=== PATIENT | female | born 1965 ===

== ENCOUNTER 2020-01-04 11:00 | Outpatient (REF) | payer OTHER, SELFPAY ==
[2020-01-04 11:30] VITALS: BMI 35.2
[2020-01-04 11:36] VITALS: BP 148/77; PULSE 91; RESP 16; TEMP 36.6; O2SAT 98
[2020-01-04 12:34] VITALS: BP 120/75; PULSE 91; RESP 16; O2SAT 96
--- NOTE | 2020-01-04 12:43 | OP_ITS ---
SURGEON: Vinod Montanez MD INDICATIONS: The patient is a 54-year-old female with note of a skin lesion in the left cheek measuring about 3 x 4 mm in diameter, slightly elevated in pigment, but with well-defined margins. She also had another similar-looking skin lesion on the right hip area about 1.4 cm x 1 cm in size, oval in shape, also with well-defined margins, slightly elevated and pigmented as well. Both of these resembled nevi.. She understood technique of excision and she was aware of the risks, benefits, and alternatives. PREOPERATIVE DIAGNOSIS: Skin lesion, left cheek; and skin lesion, right hip area. POSTOPERATIVE DIAGNOSIS: Skin lesion, left cheek; and skin lesion, right hip area. PROCEDURE PERFORMED: Excision of skin lesion, left cheek; and excision of skin lesion, right hip area. ESTIMATED BLOOD LOSS: COMPLICATIONS: ANESTHESIA: ASSISTANTS: SPECIMENS: DESCRIPTION OF PROCEDURE: She was brought to the minor procedure room and placed supine on the table. The area of the lesion on the left cheek was prepped and draped. Lidocaine 1% was used for local anesthesia. An elliptical incision was made around this skin lesion with margins of skin using blade #15, it was carried down to full-thickness skin and subcutaneous fat. We excised the entire skin lesion. This incision was made along the Cuauhtemoc's lines of the skin. I closed the incision with full-thickness nylon 5-0 interrupted sutures. Steri-Strips were then applied. The patient was placed in left lateral decubitus position. The area of the lesion on the right hip was prepped and draped. Lidocaine 1% was used for local anesthesia. An elliptical incision was made in the skin around this lesion using blade #15 with margins of normal skin. This was carried down to full-thickness skin and subcutaneous fat to excise the entire lesion. This was sent as specimen. I closed the incision with full-thickness nylon 3-0 interrupted sutures. Dressings were applied. She tolerated procedure well. There were no complications noted. She was given wound care instructions. She will be seen in the office for followup for removal of sutures. MD SHAHZAD Camarena/JENNIFER / [phone] UNITED HEALTH SERVICESMarjorie
== END 2020-01-04 11:01 | disposition home or self-care (01) ==
LOC: HO.MS 11:00
PROVIDERS: PCP Internal Medicine; Visit Provider Surgery
PROC: (CPT 11441; principal; 2020-01-04 12:30)
DX: L82.1 Other seborrheic keratosis (principal); L21.9 Seborrheic dermatitis, unspecified
CPT/HCPCS: 11441; 11402; 88305

== ENCOUNTER → 2020-01-16 10:41 | Outpatient (BNVA) | payer OTHER, SELFPAY | PROVIDERS: PCP Internal Medicine; Visit Provider Surgery | DX: Z09 Encounter for follow-up examination after completed treatment for conditions other than malignant neoplasm (principal); Z87.2 Personal history of diseases of the skin and subcutaneous tissue | CPT/HCPCS: 99212 ==

== ENCOUNTER → 2020-01-30 09:36 | Outpatient (BNVA) | payer OTHER, SELFPAY | PROVIDERS: PCP Internal Medicine; Referring Provider Internal Medicine; Visit Provider Nurse Practitioner | DX: R10.84 Generalized abdominal pain (principal); K21.9 Gastro-esophageal reflux disease without esophagitis; K90.89 Other intestinal malabsorption; Z83.71 Family history of colonic polyps | CPT/HCPCS: Q3014 ==

== ENCOUNTER 2020-02-20 13:13 | Outpatient (REF) | payer OTHER, SELFPAY | END 2020-02-20 13:14 | disposition home or self-care (01) | LOC: HO.LAB 13:13 | PROVIDERS: Visit Provider Internal Medicine | DX: Z20.828 Contact with and (suspected) exposure to other viral communicable diseases (principal) | CPT/HCPCS: C9803; U0003 ==

== ENCOUNTER → 2020-03-12 10:47 | Outpatient (BNVA) | payer OTHER, SELFPAY | PROVIDERS: PCP Internal Medicine; Visit Provider Nurse Practitioner | DX: Z13.89 Encounter for screening for other disorder (principal) | CPT/HCPCS: Q3014 ==

== ENCOUNTER → 2020-04-07 11:50 | Outpatient (BNVA) | payer OTHER, SELFPAY | PROVIDERS: PCP Internal Medicine; Visit Provider Nurse Practitioner ==

== ENCOUNTER → 2020-07-17 14:11 | Outpatient (BNVA) | payer OTHER, SELFPAY | PROVIDERS: PCP Internal Medicine; Visit Provider Nurse Practitioner | DX: Z13.89 Encounter for screening for other disorder (principal) | CPT/HCPCS: Q3014 ==

== ENCOUNTER → 2020-08-29 14:52 | Outpatient (BNVA) | payer OTHER, SELFPAY | PROVIDERS: PCP Internal Medicine; Visit Provider Nurse Practitioner ==

== ENCOUNTER 2020-10-13 08:48 | Outpatient (REF) | payer OTHER, SELFPAY ==
[2020-10-14 08:34] LABS: BV Int Neg Control Negative (Negative); BV Int Pos Control Positive (Positive)
== END 2020-10-13 08:49 | disposition home or self-care (01) ==
LOC: HO.LAB 08:48
PROVIDERS: PCP Internal Medicine; Visit Provider Advanced Practice Midwife
DX: Z01.411 Encounter for gynecological examination (general) (routine) with abnormal findings (principal); N89.8 Other specified noninflammatory disorders of vagina; R10.30 Lower abdominal pain, unspecified; R21 Rash and other nonspecific skin eruption; D22.9 Melanocytic nevi, unspecified
CPT/HCPCS: 87480; 87510; 87660

== ENCOUNTER 2020-11-26 07:23 | Outpatient (REF) | payer OTHER, SELFPAY ==
--- NOTE | 2020-11-26 07:46 | ECG_ITS ---
Test Reason : e78.5 Blood Pressure : / mmHG Vent. Rate : 062 BPM Atrial Rate : 062 BPM P-R Int : 138 ms QRS Dur : 086 ms QT Int : 450 ms P-R-T Axes : 047 033 002 degrees QTc Int : 456 ms Normal sinus rhythm Normal ECG No previous ECGs available Referred By: Demetrice Persno Electronically Signed By:LOU PALACIOS
[2020-11-26 08:17] LABS: MANUAL DIFF FLAG NO
[2020-11-26 08:36] LABS: Basophils Percent Auto 0.4 % (0-2); Eosinophils Absolute Auto 0.1 X10*3/uL (0.0-0.4); Eosinophils Percent Auto 1.6 % (0-4); Hematocrit 36.4 % (37-47); Hemoglobin 12.1 g/dl (12.0-16.0); Imm Gran Abs Auto 0.01 X10*3/uL (0.00-0.03); Imm Gran Pct Auto 0.2 % (0.0-0.4); Lymphocytes Absolute Auto 2.7 X10*3/uL (1.2-4.9); Lymphocytes Percent Auto 48.6 % (20-40); Mean Corpuscular HGB Conc 33.2 g/dl (31.0-35.0); Mean Corpuscular Hemoglobin 27.9 pg (27.0-33.0); Mean Corpuscular Volume 84.1 fL (80-98); Mean Platelet Volume 8.7 fL (9.4-12.3); Monocytes Absolute Auto 0.4 X10*3/uL (0.1-1.2); Monocytes Percent Auto 6.4 % (2-11); Neutrophils Absolute Auto 2.4 X10*3/uL (2.0-8.3); Neutrophils Percent Auto 42.8 % (45-73); Platelet Count 288 X10*3/uL (160-400); Red Blood Count 4.33 X10*6/uL (4.20-5.50); Red Cell Distribution Width 13.2 % (11.0-16.0); White Blood Count 5.6 X10*3/uL (4.8-10.8)
[2020-11-26 08:56] LABS: Alanine Aminotransferase 43 U/L (0-31); Albumin Level 4.3 g/dL (3.5-5.0); Alkaline Phosphatase 74 U/L (39-117); Anion Gap 12 (12-20); Aspartate Amino Transferase 33 U/L (5-31); Bilirubin Total 0.7 mg/dL (0.0-1.0); Blood Urea Nitrogen 11 mg/dL (9-16); Calcium 9.5 mg/dL (8.4-10.2); Carbon Dioxide 25 mmol/L (22-29); Chloride 110 mmol/L (96-108); Cholesterol 187 mg/dL; Estimated Glomerular Filt Rate > 60; Glucose Fasting 98 mg/dL (60-99); HDL Cholesterol 43 mg/dL; LDL Cholesterol Calculated 111 mg/dl; Potassium 3.9 mmol/L (3.3-5.1); Sodium 143 mmol/L (135-145); Triglycerides 168 mg/dL
[2020-11-26 09:17] LABS: Thyroid Stimulating Hormone 0.86 uIU/mL (0.32-4.0)
[2020-12-03 13:16] LABS: Vitamin D 25-OH, D2 <4 ng/mL; Vitamin D 25-OH, D3 29 ng/mL; Vitamin D 25-OH, Total 29 ng/mL (30-100)
== END 2020-11-26 07:24 | disposition home or self-care (01) ==
LOC: HO.LAB 07:23
PROVIDERS: PCP Internal Medicine; Visit Provider Internal Medicine
DX: E78.5 Hyperlipidemia, unspecified (principal); E03.9 Hypothyroidism, unspecified; D64.9 Anemia, unspecified; G43.909 Migraine, unspecified, not intractable, without status migrainosus; E55.9 Vitamin D deficiency, unspecified
CPT/HCPCS: 36415; 80053; 80061; 82306; 84443; 85025; 93005

== ENCOUNTER → 2020-12-15 15:12 | Outpatient (BNVA) | payer OTHER, SELFPAY | PROVIDERS: PCP Internal Medicine; Visit Provider Internal Medicine | DX: M54.6 Pain in thoracic spine (principal); G58.8 Other specified mononeuropathies | CPT/HCPCS: 99212 ==

== ENCOUNTER → 2021-01-12 15:02 | Outpatient (BNVA) | payer OTHER, SELFPAY | PROVIDERS: PCP Internal Medicine; Visit Provider Internal Medicine | DX: M54.6 Pain in thoracic spine (principal); G58.8 Other specified mononeuropathies; E78.5 Hyperlipidemia, unspecified; E03.9 Hypothyroidism, unspecified; E66.3 Overweight; Z68.34 Body mass index [BMI] 34.0-34.9, adult | CPT/HCPCS: 99212 ==

== ENCOUNTER 2021-03-16 14:15 | Outpatient (REF) | payer OTHER, SELFPAY ==
[2021-03-16 15:16] LABS: Influenza A PCR NEGATIVE (Negative); Influenza B PCR NEGATIVE (Negative); Resp Syncy Virus RNA Qual PCR NEGATIVE (Negative); SARS COV2 PCR INHOUSE POSITIVE (Negative)
== END 2021-03-16 14:16 | disposition home or self-care (01) ==
LOC: HO.LNP 14:15
PROVIDERS: Visit Provider Nurse Practitioner Family
DX: Z20.822 Contact with and (suspected) exposure to COVID-19 (principal); R52 Pain, unspecified
CPT/HCPCS: 0241U

== ENCOUNTER 2021-08-18 10:45 | Outpatient (REF) | payer OTHER, SELFPAY ==
[2021-08-18 16:52] LABS: CT PCR NOT DETECTED (Not Detect.); NG PCR NOT DETECTED (Not Detect.)
[2021-08-19 13:00] LABS: BV Int Neg Control Negative (Negative); BV Int Pos Control Positive (Positive)
== END 2021-08-18 10:46 | disposition home or self-care (01) ==
LOC: HO.LAB 10:45
PROVIDERS: PCP Internal Medicine; Visit Provider Advanced Practice Midwife
DX: R31.9 Hematuria, unspecified (principal); R10.2 Pelvic and perineal pain; R30.0 Dysuria; N76.0 Acute vaginitis; Z87.442 Personal history of urinary calculi; Z80.41 Family history of malignant neoplasm of ovary
CPT/HCPCS: 81003; 87086; 87088; 87480; 87491; 87510; 87591; 87660; 99212

== ENCOUNTER → 2021-08-28 12:31 | Outpatient (BNVA) | payer OTHER, SELFPAY | PROVIDERS: PCP Internal Medicine; Visit Provider Nurse Practitioner | DX: K59.00 Constipation, unspecified (principal); K21.9 Gastro-esophageal reflux disease without esophagitis; Z86.010 Personal history of colon polyps | CPT/HCPCS: 99212 ==

== ENCOUNTER 2021-09-24 10:45 | Outpatient (REF) | payer OTHER, SELFPAY ==
--- NOTE | ~2021-09-24 | US_ITS ---
EXAMINATION: US PELVIS CLINICAL INFORMATION: Pain, postmenopausal. COMPARISON: None TECHNIQUE: Ultrasound of the pelvis is performed using both transabdominal and transvaginal transducers along with Doppler. Transvaginal imaging is performed due to inadequate visualization transabdominally. FINDINGS: The uterus is heterogeneous and measures 12.3 0.3 x 4.6 cm. No discrete fibroids. Endometrial thickness 0.4 cm. No significant free fluid. Right ovary not visualized. Left ovary is grossly unremarkable and measures 2.0 x 0.9 x 1.7 cm, volume 1.6 mL. Limited visualization due to bowel gas and body habitus. US/US pelvic and transvaginal IMPRESSION: 1. Heterogeneous uterus with no discrete fibroids. Left ovary seen only on transabdominal images and is grossly unremarkable although visualization limited. 2. Imaged segment of endometrium measures 0.4 cm in thickness, but visualization limited. Correlation with clinical exam and gynecologic consultation recommended in this postmenopausal patient. 3. Right ovary not visualized. Limited visualization due to bowel gas and body habitus.
== END 2021-09-24 10:46 | disposition home or self-care (01) ==
LOC: HO.US 10:45
PROVIDERS: Visit Provider Advanced Practice Midwife
DX: R10.2 Pelvic and perineal pain (principal)
CPT/HCPCS: 76830; 76856

== ENCOUNTER 2021-10-15 10:41 | Outpatient (REF) | payer OTHER, SELFPAY ==
[2021-10-15 11:05] LABS: MANUAL DIFF FLAG NO
[2021-10-15 11:36] LABS: Basophils Percent Auto 0.7 % (0-2); Eosinophils Absolute Auto 0.1 X10*3/uL (0.0-0.4); Eosinophils Percent Auto 1.7 % (0-4); Hematocrit 39.6 % (37.0-47.0); Imm Gran Abs Auto 0.01 X10*3/uL (0.00-0.03); Imm Gran Pct Auto 0.2 % (0.0-0.4); Lymphocytes Absolute Auto 2.6 X10*3/uL (1.2-4.9); Lymphocytes Percent Auto 48.9 % (20-40); Mean Corpuscular HGB Conc 32.8 g/dl (31.0-35.0); Mean Corpuscular Hemoglobin 27.5 pg (27.0-33.0); Mean Corpuscular Volume 83.9 fL (80.0-98.0); Mean Platelet Volume 8.9 fL (9.4-12.3); Monocytes Absolute Auto 0.4 X10*3/uL (0.1-1.2); Monocytes Percent Auto 6.9 % (2-11); Neutrophils Absolute Auto 2.3 x10*3/uL (2.0-8.3); Neutrophils Percent Auto 41.6 % (45-73); Platelet Count 296 X10*3/uL (160-400); Red Blood Count 4.72 X10*6/uL (4.20-5.50); Red Cell Distribution Width 13.5 % (11.0-16.0); White Blood Count 5.4 X10*3/uL (4.8-10.8)
[2021-10-15 12:02] LABS: Alanine Aminotransferase 38 U/L (0-31); Albumin Level 4.6 g/dL (3.5-5.0); Alkaline Phosphatase 79 U/L (39-117); Anion Gap 14 (12-20); Aspartate Amino Transferase 33 U/L (5-31); Bilirubin Total 0.6 mg/dL (0.0-1.0); Blood Urea Nitrogen 13 mg/dL (9-16); Calcium 9.7 mg/dL (8.4-10.2); Carbon Dioxide 25 mmol/L (22-29); Chloride 108 mmol/L (96-108); Cholesterol 197 mg/dL; Estimated Glomerular Filt Rate > 60; Glucose Fasting 97 mg/dL (60-99); HDL Cholesterol 45 mg/dL; LDL Cholesterol Calculated 115 mg/dl; Potassium 4.4 mmol/L (3.3-5.1); Sodium 143 mmol/L (135-145); Total Protein 7.5 g/dL (6.5-8.0); Triglycerides 186 mg/dL
[2021-10-15 12:25] LABS: Thyroid Stimulating Hormone 0.46 uIU/mL (0.32-4.0)
== END 2021-10-15 10:42 | disposition home or self-care (01) ==
LOC: HO.LAB 10:41
PROVIDERS: PCP Internal Medicine; Visit Provider Internal Medicine
DX: E03.9 Hypothyroidism, unspecified (principal); E66.9 Obesity, unspecified; Z68.34 Body mass index [BMI] 34.0-34.9, adult; E78.5 Hyperlipidemia, unspecified
CPT/HCPCS: 36415; 80053; 80061; 84443; 85025

== ENCOUNTER → 2021-11-11 10:58 | Outpatient (BNVA) | payer OTHER, SELFPAY | PROVIDERS: PCP Internal Medicine; Visit Provider Nurse Practitioner | DX: K21.9 Gastro-esophageal reflux disease without esophagitis (principal); K90.89 Other intestinal malabsorption; D12.6 Benign neoplasm of colon, unspecified; E73.9 Lactose intolerance, unspecified | CPT/HCPCS: 99212 ==

== ENCOUNTER 2021-11-20 15:49 | Outpatient (REF) | payer OTHER, SELFPAY ==
--- NOTE | ~2021-11-20 | US_ITS ---
EXAMINATION: US THYROID CLINICAL INFORMATION: Nontoxic goiter, unspecified. COMPARISON: None TECHNIQUE: Linear transducer smith-scale and color Doppler examination with attention to the region of the thyroid. FINDINGS: SIZE: Measurements of the thyroid lobes and nodules are given in sagittal, anteroposterior and transverse dimensions respectively. Right Thyroid Lobe: 4.5 x 0.8 x 1.4 cm, volume 2.6 mL. Parenchyma: The gland echotexture is heterogeneous. Thyroid vascularity is normal. Left Thyroid Lobe: 2.5 x 0.6 x 0.8 cm, volume 0.6 mL. Parenchyma: The gland echotexture is heterogeneous. Thyroid vascularity is normal. Isthmus: 0.3 cm in maximum AP dimension. Estimated total number of nodules greater than or equal to 1 cm: 0. Business Management Analyst nodules are described as follows: 1. Location: Right upper pole/isthmus. Size: 0.4 x 0.3 x 0.4 cm, volume 0.02 mL. Nodule characteristics: Composition: Cystic(0). ACR TI-RADS total points: 0 ACR TI-RADS category: 1 2. Location: Right lower pole. Size: 0.9 x 0.8 x 0.6 cm, volume 0.2 mL. Nodule characteristics: Composition: Solid (2). Echogenicity: Hyperechoic (1). Shape: Not taller than wide (0). Margins: Smooth (0). Echogenic Foci: None (0). ACR TI-RADS total points: 3 ACR TI-RADS category: 3 NODES: No lymphadenopathy is seen in the tissue surrounding the thyroid gland. US/US thyroid IMPRESSION: Heterogeneous thyroid gland with subcentimeter nonsuspicious right lobe nodules. The left lobe is small measuring 0.6 mL volume. ACR TI-RADS RECOMMENDATION REFERENCE: Ultrasound-guided fine-needle aspiration, followup ultrasound, no further follow up. * TR1 (0 point) and TR 2 (2 points): No FNA or follow up. * TR3 (3 points): FNA if more than or equal to 2.5 cm in maximum dimension, followup ultrasound in 1, 3 and 5 years if 1.5 to 2.4 cm in maximum dimension. * TR4 (4-6 points): FNA if more than or equal to 1.5 cm in maximum dimension, followup ultrasound in 1, 2, 3 and 5 years if 1 to 1.4 cm in maximum dimension. * TR5 (more than or equal to 7 points): FNA if more than or equal to 1 cm in maximum dimension, followup ultrasound every year for 5 years if 0.5 to 0.9 cm in maximum dimension. * TR3, TR4 or TR5 nodules that are below the size threshold for followup receive no follow up.
== END 2021-11-20 15:50 | disposition home or self-care (01) ==
LOC: HO.US 15:49
PROVIDERS: Visit Provider Student in an Organized Health Care Education/Training Program
DX: E04.9 Nontoxic goiter, unspecified (principal)
CPT/HCPCS: 76536

== ENCOUNTER 2022-01-26 12:21 | Outpatient (REF) | payer OTHER, SELFPAY ==
--- NOTE | ~2022-01-26 | XR_ITS ---
EXAMINATION: XR CHEST CLINICAL INFORMATION: Posterior chest pain, shortness of breath since COVID 3 weeks ago. COMPARISON: None TECHNIQUE: 2 views of the chest were obtained. FINDINGS: There is linear scarring versus disc atelectasis left posterior lateral base. The lungs otherwise clear. There is no lobar or segmental airspace consolidation, groundglass opacity, pleural reaction, or effusion. No pneumothorax or pneumomediastinum. The heart is within normal size. The vascularity is normal. The hilar and mediastinal contours are unremarkable. No acute bony abnormality. XR/XR chest 2V IMPRESSION: 1. Linear scarring versus disc atelectasis left posterior lateral base. 2. Lungs otherwise clear. No pneumothorax.
== END 2022-01-26 12:22 | disposition home or self-care (01) ==
LOC: HO.XRAY 12:21
PROVIDERS: PCP Internal Medicine; Visit Provider Internal Medicine
DX: J45.40 Moderate persistent asthma, uncomplicated (principal)
CPT/HCPCS: 71046

== ENCOUNTER → 2022-02-17 15:17 | Outpatient (BNVA) | payer OTHER, SELFPAY | PROVIDERS: PCP Internal Medicine; Visit Provider Internal Medicine | DX: J45.40 Moderate persistent asthma, uncomplicated (principal); R40.0 Somnolence; G47.33 Obstructive sleep apnea (adult) (pediatric); E66.9 Obesity, unspecified; Z68.33 Body mass index [BMI] 33.0-33.9, adult | CPT/HCPCS: 99202 ==

== ENCOUNTER → 2022-02-24 09:32 | Outpatient (BNVA) | payer OTHER, SELFPAY | PROVIDERS: PCP Internal Medicine; Visit Provider Nurse Practitioner | DX: K21.9 Gastro-esophageal reflux disease without esophagitis (principal); K90.89 Other intestinal malabsorption; R14.0 Abdominal distension (gaseous); R10.84 Generalized abdominal pain; D12.6 Benign neoplasm of colon, unspecified | CPT/HCPCS: 99212 ==

== ENCOUNTER 2022-02-26 09:50 | Outpatient (REF) | payer OTHER, SELFPAY | END 2022-02-26 09:51 | disposition home or self-care (01) | LOC: HO.LNP 09:50 | PROVIDERS: Visit Provider Nurse Practitioner | DX: R14.0 Abdominal distension (gaseous) (principal); K21.9 Gastro-esophageal reflux disease without esophagitis; R10.84 Generalized abdominal pain; K90.89 Other intestinal malabsorption; D12.6 Benign neoplasm of colon, unspecified | CPT/HCPCS: 87338 ==

== ENCOUNTER → 2022-03-10 09:48 | Outpatient (REF) | payer OTHER, SELFPAY | LOC: HO.SL 09:48 | PROVIDERS: PCP Internal Medicine; Visit Provider Internal Medicine | DX: G47.33 Obstructive sleep apnea (adult) (pediatric) (principal); R40.0 Somnolence; E66.9 Obesity, unspecified | CPT/HCPCS: 95806 ==

== ENCOUNTER → 2022-04-07 09:11 | Outpatient (BNVA) | payer OTHER, SELFPAY | PROVIDERS: PCP Internal Medicine; Visit Provider Nurse Practitioner | DX: Z13.89 Encounter for screening for other disorder (principal) ==

== ENCOUNTER 2022-05-25 08:49 | Outpatient (REF) | payer OTHER, SELFPAY ==
[2022-05-25 09:58] LABS: Thyroid Stimulating Hormone 0.05 uIU/mL (0.32-4.0)
== END 2022-05-25 08:50 | disposition home or self-care (01) ==
LOC: HO.LAB 08:49
PROVIDERS: PCP Internal Medicine; Visit Provider Internal Medicine
DX: E03.9 Hypothyroidism, unspecified (principal)
CPT/HCPCS: 36415; 84443

== ENCOUNTER → 2022-05-26 09:07 | Outpatient (BNVA) | payer OTHER, SELFPAY | PROVIDERS: PCP Internal Medicine; Visit Provider Nurse Practitioner | DX: Z01.818 Encounter for other preprocedural examination (principal); K90.89 Other intestinal malabsorption; D12.6 Benign neoplasm of colon, unspecified; K21.9 Gastro-esophageal reflux disease without esophagitis; E73.9 Lactose intolerance, unspecified; J45.40 Moderate persistent asthma, uncomplicated; G47.33 Obstructive sleep apnea (adult) (pediatric); Z90.49 Acquired absence of other specified parts of digestive tract | CPT/HCPCS: 99212 ==

== ENCOUNTER 2022-05-27 09:53 | Outpatient (REF) | payer OTHER, SELFPAY ==
[2022-05-27 10:08] LABS: MANUAL DIFF FLAG NO
[2022-05-27 10:51] LABS: Basophils Percent Auto 0.3 % (0-2); Eosinophils Absolute Auto 0.1 X10*3/uL (0.0-0.4); Eosinophils Percent Auto 1.3 % (0-4); Hematocrit 40.7 % (37.0-47.0); Hemoglobin 13.1 g/dl (12.0-16.0); Imm Gran Abs Auto 0.03 X10*3/uL (0.00-0.03); Imm Gran Pct Auto 0.5 % (0.0-0.4); Lymphocytes Absolute Auto 2.7 X10*3/uL (1.2-4.9); Lymphocytes Percent Auto 45.8 % (20-40); Mean Corpuscular HGB Conc 32.2 g/dl (31.0-35.0); Mean Corpuscular Hemoglobin 27.6 pg (27.0-33.0); Mean Corpuscular Volume 85.7 fL (80.0-98.0); Mean Platelet Volume 8.6 fL (9.4-12.3); Monocytes Absolute Auto 0.3 X10*3/uL (0.1-1.2); Monocytes Percent Auto 5.7 % (2-11); Neutrophils Absolute Auto 2.8 x10*3/uL (2.0-8.3); Neutrophils Percent Auto 46.4 % (45-73); Platelet Count 323 X10*3/uL (160-400); Red Blood Count 4.75 X10*6/uL (4.20-5.50); Red Cell Distribution Width 13.1 % (11.0-16.0)
[2022-05-27 11:15] LABS: Alanine Aminotransferase 48 U/L (0-31); Albumin Level 4.3 g/dL (3.5-5.0); Alkaline Phosphatase 80 U/L (39-117); Anion Gap 12 (12-20); Aspartate Amino Transferase 36 U/L (5-31); Bilirubin Total 0.6 mg/dL (0.0-1.0); Blood Urea Nitrogen 13 mg/dL (9-16); C Reactive Protein 0.17 mg/dL (< or = 0.50); Calcium 9.5 mg/dL (8.4-10.2); Carbon Dioxide 27 mmol/L (22-29); Chloride 108 mmol/L (96-108); Estimated Glomerular Filt Rate > 60; Glucose Random 202 mg/dL (60-115); Potassium 3.9 mmol/L (3.3-5.1); Sodium 143 mmol/L (135-145); Total Protein 7.1 g/dL (6.5-8.0)
== END 2022-05-27 09:54 | disposition home or self-care (01) ==
LOC: HO.LAB 09:53
PROVIDERS: PCP Internal Medicine; Visit Provider Nurse Practitioner
DX: R10.84 Generalized abdominal pain (principal)
CPT/HCPCS: 36415; 80053; 85025; 86140

== ENCOUNTER 2022-09-22 09:17 | Outpatient (AMB) | payer OTHER, SELFPAY ==
--- NOTE | 2022-09-22 09:25 | A.OFFVIS_ITS ---
Intake Vital Signs 09/22/22 09:45 Height 5 ft Weight 175 lb 7.807 oz BMI 34.3 BP 120/68 Blood Pressure Location Lt brachial Position Sitting Pulse 67 Intake Visit Reasons: 6 weeks follow up Intake Note: Ximena presents in office as a est.patient for a 6week f/u PT CC: pt reports having constipation, Gas, GERD pt denies any other GI Issues Warhead Maintenance Specialist Required: No Accompanied by: Self / Same As Patient Allergies No Known Allergies [No Known Allergies*] Allergy (Verified 09/22/22 09:44) HPI 6 weeks follow up HPI Details Assessment & Plan (1) Bile salt-induced diarrhea: ?Code(s): K90.89 - Other intestinal malabsorption ?Plan: She now has diarrhea alt with CIC at 3 carafate a day. I suggest she try 2.5 pills for her diarrhea. She also has senna on hand for PRN use. We again discuss the role of bile overproduction and how it can irritate the entire GI trace. We also discuss that fat intake will effect her diarrhea - she notes that with ribs and port she has worse (fat). She also finds that iced coffee helps her move her bowels. She had the CT at [facility] and the report ? thickening/irritation of the distal colon and they treated her with abx - which did not help. In fact, she had worse gas likely r/t disruption of her gut rabia. I recommend a probiotic supplement.? It is not unlikely that this irritation as a result of over bile production status post cholecystectomy.? I explained her that it is also possible that this is an over read which we frequently find when we do colonoscopies after such a CT scan reading. She was never contacted for the EGD/colonoscopy!! I re order it. She has obstructive sleep apnea and asthma that she feels are well controlled, she denies any cardiac problems.? There are no infectious disease problems. She has a history of tubular adenoma with her last scope in 2019 and 2 year repeat requested due to the size of the sigmoid colon polyp.. I will order some labs for this and to check a CRP (normal in 2019). She is aware of the elevated thyroid fxn and they are lowering her pill from 150mcg to 100mcg - this well could be a contributing factor in her diarrhea and with the decrease she may need to decrease the carafate. ROV 6 weeks. (2) Tubular adenoma of colon: ?Comment: 12 CM 2020 SCOPE REPEAT IN 3 YEARS ?Code(s): D12.6 - Benign neoplasm of colon, unspecified (3) GERD (gastroesophageal reflux disease): ?Code(s): K21.9 - Gastro-esophageal reflux disease without esophagitis (4) Lactose intolerance: ?Code(s): E73.9 - Lactose intolerance, unspecified (5) JERRY (obstructive sleep apnea): ?Comment: History of obstructive sleep apnea. Patient lost her machine 3 years ago. She is symptomatic at this time, and should be restarted on the CPAP. Has we do not have any clue about her previous sleep study , I think it will be best to do a new home-based sleep study. After the study will decide if she should be restarted on CPAP again. ?Code(s): G47.33 - Obstructive sleep apnea (adult) (pediatric) (6) Moderate persistent asthma: ?Comment: History of mild bronchial asthma, aggravated after recent COVID infection. [place] :? Flovent-110? 2 puffs b.i.d. ? ProAir 2 puffs Q 4-6 hours p.r.n. ?Code(s): J45.40 - Moderate persistent asthma, uncomplicated ?Qualifiers: ?Asthma complication type:?uncomplicated? Qualified Code(s):?J45.40 - Moderate persistent asthma, uncomplicated (7) Pre-op examination: ?Code(s): Z01.818 - Encounter for other preprocedural examination ? ? ? Orders: Orders Comprehensive Met. Panel Today R10.84 - Generaliz ed abdominal pain A ? C Reactive Protein Today R10.84 - Generaliz ed abdominal pain A ? Complete Blood Cou nt Auto Diff Today R10.84 - Generaliz ed abdominal pain A ? Medications: Changed From sennosides (Senna Laxative) 17.2 mg (2 x 8.6 m g) PO DAILY 60 tab s 6RF ? ? To sennosides (Senna Laxative) 17.2 mg (2 x 8.6 m g) PO DAILY PRN 60 tabs 6RF constipa tion ? ? Refilled pantoprazole (Prot adryan) 40 mg? PO DAILY 30 days 30 tabs 6RF G K21.9 - Gastro-eso phageal reflux dis ease without esoph agitis ? famotidine 20 mg? PO BEDTIME 30 tabs 6RF ? ? Discontinued docusate sodium (C olace) ?? Disconti nued Reason:? Doct or's Order 100 mg? PO .DAILY WITH FOOD 30 days 30 caps 6RF ? ? LABS: Laboratory Tests 05/25/22 05/27/22 05/27/22 08:58 10:07 10:07 WBC 6.0 Hgb 13.1 Hct 40.7 Estimated GFR > 60 Total Bilirubin 0.6 AST 36 H ALT 48 H Alkaline Phosphata se 80 C-Reactive Protein 0.17 TSH 0.05 L COLONOSCOPY/EGD Not yet scheduled.. BIOPSY TODAYS VISIT PATIENT SPEAKS GEORGIAN She is feeling quite a bit worse recently. She says that she feels like her food in the epigastric area and ?does not go down. ? This is a also accompanied by nausea although she does not allow herself to vomit. She also has quite a b it of upper abdominal pain after eating.. At this point she does not feel that the pantoprazole and famotidine or the Carafate her helping with the symptoms. She does suffer constipation intermittently but she finds that if she drinks coffee with milk this evacuate her bowels for her. With this she has not tried the senna. She describes the pain as radiating straight back and this makes me somewhat concerned that her pancreas is involved. She had a CT scan in February of 2022 that did not show any abnormality the pancreas but I think I will get pancreatic enzymes to be thorough. She also tells me that her whole family are diabetics and she has been told she is prediabetic. I think we should get some glucose testing since her last glucose was elevated to see if we should be considering gastroparesis in the differential diagnosis. She has not yet been contacted for the colonoscopy in EGD which is somewhat disappointing considering we had ordered it back in February. I have sent another note to our schedulers and I hope this can be done soon. Return office visit in 3 weeks at this point will go over her labs and her response to changing her PPI from pantoprazole to lansoprazole. [facility] Medical History Bile salt-induced diarrhea Class 1 obesity with body mass index (BMI) of 34.0 to 34.9 in adult Dyslipidemia Encounter for annual routine gynecological examination Encounter for vision screening FH: ovarian cancer in first degree relative Fixation hardware in leg Genitofemoral neuralgia of right side Hypothyroidism Migraines Moderate persistent asthma Obesity (BMI 30-39.9) JERRY (obstructive sleep apnea) Physical exam Right sided sciatica Skin lesion Skin lesions Somnolence, daytime Thoracic back pain Tubular adenoma of colon Surgical History Eroded bladder suspension mesh History of section History of cholecystectomy History of local excision of skin lesion (~01/04/20) Hx of colonoscopy Family History Paternal Aunt History of breast cancer Mother Diabetes High cholesterol Mental health disorder Ovarian cancer Stomach cancer Father No problems noted. Sister Uterine cancer Social History Household Members: Children Housing: Apartment Alcohol intake: never Patient Tobacco Use Status: Never used Tobacco e-Cigarette/Vaping Use: Never Used Second Hand Smoke Exposure: Yes service: No Current occupational status: employed Current occupational exposures/hazards: No Cognitive needs: No Hearing needs: No Vision needs: Yes Review of Systems Const Denies fatigue, Denies fever(s), Denies night sweats, Reports poor appetite and Denies weight loss Eyes Details: glasses Reports requires corrective lenses ENT Reports Normal hearing present, Denies dental pain, Denies dysphagia, Denies hearing loss, Denies mouth pain, Denies odynophagia, Denies throat swelling, Denies tongue swelling and Reports other (Dentition adequate) Card Reports no additional complaints Resp Reports no additional complaints GI Reports abdominal pain, Denies melena, Reports bloating, Denies hematochezia, Reports constipation, Denies GI cramping, Denies dysphagia, Denies excessive flatus, Reports early satiety, Reports heartburn, Reports diarrhea, Reports nausea, Denies odynophagia, Denies vomiting and Denies hematemesis Musc Reports back pain Skin/Breast Denies pruritus, Denies lesions, Denies rash and Denies jaundice Neuro Reports Normal hearing present and Denies Abnormal speech present Endo Denies fatigue Aller/Immun Denies throat swelling and Denies tongue swelling Physical Exam Vital Signs: Last Vital Signs Pulse 67 09/22/22 09:45 BP 120/68 09/22/22 09:45 BMI result Body Mass Index 34.3 Const General: cooperative, no acute distress, well developed and well groomed Nutritional Appearance: well nourished and obese Orientation/consciousness: oriented to person, oriented to place and oriented to time Limitations: No language barrier HEENT Head: Yes normocephalic and Yes atraumatic Eyes General: appearance normal, both eyes and all related structures Pupils: Equal, round and reactive pupils present Neck Neck: Yes normal visual inspection and Yes no lymphadenopathy Thyroid: Thyroid normal Resp Effort & Inspection: normal respiratory effort and able to speak in complete sentences Auscultation: clear to auscultation bilaterally Cardio Rate: regular rate Rhythm: regular rhythm Heart sounds: Normal, physiologic split S2 sound present Peripheral pulses: radial pulses present and posterior tibial pulses present GI Inspection: No distended, Yes Abdominal panniculus present and Yes obesity Palpation (GI): Soft to palpation, Tenderness to palpation present (GI) in the epigastrum, no guarding, not rigid and No hepatosplenomegaly present Percussion: Yes normal to percussion Auscultation: normal bowel sounds Rectal Exam - Female: deferred Skin General skin exam: no rashes or lesions noted, turgor normal, skin not dry, no jaundice, No spider nevi and no striae Rashes: no rashes Nails: normal Neuro General: oriented to person, oriented to place and oriented to time Cranial nerves: Yes Equal, round and reactive pupils present and Yes Normal hearing present Speech: No Abnormal speech present Extrem General: Yes normal to inspection, No clubbing, No cyanosis and No edema Psych Appearance: grossly normal and well kempt Mental Status: mental status grossly normal Speech and movement: Normal speech and movement present Affect: normal affect Attitude: cooperative Thought process: Normal thought process present and not confabulating Thought content: Normal thought content present Insight: Fair insight present (Psych) Judgement: Fair judgement present (Psych) Assessment & Plan Assessment & Plan (1) Epigastric pain: Code(s): R10.13 - Epigastric pain Plan: COLONOSCOPY/EGD Not yet scheduled.. BIOPSY TODAYS VISIT PATIENT SPEAKS GEORGIAN She is feeling quite a bit worse recently. She says that she feels like her f ood in the epigastric area and ?does not go down. ? This is a also accompanied by nausea although she does not allow herself to vomit. She also has quite a bit of upper abdominal pain after eating.. At this point she does not feel that the pantoprazole and famotidine or the Carafate her helping with the symptoms. She does suffer constipation intermittently but she finds that if she drinks co ffee with milk this evacuate her bowels for her. With this she has not tried the senna. She describes the pain as radiating straight back and this makes me somewhat concerned that her pancreas is involved. However it should be noted that she also has a history of back trouble for which she receives massage is so this could be a coincidental symptom. She had a CT scan in February of 2022 that did not show any abnormality the pancreas but I think I will get pancreatic enzymes to be thorough. She also tells me that her whole family are diabetics and she has been told she is prediabetic. I think we should get some glucose testing since her last glucose was elevated to see if we should be considering gastroparesis in the differential diagnosis. She has not yet been contacted for the colonoscopy in EGD which is somewhat disappointing considering we had ordered it back in February. I have sent another note to our schedulers and I hope this can be done soon. Return office visit in 3 weeks at this point will go over her labs and her response to changing her PPI from pantoprazole to lansoprazole. (2) Bile salt-induced diarrhea: Code(s): K90.89 - Other intestinal malabsorption (3) GERD (gastroesophageal reflux disease): Code(s): K21.9 - Gastro-esophageal reflux disease without esophagitis (4) Tubular adenoma of colon: Comment: 12 2019 SCOPE REPEAT IN 3 YEARS Code(s): D12.6 - Benign neoplasm of colon, unspecified Orders: Orders Amylase Today K21.9 - Gastro-esophageal reflux disease without esophagitis Lipase Today K21.9 - Gastro-esophageal reflux disease without esophagitis Comprehensive [place]. Panel Fast Today R10.13 - Epigastric pain Hemoglobin A1c Today R10.13 - Epigastric pain Glucose Tolerance 2 Hour Today R10.13 - Epigastric pain Medications: New lansoprazole 30 mg PO QAM 30 caps 6RF K21.9 - Gastro-esophageal reflux disease without esophagitis Refilled famotidine 20 mg PO BEDTIME 30 tabs 6RF Discontinued sennosides (Senna Laxative) Discontinued Reason: Doctor's Order 17.2 mg (2 x 8.6 mg) PO DAILY PRN 60 tabs 6RF constipation pantoprazole (Protonix) Discontinued Reason: Doctor's Order 40 mg PO DAILY 30 days 30 tabs 6RF K21.9 - Gastro-esophageal reflux disease without esophagitis Coding Level of Care Code Est Pt Level 4 (68100) Diagnoses Epigastric pain R10.13 Bile salt-induced diarrhea K90.89 GERD (gastroesophageal reflux disease) K21.9 Tubular adenoma of colon D12.6
[2022-09-22 09:45] VITALS: BP 120/68; PULSE 67; BMI 34.3
== END 2022-09-22 10:27 | disposition home or self-care (01) ==
PROVIDERS: PCP Internal Medicine; Visit Provider Nurse Practitioner
DX: R10.13 Epigastric pain (principal); K90.89 Other intestinal malabsorption; K21.9 Gastro-esophageal reflux disease without esophagitis; D12.6 Benign neoplasm of colon, unspecified
CPT/HCPCS: 99214

== ENCOUNTER → 2022-09-22 09:17 | Outpatient (BNVA) | payer OTHER, SELFPAY | PROVIDERS: PCP Internal Medicine; Visit Provider Nurse Practitioner | DX: R10.13 Epigastric pain (principal); K90.89 Other intestinal malabsorption; K21.9 Gastro-esophageal reflux disease without esophagitis; D12.6 Benign neoplasm of colon, unspecified | CPT/HCPCS: 99212 ==

== ENCOUNTER 2022-09-23 09:36 | Outpatient (REF) | payer OTHER, SELFPAY ==
[2022-09-23 11:51] LABS: Estimated Average Glucose 134 mg/dL; Hemoglobin A1C 149.8284 umol/L; Hemoglobin A1c % 6.3 %
[2022-09-23 12:05] LABS: Glucose Fasting 96 mg/dL (60-99)
[2022-09-23 12:23] LABS: Alanine Aminotransferase 43 U/L (0-31); Albumin Level 4.4 g/dL (3.5-5.0); Alkaline Phosphatase 85 U/L (39-117); Amylase 37 U/L (28-100); Anion Gap 12 (12-20); Aspartate Amino Transferase 36 U/L (5-31); Bilirubin Total 0.6 mg/dL (0.0-1.0); Blood Urea Nitrogen 12 mg/dL (9-16); Calcium 10.1 mg/dL (8.4-10.2); Carbon Dioxide 25 mmol/L (22-29); Chloride 111 mmol/L (96-108); Estimated Glomerular Filt Rate > 60; Glucose Fasting 95 mg/dL (60-99); Lipase 6 U/L (8-78); Potassium 3.9 mmol/L (3.3-5.1); Sodium 144 mmol/L (135-145); Total Protein 7.4 g/dL (6.5-8.0)
[2022-09-23 12:29] LABS: Glucose 1 Hour 222 mg/dL
[2022-09-23 14:13] LABS: Glucose 2 Hour 204 mg/dL
== END 2022-09-23 09:37 | disposition home or self-care (01) ==
LOC: HO.LAB 09:36
PROVIDERS: PCP Internal Medicine; Visit Provider Nurse Practitioner
DX: R10.13 Epigastric pain (principal); K21.9 Gastro-esophageal reflux disease without esophagitis; R73.9 Hyperglycemia, unspecified
CPT/HCPCS: 36415; 80053; 82150; 83036; 83690

== ENCOUNTER 2022-09-27 16:54 | Outpatient (AMB) | payer OTHER, SELFPAY ==
--- NOTE | 2022-09-27 17:01 | MHC.PC.OV ---
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 Accompanied by: Self / Same As Patient Allergies No Known Allergies [No Known Allergies*] Allergy (Verified 09/27/22 17:11) Medication List - Last Reconciled 09/27/22 by Demetrice Person MD cholecalciferol (vitamin D3) 25 mcg PO DAILY 90 days diclofenac sodium 75 mg PO BID famotidine 20 mg PO BEDTIME fluticasone propionate 110 mcg/actuation (Flovent HFA) 2 puffs inhalation BID 30 days lansoprazole 30 mg PO QAM levothyroxine 100 mcg PO DAILY loratadine (Allergy Relief (loratadine)) 10 mg PO DAILY meloxicam 7.5 mg PO DAILY methocarbamol 500 mg PO BEDTIME pregabalin 100 mg PO BID 30 days rosuvastatin 40 mg PO DAILY sod picosulf-mag ox-citric ac 10 mg-3.5 gram- 12 gram/160 mL (Clenpiq) 160 mL PO ONCE 2 doses sod picosulf-mag ox-citric ac 10 mg-3.5 gram- 12 gram/160 mL (Clenpiq) 160 mL PO DAILY 2 doses sucralfate (Carafate) 3 grams (3 x 1 gram) PO .q2pm topiramate 25 mg PO BID tretinoin 0.025% appl topical BEDTIME Tobacco use date assessed: 05/19/22 Dental Screening Dental Screen Date: 09/27/22 Did you have a dental visit in the last 12 months?: No Did you have a dental problem in the last 6 months where you did not have access to dental care?: No Was dental information given to patient?: No HPI HPI Comments History of Present Illness Details This is a 57 year female with mild major depression, hypothyroidism and dyslipidemia complains of thoracic spine pain that has been bothering. She will start physical therapy at the end of September. Depression has been in remission. TSH and lipid panel were ordered. No chest pain or shortness of breath. COUNT INCLUDES THE [facility] Medical History Bile salt-induced diarrhea Class 1 obesity with body mass index (BMI) of 34.0 to 34.9 in adult Dyslipidemia Encounter for annual routine gynecological examination Encounter for vision screening FH: ovarian cancer in first degree relative Fixation hardware in leg Genitofemoral neuralgia of right side Hypothyroidism Migraines Moderate persistent asthma Obesity (BMI 30-39.9) JERRY (obstructive sleep apnea) Physical exam Right sided sciatica Skin lesion Skin lesions Somnolence, daytime Thoracic back pain Tubular adenoma of colon Surgical History Eroded bladder suspension mesh History of section History of cholecystectomy History of local excision of skin lesion (~01/04/20) Hx of colonoscopy Family History Paternal Aunt History of breast cancer Mother Diabetes High cholesterol Mental health disorder Ovarian cancer Stomach cancer Father No problems noted. Sister Uterine cancer Social History Household Members: Children Housing: Apartment Alcohol intake: never Patient Tobacco Use Status: Never used Tobacco e-Cigarette/Vaping Use: Never Used Second Hand Smoke Exposure: Yes service: No Current occupational status: employed Current occupational exposures/hazards: No Cognitive needs: No Hearing needs: No Vision needs: Yes Questionnaire Thrive Questionnaire Date Thrive assessed: 05/19/22 ANA-7 AMB Questionnaire ANA-7 Date ANA - 7 assessed: 05/19/22 Source: Developed by Drs. Shun Au, Pat Garcia, Nando Pearson and colleagues, with an educational jake from [employer]. Review of Systems Const All systems reviewed & are unremarkable except as noted in HPI and below Eyes Reports no additional complaints, Denies change in vision and Denies other visual disturbances Card Denies chest pain at rest, Denies chest pain with activity, Denies edema, Denies irregular heart rhythm, Denies claudication, Denies dyspnea, Denies dyspnea on exertion, Denies orthopnea, Denies paroxysmal nocturnal dyspnea and Denies slow heart rate Resp Denies cough, Denies dyspnea and Denies dyspnea on exertion GI Denies abdominal pain, Denies change in bowel habits, Denies excessive flatus, Denies nausea and Denies vomiting Denies urinary incontinence, Denies urinary hesitancy and Denies urinary urgency Musc Denies abnormal gait, Reports back pain, Denies atrophy, Denies deformity and Denies limited range of motion Skin/Breast Denies bleeding lesions, Denies changing lesions and Denies rash Neuro Denies abnormal gait and Denies lack of coordination Physical exam (Primary Care) Vital Signs: Last Vital Signs BP 150/80 H 09/27/22 17:04 BMI result Body Mass Index 34.2 Tobacco/Smoking Status: Tobacco use Status Tobacco use date assessed 05/19/22 09/27/22 17:10 Patient Tobacco Use Status Never used Tobacco 09/27/22 17:10 e-Cigarette/Vaping Use Never Used 09/27/22 17:10 Thrive Assessment: Date of Thrive Assessment Date Thrive assessed 05/19/22 09/27/22 17:10 Eyes General: appearance normal, both eyes and all related structures Eyelids: Yes eyelids normal Conjunctivae: conjunctivae normal Neck Neck: Yes normal visual inspection and Yes supple Resp Effort & Inspection: normal respiratory effort Auscultation: clear to auscultation bilaterally Cardio Jugular venous distension: no JVD Rate: regular rate Rhythm: regular rhythm Heart sounds: S1 normal heart sound present and S2 normal heart sound present Extrem General: Yes full ROM Assessment and Plan Assessment & Plan (1) Hypothyroidism: Code(s): E03.9 - Hypothyroidism, unspecified Plan: Continue levothyroxine. (2) Dyslipidemia: Code(s): E78.5 - Hyperlipidemia, unspecified Plan: Continue statins. Repeat lipid panel. (3) Mild major depression, single episode: Code(s): F32.0 - Major depressive disorder, single episode, mild Plan: In remission. (4) Thoracic spine pain: Code(s): M54.6 - Pain in thoracic spine Plan: Start physical therapy. Orders: Orders PT Evaluation and Treatment Today M54.6 - Pain in thoracic spine Lipid Panel Today E78.5 - Hyperlipidemia, unspecified Thyroid Stimulating Hormone Today E03.9 - Hypothyroidism, unspecified Vitamin D 25-OH Total Today E55.9 - Vitamin D deficiency, unspecified Medications: New lidocaine 5% leave on most painful area for up to 12 hrs 1 patch topical DAILY 30 days PRN 30 ea 0RF pain M54.6 - Pain in thoracic spine Coding Level of Care Code Est Pt Level 4 (97312) Diagnoses Hypothyroidism E03.9 Dyslipidemia E78.5 Mild major depression, single episode F32.0 Thoracic spine pain M54.6 Time Spent (min) 22
[2022-09-27 17:04] VITALS: BP 150/80; BMI 34.2
== END 2022-09-27 17:21 | disposition home or self-care (01) ==
PROVIDERS: Visit Provider Internal Medicine
DX: E03.9 Hypothyroidism, unspecified (principal); E78.5 Hyperlipidemia, unspecified; F32.0 Major depressive disorder, single episode, mild; M54.6 Pain in thoracic spine
CPT/HCPCS: 99214

== ENCOUNTER 2022-10-01 08:39 | Outpatient (REF) | payer OTHER, SELFPAY ==
[2022-10-01 10:13] LABS: Cholesterol 161 mg/dL; HDL Cholesterol 46 mg/dL; LDL Cholesterol Calculated 86 mg/dl; Triglycerides 147 mg/dL
[2022-10-01 10:24] LABS: Thyroid Stimulating Hormone 1.55 uIU/mL (0.32-4.0); Vitamin D 25-OH Total 56.6 ng/mL (>30)
== END 2022-10-01 08:40 | disposition home or self-care (01) ==
LOC: HO.LAB 08:39
PROVIDERS: PCP Internal Medicine; Visit Provider Internal Medicine
DX: E03.9 Hypothyroidism, unspecified (principal); E78.5 Hyperlipidemia, unspecified; E55.9 Vitamin D deficiency, unspecified
CPT/HCPCS: 36415; 80061; 82306; 84443

== ENCOUNTER 2022-10-19 15:40 | Outpatient (AMB) | payer OTHER, SELFPAY ==
[2022-10-19 15:52] VITALS: BP 122/80; PULSE 76; O2SAT 99; BMI 34.2
--- NOTE | 2022-10-19 15:52 | MHC.PC.OV ---
Vital Signs 10/19/22 15:52 Height 5 ft Weight 175 lb 4 oz BMI 34.2 BP 122/80 Blood Pressure Location Lt brachial Position Sitting Pulse 76 Pulse Source Pulse Oximeter Pulse Oximetry (%) 99 Oxygen Delivery Method Room Air Intake Visit Reasons: PE Intake Note: Patient is here today for a physical. 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: No Accompanied by: Self / Same As Patient Allergies No Known Allergies [No Known Allergies*] Allergy (Verified 10/19/22 16:07) Medication List - Last Reconciled 10/19/22 by Demetrice Person MD blood pressure monitor (Blood Pressure Kit) As directed cholecalciferol (vitamin D3) 25 mcg PO DAILY 90 days diclofenac sodium 75 mg PO BID famotidine 20 mg PO BEDTIME fluticasone propionate 110 mcg/actuation (Flovent HFA) 2 puffs inhalation BID 30 days lansoprazole 30 mg PO QAM levothyroxine 100 mcg PO DAILY lidocaine 5% 1 patch topical DAILY PRN 30 days loratadine (Allergy Relief (loratadine)) 10 mg PO DAILY meloxicam 7.5 mg PO DAILY methocarbamol 500 mg PO BEDTIME pregabalin 100 mg PO BID 30 days rosuvastatin 40 mg PO DAILY sod picosulf-mag ox-citric ac 10 mg-3.5 gram- 12 gram/160 mL (Clenpiq) 160 mL PO ONCE 2 doses sod picosulf-mag ox-citric ac 10 mg-3.5 gram- 12 gram/160 mL (Clenpiq) 160 mL PO DAILY 2 doses sucralfate (Carafate) 3 grams (3 x 1 gram) PO .q2pm topiramate 25 mg PO BID tretinoin 0.025% appl topical BEDTIME Tobacco use date assessed: 05/19/22 Dental Screening Dental Screen Date: 10/19/22 Did you have a dental visit in the last 12 months?: No Did you have a dental problem in the last 6 months where you did not have access to dental care?: No Was dental information given to patient?: Yes HPI HPI Comments History of Present Illness Details This is a 57 year old female that comes for her physical exam. Last mammogram was February 2022. Last colonoscopy was 2019 showing tubular adenoma and will be repeated this year. Pap smear was done 2018 with negative HPV. No chest pain or shortness of breath. [facility] Medical History (Updated 10/19/22 @ 18:43 by Demetrice Person MD) Bile salt-induced diarrhea Class 1 obesity with body mass index (BMI) of 34.0 to 34.9 in adult Dyslipidemia Encounter for annual routine gynecological examination Encounter for vision screening FH: ovarian cancer in first degree relative Fixation hardware in leg Genitofemoral neuralgia of right side Hypothyroidism Migraines Moderate persistent asthma Obesity (BMI 30-39.9) JERRY (obstructive sleep apnea) Physical exam Right sided sciatica Skin lesion Skin lesions Somnolence, daytime Thoracic back pain Tubular adenoma of colon Surgical History Eroded bladder suspension mesh History of section History of cholecystectomy History of local excision of skin lesion (~01/04/20) Hx of colonoscopy Family History (Updated 10/19/22 @ 16:12 by Demetrice Person MD) Paternal Aunt History of breast cancer Mother Diabetes High cholesterol Mental health disorder Stomach cancer Uterine cancer, Onset Age: 82 Ovarian cancer Father No problems noted. Sister Uterine cancer Social History Household Members: Children Housing: Apartment Alcohol intake: never Patient Tobacco Use Status: Never used Tobacco e-Cigarette/Vaping Use: Never Used Second Hand Smoke Exposure: Yes service: No Current occupational status: employed Current occupational exposures/hazards: No Cognitive needs: No Hearing needs: No Vision needs: Yes Questionnaire Thrive Questionnaire Date Thrive assessed: 05/19/22 ANA-7 AMB Questionnaire ANA-7 Date ANA - 7 assessed: 05/19/22 Source: Developed by Drs. Shun Au, Pat Garcia, Nando Pearson and colleagues, with an educational jake from [employer]. Review of Systems Const All systems reviewed & are unremarkable except as noted in HPI and below Eyes Reports no additional complaints, Denies change in vision and Denies other visual disturbances ENT Denies change in voice, Denies nasal discharge and Denies sinus pain Card Denies chest pain at rest, Denies chest pain with activity, Denies edema, Denies irregular heart rhythm, Denies claudication, Denies dyspnea, Denies dyspnea on exertion, Denies orthopnea, Denies paroxysmal nocturnal dyspnea and Denies slow heart rate Resp Denies cough, Denies dyspnea and Denies dyspnea on exertion GI Denies abdominal pain, Denies change in bowel habits, Denies excessive flatus, Denies nausea and Denies vomiting Denies urinary incontinence, Denies urinary hesitancy and Denies urinary urgency Musc Denies abnormal gait, Denies atrophy, Denies deformity and Denies limited range of motion Skin/Breast Denies bleeding lesions, Denies changing lesions and Denies rash Neuro Denies abnormal gait and Denies lack of coordination Physical exam (Primary Care) Vital Signs: Last Vital Signs Pulse 76 10/19/22 15:52 BP 122/80 10/19/22 15:52 Pulse Ox 99 10/19/22 15:52 Oxygen Delivery Method Room Air 10/19/22 15:52 BMI result Body Mass Index 34.2 Tobacco/Smoking Status: Tobacco use Status Tobacco use date assessed 05/19/22 10/19/22 15:57 Patient Tobacco Use Status Never used Tobacco 10/19/22 15:57 e-Cigarette/Vaping Use Never Used 10/19/22 15:57 Thrive Assessment: Date of Thrive Assessment Date Thrive assessed 05/19/22 10/19/22 15:57 Const Orientation/consciousness: patient oriented x3 HENMT Head: Yes normal to inspection, Yes normocephalic and Yes atraumatic Ears: external ears normal Eyes General: appearance normal, both eyes and all related structures Eyelids: Yes eyelids normal Conjunctivae: conjunctivae normal Neck Neck: Yes normal visual inspection and Yes supple Resp Effort & Inspection: normal respiratory effort Auscultation: clear to auscultation bilaterally Cardio Jugular venous distension: no JVD Rate: regular rate Rhythm: regular rhythm Heart sounds: S1 normal heart sound present and S2 normal heart sound present GI Inspection: Yes normal to inspection Palpation (GI): Soft to palpation and nontender Auscultation: normal bowel sounds Skin General skin exam: no rashes or lesions noted Neuro General: patient oriented x3 and no focal motor deficits Extrem General: Yes full ROM Psych Appearance: grossly normal Assessment and Plan Assessment & Plan (1) Physical exam: Code(s): Z00.00 - Encounter for general adult medical examination without abnormal findings Plan: Repeat in a year. Medications: New nystatin 1 appl topical DAILY 30 days 30 grams 1RF Coding Level of Care Code Est Pt Prev Care 40-64y(56809) Diagnoses Physical exam Z00.00 Time Spent (min) 31
== END 2022-10-19 16:21 | disposition home or self-care (01) ==
PROVIDERS: Visit Provider Internal Medicine
DX: Z00.00 Encounter for general adult medical examination without abnormal findings (principal)
CPT/HCPCS: 99396

== ENCOUNTER 2022-12-02 16:23 | Outpatient (AMB) | payer OTHER, SELFPAY ==
[2022-12-02 16:28] VITALS: BP 132/80; BMI 34.6
--- NOTE | 2022-12-02 16:28 | A.OFFPC_ITS ---
Vital Signs 12/02/22 16:28 Height 5 ft Weight 177 lb BMI 34.6 BP 132/80 Blood Pressure Location Lt brachial Position Sitting Intake Visit Reasons: annual physical Intake Note: Patient seen at [facility] 12/01 upper respiratory infection, acute pharyngitis Intermediate Card Tender Required: No Accompanied by: Self / Same As Patient Allergies No Known Allergies [No Known Allergies*] Allergy (Verified 12/02/22 16:38) Medication List - Last Reconciled 12/02/22 by Demetrice Person MD azithromycin 250 mg PO DIRECTED blood pressure monitor (Blood Pressure Kit) As directed cetirizine 10 mg PO DAILY cholecalciferol (vitamin D3) 25 mcg PO DAILY 90 days diclofenac sodium 75 mg PO BID famotidine 20 mg PO BEDTIME fluticasone propionate 50 mcg/actuation sprays intranasal fluticasone propionate 110 mcg/actuation (Flovent HFA) 2 puffs inhalation BID 30 days lansoprazole 30 mg PO QAM levothyroxine 100 mcg PO DAILY lidocaine 5% 1 patch topical DAILY PRN 30 days loratadine (Allergy Relief (loratadine)) 10 mg PO DAILY meloxicam 7.5 mg PO DAILY methocarbamol 500 mg PO BEDTIME nystatin 1 appl topical DAILY 30 days pregabalin 100 mg PO BID 30 days rosuvastatin 40 mg PO DAILY sod picosulf-mag ox-citric ac 10 mg-3.5 gram- 12 gram/160 mL (Clenpiq) 160 mL PO ONCE 2 doses sod picosulf-mag ox-citric ac 10 mg-3.5 gram- 12 gram/160 mL (Clenpiq) 160 mL PO DAILY 2 doses sucralfate (Carafate) 3 grams (3 x 1 gram) PO .q2pm topiramate 25 mg PO BID tretinoin 0.025% appl topical BEDTIME Tobacco use date assessed: 05/19/22 Dental Screening Dental Screen Date: 12/02/22 Did you have a dental visit in the last 12 months?: Yes Did you have a dental problem in the last 6 months where you did not have access to dental care?: No Was dental information given to patient?: Patient has dentist HPI HPI Comments History of Present Illness Details This is a 57-year-old female with hypothyroidism, GERD and dyslipidemia that complains nasal congestion, headaches and cough that started 3-4 days ago. She went to urgent care yesterday and tested negative for COVID-19. Started on Z-Db and today will be day 2. TSH will be repeated in 5 months. GERD stable with medications. Lipid panel will also be repeated in 5 months. No chest pain or shortness of breath. [facility] Medical History (Updated 12/02/22 @ 16:55 by Demetrice Person MD) Tubular adenoma of colon Obesity (BMI 30-39.9) JERRY (obstructive sleep apnea) Somnolence, daytime Encounter for vision screening Encounter for annual routine gynecological examination Physical exam FH: ovarian cancer in first degree relative Thoracic back pain Genitofemoral neuralgia of right side Class 1 obesity with body mass index (BMI) of 34.0 to 34.9 in adult Moderate persistent asthma Right sided sciatica Skin lesion Migraines Dyslipidemia Hypothyroidism Fixation hardware in leg Bile salt-induced diarrhea Skin lesions Surgical History Hx of colonoscopy Eroded bladder suspension mesh History of section History of cholecystectomy History of local excision of skin lesion (~01/04/20) Family History Paternal Aunt History of breast cancer Mother Diabetes High cholesterol Mental health disorder Stomach cancer Uterine cancer, Onset Age: 82 Ovarian cancer Father No problems noted. Sister Uterine cancer Social History Household Members: Children Housing: Apartment Alcohol intake: never Patient Tobacco Use Status: Never used Tobacco e-Cigarette/Vaping Use: Never Used Second Hand Smoke Exposure: Yes service: No Current occupational status: employed Current occupational exposures/hazards: No Cognitive needs: No Hearing needs: No Vision needs: Yes Questionnaire Thrive Questionnaire Date Thrive assessed: 05/19/22 ANA-7 AMB Questionnaire ANA-7 Date ANA - 7 assessed: 05/19/22 Source: Developed by Drs. Shun Au, Pat Garcia, Nando Pearson and colleagues, with an educational jake from [employer]. Review of Systems Const All systems reviewed & are unremarkable except as noted in HPI and below Eyes Reports no additional complaints, Denies change in vision and Denies other visual disturbances Card Denies chest pain at rest, Denies chest pain with activity, Denies edema, Denies irregular heart rhythm, Denies claudication, Denies dyspnea, Denies dyspnea on exertion, Denies orthopnea, Denies paroxysmal nocturnal dyspnea and Denies slow heart rate Resp Denies cough, Denies dyspnea and Denies dyspnea on exertion GI Denies abdominal pain, Denies change in bowel habits, Denies excessive flatus, Denies nausea and Denies vomiting Denies urinary incontinence, Denies urinary hesitancy and Denies urinary urgency Musc Denies abnormal gait, Denies atrophy, Denies deformity and Denies limited range of motion Skin/Breast Denies bleeding lesions, Denies changing lesions and Denies rash Neuro Denies abnormal gait and Denies lack of coordination Physical exam (Primary Care) Vital Signs: Last Vital Signs BP 132/80 12/02/22 16:28 BMI result Body Mass Index 34.6 Tobacco/Smoking Status: Tobacco use Status Tobacco use date assessed 05/19/22 12/02/22 16:37 Patient Tobacco Use Status Never used Tobacco 12/02/22 16:37 e-Cigarette/Vaping Use Never Used 12/02/22 16:37 Thrive Assessment: Date of Thrive Assessment Date Thrive assessed 05/19/22 12/02/22 16:37 Eyes General: appearance normal, both eyes and all related structures Eyelids: Yes eyelids normal Conjunctivae: conjunctivae normal Neck Neck: Yes normal visual inspection and Yes supple Resp Effort & Inspection: normal respiratory effort Auscultation: clear to auscultation bilaterally Cardio Jugular venous distension: no JVD Rate: regular rate Rhythm: regular rhythm Heart sounds: S1 normal heart sound present and S2 normal heart sound present Extrem General: Yes full ROM Assessment and Plan Assessment & Plan (1) Hypothyroid: Code(s): E03.9 - Hypothyroidism, unspecified Plan: Continue levothyroxine. (2) Dyslipidemia: Code(s): E78.5 - Hyperlipidemia, unspecified Plan: Continue statins. (3) GERD (gastroesophageal reflux disease): Code(s): K21.9 - Gastro-esophageal reflux disease without esophagitis Plan: Continue Dexilant. (4) URI (upper respiratory infection): Code(s): J06.9 - Acute upper respiratory infection, unspecified Plan: Continue Z-Db. Orders: Orders Lipid Panel 5 Months E78.5 - Hyperlipidemia, unspecified Vitamin D 25-OH Total 5 Months E55.9 - Vitamin D deficiency, unspecified Comprehensive Salters. Panel Fast 5 Months I10 - Essential (primary) hypertension Thyroid Stimulating Hormone 5 Months E03.9 - Hypothyroidism, unspecified Medications: New acetaminophen ER (Pain Relief (acetaminophen)) 650 mg PO Q8H 30 days PRN 120 tabs 1RF pain Coding Level of Care Code Est Pt Level 4 (77473) Diagnoses Hypothyroid E03.9 Dyslipidemia E78.5 GERD (gastroesophageal reflux disease) K21.9 URI (upper respiratory infection) J06.9 Time Spent (min) 22
== END 2022-12-02 16:47 | disposition home or self-care (01) ==
PROVIDERS: PCP Internal Medicine; Visit Provider Internal Medicine
DX: E03.9 Hypothyroidism, unspecified (principal); E78.5 Hyperlipidemia, unspecified; K21.9 Gastro-esophageal reflux disease without esophagitis; J06.9 Acute upper respiratory infection, unspecified
CPT/HCPCS: 99214

== ENCOUNTER 2022-12-17 10:55 | Day surgery (SDC) | payer OTHER, SELFPAY ==
[2022-12-17 12:00] VITALS: BMI 33.3
--- NOTE | 2022-12-17 12:00 | MHC.SHP ---
Pre-Procedural Eval Section A Date of Service: 12/17/22 The patient is an INPATIENT: No The History & Physical has been completed within 30 days and I have reviewed it.: No Section B Chief Complaint: Surveillance for colon polyps, GERD, abd pain Relevant Family History (Specify if Yes): Yes Relevant Social History: None Present Medications: see Short Stay Collaborative assessment Medical History: Significant History (Class 1 obesity with body mass index (BMI) of 34.0 to 34.9 in adult Dyslipidemia Encounter for annual routine gynecological examination Encounter for vision screening FH: ovarian cancer in first degree relative Fixation hardware in leg Genitofemoral neuralgia of right side Hypothyroidism Migraines M) History of Previous Operations: Relevant previous surgery/procedure and date(s) (Eroded bladder suspension mesh History of section History of cholecystectomy History of local excision of skin lesion (~01/04/20) Hx of colonoscopy) Allergies: Allergies Allergy/AdvReac Type Severity Reaction Status Date / Time No Known Allergies Allergy Verified 12/02/22 16:38 [No Known Allergies*] Review of Systems Sugical H&P ROS: Negative: Constitution, Cardiovascular and Respiratory and Yes, Specify: Gastrointestinal (GERD, abd pain) Exam Surgical H&P Exam: Normal: Heart, Normal: Lungs, Normal: Extremities and Normal: Abdomen Plan Diagnosis/Plan: Unchanged I have reviewed the history and physical and performed a pertinent physical examination on my patient. No changes have occurred unless specified. Time Spent With Patient Time: Total time managing care of this patient today ____ minutes.
[2022-12-17 12:06] VITALS: BP 128/68; PULSE 86; RESP 18; TEMP 36.4; O2SAT 96
--- NOTE | 2022-12-17 12:12 | HO.ANESPROP2 ---
HPI - Anesthesia Eval Consult details Narrative: 57yo female patient for EGD and Colonoscopy [facility] Active Problems Active Problems: All Active Problems (Updated 12/17/22 @ 12:14 by Nena Argueta MD) URI (upper respiratory infection) (Acute)- zithromax 12/02/22. Finished course. Asymptomatic now Hyperglycemia (Acute)- only once. No meds Hypertension - patient denies Thoracic spine pain (Acute) Epigastric pain (Acute) Hypothyroid (Acute) Obesity (BMI 30-39.9) JERRY (obstructive sleep apnea) (Acute) Somnolence, daytime (Acute) Thyroid nodule (Acute) Lactose intolerance (Acute) Bile salt-induced diarrhea (Acute) Goiter (Acute) Mild major depression, single episode (Acute) Tubular adenoma of colon (Acute) Hematuria (Acute) Acute vaginitis (Acute) Pelvic pain in female (Acute) Body aches (Acute) Otitis media, left (Acute) Thoracic back pain (Acute) Genitofemoral neuralgia of right side (Acute) Moderate persistent asthma (Acute) Right sided sciatica (Acute) Skin lesion (Acute) Migraines (Acute) Dyslipidemia (Acute) Hypothyroidism (Acute) Abdominal bloating (Acute) Constipation (Acute) Family history of colonic polyps (Acute) GERD (gastroesophageal reflux disease) (Acute) Generalized abdominal pain (Acute) Skin lesions (Acute) Past Medical History Medical History Tubular adenoma of colon Obesity (BMI 30-39.9) JERRY (obstructive sleep apnea) Somnolence, daytime Encounter for vision screening Encounter for annual routine gynecological examination Physical exam FH: ovarian cancer in first degree relative Thoracic back pain Genitofemoral neuralgia of right side Class 1 obesity with body mass index (BMI) of 34.0 to 34.9 in adult Moderate persistent asthma Right sided sciatica Skin lesion Migraines Dyslipidemia Hypothyroidism Fixation hardware in leg Bile salt-induced diarrhea Skin lesions Family History Family History Paternal Aunt History of breast cancer Mother Diabetes High cholesterol Mental health disorder Stomach cancer Uterine cancer, Onset Age: 82 Ovarian cancer Father No problems noted. Sister Uterine cancer Family history of problems with anesthesia: No Surgical History Surgical History Hx of colonoscopy Eroded bladder suspension mesh History of section History of cholecystectomy History of local excision of skin lesion (~01/04/20) History of Problems with Anesthesia: No Social History Social History Household Members: Children Housing: Apartment Alcohol intake: never Patient Tobacco Use Status: Never used Tobacco e-Cigarette/Vaping Use: Never Used Second Hand Smoke Exposure: Yes Use of substances other than those prescribed or required for medical reasons: No Are you DNR?: No Advance Directives: No Advance Directives Information Provided: Yes service: No Current occupational status: employed Current occupational exposures/hazards: No Cognitive needs: No Hearing needs: No Vision needs: Yes Meds Allergies Allergy/AdvReac Type Severity Reaction Status Date / Time No Known Allergies Allergy Verified 12/02/22 16:38 [No Known Allergies*] Active Medications: Current Medications Lactated Ringer's (Lr) 1,000 mls @ 50 mls/hr IVCONT .Q20H JAKE Home Medications Medication Instructions Recorded Confirmed Last Taken Type rosuvastatin 40 mg tablet 40 mg PO DAILY 07/17/20 12/02/22 Unknown History topiramate 25 mg tablet 25 mg PO BID 07/17/20 12/02/22 Unknown History loratadine 10 mg tablet (Allergy 10 mg PO DAILY 11/25/20 12/02/22 Unknown History Relief (loratadine)) levothyroxine 100 mcg tablet 100 mcg PO DAILY 12/15/20 12/02/22 Unknown History diclofenac sodium 75 mg 75 mg PO BID 11/11/21 12/02/22 Unknown History tablet,delayed release meloxicam 7.5 mg tablet 7.5 mg PO DAILY 11/11/21 12/02/22 Unknown History tretinoin 0.025 % topical cream appl topical BEDTIME 11/11/21 12/02/22 Unknown History methocarbamol 500 mg tablet 500 mg PO BEDTIME 05/19/22 12/02/22 Unknown History azithromycin 250 mg tablet 250 mg PO DIRECTED 12/02/22 12/02/22 Unknown History cetirizine 10 mg tablet 10 mg PO DAILY 12/02/22 12/02/22 Unknown History fluticasone propionate 50 spray intranasal 09/21/23 09/21/23 Unknown History mcg/actuation nasal spray,suspension Exam Exam Date and Time: December 17, 2022 1212 Height,Weight and Vital Signs: Height 5 ft 1 in Weight 79.832 kg Last Vital Signs Temp 97.6 F 12/17/22 12:06 Pulse 86 12/17/22 12:06 Resp 18 12/17/22 12:06 BP 128/68 12/17/22 12:06 Pulse Ox 96 12/17/22 12:06 O2 Del Method Room Air 12/17/22 12:06 Airway Mallampati Class: III TM Dist: >3cm Neck ROM: Full Loose/Missing/Broken Teeth: No (Denies broken, loose, missing teeth) Heart: RRR Lungs: CTAB Assessment and Plan Assessment Anesthesia Assessment: Anesthesia Plan Discussed and Chart Reviewed Final Anesthetic Review Family History of Problems with Anesthesia: No History of Problems with Anesthesia: No NPO: Yes ASA Class: III Final Preanesthetic Review: No Changes in Pt Med Stat, Meds/Allgs Chart Reviewed, Consent Obtained/Reviewed and Anes Risks/Benef Reviewed Patient Risk: Intermediate Procedure Risk: Low Assessment/Block/Sedation in SS: Assess/Block/Sedation-SS Anesthetic Plan Anesthetic Plan: MAC: Disposition: Standard PACU
--- NOTE | 2022-12-17 12:18 | W.PM.OPN ---
Operative Note Operative Note Date of Service: 12/17/22 Narrative: FLEXIBLE TRANSORAL UPPER GASTROINTESTINAL ENDOSCOPY WITH BIOPSIES AND COLONOSCOPY TILL CECUM WITH BIOPSIES AND SNARE POLYPECTOMY Pre-op diagnosis: surveillance for colon polyps, upper abdominal pain, GERD, nausea Post-op diagnosis: GERD, gastritis, gastric polyps, hiatal hernia Endoscopist:Juan Pablo Colin MD Anesthesia:?MAC UPPER ENDOSCOPY Consent: Indications for the procedure and potential complications of bleeding, perforation, reaction to medications and missed diagnosis were discussed with the patient and informed consent was obtained. Instrument: Olympus GIF H 190 mid size upper endoscope Monitoring: Vital signs and clinical assessment, continuous EKG monitoring, Pulse oximetry, Carbon Dioxide monitoring and blood pressure monitoring were done throughout the procedure. Procedure: The patient was placed in the left lateral decubitis position and pre-procedure medications were administered and a bite block was placed. The endoscope was inserted into the mouth and advanced under direct vision to the third part of duodenum. A careful inspection was made as the upper endoscope was withdrawn including a retroflexed examination of the proximal stomach; Findings and interventions are described below. Findings: Larynx: Normal Esophagus: GE junction at 34 cms, small hiatal hernia 34 to 36 cms. No esophagitis or Bailey's. Stomach: Mild gastric erythema. Biopsies were obtained. A few 5 to 15 mm benign appearing polyps in the gastric body - biopsied. Grade 2 flap valve on retroflexed examination of the cardia. Duodenum: Normal bulb and descending duodenum. Biopsies were obtained from 3rd part of duodenum to check for celiac sprue Intervention: Biopsies as noted above COLONOSCOPY PROCEDURE NOTE Consent: Indications for the procedure and potential complications of bleeding, perforation, reaction to medications and missed diagnosis were discussed with the patient and informed consent was obtained. Instrument: Olympus PCF H 190 L variable stiffness pediatric colonoscope Monitoring: Vital signs and clinical assessment, intermittent blood pressure monitoring, continuous EKG monitoring, Pulse oximetry and Carbon Dioxide monitoring were done throughout the procedure. Colon withdrawl time was 14 minutes. Procedure: The patient was placed in the left lateral decubitis position and pre-procedure medications were administered. After a digital rectal examination of the ano-rectum, the video colonoscope was inserted into the rectum and advanced through the colon to the cecum. The colonoscope was slowly withdrawn in a retrograde panoramic fashion and the colon mucosa was carefully examined including a retroflexed view of the rectum. Findings and interventions are described below. Procedure Difficulty: : Without difficulty Findings: Terminal Ileum: Distal 5 cms was examined Cecum: Normal Ascending Colon: Normal Transverse Colon: Normal Descending Colon: Normal Sigmoid Colon: A 10 mm sessile polyp at 35 cms - removed with a cold snare Rectum: A few 5-10 mm diminutive appearing polyps - one removed with a cold snare Ano-rectum: Normal Colon preparation: Good Impression and Post Procedure Diagnosis: Endoscopy Findings: ESOPHAGUS: Small hiatal hernia STOMACH: Gastritis and benign appearing gastric polyps DUODENUM: Normal - biopsied to check for celiac sprue Colonoscopy Findings: Two medium sized polyps removed Random biopsies were obtained from right and left colon to rule out microscopic colitis PLAN: Await pathology results Patient has an appointment on 12/31/22 in the [facility] with Dalila Bryan NP. Repeat Colonoscopy interval based on path results - in 3-5 years if polyps are adenomatous and due to history adenomatous colon polyps. Above findings were reviewed with the patient and Hiatal hernia, gastric polyps and colon polyps handouts were given in the discharge area
[2022-12-17 13:16] VITALS: BP 112/57; PULSE 71; RESP 16; TEMP 36.3; O2SAT 96
[2022-12-17 13:31] VITALS: BP 124/67; PULSE 69; RESP 14; O2SAT 98
[2022-12-17 13:46] VITALS: BP 133/55; PULSE 62; RESP 16; O2SAT 99
[2022-12-17 14:01] VITALS: BP 130/70; PULSE 75; RESP 14; TEMP 36.4; O2SAT 99
== END 2022-12-17 14:22 | disposition home or self-care (01) ==
PROVIDERS: PCP Internal Medicine; Visit Provider Internal Medicine Gastroenterology
PROC: (CPT 45385; principal; 2022-12-17 13:10)
DX: Z12.11 Encounter for screening for malignant neoplasm of colon (principal); D12.5 Benign neoplasm of sigmoid colon; K62.1 Rectal polyp; K21.9 Gastro-esophageal reflux disease without esophagitis; K29.50 Unspecified chronic gastritis without bleeding; K31.7 Polyp of stomach and duodenum; K90.89 Other intestinal malabsorption; K44.9 Diaphragmatic hernia without obstruction or gangrene; E78.5 Hyperlipidemia, unspecified; G47.33 Obstructive sleep apnea (adult) (pediatric); Z79.899 Other long term (current) drug therapy; Z90.49 Acquired absence of other specified parts of digestive tract
CPT/HCPCS: 45385; 45380; 43239; 88305; 88342

== ENCOUNTER 2022-12-31 10:37 | Outpatient (AMB) | payer OTHER, SELFPAY ==
[2022-12-31 10:45] VITALS: BP 126/65; PULSE 75; BMI 34.0
--- NOTE | 2022-12-31 10:45 | A.OFFVIS_ITS ---
Intake Vital Signs 12/31/22 10:45 Height 5 ft Weight 174 lb 2.643 oz BMI 34.0 BP 126/65 Blood Pressure Location Rt brachial Position Sitting Pulse 75 Intake Visit Reasons: S/p egd/colon Cristi Intake Note: Ximena presents to in office visit today in follow up of EGD/colonoscopy. CC: Patient reports she was constipated after colonoscopy but was able to have a BM yesterday. She c/o abdominal pain. Denies other GI symptoms today. Radiographic Technologist Required: No Accompanied by: Self / Same As Patient Allergies No Known Allergies [No Known Allergies*] Allergy (Verified 01/27/23 13:14) HPI S/p egd/colon Cristi HPI Details Assessment & Plan (1) Epigastric pain: ?Code(s): R10.13 - Epigastric pain ?Plan: She is feeling quite a bit worse recently.? She says that she feels like her food in the epigastric area and ?does not go down. ?? This is a also accompanied by nausea although she does not allow herself to vomit.? She also has quite a bi t of upper abdominal pain after eating..? At this point she does not feel that the pantoprazole and famotidine or the Carafate her helping with the symptoms.? She does suffer constipation intermittently but she finds that if she drinks coffee with milk this evacuate her bowels for her.? With this she has not tried the senna. She describes the pain as radiating straight back and this makes me somewhat concerned that her pancreas is involved.? However it should be noted that she also has a history of back trouble for which she receives massage is so this could be a coincidental symptom.? She had a CT scan in February of 2022 that did not show any abnormality the pancreas but I think I will get pancreatic enzymes to be thorough.? She also tells me that her whole family are diabetics and she has been told she is prediabetic.? I think we should get some glucose testing since her last glucose was elevated to see if we should be considering gastroparesis in the differential diagnosis. She has not yet been contacted for the colonoscopy in EGD which is somewhat disappointing considering we had ordered it back in February.? I have sent another note to our schedulers and I hope this can be done soon. Return office visit in 3 weeks at this point will go over her labs and her response to changing her PPI from pantoprazole to lansoprazole. (2) Bile salt-induced diarrhea: ?Code(s): K90.89 - Other intestinal malabsorption (3) GERD (gastroesophageal reflux diseas e): ?Code(s): K21.9 - Gastro-esophageal reflux disease without esophagitis (4) Tubular adenoma of colon: ?Comment: 12 CM 2020 SCOPE REPEAT IN 3 YEARS ?Code(s): D12.6 - Benign neoplasm of colon, unspecified ? ? ? Orders: Orders Amylase Today K21.9 - Gastro-eso phageal reflux dis ease without esoph agitis ? Lipase Today K21.9 - Gastro-eso phageal reflux dis ease without esoph agitis ? Comprehensive [place] . Panel Fast Today R10. 13 - Epigastri c pain ? Hemoglobin A1c Today R10.13 - Epigastri c pain ? Glucose Tolerance 2 Hour Today R10. 13 - Epigastri c pain ? Medications: New lansoprazole 30 mg? PO QAM 30 c aps 6RF K21.9 - Gastro-eso phageal reflux dis ease without esoph agitis ? Refilled famotidine 20 mg? PO BEDTIME 30 tabs 6RF ? ? Discontinued sennosides (Senna Laxative) ?? Disco ntinued Reason:? D octor's Order 17.2 mg (2 x 8.6 m g) PO DAILY PRN 60 tabs 6RF constipa tion ? ? pantoprazole (Prot adryan) ?? Discontin ued Reason:? Docto r's Order 40 mg? PO DAILY 30 days 30 tabs 6RF D K21.9 - Gastro-eso phageal reflux dis ease without esoph agitis LABS: Laboratory Tests 09/23/22 10/01/22 10:00 08:46 Estimated GFR > 60 Hemoglobin A1c % 6.3 Total Bilirubin 0.6 AST 36 H ALT 43 H Alkaline Phosphata se 85 Amylase 37 Lipase 6 L TSH 1.55 09/23/22-943 [facility] DR: Demetrice Olivo MD ORDERED: GTT 2 Hr Test Result Flag Refere nce Si te Glucose Nicole 2Hr GLU FAST 96 Col: 09/23/22 1 000 GLU 1H 222 Col: 09/23 1104 GLU 2H 204 Col: 09/23/22 1202 COLONOSCOPY/EGD 12/17/22 Findings: Larynx: Normal Esophagus: GE junction at 34 cms, small hiatal hernia 34 to 36 cms. No esophagitis or Bailey's. Stomach: Mild gastric erythema. Biopsies were obtained. A few 5 to 15 mm benign appearing polyps in the gastric body - biopsied. Grade 2 flap valve on retroflexed examination of the cardia. Duodenum: Normal bulb and descending duodenum. Biopsies were obtained from 3rd part of duodenum to check for celiac sprue Findings: Terminal Ileum: Distal 5 cms was examined Cecum: Normal Ascending Colon: Normal Transverse Colon: Normal Descending Colon: Normal Sigmoid Colon: A 10 mm sessile polyp at 35 cms - removed with a cold snare Rectum: A few 5-10 mm diminutive appearing polyps - one removed with a cold snare Ano-rectum: Normal Colon preparation: Good Impression and Post Procedure Diagnosis: Endoscopy Findings: ESOPHAGUS: Small hiatal hernia STOMACH: Gastritis and benign appearing gastric polyps DUODENUM: Normal - biopsied to check for celiac sprue Colonoscopy Findings: Two medium sized polyps removed Random biopsies were obtained from right and left colon to rule out microscopic colitis PLAN: Await pathology results Patient has an appointment on 12/31/22 in the GI Clinic with Dalila Bryan NP. Repeat Colonoscopy interval based on path results - in 3-5 years if polyps are adenomatous and due to history adenomatous colon polyps. BIOPSY Received: 12/17/22 Diagnosis A. Small bowel, biopsy: Duodenal mucosa within normal limits; negative for celiac disease. B. Stomach, antrum, biopsy: Reactive gastropathy with background mild chronic inactive inflammation; no Helicobacter organisms seen. C. Stomach, polyp, biopsy: Fundic gland polyp with background mild chronic inactive inflammation; no Helicobacter organisms seen. D. Colon, right, biopsy: Colonic mucosa within normal limits; negative for microscopic colitis. E. Colon, left, biopsy: Colonic mucosa within normal limits; negative for microscopic colitis. F. Colon, sigmoid, polypectomy: Tubular adenoma; negative for high-grade dysplasia or carcinoma. G. Rectum, polypectomy: Hyperplastic mucosal polyp TODAYS VISIT PATIENT SPEAKS [place] The procedure should be repeated 3 years due to the size of the tubular adenoma at the sigmoid. The procedure was well tolerated. The results were explained and the patient is agreeable to the follow-up interval as stated. The bowel pattern has returned to normal. Education was provided to tell any 1st degree relatives about their findings to be sure that they are screened by age 45. Educated that they will be put on a recall list when it is time for their repeat scope but should they move out of state or away from the hospital they will need to remember along with their primary to repeat the procedure in a timely fashion to avoid any adverse complications. She continues on her lansoprazole the morning and famotidine at night, and her s ginette for constipation.. We stop the Carafate since he did not seem to be helping and is probably contributing to constipation. The we review the testing and does not appear that she has any exocrine pancreatic problems or inflammation of the pancreas. The oral glucose tolerance test does seem to indicate diabetes but the hemoglobin A1c is slightly below the usual threshold of 6.5% given by the National Diabetes Association for diagnostic value along with the glucose tolerance test. Fasting blood glucose was 95 so this seems to indicate pre diabetes which certainly bears close watching. This is particularly true given her transaminitis and fatty liver. It certainly we go long way towards controlling her fatty liver if her sugars are well controlled. I am referring her to a dietitian for initial lifestyle and diet modifications. Next visit considered completing the workup for POND and following this over time including ultrasound elastography. At this point will see her in 6 months and continue to follow her chronic conditions. [facility] Medical History (Updated 02/10/23 @ 18:37 by JASON Gonzalez) Encounter for gynecological examination URI (upper respiratory infection) Hyperglycemia Pre-op examination Discomfort of right ear Hypothyroid Bile salt-induced diarrhea Physical exam Hematuria Acute vaginitis Body aches Otitis media, left Abdominal bloating Generalized abdominal pain Skin lesions Tubular adenoma of colon Obesity (BMI 30-39.9) JERRY (obstructive sleep apnea) Somnolence, daytime Encounter for vision screening Encounter for annual routine gynecological examination FH: ovarian cancer in first degree relative Thoracic back pain Genitofemoral neuralgia of right side Class 1 obesity with body mass index (BMI) of 34.0 to 34.9 in adult Moderate persistent asthma Right sided sciatica Migraines Dyslipidemia Hypothyroidism Fixation hardware in leg Bile salt-induced diarrhea Surgical History History of esophagogastroduodenoscopy (EGD) Hx of colonoscopy Eroded bladder suspension mesh History of section History of cholecystectomy History of local excision of skin lesion (~01/04/20) Family History Paternal Aunt History of breast cancer Mother Diabetes High cholesterol Mental health disorder Stomach cancer Uterine cancer, Onset Age: 82 Ovarian cancer Colon cancer Father No problems noted. Sister Uterine cancer Social History Household Members: Children Housing: Apartment Alcohol intake: never Patient Tobacco Use Status: Never used Tobacco e-Cigarette/Vaping Use: Never Used Second Hand Smoke Exposure: Yes service: No Current occupational status: employed Current occupational exposures/hazards: No Cognitive needs: No Hearing needs: No Vision needs: Yes Review of Systems Const Denies fatigue, Denies fever(s), Denies night sweats, Denies poor appetite and Denies weight loss Eyes Details: glasses Reports requires corrective lenses ENT Reports Normal hearing present, Denies dental pain, Denies dysphagia, Denies hearing loss, Denies mouth pain, Denies odynophagia, Denies throat swelling, Denies tongue swelling and Reports other (Dentition adequate) Card Reports no additional complaints Resp Reports no additional complaints GI Reports abdominal pain, Denies melena, Denies bloating, Denies hematochezia, Reports constipation, Denies GI cramping, Denies dysphagia, Denies excessive flatus, Denies early satiety, Reports heartburn, Denies diarrhea, Denies nausea, Denies odynophagia, Denies vomiting and Denies hematemesis Musc Reports back pain Skin/Breast Denies pruritus, Denies lesions, Denies rash and Denies jaundice Neuro Reports Normal hearing present and Denies Abnormal speech present Endo Denies fatigue Aller/Immun Denies throat swelling and Denies tongue swelling Physical Exam Vital Signs: Last Vital Signs Pulse 75 12/31/22 10:45 BP 126/65 12/31/22 10:45 BMI result Body Mass Index 34.0 Const General: cooperative, no acute distress, well developed and well groomed Nutritional Appearance: well nourished and obese Orientation/consciousness: oriented to person, oriented to place and oriented to time Limitations: No language barrier HEENT Head: Yes normocephalic and Yes atraumatic Eyes General: appearance normal, both eyes and all related structures Pupils: Equal, round and reactive pupils present Neck Neck: Yes normal visual inspection and Yes no lymphadenopathy Thyroid: Thyroid normal Resp Effort & Inspection: normal respiratory effort and able to speak in complete sentences Auscultation: clear to auscultation bilaterally Cardio Rate: regular rate Rhythm: regular rhythm Heart sounds: Normal, physiologic split S2 sound present Peripheral pulses: radial pulses present and posterior tibial pulses present GI Inspection: No distended, Yes Abdominal panniculus present and Yes obesity Palpation (GI): Soft to palpation, nontender, no guarding, not rigid and No hepatosplenomegaly present Percussion: Yes normal to percussion Auscultation: normal bowel sounds Rectal Exam - Female: deferred Skin General skin exam: no rashes or lesions noted, turgor normal, skin not dry, no jaundice, No spider nevi and no striae Rashes: no rashes Nails: normal Neuro General: oriented to person, oriented to place and oriented to time Cranial nerves: Yes Equal, round and reactive pupils present and Yes Normal hearing present Speech: No Abnormal speech present Extrem General: Yes normal to inspection, No clubbing, No cyanosis and No edema Psych Appearance: grossly normal and well kempt Mental Status: mental status grossly normal Speech and movement: Normal speech and movement present Affect: normal affect Attitude: cooperative Thought process: Normal thought process present and not confabulating Thought content: Normal thought content present Insight: Limited insight present (Psych) Judgement: Limited judgement present (Psych) Results Reviewed Results Reviewed: Laboratory Tests 09/23/22 10/01/22 10:00 08:46 Estimated GFR > 60 Hemoglobin A1c % 6.3 Total Bilirubin 0.6 AST 36 H ALT 43 H Alkaline Phosphatase 85 Amylase 37 Lipase 6 L TSH 1.55 09/23/22-[address]: Demetrice Jeong MD ORDERED: GTT 2 Hr Test Result Flag Reference Site Glucose Nicole 2Hr GLU FAST 96 Col: 09/23/22 1000 GLU 1H 222 Col: 09/23/22 1104 GLU 2H 204 Col: 09/23/22 1202 COLONOSCOPY/EGD 12/17/22 Findings: Larynx: Normal Esophagus: GE junction at 34 cms, small hiatal hernia 34 to 36 cms. No esophagitis or Bailey's. Stomach: Mild gastric erythema. Biopsies were obtained. A few 5 to 15 mm benign appearing polyps in the gastric body - biopsied. Grade 2 flap valve on retroflexed examination of the cardia. Duodenum: Normal bulb and descending duodenum. Biopsies were obtained from 3rd part of duodenum to check for celiac sprue Findings: Terminal Ileum: Distal 5 cms was examined Cecum: Normal Ascending Colon: Normal Transverse Colon: Normal Descending Colon: Normal Sigmoid Colon: A 10 mm sessile polyp at 35 cms - removed with a cold snare Rectum: A few 5-10 mm diminutive appearing polyps - one removed with a cold snare Ano-rectum: Normal Colon preparation: Good Impression and Post Procedure Diagnosis: Endoscopy Findings: ESOPHAGUS: Small hiatal hernia STOMACH: Gastritis and benign appearing gastric polyps DUODENUM: Normal - biopsied to check for celiac sprue Colonoscopy Findings: Two medium sized polyps removed Random biopsies were obtained from right and left colon to rule out microscopic colitis PLAN: Await pathology results Patient has an appointment on 12/31/22 in the GI Clinic with Dalila Bryan NP. Repeat Colonoscopy interval based on path results - in 3-5 years if polyps are adenomatous and due to history adenomatous colon polyps. BIOPSY Received: 12/17/22 Diagnosis A. Small bowel, biopsy: Duodenal mucosa within normal limits; negative for celiac disease. B. Stomach, antrum, biopsy: Reactive gastropathy with background mild chronic inactive inflammation; no Helicobacter organisms seen. C. Stomach, polyp, biopsy: Fundic gland polyp with background mild chronic inactive inflammation; no Helicobacter organisms seen. D. Colon, right, biopsy: Colonic mucosa within normal limits; negative for microscopic colitis. E. Colon, left, biopsy: Colonic mucosa within normal limits; negative for microscopic colitis. F. Colon, sigmoid, polypectomy: Tubular adenoma; negative for high-grade dysplasia or carcinoma. G. Rectum, polypectomy: Hyperplastic mucosal poly Assessment & Plan Assessment & Plan (1) Tubular adenoma of colon: Comment: 2022 scope= 10 mm TA in the sigmoid repeat in 3 years; 12 CM 2020 SCOPE REPEAT IN 3 YEARS Code(s): D12.6 - Benign neoplasm of colon, unspecified (2) GERD (gastroesophageal reflux disease): Code(s): K21.9 - Gastro-esophageal reflux disease without esophagitis (3) Diabetes: Code(s): E11.9 - Type 2 diabetes mellitus without complications (4) Family history of colonic polyps: Code(s): Z83.71 - Family history of colonic polyps (5) Epigastric pain: Code(s): R10.13 - Epigastric pain (6) Constipation: Code(s): K59.00 - Constipation, unspecified (7) Abdominal bloating: Code(s): R14.0 - Abdominal distension (gaseous) (8) Transaminitis: Comment: BASELINE LABS 09/23/22 Estimated GFR > 60 Hemoglobin A1c % 6.3 Total Bilirubin 0.6 AST 36 H ALT 43 H Alkaline Phosphatase 85 Amylase 37 Lipase [address] ABDOMEN AND PELVIS 02/2022 ENHANCED LIVER NORMAL IN SIZE WITH EQUIVOCAL MILD HEPATIC STEATOSIS CORRELATION WITH LIVER FUNCTION TESTS REQUIRED. STATUS POST CHOLECYSTECTOMY. ENHANCED SPLEEN NORMAL IN SIZE. Code(s): R74.01 - Elevation of levels of liver transaminase levels Plan PATIENT SPEAKS [place] The procedure should be repeated 3 years due to the size of the tubular adenoma at the sigmoid. The procedure was well tolerated. The results were explained and the patient is agreeable to the follow-up interval as stated. The bowel pattern has returned to normal. Education was provided to tell any 1st degree relatives about their findings to be sure that they are screened by age 45. Educated that they will be put on a recall list when it is time for their repeat scope but should they move out of state or away from the hospital they will need to remember along with their primary to repeat the procedure in a timely fashion to avoid any adverse complications. She continues on her lansoprazole the morning and famotidine at night, and her senna for constipation.. We stop the Carafate since he did not seem to be helping and is probably contributing to constipation. The we review the testing and does not appear that she has any exocrine pancreatic problems or inflammation of the pancreas. The oral glucose tolerance test does seem to indicate diabetes but the hemoglobin A1c is slightly below the usual threshold of 6.5% given by the National Diabetes Association for diagnostic value along with the glucose tolerance test. Fasting blood glucose was 95 so this seems to indicate pre diabetes which certainly bears close watching. This is particularly true given her transaminitis and fatty liver. It certainly we go long way towards controlling her fatty liver if her sugars are well controlled. I am referring her to a dietitian for initial lifestyle and diet modifications. Next visit considered completing the workup for POND and following this over time including ultrasound elastography. At this point will see her in 6 months and continue to follow her chronic conditions. Orders: Orders Comprehensive [place]. Panel Fast 5 Months I10 - Essential (primary) hypertension Referrals Resident Care Coordinator Nutrition Referral E11.9 - Type 2 diabetes mellitus without complications Medications: Refilled lansoprazole 30 mg PO QAM 30 caps 6RF K21.9 - Gastro-esophageal reflux disease without esophagitis famotidine 20 mg PO BEDTIME 30 tabs 6RF Discontinued sucralfate Discontinued Reason: Doctor's Order 3 grams (3 x 1 gram) PO .q2pm 90 tabs 0RF K90.89 - Other intestinal malabsorption Coding Level of Care Code Est Pt Level 4 (70863) Diagnoses Tubular adenoma of colon D12.6 GERD (gastroesophageal reflux disease) K21.9 Diabetes E11.9 Family history of colonic polyps Z83.71 Epigastric pain R10.13 Constipation K59.00 Abdominal bloating R14.0 Transaminitis R74.01
== END 2022-12-31 11:20 | disposition home or self-care (01) ==
PROVIDERS: PCP Internal Medicine; Visit Provider Nurse Practitioner
DX: D12.6 Benign neoplasm of colon, unspecified (principal); K21.9 Gastro-esophageal reflux disease without esophagitis; E11.9 Type 2 diabetes mellitus without complications; Z83.71 Family history of colonic polyps; R10.13 Epigastric pain; K59.00 Constipation, unspecified; R14.0 Abdominal distension (gaseous); R74.01 Elevation of levels of liver transaminase levels
CPT/HCPCS: 99214

== ENCOUNTER → 2022-12-31 10:37 | Outpatient (BNVA) | payer OTHER, SELFPAY | PROVIDERS: PCP Internal Medicine; Visit Provider Nurse Practitioner | DX: E11.9 Type 2 diabetes mellitus without complications (principal); K21.9 Gastro-esophageal reflux disease without esophagitis; K90.89 Other intestinal malabsorption; D12.6 Benign neoplasm of colon, unspecified | CPT/HCPCS: 99212 ==

== ENCOUNTER 2023-01-27 13:09 | Outpatient (AMB) | payer OTHER, SELFPAY ==
[2023-01-27 13:14] VITALS: BP 112/70; BMI 34.2
--- NOTE | 2023-01-27 13:14 | A.OFFVIS_ITS ---
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 She has complaints of vaginitis. Associated with a yellowish discharge and an odor. Denies any burning or abdominal pain. Attempting to eat a healthy diet with calcium and vitamin D and stays active w ith exercise. Not sexually active. STI testing offered; she accepts, declines blood work. Last pap smear; 01/2019 Colonoscopy is UTD. Denies any family history of breast, ovarian or Mother() colon cancer. [facility] Medical History Tubular adenoma of colon Obesity (BMI 30-39.9) JERRY (obstructive sleep apnea) Somnolence, daytime Encounter for vision screening Encounter for annual routine gynecological examination Physical exam FH: ovarian cancer in first degree relative Thoracic back pain Genitofemoral neuralgia of right side Class 1 obesity with body mass index (BMI) of 34.0 to 34.9 in adult Moderate persistent asthma Right sided sciatica Skin lesion Migraines Dyslipidemia Hypothyroidism Fixation hardware in leg Bile salt-induced diarrhea Skin lesions Surgical History History of esophagogastroduodenoscopy (EGD) Hx of colonoscopy Eroded bladder suspension mesh History of section History of cholecystectomy History of local excision of skin lesion (~01/04/20) Family History Paternal Aunt History of breast cancer Mother Diabetes High cholesterol Mental health disorder Stomach cancer Uterine cancer, Onset Age: 82 Ovarian cancer Colon cancer Father No problems noted. Sister Uterine cancer Social History Household Members: Children Housing: Apartment Alcohol intake: never Patient Tobacco Use Status: Never used Tobacco e-Cigarette/Vaping Use: Never Used Second Hand Smoke Exposure: Yes service: No Current occupational status: employed Current occupational exposures/hazards: No Cognitive needs: No Hearing needs: No Vision needs: Yes Female Reproductive History Menstrual Total pregnancies: 6 Full term: 4 Number of Living Children: 4 Ab induced: 2 Date of last pap smear: 01/24/19 (neg pap and hpv) History of abnormal pap smear: Yes (09/25 ascus) Review of Systems Const All systems reviewed & are unremarkable except as noted in HPI and below Reports as per HPI Eyes Reports no additional complaints ENT Reports no additional complaints Card Reports no additional complaints Resp Reports no additional complaints GI Reports as per HPI and Reports no additional complaints Reports as per HPI Musc Reports no additional complaints Skin/Breast Reports as per HPI Neuro Reports no additional complaints Psych Reports no additional complaints Endo Reports no additional complaints Jarett/Lymph Reports no additional complaints Aller/Immun Reports no additional complaints Physical Exam Vital Signs: Last Vital Signs BP 112/70 01/27/23 13:14 BMI result Body Mass Index 34.2 Const General: cooperative, healthy appearing, no acute distress, well developed and alert Orientation/consciousness: patient oriented x3 HEENT Head: Yes normal to inspection Eyes General: appearance normal, both eyes and all related structures Neck Neck: Yes normal visual inspection Thyroid: Thyroid normal Chest Chest palpation & inspection: normal inspection of the chest and other (no puckering, dimpling, peau de orange, retraction, discharge, masses) Breast/axilla inspection: normal inspection of the breasts Breast/axilla palpation: normal palpation of the breasts Resp Effort & Inspection: normal respiratory effort GI Inspection: Yes normal to inspection Palpation (GI): Soft to palpation Rectal Exam - Female: deferred General: Yes bladder normal to palpation External Female Exam: normal external appearance and normal appearance of the urethra Speculum Exam - Vagina: normal appearance of the vagina, normal palpation and other (white discharge ) Speculum Exam - Cervix: normal appearance of the cervix and normal palpation Bimanual exam- vagina & uterus: normal bimanual exam, normal palpation, uterine size normal, bladder normal to palpation, normal palpation and non-tender Bimanual Exam- Adnexa, other: no masses Skin General skin exam: no rashes or lesions noted Rashes: no rashes Neuro General: patient oriented x3 Cognition (Neuro): normal cognition Extrem General: Yes normal to inspection Psych Attitude: cooperative Thought process: Normal thought process present Assessment & Plan Assessment & Plan (1) Encounter for gynecological examination: Code(s): Z01.419 - Encounter for gynecological examination (general) (routine) without abnormal findings Plan: Discussed: Current recommendations for pap smears per ASCCP guidelines. Breast awareness, periodic self breast exams and yearly mammogram. Maintain a healthy lifestyle, well balanced diet including Calcium 1,200 mg and Vitamin D 600 IU daily, and routine exercise. Contact the office with any postmenopausal bleeding. All of her questions and concerns were addressed to the best of my ability. She will return in one year for AG. (2) Vaginitis: Code(s): N76.0 - Acute vaginitis Plan: BV testing and GC/CT panel done today. Awaiting results. Will treat accordingly if necessary. Orders: Orders MM tomosynthesis screening BI Today Z12.31 - Encounter for screening mammogram for malignant neoplasm of breast Bacterial Vaginosis Panel Today N76.0 - Acute vaginitis CT NG by PCR Today N76.0 - Acute vaginitis Coding Level of Care Code Est Pt Prev Care 40-64y(80066) Diagnoses Encounter for gynecological examination Z01.419 Vaginitis N76.0
== END 2023-01-27 13:42 | disposition home or self-care (01) ==
LOC: HO.HWS 13:09
PROVIDERS: PCP Internal Medicine; Visit Provider Advanced Practice Midwife
DX: Z01.419 Encounter for gynecological examination (general) (routine) without abnormal findings (principal); N76.0 Acute vaginitis
CPT/HCPCS: 99396

== ENCOUNTER 2023-01-27 13:09 | Outpatient (REF) | payer OTHER, SELFPAY ==
[2023-01-27 17:46] LABS: CT PCR NOT DETECTED (Not Detect.); NG PCR NOT DETECTED (Not Detect.)
[2023-01-28 08:58] LABS: BV Int Neg Control Negative (Negative); BV Int Pos Control Positive (Positive)
== END 2023-01-27 13:10 | disposition home or self-care (01) ==
LOC: HO.LAB 13:09
PROVIDERS: PCP Internal Medicine; Visit Provider Advanced Practice Midwife
DX: Z01.419 Encounter for gynecological examination (general) (routine) without abnormal findings (principal); N76.0 Acute vaginitis
CPT/HCPCS: 0353U; 87480; 87510; 87660

== ENCOUNTER 2023-01-27 13:55 | Outpatient (REF) | payer OTHER, SELFPAY | END 2023-01-27 13:56 | disposition home or self-care (01) | LOC: HO.LNP 13:55 | PROVIDERS: Visit Provider Advanced Practice Midwife | DX: Z13.89 Encounter for screening for other disorder (principal) ==

== ENCOUNTER 2023-02-11 08:32 | Outpatient (REF) | payer OTHER, SELFPAY ==
[2023-02-11 09:58] LABS: Thyroid Stimulating Hormone 1.77 uIU/mL (0.32-4.0); Vitamin D 25-OH Total 40.5 ng/mL (>30)
== END 2023-02-11 08:33 | disposition home or self-care (01) ==
LOC: HO.LAB 08:32
PROVIDERS: PCP Internal Medicine; Visit Provider Internal Medicine
DX: E55.9 Vitamin D deficiency, unspecified (principal); E03.9 Hypothyroidism, unspecified
CPT/HCPCS: 36415; 82306; 84443

== ENCOUNTER 2023-02-24 13:51 | Outpatient (REF) | payer OTHER, SELFPAY ==
--- NOTE | ~2023-02-24 | MM_ITS ---
EXAMINATION: MM SCREENING DIGITAL BREAST TOMOSYNTHESIS, BILATERAL CLINICAL INFORMATION: Screening. Asymptomatic. COMPARISON: Mammography: This study is compared with prior exams dating back to 2016. TECHNIQUE: Digital breast tomosynthesis is performed in both the craniocaudal and mediolateral oblique views along with computer-aided detection (CAD). Synthesized 2D images are generated from the tomosynthesis. FINDINGS: There are scattered areas of fibroglandular density (ACR BI-RADS breast composition Category b). There are no significant masses, abnormal calcifications, or other abnormalities. There are bilateral benign calcifications. MM/MM tomosynthesis screening BI IMPRESSION: No mammographic evidence of malignancy. ASSESSMENT: BI-RADS BI-RADS 2 - Benign Findings RECOMMENDATION: Routine annual mammography screening. 1 year F/U This examination should not preclude the clinical evaluation of a suspicious palpable abnormality. This patient's information was entered into a reminder system with a target due date for their next mammogram.
== END 2023-02-24 13:52 | disposition home or self-care (01) ==
LOC: HO.MAMMO 13:51
PROVIDERS: PCP Internal Medicine; Visit Provider Advanced Practice Midwife
DX: Z12.31 Encounter for screening mammogram for malignant neoplasm of breast (principal)
CPT/HCPCS: 77063; 77067

== ENCOUNTER → 2023-02-24 14:15 | Outpatient (BNV) | payer OTHER, SELFPAY | PROVIDERS: PCP Internal Medicine; Visit Provider Radiology Diagnostic Radiology | DX: Z12.31 Encounter for screening mammogram for malignant neoplasm of breast (principal) | CPT/HCPCS: 77063; 77067 ==

== ENCOUNTER 2023-04-07 07:15 | Outpatient (AMB) | payer OTHER, SELFPAY ==
--- NOTE | 2023-04-07 07:45 | A.OFFVIS_ITS ---
Intake Vital Signs 04/07/23 07:46 Height 5 ft Weight 170 lb BMI 33.2 BP 100/56 L Intake Visit Reasons: labial cyst Intake Note: Went to [place] [facility] 04/06/23 for excision Diagnostics Tech: Diagnostics Tech Present (Nai) Allergies No Known Allergies [No Known Allergies*] Allergy (Verified 04/07/23 07:45) Is last menstrual period known: Yes HPI HPI Comments History of Present Illness Details Patient is here for a vulvar abscess evaluation. She was seen at [place] two days ago and had an incision and drainage and placed on Bactrim. She wanted to just make sure everything was okay since she had this appointment already. She is not sure the area is improving yet. Onset of symptoms x1 week. [facility] Medical History Encounter for gynecological examination URI (upper respiratory infection) Hyperglycemia Pre-op examination Discomfort of right ear Hypothyroid Bile salt-induced diarrhea Physical exam Hematuria Acute vaginitis Body aches Otitis media, left Abdominal bloating Generalized abdominal pain Skin lesions Tubular adenoma of colon Obesity (BMI 30-39.9) JERRY (obstructive sleep apnea) Somnolence, daytime Encounter for vision screening Encounter for annual routine gynecological examination FH: ovarian cancer in first degree relative Thoracic back pain Genitofemoral neuralgia of right side Class 1 obesity with body mass index (BMI) of 34.0 to 34.9 in adult Moderate persistent asthma Right sided sciatica Migraines Dyslipidemia Hypothyroidism Fixation hardware in leg Bile salt-induced diarrhea Surgical History History of esophagogastroduodenoscopy (EGD) Hx of colonoscopy Eroded bladder suspension mesh History of section History of cholecystectomy History of local excision of skin lesion (~01/04/20) Family History Paternal Aunt History of breast cancer Mother Diabetes High cholesterol Mental health disorder Stomach cancer Uterine cancer, Onset Age: 82 Ovarian cancer Colon cancer Father No problems noted. Sister Uterine cancer Social History Household Members: Children Housing: Apartment Alcohol intake: never Patient Tobacco Use Status: Never used Tobacco e-Cigarette/Vaping Use: Never Used Second Hand Smoke Exposure: Yes service: No Current occupational status: employed Current occupational exposures/hazards: No Cognitive needs: No Hearing needs: No Vision needs: Yes Review of Systems Const All systems reviewed & are unremarkable except as noted in HPI and below Endo Reports no additional complaints Physical Exam Vital Signs: Last Vital Signs BP 100/56 L 04/07/23 07:46 BMI result Body Mass Index 33.2 Const General: cooperative, healthy appearing and no acute distress GI Other: . Other: Right-sided mons abscess approximately 5 cm at base. Small incisional area with white, thick exudate protruding. No erythema. Psych Appearance: well kempt Attitude: cooperative Thought process: Normal thought process present Office Procedures Incision and Drainage Details: Incision and Drainage Procedure: The patient was placed in the dorsal lithotomy position. She was prepped with Betadine and 1.5 ml Lidocaine 1% infiltrated to the area. The procedure was completed under aseptic technique. The incision was opened previously, a curved hemostat was gently inserted to open the abscess and allow free drainage-a small amount serosanguineous fluid, and thick, white debris was extracted until cavity appeared empty. A strip of iodoform packing was inserted into the cavity. Minimal bleeding was noted (few drops). The patient tolerated the procedure well and left the office in good condition. Post procedure Care: The patient was instructed to complete all of the antibiotics as previously prescribed. Warm heat to the area prn. Wound care reviewed. Warnings: if increased signs of infection, pain, fever >100.4, or flu like symptoms-go to the emergency room for further evaluation. symptoms increased pain, redness, or swelling to report to the ED. You may use an OTC medication like Advil (2-3 tablets w/food per directions) or Tylenol as directed if no allergies. Return in 5-7 days for a follow up or sooner if needed. Patient verbalizes understanding and agrees to the plan of care. She was given opportunity to ask questions and all questions were answered to the best of my ability. Incision and drainage performed by: Candis Casanova Informed consent given: Yes Consent signed: Yes Time out checklist: patient, procedure, site marked/identified, supplies available, allergies confirmed and team agrees on procedure Anesthesia: local Drainage quality: purulent (thick excudate) Probed cavity: Yes Culture taken: Yes Lesion: induration Hemostasis: pressure Dressing: other (Iodoform guaze strip) Assessment & Plan Assessment & Plan (1) Vulvar abscess: Code(s): N76.4 - Abscess of vulva Plan See procedure note for plan of care. Orders: Orders Routine Culture w Gram Stain Today N76.4 - Abscess of vulva Coding Level of Care Code Procedure Only Diagnoses Vulvar abscess N76.4
[2023-04-07 07:46] VITALS: BP 100/56; BMI 33.2
== END 2023-04-07 08:51 | disposition home or self-care (01) ==
PROVIDERS: PCP Internal Medicine; Visit Provider Advanced Practice Midwife
DX: N76.4 Abscess of vulva (principal)
CPT/HCPCS: 56405

== ENCOUNTER 2023-04-07 07:15 | Outpatient (REF) | payer OTHER, SELFPAY | END 2023-04-07 07:16 | disposition home or self-care (01) | LOC: HO.LAB 07:15 | PROVIDERS: PCP Internal Medicine; Visit Provider Advanced Practice Midwife | DX: N76.4 Abscess of vulva (principal) | CPT/HCPCS: 56405; 87070; 87205 ==

== ENCOUNTER 2023-04-13 08:27 | Outpatient (AMB) | payer OTHER, SELFPAY ==
[2023-04-13 08:34] VITALS: BP 112/64; BMI 33.2
--- NOTE | 2023-04-13 08:34 | MHC.OFFVIS ---
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 She reports the iodoform packing fell out several days after her visit. She reports feeling well and is completing her antibiotics. [facility] Medical History Encounter for gynecological examination URI (upper respiratory infection) Hyperglycemia Pre-op examination Discomfort of right ear Hypothyroid Bile salt-induced diarrhea Physical exam Hematuria Acute vaginitis Body aches Otitis media, left Abdominal bloating Generalized abdominal pain Skin lesions Tubular adenoma of colon Obesity (BMI 30-39.9) JERRY (obstructive sleep apnea) Somnolence, daytime Encounter for vision screening Encounter for annual routine gynecological examination FH: ovarian cancer in first degree relative Thoracic back pain Genitofemoral neuralgia of right side Class 1 obesity with body mass index (BMI) of 34.0 to 34.9 in adult Moderate persistent asthma Right sided sciatica Migraines Dyslipidemia Hypothyroidism Fixation hardware in leg Bile salt-induced diarrhea Surgical History History of esophagogastroduodenoscopy (EGD) Hx of colonoscopy Eroded bladder suspension mesh History of section History of cholecystectomy History of local excision of skin lesion (~01/04/20) Family History Paternal Aunt History of breast cancer Mother Diabetes High cholesterol Mental health disorder Stomach cancer Uterine cancer, Onset Age: 82 Ovarian cancer Colon cancer Father No problems noted. Sister Uterine cancer Social History Household Members: Children Housing: Apartment Alcohol intake: never Patient Tobacco Use Status: Never used Tobacco e-Cigarette/Vaping Use: Never Used Second Hand Smoke Exposure: Yes service: No Current occupational status: employed Current occupational exposures/hazards: No Cognitive needs: No Hearing needs: No Vision needs: Yes Review of Systems Const All systems reviewed & are unremarkable except as noted in HPI and below Endo Reports no additional complaints Physical Exam Vital Signs: Last Vital Signs BP 112/64 04/13/23 08:34 BMI result Body Mass Index 33.2 Const General: cooperative, healthy appearing and no acute distress Other: right sided abscess wound, healing well, reduced in size approx. by half since lat visit. Psych Appearance: well kempt Attitude: cooperative Thought process: Normal thought process present Assessment & Plan Assessment & Plan (1) Vulvar abscess: Code(s): N76.4 - Abscess of vulva Plan Discussed: Completing all antibiotics. Report any increase in swelling pain or redness. No shaving. Culture was negative. Area has increased in healing progression in a good direction. Return to the office January 2024 for annual or call sooner p.r.n. as needed. All of her questions and concerns were addressed to the best of my ability. Coding Level of Care Code Est Pt Level 3 (24699) Diagnoses Vulvar abscess N76.4
== END 2023-04-13 10:00 | disposition home or self-care (01) ==
LOC: HO.HWS 08:27
PROVIDERS: PCP Internal Medicine; Visit Provider Advanced Practice Midwife
DX: N76.4 Abscess of vulva (principal)
CPT/HCPCS: 99213

== ENCOUNTER → 2023-04-13 08:27 | Outpatient (BNVA) | payer OTHER, SELFPAY | PROVIDERS: PCP Internal Medicine; Visit Provider Advanced Practice Midwife | DX: N76.4 Abscess of vulva (principal) | CPT/HCPCS: 99212 ==

== ENCOUNTER → 2023-06-07 11:13 | Outpatient (BNVA) | payer OTHER, SELFPAY | PROVIDERS: PCP Internal Medicine; Visit Provider Dietitian, Registered ==

== ENCOUNTER 2023-06-27 07:14 | Outpatient (REF) | payer OTHER, SELFPAY ==
[2023-06-27 07:50] LABS: Alanine Aminotransferase 43 U/L (0-31); Albumin Level 4.5 g/dL (3.5-5.0); Alkaline Phosphatase 103 U/L (39-117); Anion Gap 13 (12-20); Aspartate Amino Transferase 30 U/L (5-31); Bilirubin Total 0.4 mg/dL (0.0-1.0); Blood Urea Nitrogen 15 mg/dL (9-16); Calcium 10.1 mg/dL (8.4-10.2); Carbon Dioxide 26 mmol/L (22-29); Chloride 109 mmol/L (96-108); Cholesterol 207 mg/dL (<200); Estimated Glomerular Filt Rate > 60; Glucose Fasting 125 mg/dL (60-99); HDL Cholesterol 43 mg/dL (>40); LDL Cholesterol Calculated 122 mg/dL (<100); Potassium 4.4 mmol/L (3.3-5.1); Sodium 144 mmol/L (135-145); Total Protein 7.7 g/dL (6.5-8.0); Triglycerides 211 mg/dL (<150)
[2023-06-27 08:05] LABS: Thyroid Stimulating Hormone 1.04 uIU/mL (0.32-4.0); Vitamin D 25-OH Total 42.3 ng/mL (>30)
== END 2023-06-27 07:15 | disposition home or self-care (01) ==
LOC: HO.LAB 07:14
PROVIDERS: Absent Provider Internal Medicine; PCP Internal Medicine; Visit Provider Nurse Practitioner
DX: I10 Essential (primary) hypertension (principal); E55.9 Vitamin D deficiency, unspecified; E78.5 Hyperlipidemia, unspecified; E03.9 Hypothyroidism, unspecified
CPT/HCPCS: 36415; 80053; 80061; 82306; 84443

== ENCOUNTER 2023-07-01 10:21 | Outpatient (AMB) | payer OTHER, SELFPAY ==
--- NOTE | 2023-07-01 10:28 | MHC.OFFVIS ---
Vital Signs 07/01/23 10:44 Height 5 ft Weight 170 lb 2 oz BMI 33.2 BP 132/85 Blood Pressure Location Lt brachial Position Sitting Pulse 91 Intake Visit Reasons: 6 months follow up Intake Note: Patient is seen in office for 6 month follow up visit. Patient c/o: admits to continued diarrhea in the mornings, taking meds prescribe at last visit with no relief, lately has been experiencing gas and heartburn after meals that last for half to one hour, had labs done Food Service Hotel Runner Required: No Accompanied by: Self / Same As Patient Allergies No Known Allergies [No Known Allergies*] Allergy (Verified 07/01/23 10:36) HPI HPI 6 months follow up: Details: Assessment & Plan (1) Tubular adenoma of colon: Comment: 2022 scope= 10 mm TA in the sigmoid repeat in 3 years; 12 CM 2019 SCOPE REPEAT IN 3 YEARS Code(s): D12.6 - Benign neoplasm of colon, unspecified (2) GERD (gastroesophageal reflux disease): Code(s): K21.9 - Gastro-esophageal reflux disease without esophagitis (3) Diabetes: Code(s): E11.9 - Type 2 diabetes mellitus without complications (4) Family history of colonic polyps: Code(s): Z83.71 - Family history of colonic polyps (5) Epigastric pain: Code(s): R10.13 - Epigastric pain (6) Constipation: Code(s): K59.00 - Constipation, unspecified (7) Abdominal bloating: Code(s): R14.0 - Abdominal distension (gaseous) (8) Transaminitis: Comment: BASELINE LABS 09/23/22 Estimated GFR > 60 Hemoglobin A1c % 6.3 Total Bilirubin 0.6 AST 36 H ALT 43 H Alkaline Phosphatase 85 Amylase 37 Lipase [address] ABDOMEN AND PELVIS 02/2022 ENHANCED LIVER NORMAL IN SIZE WITH EQUIVOCAL MILD HEPATIC STEATOSIS CORRELATION WITH LIVER FUNCTION TESTS REQUIRED. STATUS POST CHOLECYSTECTOMY. ENHANCED SPLEEN NORMAL IN SIZE. Code(s): R74.01 - Elevation of levels of liver transaminase levels Plan PATIENT SPEAKS [place] The procedure should be repeated 3 years due to the size of the tubular adenoma at the sigmoid. The procedure was well tolerated. The results were explained and the patient is agreeable to the follow-up interval as stated. The bowel pattern has returned to normal. Education was provided to tell any 1st degree relatives about their findings to be sure that they are screened by age 45. Educated that they will be put on a recall list when it is time for their repeat scope but should they move out of state or away from the hospital they will need to remember along with their primary to repeat the procedure in a timely fashion to avoid any adverse complications. She continues on her lansoprazole the morning and famotidine at night, and her senna for constipation.. We stop the Carafate since he did not seem to be helping and is probably contributing to constipation. The we review the testing and does not appear that she has any exocrine pancreatic problems or inflammation of the pancreas. The oral glucose tolerance test does seem to indicate diabetes but the hemoglobin A1c is slightly below the usual threshold of 6.5% given by the National Diabetes Association for diagnostic value along with the glucose tolerance test. Fasting blood glucose was 95 so this seems to indicate pre diabetes which certainly bears close watching. This is particularly true given her transaminitis and fatty liver. It certainly we go long way towards controlling her fatty liver if her sugars are well controlled. I am referring her to a dietitian for initial lifestyle and diet modifications. Next visit considered completing the workup for POND and following this over time including ultrasound elastography. At this point will see her in 6 months and continue to follow her chronic conditions. Orders: Orders Comprehensive [place]. Panel Fast 5 Months I10 - Essential (primary) hypertension Referrals Field Test Engineer Nutrition Referral E11.9 - Type 2 diabetes mellitus without complications Medications: Refilled lansoprazole 30 mg PO QAM 30 caps 6RF K21.9 - Gastro-esophageal reflux disease without esophagitis famotidine 20 mg PO BEDTIME 30 tabs 6RF Discontinued sucralfate Discontinued Reason: Doctor's Order 3 grams (3 x 1 gram) PO .q2pm 90 tabs 0RF K90.89 - Other intestinal malabsorption p TODAYS VISIT PATIENT SPEAKS [place] She is having early satiety and nausea with eating, and with taking her lansoprazole. She is also having a lot of mid back pain. She presented to the [facility] for her back pain and they did xrays which she was told were negative and gave her flexeril - bu this makes her sleepy. 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 She was taking Crestor but has not taken it for quite a while, and she says that her cholesterol was very high and she does not know why. Her PCP started her on fenofibrate, but since she is unsure if her PCP knows she is not taking the Crestor, I advise her to call and clarify if she should or not. In general I do not think the fenofibrate is responsible for her GI problems. The problems started before the fenofibrate. She feels like my gasses in my stomach don't release. I will get a GES and a trial of simethicone and or Gas-X depending on insurance coverage. To review for her GI problems been taking lansoprazole in the morning and famotidine night and now her adding simethicone. ROV 8 weeks. [facility] Medical History Encounter for gynecological examination URI (upper respiratory infection) Hyperglycemia Pre-op examination Discomfort of right ear Hypothyroid Bile salt-induced diarrhea Physical exam Hematuria Acute vaginitis Body aches Otitis media, left Abdominal bloating Generalized abdominal pain Skin lesions Tubular adenoma of colon Obesity (BMI 30-39.9) JERRY (obstructive sleep apnea) Somnolence, daytime Encounter for vision screening Encounter for annual routine gynecological examination FH: ovarian cancer in first degree relative Thoracic back pain Genitofemoral neuralgia of right side Class 1 obesity with body mass index (BMI) of 34.0 to 34.9 in adult Moderate persistent asthma Right sided sciatica Migraines Dyslipidemia Hypothyroidism Fixation hardware in leg Bile salt-induced diarrhea Surgical History History of esophagogastroduodenoscopy (EGD) Hx of colonoscopy Eroded bladder suspension mesh History of section History of cholecystectomy History of local excision of skin lesion (~01/04/20) Family History Paternal Aunt History of breast cancer Mother Diabetes High cholesterol Mental health disorder Stomach cancer Uterine cancer, Onset Age: 82 Ovarian cancer Colon cancer Father No problems noted. Sister Uterine cancer Social History Household Members: Children Housing: Apartment Alcohol intake: never Patient Tobacco Use Status: Never used Tobacco e-Cigarette/Vaping Use: Never Used Second Hand Smoke Exposure: Yes service: No Current occupational status: employed Current occupational exposures/hazards: No Cognitive needs: No Hearing needs: No Vision needs: Yes Review of Systems Const Denies fatigue, Denies fever(s), Denies night sweats, Denies poor appetite and Reports weight loss (Intentional dieting) Eyes Details: glasses Reports requires corrective lenses ENT Reports Normal hearing present, Denies dental pain, Denies dysphagia, Denies hearing loss, Denies mouth pain, Denies odynophagia, Denies throat swelling, Denies tongue swelling and Reports other (Dentition adequate) Card Reports no additional complaints Resp Reports no additional complaints GI Details: Denies abdominal pain, Denies melena, Reports bloating, Denies hematochezia, Denies constipation, Denies GI cramping, Denies dysphagia, Denies excessive flatus, Reports early satiety, Reports heartburn, Denies diarrhea, Reports nausea, Denies odynophagia, Denies vomiting and Denies hematemesis Skin/Breast Denies pruritus, Denies lesions, Denies rash and Denies jaundice Neuro Reports Normal hearing present and Denies Abnormal speech present Endo Denies fatigue Aller/Immun Denies throat swelling and Denies tongue swelling Physical Exam Vital Signs: Last Vital Signs Pulse 91 07/01/23 10:44 BP 132/85 07/01/23 10:44 BMI result Body Mass Index 33.2 Const General: cooperative, no acute distress, well developed and well groomed Nutritional Appearance: well nourished and obese Orientation/consciousness: oriented to person, oriented to place and oriented to time Limitations: No language barrier HEENT Head: Yes normocephalic and Yes atraumatic Eyes General: appearance normal, both eyes and all related structures Pupils: Equal, round and reactive pupils present Neck Neck: Yes normal visual inspection and Yes no lymphadenopathy Thyroid: Thyroid normal Resp Effort & Inspection: normal respiratory effort and able to speak in complete sentences Auscultation: clear to auscultation bilaterally Cardio Rate: regular rate Rhythm: regular rhythm Heart sounds: Normal, physiologic split S2 sound present Peripheral pulses: radial pulses present and posterior tibial pulses present GI Inspection: No distended, No Abdominal panniculus present and Yes obesity Palpation (GI): Soft to palpation, nontender, no guarding, not rigid and No hepatosplenomegaly present Percussion: Yes normal to percussion Auscultation: normal bowel sounds Rectal Exam - Female: deferred Skin General skin exam: no rashes or lesions noted, turgor normal, skin not dry, no jaundice, No spider nevi and no striae Rashes: no rashes Nails: normal Neuro General: oriented to person, oriented to place and oriented to time Cranial nerves: Yes Equal, round and reactive pupils present and Yes Normal hearing present Speech: No Abnormal speech present Extrem General: Yes normal to inspection, No clubbing, No cyanosis and No edema Psych Appearance: grossly normal and well kempt Mental Status: mental status grossly normal Speech and movement: Normal speech and movement present Affect: normal affect Attitude: cooperative Thought process: Normal thought process present and not confabulating Thought content: Normal thought content present Insight: Limited insight present (Psych) Judgement: Limited judgement present (Psych) Assessment & Plan Assessment & Plan (1) Early satiety: Code(s): R68.81 - Early satiety Category: Medical (2) Nausea: Code(s): R11.0 - Nausea Category: Medical Plan PATIENT SPEAKS [place] She is having early satiety and nausea with eating, and with taking her lansoprazole. She is also having a lot of mid back pain. She presented to the [facility] for her back pain and they did xrays which she was told were negative and gave her flexeril - bu this makes her sleepy. 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 She was taking Crestor but has not taken it for quite a while, and she says that her cholesterol was very high and she does not know why. Her PCP started her on fenofibrate, but since she is unsure if her PCP knows she is not taking the Crestor, I advise her to call and clarify if she should or not. In general I do not think the fenofibrate is responsible for her GI problems. The problems started before the fenofibrate. She feels like my gasses in my stomach don't release. I will get a GES and a trial of simethicone and or Gas-X depending on insurance coverage. To review for her GI problems been taking lansoprazole in the morning and famotidine night and now her adding simethicone. ROV 8 weeks. Orders: Orders NM gastric emptying study Today R11.0 - Nausea, R68.81 - Early satiety Medications: New simethicone after meals 180 mg PO QID 120 caps 3RF 30 days sennosides (senna) 17.2 mg (2 x 8.6 mg) PO DAILY 60 tabs 6RF Refilled lansoprazole 30 mg PO QAM 30 caps 6RF K21.9 - Gastro-esophageal reflux disease without esophagitis famotidine 20 mg PO BEDTIME 30 tabs 6RF
[2023-07-01 10:44] VITALS: BP 132/85; PULSE 91; BMI 33.2
== END 2023-07-01 11:08 | disposition home or self-care (01) ==
PROVIDERS: PCP Internal Medicine; Visit Provider Nurse Practitioner
DX: R68.81 Early satiety (principal); R11.0 Nausea
CPT/HCPCS: 99213

== ENCOUNTER → 2023-07-01 10:21 | Outpatient (BNVA) | payer OTHER, SELFPAY | PROVIDERS: PCP Internal Medicine; Visit Provider Nurse Practitioner | DX: K21.9 Gastro-esophageal reflux disease without esophagitis (principal); D12.6 Benign neoplasm of colon, unspecified; R11.0 Nausea; R68.81 Early satiety | CPT/HCPCS: 99212 ==

== ENCOUNTER 2023-07-28 14:33 | Outpatient (AMB) | payer OTHER, SELFPAY ==
[2023-07-28 14:39] VITALS: BP 120/70; BMI 33.2
--- NOTE | 2023-07-28 14:39 | A.OFFPC_ITS ---
Vital Signs 07/28/23 14:39 Height 5 ft Weight 170 lb BMI 33.2 BP 120/70 Blood Pressure Location Lt brachial Position Sitting Intake Visit Reasons: Follow up Thyroid/lipids Intake Note: Patient here for a follow Thyroid, Lipids, c/o toe nail fungus, back pain Check Airman Required: No Accompanied by: Self / Same As Patient Allergies No Known Allergies [No Known Allergies*] Allergy (Verified 07/28/23 14:52) Medication List - Last Reconciled 07/28/23 by Demetrice Person MD acetaminophen ER (Pain Relief (acetaminophen)) 650 mg PO Q8H PRN 30 days blood pressure monitor (Blood Pressure Kit) As directed cetirizine 10 mg PO DAILY cholecalciferol (vitamin D3) 25 mcg PO DAILY 90 days diclofenac sodium 75 mg PO BID famotidine 20 mg PO BEDTIME fenofibrate 54 mg PO DAILY 90 days fluticasone propionate 50 mcg/actuation sprays intranasal fluticasone propionate 110 mcg/actuation (Flovent HFA) 2 puffs inhalation BID 30 days lansoprazole 30 mg PO QAM levothyroxine 100 mcg PO DAILY loratadine (Allergy Relief (loratadine)) 10 mg PO DAILY meloxicam 7.5 mg PO DAILY methocarbamol 500 mg PO BEDTIME nystatin 1 appl topical DAILY 30 days pregabalin 100 mg PO BID 30 days sennosides (senna) 17.2 mg (2 x 8.6 mg) PO DAILY simethicone 180 mg PO QID 30 days topiramate 25 mg PO BID 90 days tretinoin 0.025% appl topical BEDTIME Tobacco use date assessed: 07/28/23 Dental Screening Dental Screen Date: 07/28/23 Did you have a dental visit in the last 12 months?: Yes Did you have a dental problem in the last 6 months where you did not have access to dental care?: No Was dental information given to patient?: Patient has dentist HPI HPI Comments History of Present Illness Details This is a 58-year-old female with hypothyroidism, GERD, constipation, dyslipidemia and mild major depression in remission that comes today for follow- up on her conditions. TSH normal. GERD stable with PPIs. Cholesterol and triglycerides are elevated and low-cholesterol diet was advised. No chest pain or shortness of breath. [facility] Medical History (Updated 07/28/23 @ 19:26 by Demetrice Person MD) Encounter for gynecological examination URI (upper respiratory infection) Hyperglycemia Pre-op examination Discomfort of right ear Hypothyroid Bile salt-induced diarrhea Physical exam Hematuria Acute vaginitis Body aches Otitis media, left Abdominal bloating Generalized abdominal pain Skin lesions Tubular adenoma of colon Obesity (BMI 30-39.9) JERRY (obstructive sleep apnea) Somnolence, daytime Encounter for vision screening Encounter for annual routine gynecological examination FH: ovarian cancer in first degree relative Thoracic back pain Genitofemoral neuralgia of right side Class 1 obesity with body mass index (BMI) of 34.0 to 34.9 in adult Moderate persistent asthma Right sided sciatica Migraines Dyslipidemia Hypothyroidism Fixation hardware in leg Bile salt-induced diarrhea Surgical History History of esophagogastroduodenoscopy (EGD) Hx of colonoscopy Eroded bladder suspension mesh History of section History of cholecystectomy History of local excision of skin lesion (~01/04/20) Family History Paternal Aunt History of breast cancer Mother Diabetes High cholesterol Mental health disorder Stomach cancer Uterine cancer, Onset Age: 82 Ovarian cancer Colon cancer Father No problems noted. Sister Uterine cancer Social History Household Members: Children Housing: Apartment Alcohol intake: never Patient Tobacco Use Status: Never used Tobacco e-Cigarette/Vaping Use: Never Used Second Hand Smoke Exposure: Yes service: No Current occupational status: employed Current occupational exposures/hazards: No Cognitive needs: No Hearing needs: No Vision needs: Yes Questionnaire PHQ-9 Over the last 2 weeks, how often have you been bothered by any of the following problems? 1. Little interest or pleasure in doing things: not at all 2. Feeling down, depressed, or hopeless: not at all 3. Trouble falling or staying asleep, or sleeping too much: not at all 4. Feeling tired or having little energy: not at all 5. Poor appetite or overeating: not at all 6. Feeling bad about yourself - or that you are a failure or have let yourself or your family down: not at all 7. Trouble concentrating on things, such as reading the newspaper or watching television: not at all 8. Moving or speaking so slowly that other people could have noticed. Or the opposite - being so fidgety or restless that you have been moving around a lot more than usual: not at all 9. Thoughts that you would be better off or of hurting yourself in some way: not at all Total score: 0 Source: Developed by Drs. Shun Au, Pat Garcia, Nando Pearson and colleagues, with an educational jake from [email or web address]. Thrive Questionnaire Date Thrive assessed: 07/28/23 I am a: Patient What is your living situation today?: I have a steady place to live Within the past 12 months, did the food you bought not last and you didn't have the money to get more?: Never true Within the past 12 months, did you worry whether your food would run out before you got money to buy more?: Never true Do you have trouble paying for medicines?: No Do you have trouble getting transportation to medical appointments?: No Do you have trouble paying your heating and electricity bill?: No Do you have trouble taking care of your child, family member or friend?: No Do you have trouble with day-to-day activities such as bathing, preparing meals, shopping, managing finances, etc.?: No Are you currently unemployed and looking for a job?: No Are you interested in more education?: No Please select the resources that you would like help with: None Currently or been in a relationship where the following occur: no concerns reported THRIVE Score: 0 AUDIT C Alcohol Use Questionnaire (AUDIT-C) 1. How often do you have a drink containing alcohol?: Never Total Score: 0 ANA-7 AMB Questionnaire ANA-7 Date ANA - 7 assessed: 07/28/23 Feeling nervous, anxious, or on edge: 1 = Several days Not being able to stop or control worryin = Not at all Worrying too much about different things: 1 = Several days Trouble relaxin = Not at all Being so restless that it is hard to sit still: 0 = Not at all Becoming easily annoyed or irritable: 0 = Not at all Feeling afraid as if something awful might happen: 0 = Not at all Total ANA-7 score (0-4 normal; 5-9 mild; 10-14 moderate; 15-21 severe): 2 Source: Developed by Drs. Shun Au, Pat Garcia, Nando Pearson and colleagues, with an educational jake from [email or web address]. Review of Systems Const All systems reviewed & are unremarkable except as noted in HPI and below Card Denies chest pain at rest, Denies chest pain with activity, Denies edema, Denies irregular heart rhythm, Denies claudication, Denies dyspnea, Denies dyspnea on exertion, Denies orthopnea, Denies paroxysmal nocturnal dyspnea and Denies slow heart rate Resp Denies cough, Denies dyspnea and Denies dyspnea on exertion Physical exam (Primary Care) Vital Signs: Last Vital Signs BP 120/70 07/28/23 14:39 BMI result Body Mass Index 33.2 Tobacco/Smoking Status: Tobacco use Status Tobacco use date assessed 07/28/23 07/28/23 14:44 Patient Tobacco Use Status Never used Tobacco 07/28/23 14:44 e-Cigarette/Vaping Use Never Used 07/28/23 14:44 PHQ-9: PHQ-9 Score PHQ-9: Total score 0 07/28/23 15:26 Thrive Assessment: Date of Thrive Assessment Date Thrive assessed 07/28/23 07/28/23 14:44 Currently or been in a relationship where the following occur: no concerns reported Resp Effort & Inspection: normal respiratory effort Auscultation: clear to auscultation bilaterally Cardio Jugular venous distension: no JVD Rate: regular rate Rhythm: regular rhythm Heart sounds: S1 normal heart sound present and S2 normal heart sound present Extrem General: Yes full ROM Assessment and Plan Assessment & Plan (1) Mild major depression, single episode: Code(s): F32.0 - Major depressive disorder, single episode, mild Plan: In remission. (2) Dyslipidemia: Code(s): E78.5 - Hyperlipidemia, unspecified Plan: Continue fibrates. Start low-cholesterol diet. (3) Hypothyroidism: Code(s): E03.9 - Hypothyroidism, unspecified Plan: Continue levothyroxine. (4) Constipation: Code(s): K59.00 - Constipation, unspecified Plan: Continue senna as needed. (5) GERD (gastroesophageal reflux disease): Code(s): K21.9 - Gastro-esophageal reflux disease without esophagitis Plan: Continue lansoprazole. Orders: Orders Lipid Panel 4 Months E78.5 - Hyperlipidemia, unspecified Thyroid Stimulating Hormone 4 Months E03.9 - Hypothyroidism, unspecified Comprehensive [place]. Panel Fast 4 Months E78.5 - Hyperlipidemia, unspecified Medications: New terbinafine HCl 250 mg PO DAILY 90 days 90 tabs 0RF lidocaine 4% (Aspercreme (lidocaine)) 1 patch topical DAILY 30 days PRN 30 ea 0RF pain Refilled cholecalciferol (vitamin D3) 25 mcg PO DAILY 90 days 90 caps 1RF Coding Level of Care Code Est Pt Level 4 (09013) Diagnoses Mild major depression, single episode F32.0 Dyslipidemia E78.5 Hypothyroidism E03.9 Constipation K59.00 GERD (gastroesophageal reflux disease) K21.9 Time Spent (min) 22
== END 2023-07-28 15:13 | disposition home or self-care (01) ==
PROVIDERS: PCP Internal Medicine; Visit Provider Internal Medicine
DX: F32.0 Major depressive disorder, single episode, mild (principal); E78.5 Hyperlipidemia, unspecified; E03.9 Hypothyroidism, unspecified; K59.00 Constipation, unspecified; K21.9 Gastro-esophageal reflux disease without esophagitis
CPT/HCPCS: 99214

== ENCOUNTER → 2023-08-10 07:28 | Outpatient (REF) | payer OTHER, SELFPAY ==
--- NOTE | ~2023-08-10 | NM_ITS ---
EXAMINATION: RADIONUCLIDE SOLID FOOD GASTRIC EMPTYING 4-HOUR STUDY CLINICAL INFORMATION: Early satiety. COMPARISON: No previous gastric emptying study is available for comparison. TECHNIQUE: A standard meal consisting of 4 oz of Egg Beaters brand equivalent tagged with 900 microcuries Tc-99m Sulfur Colloid, 8 oz water and 2 slices of toast with jelly was administered orally to the patient. Images were obtained using a dual head gamma camera in the anterior and posterior projections over of the stomach immediately post ingestion and at hourly intervals up to 4 hours post ingestion. The anterior and posterior counts at each time interval were averaged using the geometric mean and expressed as percentage of the immediate post ingestion counts. FINDINGS: There is good visualization of activity in the stomach immediately post ingestion. As the study progresses, there is good clearance of activity from the stomach and visualization of progressively increasing small bowel activity. By the end of the study, there is almost no retention noted in the stomach. Retention in the stomach at each time interval was: 1 hour 55% (normal 37%-90%) 2 hours 43% (normal 30%-60%) 3 hours 15% 4 hours 7% (normal 0%-10%) NM/NM gastric emptying study IMPRESSION: Normal 4-hour solid food gastric emptying study. Gastric emptying study grading per JNMT Consensus Recommendations in 2008: https://tech.snmjournals.org/content/36/1/44 Grade 1 (mild retention): 11-20% at 4 hours Grade 2 (moderate retention): 21-35% at 4 hours Grade 3 (severe retention): 36-50% at 4 hours Grade 4 (very severe retention): >50% retention at 4 hours
[2023-08-10 09:13] LABS: Thyroid Stimulating Hormone 1.01 uIU/mL (0.32-4.0)
== END ==
LOC: HO.NUCMED 07:28
PROVIDERS: Absent Provider Internal Medicine; PCP Internal Medicine; Visit Provider Nurse Practitioner
DX: R68.81 Early satiety (principal); R11.0 Nausea; E03.9 Hypothyroidism, unspecified
CPT/HCPCS: 36415; 78264; 84443; A9541

== ENCOUNTER 2023-08-26 10:37 | Outpatient (AMB) | payer OTHER, SELFPAY ==
--- NOTE | 2023-08-26 10:42 | MHC.OFFVIS ---
Vital Signs 08/26/23 10:43 Height 5 ft Weight 168 lb 6.931 oz BMI 32.9 BP 127/72 Blood Pressure Location Lt brachial Position Sitting Pulse 66 Intake Visit Reasons: 8 wk follow up Intake Note: Ximena returns to in office visit today in follow up of gastric emptying scan. 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 She is also having a lot of mid back pain. She presented to the [place] [facility] for her back pain and they did xrays which she was told were negative and gave her flexeril - bu this makes her sleepy. 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 She was taking Crestor but has not taken it for quite a while, and she says that her cholesterol was very high and she does not know why. Her PCP started her on fenofibrate, but since she is unsure if her PCP knows she is not taking the Crestor, I advise her to call and clarify if she should or not. In general I do not think the fenofibrate is responsible for her GI problems. The problems started before the fenofibrate. She feels like my gasses in my stomach don't release. I will get a GES and a trial of simethicone and or Gas-X depending on insurance coverage. To review for her GI problems been taking lansoprazole in the morning and famotidine night and now her adding simethicone. ROV 8 weeks. Orders: Orders NM gastric emptying study Today R11.0 - Nausea, R68.81 - Early satiety Medications: New simethicone after meals 180 mg PO QID 120 caps 3RF 30 days sennosides (senna) 17.2 mg (2 x 8.6 mg) PO DAILY 60 tabs 6RF Refilled lansoprazole 30 mg PO QAM 30 caps 6RF K21.9 - Gastro-esophageal reflux disease without esophagitis famotidine 20 mg PO BEDTIME 30 tabs 6RF GASTRIC EMPTYING STUDY 08/10/23 IMPRESSION: Normal 4-hour solid food gastric emptying study. TODAYS VISIT PATIENT SPEAKS [place] She is doing better with the simethicone but still has bloating after eating. She also finds that she can not eat as large quantity as she had in the past. She seems to have some troubles with pork which is not uncommon in my [place] client's. I think were going to try her on some Creon as she may have some mild exocrine pancreatic insufficiency contributing to her bloating. This may allow her to eat a wider range of foods. She continues on her lansoprazole and famotidine along with senna for occasional constipation with good control. she has been having tongue numbness and gingivitis, she was told to take B 12, but she likely should take a b complex as niacin could also be deficient - I recommend this. Return office visit 6 mos. [facility] Medical History Constipation Dyslipidemia Vaginitis Epigastric pain Somnolence, daytime Pelvic pain in female Right sided sciatica Skin lesion Family history of colonic polyps Encounter for gynecological examination URI (upper respiratory infection) Hyperglycemia Pre-op examination Discomfort of right ear Hypothyroid Bile salt-induced diarrhea Physical exam Hematuria Acute vaginitis Body aches Otitis media, left Abdominal bloating Generalized abdominal pain Skin lesions Tubular adenoma of colon Obesity (BMI 30-39.9) JERRY (obstructive sleep apnea) Encounter for vision screening Encounter for annual routine gynecological examination FH: ovarian cancer in first degree relative Thoracic back pain Genitofemoral neuralgia of right side Class 1 obesity with body mass index (BMI) of 34.0 to 34.9 in adult Moderate persistent asthma Migraines Hypothyroidism Fixation hardware in leg Bile salt-induced diarrhea Surgical History History of esophagogastroduodenoscopy (EGD) Hx of colonoscopy Eroded bladder suspension mesh History of section History of cholecystectomy History of local excision of skin lesion (~01/04/20) Family History Paternal Aunt History of breast cancer Mother Diabetes High cholesterol Mental health disorder Stomach cancer Uterine cancer, Onset Age: 82 Ovarian cancer Colon cancer Father No problems noted. Sister Uterine cancer Social History Household Members: Children Housing: Apartment Alcohol intake: never Patient Tobacco Use Status: Never used Tobacco e-Cigarette/Vaping Use: Never Used Second Hand Smoke Exposure: Yes service: No Current occupational status: employed Current occupational exposures/hazards: No Cognitive needs: No Hearing needs: No Vision needs: Yes Review of Systems Const Denies fatigue, Denies fever(s), Denies night sweats, Denies poor appetite and Denies weight loss Eyes Details: glasses Reports requires corrective lenses ENT Reports Normal hearing present, Denies dental pain, Denies dysphagia, Denies hearing loss, Denies mouth pain, Denies odynophagia, Denies throat swelling, Denies tongue swelling and Reports other (Dentition adequate) Card Reports no additional complaints Resp Reports no additional complaints GI Details: Denies abdominal pain, Denies melena, Reports bloating, Denies hematochezia, Reports constipation, Denies GI cramping, Denies dysphagia, Denies excessive flatus, Denies early satiety, Reports heartburn, Denies diarrhea, Denies nausea, Denies odynophagia, Denies vomiting and Denies hematemesis Skin/Breast Denies pruritus, Denies lesions, Denies rash and Denies jaundice Neuro Reports Normal hearing present and Denies Abnormal speech present Endo Denies fatigue Aller/Immun Denies throat swelling and Denies tongue swelling Physical Exam Vital Signs: Last Vital Signs Pulse 66 08/26/23 10:43 BP 127/72 08/26/23 10:43 BMI result Body Mass Index 32.9 Const General: cooperative, no acute distress, well developed and well groomed Nutritional Appearance: well nourished and obese Orientation/consciousness: oriented to person, oriented to place and oriented to time Limitations: No language barrier HEENT Head: Yes normocephalic and Yes atraumatic Eyes General: appearance normal, both eyes and all related structures Pupils: Equal, round and reactive pupils present Neck Neck: Yes normal visual inspection and Yes no lymphadenopathy Thyroid: Thyroid normal Resp Effort & Inspection: normal respiratory effort and able to speak in complete sentences Auscultation: clear to auscultation bilaterally Cardio Rate: regular rate Rhythm: regular rhythm Heart sounds: Normal, physiologic split S2 sound present Peripheral pulses: radial pulses present and posterior tibial pulses present GI Inspection: No distended, No Abdominal panniculus present and Yes obesity Palpation (GI): Soft to palpation, nontender, no guarding, not rigid and No hepatosplenomegaly present Percussion: Yes normal to percussion Auscultation: normal bowel sounds Rectal Exam - Female: deferred Skin General skin exam: no rashes or lesions noted, turgor normal, skin not dry, no jaundice, No spider nevi and no striae Rashes: no rashes Nails: normal Neuro General: oriented to person, oriented to place and oriented to time Cranial nerves: Yes Equal, round and reactive pupils present and Yes Normal hearing present Speech: No Abnormal speech present Extrem General: Yes normal to inspection, No clubbing, No cyanosis and No edema Psych Appearance: grossly normal and well kempt Mental Status: mental status grossly normal Speech and movement: Normal speech and movement present Affect: normal affect Attitude: cooperative Thought process: Normal thought process present and not confabulating Thought content: Normal thought content present Insight: Limited insight present (Psych) Judgement: Limited judgement present (Psych) Assessment & Plan Assessment & Plan (1) GERD (gastroesophageal reflux disease): Code(s): K21.9 - Gastro-esophageal reflux disease without esophagitis Category: Medical (2) Lactose intolerance: Code(s): E73.9 - Lactose intolerance, unspecified Category: Medical (3) Nausea: Code(s): R11.0 - Nausea Category: Medical (4) Early satiety: Code(s): R68.81 - Early satiety Category: Medical (5) IBS (irritable bowel syndrome): Code(s): K58.9 - Irritable bowel syndrome without diarrhea Category: Medical Plan PATIENT SPEAKS [place] She is doing better with the Perfect Pizzaethicone but still has bloating after eating. She also finds that she can not eat as large quantity as she had in the past. She seems to have some troubles with pork which is not uncommon in my [place] client's. I think were going to try her on some Creon as she may have some mild exocrine pancreatic insufficiency contributing to her bloating. This may allow her to eat a wider range of foods. She continues on her lansoprazole and famotidine along with senna for occasional constipation with good control. she has been having tongue numbness and gingivitis, she was told to take B 12, but she likely should take a b complex as niacin could also be deficient - I recommend this. Return office visit 6 mos. Orders: Orders H pylori Ag Stool 08/26/23 R11.0 - Nausea Medications: New fssual-rnarcapf-dnkukvh 36,000-114,000- 180,000 unit (Creon) administer with meals and/or snacks 2 caps PO BID 120 caps 6RF K58.9 - Irritable bowel syndrome without diarrhea Refilled lansoprazole 30 mg PO QAM 30 caps 6RF K21.9 - Gastro-esophageal reflux disease without esophagitis simethicone after meals 180 mg PO QID 120 caps 6RF 30 days famotidine 20 mg PO BEDTIME 30 tabs 6RF sennosides (senna) 17.2 mg (2 x 8.6 mg) PO DAILY 60 tabs 6RF Coding Level of Care Code Est Pt Level 3 (84717) Diagnoses GERD (gastroesophageal reflux disease) K21.9 Lactose intolerance E73.9 Nausea R11.0 Early satiety R68.81 IBS (irritable bowel syndrome) K58.9
[2023-08-26 10:43] VITALS: BP 127/72; PULSE 66; BMI 32.9
== END 2023-08-26 11:24 | disposition home or self-care (01) ==
PROVIDERS: PCP Internal Medicine; Visit Provider Nurse Practitioner
DX: K21.9 Gastro-esophageal reflux disease without esophagitis (principal); E73.9 Lactose intolerance, unspecified; R11.0 Nausea; R68.81 Early satiety; K58.9 Irritable bowel syndrome, unspecified
CPT/HCPCS: 99213

== ENCOUNTER → 2023-08-26 10:37 | Outpatient (BNVA) | payer OTHER, SELFPAY | PROVIDERS: PCP Internal Medicine; Visit Provider Nurse Practitioner | DX: R68.81 Early satiety (principal); R11.0 Nausea; K21.9 Gastro-esophageal reflux disease without esophagitis; E73.9 Lactose intolerance, unspecified; K58.9 Irritable bowel syndrome, unspecified; Z79.899 Other long term (current) drug therapy | CPT/HCPCS: 99212 ==

== ENCOUNTER 2023-09-29 08:56 | Outpatient (REF) | payer OTHER, SELFPAY | END 2023-09-29 08:57 | disposition home or self-care (01) | LOC: HO.LNP 08:56 | PROVIDERS: Visit Provider Nurse Practitioner | DX: R11.0 Nausea (principal) | CPT/HCPCS: 87338 ==

== ENCOUNTER 2023-10-07 15:13 | Outpatient (AMB) | payer OTHER, SELFPAY ==
--- NOTE | 2023-10-07 15:19 | AM.OFFWIN_ITS ---
Intake Vital Signs 10/07/23 15:23 Height 5 ft Weight 167 lb BMI 32.6 BP 122/84 Blood Pressure Location Rt brachial Position Sitting Pulse 76 Pulse Source Pulse Oximeter Temp 98.4 F Temp Source Oral Pulse Oximetry (%) 98 Oxygen Delivery Method Room Air Intake Visit Reasons: EP, Low back pain Intake Note: pt here c/o upper back pain. Patient Tobacco Use Status: Never used Tobacco Allergies No Known Allergies [No Known Allergies*] Allergy (Verified 10/07/23 15:22) Do you need a note to return to daycare/school/sports/work: No HPI EP, Low back pain HPI Details This note is constructed using voice recognition software. While every effort has been made to ensure accuracy, door tender errors may have been included. The patient is a 58 year old female who presents to the clinic today with back pain. The patient reports that she has had back pain intermittently for several years, but recently in the last month has had some worsening in her lumbar region to the right side. She notes that she had been seen by a chiropractor and the pain seemed to be a little bit worse. She has tried Tylenol and Motrin at home but they do not seem to work, she is using heat and ice in the seemed to help a little bit better. She has had no injury to the area, she does have a family history of spine cancer in his working with her primary care provider for the appropriate screening modalities for that. She has no numbness or tingling, it her strength is normal, and no difficulty walking, no loss of control of bladder or bowel. [facility] Medical History Constipation Dyslipidemia Vaginitis Epigastric pain Somnolence, daytime Pelvic pain in female Right sided sciatica Skin lesion Family history of colonic polyps Encounter for gynecological examination URI (upper respiratory infection) Hyperglycemia Pre-op examination Discomfort of right ear Hypothyroid Bile salt-induced diarrhea Physical exam Hematuria Acute vaginitis Body aches Otitis media, left Abdominal bloating Generalized abdominal pain Skin lesions Tubular adenoma of colon Obesity (BMI 30-39.9) JERRY (obstructive sleep apnea) Encounter for vision screening Encounter for annual routine gynecological examination FH: ovarian cancer in first degree relative Thoracic back pain Genitofemoral neuralgia of right side Class 1 obesity with body mass index (BMI) of 34.0 to 34.9 in adult Moderate persistent asthma Migraines Hypothyroidism Fixation hardware in leg Bile salt-induced diarrhea Surgical History History of esophagogastroduodenoscopy (EGD) Hx of colonoscopy Eroded bladder suspension mesh History of section History of cholecystectomy History of local excision of skin lesion (~01/04/20) Family History Paternal Aunt History of breast cancer Mother Diabetes High cholesterol Mental health disorder Stomach cancer Uterine cancer, Onset Age: 82 Ovarian cancer Colon cancer Father No problems noted. Sister Uterine cancer Social History Household Members: Children Housing: Apartment Alcohol intake: never Patient Tobacco Use Status: Never used Tobacco e-Cigarette/Vaping Use: Never Used Second Hand Smoke Exposure: Yes service: No Current occupational status: employed Current occupational exposures/hazards: No Cognitive needs: No Hearing needs: No Vision needs: Yes Review of Systems Const All systems reviewed & are unremarkable except as noted in HPI and below Physical Exam Vital Signs: Last Vital Signs Temp 98.4 F 10/07/23 15:23 Pulse 76 10/07/23 15:23 BP 122/84 10/07/23 15:23 Pulse Ox 98 10/07/23 15:23 Oxygen Delivery Method Room Air 10/07/23 15:23 BMI result Body Mass Index 32.6 Const General: cooperative, healthy appearing, comfortable, no acute distress and alert Orientation/consciousness: patient oriented x3 Limitations: no limitations Resp Effort & Inspection: normal respiratory effort and able to speak in complete sentences Auscultation: clear to auscultation bilaterally Cardio Jugular venous distension: no JVD Palpation: normal PMI Rate: regular rate Heart sounds: S1 normal heart sound present, S2 normal heart sound present, no click, no gallops, no murmurs and no rubs General: Yes no CVA tenderness Back/Spine/Pelvis Other: Normal rotation, flexion and extension. Tender to palpation to the paraspinal muscle on the right thoracic region. Increased muscle bulking to the same area. Normal bilateralshoulder exam Back: no CVA tenderness Skin General skin exam: no rashes or lesions noted, elasticity normal and turgor normal Neuro General: patient oriented x3 Psych Appearance: grossly normal Mental Status: mental status grossly normal Speech and movement: Normal speech and movement present Affect: normal affect Assessment & Plan Assessment & Plan (1) Back pain: Code(s): M54.9 - Dorsalgia, unspecified Qualifiers: Back pain location: thoracic back pain Chronicity: acute Back pain laterality: right Qualified Code(s): M54.6 - Pain in thoracic spine Plan: Acute on chronic back pain, with palpable muscle bulking consistent with likely muscle not. Advised at home measures including heat, ice, stretching, consideration of massage. We will try a prednisone burst for symptomatic relief and anti-inflammatory effects. Advised patient to follow up with PCP with on going or worsening. Given the chronicity of her back pain she may also benefit from physical therapy. Advised patient to keep appointment with PCP for workup on screening modalities given her family history. Plan See above for full details and plan. Medications: New 2 prednisone 40 mg (2 x 20 mg) PO DAILY 5 days 10 tabs 0RF Coding Level of Care Code Est Pt Level 3 (16068) Diagnoses Acute right-sided thoracic back pain M54.6 Back pain location: thoracic back pain Chronicity: acute Back pain laterality: right
[2023-10-07 15:23] VITALS: BP 122/84; PULSE 76; TEMP 36.9; O2SAT 98; BMI 32.6
== END 2023-10-07 17:46 | disposition home or self-care (01) ==
PROVIDERS: PCP Internal Medicine; Visit Provider Registered Nurse
DX: M54.6 Pain in thoracic spine (principal)
CPT/HCPCS: 99213

== ENCOUNTER 2023-10-17 10:48 | Outpatient (AMB) | payer OTHER, SELFPAY ==
[2023-10-17 11:01] VITALS: BP 122/76; PULSE 77; O2SAT 97; BMI 32.4
--- NOTE | 2023-10-17 11:01 | MHC.PC.OV ---
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 Accompanied by: Self / Same As Patient Allergies No Known Allergies [No Known Allergies*] Allergy (Verified 10/17/23 11:18) Medication List - Last Reconciled 10/17/23 by Demetrice Person MD acetaminophen ER (Pain Relief (acetaminophen)) 650 mg PO Q8H PRN 30 days blood pressure monitor (Blood Pressure Kit) As directed cetirizine 10 mg PO DAILY cholecalciferol (vitamin D3) 25 mcg PO DAILY 90 days diclofenac sodium 75 mg PO BID famotidine 20 mg PO BEDTIME fenofibrate 54 mg PO DAILY 90 days fluticasone propionate 50 mcg/actuation sprays intranasal fluticasone propionate 110 mcg/actuation (Flovent HFA) 2 puffs inhalation BID 30 days lansoprazole 30 mg PO QAM levothyroxine 100 mcg PO DAILY lidocaine 4% (Aspercreme (lidocaine)) 1 patch topical DAILY PRN 30 days yptflh-jfdeqfmr-bjtghyi 36,000-114,000- 180,000 unit (Creon) 2 caps PO BID loratadine (Allergy Relief (loratadine)) 10 mg PO DAILY meloxicam 7.5 mg PO DAILY methocarbamol 500 mg PO BEDTIME nystatin 1 appl topical DAILY 30 days pregabalin 100 mg PO BID 30 days sennosides (senna) 17.2 mg (2 x 8.6 mg) PO DAILY simethicone 180 mg PO QID 30 days terbinafine HCl 250 mg PO DAILY 90 days topiramate 25 mg PO BID 90 days tretinoin 0.025% appl topical BEDTIME Tobacco use date assessed: 07/28/23 Dental Screening Dental Screen Date: 07/28/23 HPI HPI Comments History of Present Illness Details This is a 58-year-old female with hypothyroidism, GERD and mild major depression that comes today complaining of thoracic spine pain that started about 2 months ago and it happens on a daily basis. Denies previous trauma. X-ray will be order and she will be sent to physical therapy. Last TSH was normal. GERD stable with famotidine. Depression is in remission. No chest pain or shortness on breath. [facility] Medical History (Updated 10/17/23 @ 11:22 by Demetrice Person MD) Constipation Dyslipidemia Vaginitis Epigastric pain Somnolence, daytime Pelvic pain in female Right sided sciatica Skin lesion Family history of colonic polyps Encounter for gynecological examination URI (upper respiratory infection) Hyperglycemia Pre-op examination Discomfort of right ear Hypothyroid Bile salt-induced diarrhea Physical exam Hematuria Acute vaginitis Body aches Otitis media, left Abdominal bloating Generalized abdominal pain Skin lesions Tubular adenoma of colon Obesity (BMI 30-39.9) JERRY (obstructive sleep apnea) Encounter for vision screening Encounter for annual routine gynecological examination FH: ovarian cancer in first degree relative Thoracic back pain Genitofemoral neuralgia of right side Class 1 obesity with body mass index (BMI) of 34.0 to 34.9 in adult Moderate persistent asthma Migraines Hypothyroidism Fixation hardware in leg Bile salt-induced diarrhea Surgical History History of esophagogastroduodenoscopy (EGD) Hx of colonoscopy Eroded bladder suspension mesh History of section History of cholecystectomy History of local excision of skin lesion (~01/04/20) Family History Paternal Aunt History of breast cancer Mother Diabetes High cholesterol Mental health disorder Stomach cancer Uterine cancer, Onset Age: 82 Ovarian cancer Colon cancer Father No problems noted. Sister Uterine cancer Social History Household Members: Children Housing: Apartment Alcohol intake: never Patient Tobacco Use Status: Never used Tobacco e-Cigarette/Vaping Use: Never Used Second Hand Smoke Exposure: Yes service: No Current occupational status: employed Current occupational exposures/hazards: No Cognitive needs: No Hearing needs: No Vision needs: Yes Questionnaire PHQ-9 Over the last 2 weeks, how often have you been bothered by any of the following problems? 1. Little interest or pleasure in doing things: not at all 2. Feeling down, depressed, or hopeless: not at all 3. Trouble falling or staying asleep, or sleeping too much: not at all 4. Feeling tired or having little energy: not at all 5. Poor appetite or overeating: not at all 6. Feeling bad about yourself - or that you are a failure or have let yourself or your family down: not at all 7. Trouble concentrating on things, such as reading the newspaper or watching television: not at all 8. Moving or speaking so slowly that other people could have noticed. Or the opposite - being so fidgety or restless that you have been moving around a lot more than usual: not at all 9. Thoughts that you would be better off or of hurting yourself in some way: not at all Total score: 0 Depression Screening Interpretation: Negative Depression Screening Done: Yes 62420 - PHQ-9 Billing: Yes Source: Developed by Drs. Shun Au, Nando Saxena and colleagues, with an educational jake from [employer]. Thrive Questionnaire Date Thrive assessed: 07/28/23 AUDIT C Alcohol Use Questionnaire (AUDIT-C) 1. How often do you have a drink containing alcohol?: Never Total Score: 0 Score Reviewed/Action Taken: No ANA-7 AMB Questionnaire ANA-7 Date ANA - 7 assessed: 07/28/23 Source: Developed by Drs. Shun Au, Nando Saxena and colleagues, with an educational jake from [employer]. Review of Systems Const All systems reviewed & are unremarkable except as noted in HPI and below Card Denies chest pain at rest, Denies chest pain with activity, Denies edema, Denies irregular heart rhythm, Denies claudication, Denies dyspnea, Denies dyspnea on exertion, Denies orthopnea, Denies paroxysmal nocturnal dyspnea and Denies slow heart rate Resp Denies cough, Denies dyspnea and Denies dyspnea on exertion GI Denies abdominal pain, Denies change in bowel habits, Denies excessive flatus, Denies nausea and Denies vomiting Denies urinary incontinence, Denies urinary hesitancy and Denies urinary urgency Musc Reports back pain, Denies atrophy, Denies deformity and Denies limited range of motion Skin/Breast Denies bleeding lesions, Denies changing lesions and Denies rash Physical exam (Primary Care) Vital Signs: Last Vital Signs Pulse 77 10/17/23 11:01 BP 122/76 10/17/23 11:01 Pulse Ox 97 10/17/23 11:01 Oxygen Delivery Method Room Air 10/17/23 11:01 BMI result Body Mass Index 32.4 BMI Assessment/Plan discussion: High BMI High, discussed plan: lifestyle, weight reduction, dietary and physical activity Tobacco/Smoking Status: Tobacco use Status Tobacco use date assessed 07/28/23 10/17/23 11:06 Patient Tobacco Use Status Never used Tobacco 10/17/23 11:06 e-Cigarette/Vaping Use Never Used 10/17/23 11:06 PHQ-9: PHQ-9 Score PHQ-9: Total score 0 10/17/23 11:06 Depression Screening Interpretation: Negative Thrive Assessment: Date of Thrive Assessment Date Thrive assessed 07/28/23 10/17/23 11:06 Resp Effort & Inspection: normal respiratory effort Auscultation: clear to auscultation bilaterally Cardio Jugular venous distension: no JVD Rate: regular rate Rhythm: regular rhythm Heart sounds: S1 normal heart sound present and S2 normal heart sound present Back/Spine/Pelvis Thoracic/Lumbar Spine: thoracic spinal tenderness Extrem General: Yes full ROM Assessment and Plan Assessment & Plan (1) Thoracic spine pain: Code(s): M54.6 - Pain in thoracic spine Plan: XR ordered. Start physical therapy. (2) Mild major depression, single episode: Code(s): F32.0 - Major depressive disorder, single episode, mild Plan: In remission. (3) Hypothyroidism: Code(s): E03.9 - Hypothyroidism, unspecified Plan: Continue levothyroxine. Monitor TSH. (4) GERD (gastroesophageal reflux disease): Code(s): K21.9 - Gastro-esophageal reflux disease without esophagitis Plan: Continue famotidine. Orders: Orders XR DEXA axial skeleton Today N95.9 - Unspecified menopausal and perimenopausal disorder PT Evaluation and Treatment Today M54.6 - Pain in thoracic spine Thyroid Stimulating Hormone Today E03.9 - Hypothyroidism, unspecified XR thoracic spine 2V Today M54.6 - Pain in thoracic spine Medications: New methocarbamol 750 mg PO Q8H 5 days 15 tabs 0RF Coding Level of Care Code Est Pt Level 4 (73919) Complex EM visit Add On G2211 Diagnoses Thoracic spine pain M54.6 Mild major depression, single episode F32.0 Hypothyroidism E03.9 GERD (gastroesophageal reflux disease) K21.9 Time Spent (min) 22
== END 2023-10-17 11:25 | disposition home or self-care (01) ==
PROVIDERS: PCP Internal Medicine; Visit Provider Internal Medicine
DX: M54.6 Pain in thoracic spine (principal); F32.0 Major depressive disorder, single episode, mild; E03.9 Hypothyroidism, unspecified; K21.9 Gastro-esophageal reflux disease without esophagitis
CPT/HCPCS: 99214; G2211

== ENCOUNTER 2023-10-17 11:29 | Outpatient (REF) | payer OTHER, SELFPAY ==
--- NOTE | ~2023-10-17 | XR_ITS ---
EXAMINATION: XR THORACIC SPINE CLINICAL INFORMATION: Thoracic spine pain. COMPARISON: Thoracic spine radiographs dated 07/28/2021. TECHNIQUE: Frontal, lateral and swimmer's views of the thoracic spine were obtained. FINDINGS: Vertebral body heights and alignment are normal. There is a slight thoracolumbar dextroscoliosis. At T6-7, there is mild disc space narrowing. The remaining disc spaces are relatively well-maintained. No acute fracture or spondylolisthesis is seen. There is multi-level mild thoracic spondylosis. The posterior elements are intact. The paravertebral soft tissues are unremarkable. There are right upper quadrant surgical clips. XR/XR thoracic spine 2V IMPRESSION: 1. No acute fracture or spondylolisthesis is seen. 2. There is mild degenerative disc disease at T6-7. 3. There is multi-level mild thoracic spondylosis. 4. There is a slight thoracolumbar dextroscoliosis. Electronically signed by: Regulo Johnson MD 11/10/2023 04:53 PM EDT
== END 2023-10-17 11:30 | disposition home or self-care (01) ==
LOC: HO.XRAY 11:29
PROVIDERS: PCP Internal Medicine; Visit Provider Internal Medicine
DX: M54.6 Pain in thoracic spine (principal)
CPT/HCPCS: 72070

== ENCOUNTER 2023-11-08 08:07 | Outpatient (REF) | payer OTHER, SELFPAY ==
--- NOTE | ~2023-11-08 | MM_ITS ---
EXAMINATION: BONE DENSITOMETRY CLINICAL INDICATION: Unspecified menopausal and perimenopausal disorder. COMPARISON: This is the patient's baseline examination. TECHNIQUE: Using a [employer] DXA System (software version: 13.1) manufactured by [employer], dual-energy x-ray absorptiometry was performed of the lumbar spine and left hip. The images are of good technical quality. Summary results are attached. FINDINGS: LEFT FEMUR, NECK: BMD 0.852 g/cm2, Z-score -0.5, T-score -1.3, osteopenia. LEFT FEMUR, TOTAL: BMD 0.893 g/cm2, Z-score -0.4, T-score -0.9, normal. AP SPINE L1-L4: BMD 0.918 g/cm2, Z-score -1.6, T-score -2.2, osteopenia. IDENTIFIED RISK FACTORS: Menopause, history of fracture (adult), secondary osteoporosis (hyperthyroidism), secondary osteoporosis (intestinal or bowel disease, not IBS). HISTORY OF FRACTURE: Other. MEDICATIONS: Calcium supplements or multivitamin, vitamin D. MM/XR DEXA axial skeleton IMPRESSION: 1. DIAGNOSIS: Osteopenia based on the lowest T-score value of -2.2 in the lumbar spine applying World Health Organization criteria. 2. 10-YEAR FRACTURE RISK PREDICTION, FRAX: Major osteoporotic fracture (clinical spine, forearm, hip or shoulder) 6.4%. Hip fracture 0.5%. 3. Treatment Recommendations: NOF guidelines recommend consideration for treatment in postmenopausal women and men age 50 and older presenting with the following: -A hip or vertebral (clinical or morphometric) fracture. -T-score less than or equal to -2.5 at the femoral neck or spine after appropriate evaluation to exclude secondary causes. -Low bone mass at the hip or spine and a 10-year fracture probability by FRAX of greater than or equal to 3% for hip fracture or greater than or equal to 20% for major osteoporotic fracture based on the [place] adapted WHO algorithm. 4. Other Recommendations: All treatment decisions require clinical judgment and consideration of individual patient factors, including patient preferences, comorbidities, previous drug use, risk factors not captured in the FRAX model (e.g. frailty, falls, vitamin D deficiency, increased bone turnover, interval significant decline in bone density) and possible under or overestimation of fracture risk by FRAX. Additional medical evaluation for secondary cause of low bone mineral density may be appropriate. FUTURE SCAN RECOMMENDATION: People with diagnosed cases of osteoporosis or at high risk for fracture should have regular bone mineral density tests. For patients eligible for Medicare, routine testing is allowed once every 2 years. The testing frequency can be increased to one year for patients who have rapidly progressing disease, those who are receiving or discontinuing medical therapy to restore bone mass, or have additional risk factors. Electronically signed by: Arsen Pierson MD 11/09/2023 10:34 AM EDT
[2023-11-08 14:11] LABS: Alanine Aminotransferase 33 U/L (0-31); Albumin Level 4.4 g/dL (3.5-5.0); Alkaline Phosphatase 83 U/L (39-117); Anion Gap 11 (12-20); Aspartate Amino Transferase 28 U/L (5-31); Bilirubin Total 0.4 mg/dL (0.0-1.0); Blood Urea Nitrogen 16 mg/dL (9-16); Calcium 9.7 mg/dL (8.4-10.2); Carbon Dioxide 26 mmol/L (22-29); Chloride 109 mmol/L (96-108); Cholesterol 298 mg/dL (<200); Estimated Glomerular Filt Rate > 60; Glucose Fasting 108 mg/dL (60-99); HDL Cholesterol 46 mg/dL (>40); LDL Cholesterol Calculated 176 mg/dL (<100); Potassium 3.8 mmol/L (3.3-5.1); Sodium 142 mmol/L (135-145); Total Protein 7.4 g/dL (6.5-8.0); Triglycerides 381 mg/dL (<150)
[2023-11-08 14:27] LABS: Thyroid Stimulating Hormone 0.57 uIU/mL (0.32-4.0)
== END 2023-11-08 08:08 | disposition home or self-care (01) ==
LOC: HO.MAMMO 08:07
PROVIDERS: PCP Internal Medicine; Visit Provider Internal Medicine
DX: N95.9 Unspecified menopausal and perimenopausal disorder (principal); E78.5 Hyperlipidemia, unspecified; E03.9 Hypothyroidism, unspecified; Z13.820 Encounter for screening for osteoporosis
CPT/HCPCS: 36415; 77080; 80053; 80061; 84443

== ENCOUNTER 2023-12-01 16:57 | Outpatient (AMB) | payer OTHER, SELFPAY ==
--- NOTE | 2023-12-01 17:05 | MHC.PC.OV ---
Vital Signs 12/01/23 17:07 Height 5 ft Weight 166 lb BMI 32.4 BP 126/82 Blood Pressure Location Lt brachial Position Sitting Intake Visit Reasons: thyroid Intake Note: Patient here for a follow up thyroid Bar Assistant Required: No Accompanied by: Self / Same As Patient Allergies No Known Allergies [No Known Allergies*] Allergy (Verified 12/01/23 17:30) Medication List - Last Reconciled 12/01/23 by Demetrice Person MD acetaminophen ER (Pain Relief (acetaminophen)) 650 mg PO Q8H PRN 30 days atorvastatin 20 mg PO BEDTIME 90 days blood pressure monitor (Blood Pressure Kit) As directed calcium acetate 667 mg PO BID 90 days cetirizine 10 mg PO DAILY cholecalciferol (vitamin D3) 25 mcg PO DAILY 90 days diclofenac sodium 75 mg PO BID famotidine 20 mg PO BEDTIME fenofibrate 54 mg PO DAILY 90 days fluticasone propionate 50 mcg/actuation sprays intranasal fluticasone propionate 110 mcg/actuation (Flovent HFA) 2 puffs inhalation BID 30 days lansoprazole 30 mg PO QAM levothyroxine 100 mcg PO DAILY lidocaine 4% (Aspercreme (lidocaine)) 1 patch topical DAILY PRN 30 days [id number] 36,000-114,000- 180,000 unit (Creon) 2 caps PO BID loratadine (Allergy Relief (loratadine)) 10 mg PO DAILY meloxicam 7.5 mg PO DAILY methocarbamol 750 mg PO Q8H 5 days nystatin 1 appl topical DAILY 30 days pregabalin 100 mg PO BID 30 days sennosides (senna) 17.2 mg (2 x 8.6 mg) PO DAILY simethicone 180 mg PO QID 30 days topiramate 25 mg PO BID 90 days tretinoin 0.025% appl topical BEDTIME Tobacco use date assessed: 07/28/23 Dental Screening Dental Screen Date: 12/01/23 Did you have a dental visit in the last 12 months?: No Did you have a dental problem in the last 6 months where you did not have access to dental care?: No Was dental information given to patient?: Patient has dentist HPI HPI Comments History of Present Illness Details This is a 58-year-old female with mixed hyperlipidemia, hypothyroidism, GERD and thoracic spine pain that comes today for follow-up on her conditions. On statins and fibrates for her cholesterol and triglycerides. This will be repeated in a few months. GERD stable with PPIs. Last TSH was normal. Has thoracic spine pain and is on methocarbamol and meloxicam for this matter. No chest pain or shortness on breath. [facility] Medical History (Updated 10/17/23 @ 11:22 by Demetrice Person MD) Constipation Dyslipidemia Vaginitis Epigastric pain Somnolence, daytime Pelvic pain in female Right sided sciatica Skin lesion Family history of colonic polyps Encounter for gynecological examination URI (upper respiratory infection) Hyperglycemia Pre-op examination Discomfort of right ear Hypothyroid Bile salt-induced diarrhea Physical exam Hematuria Acute vaginitis Body aches Otitis media, left Abdominal bloating Generalized abdominal pain Skin lesions Tubular adenoma of colon Obesity (BMI 30-39.9) JERRY (obstructive sleep apnea) Encounter for vision screening Encounter for annual routine gynecological examination FH: ovarian cancer in first degree relative Thoracic back pain Genitofemoral neuralgia of right side Class 1 obesity with body mass index (BMI) of 34.0 to 34.9 in adult Moderate persistent asthma Migraines Hypothyroidism Fixation hardware in leg Bile salt-induced diarrhea Surgical History History of esophagogastroduodenoscopy (EGD) Hx of colonoscopy Eroded bladder suspension mesh History of section History of cholecystectomy History of local excision of skin lesion (~01/04/20) Family History Paternal Aunt History of breast cancer Mother Diabetes High cholesterol Mental health disorder Stomach cancer Uterine cancer, Onset Age: 82 Ovarian cancer Colon cancer Father No problems noted. Sister Uterine cancer Social History Household Members: Children Housing: Apartment Alcohol intake: never Patient Tobacco Use Status: Never used Tobacco e-Cigarette/Vaping Use: Never Used Second Hand Smoke Exposure: Yes service: No Current occupational status: employed Current occupational exposures/hazards: No Cognitive needs: No Hearing needs: No Vision needs: Yes Questionnaire Thrive Questionnaire Date Thrive assessed: 07/28/23 Are you currently unemployed and looking for a job?: No AUDIT C Alcohol Use Questionnaire (AUDIT-C) 1. How often do you have a drink containing alcohol?: Never 3. How often do you have six or more drinks on one occasion?: Never Total Score: 0 Score Reviewed/Action Taken: No ANA-7 AMB Questionnaire ANA-7 Date ANA - 7 assessed: 07/28/23 Source: Developed by Drs. Shun Au, Pat Garcia, Nando Pearson and colleagues, with an educational jake from [employer]. Review of Systems Const All systems reviewed & are unremarkable except as noted in HPI and below Card Denies chest pain at rest, Denies chest pain with activity, Denies edema, Denies irregular heart rhythm, Denies claudication, Denies dyspnea, Denies dyspnea on exertion, Denies orthopnea, Denies paroxysmal nocturnal dyspnea and Denies slow heart rate Resp Denies cough, Denies dyspnea and Denies dyspnea on exertion GI Denies abdominal pain, Denies change in bowel habits, Denies excessive flatus, Denies nausea and Denies vomiting Denies urinary incontinence, Denies urinary hesitancy and Denies urinary urgency Musc Denies atrophy, Denies deformity and Denies limited range of motion Skin/Breast Denies bleeding lesions, Denies changing lesions and Denies rash Physical exam (Primary Care) Vital Signs: Last Vital Signs BP 126/82 12/01/23 17:07 BMI result Body Mass Index 32.4 Tobacco/Smoking Status: Tobacco use Status Tobacco use date assessed 07/28/23 12/01/23 17:06 Patient Tobacco Use Status Never used Tobacco 12/01/23 17:06 e-Cigarette/Vaping Use Never Used 12/01/23 17:06 Thrive Assessment: Date of Thrive Assessment Date Thrive assessed 07/28/23 12/01/23 17:06 Resp Effort & Inspection: normal respiratory effort Auscultation: clear to auscultation bilaterally Cardio Jugular venous distension: no JVD Rate: regular rate Rhythm: regular rhythm Heart sounds: S1 normal heart sound present and S2 normal heart sound present Extrem General: Yes full ROM Assessment and Plan Assessment & Plan (1) Hypothyroidism: Code(s): E03.9 - Hypothyroidism, unspecified Plan: Continue levothyroxine. Monitor TSH. (2) GERD (gastroesophageal reflux disease): Code(s): K21.9 - Gastro-esophageal reflux disease without esophagitis Plan: Continue famotidine. (3) Mixed hyperlipidemia: Code(s): E78.2 - Mixed hyperlipidemia Plan: Continue statins and fibrates. (4) Thoracic spine pain: Code(s): M54.6 - Pain in thoracic spine Plan: Continue meloxicam and methocarbamol as needed. Medications: New benzonatate 100 mg PO BID PRN 10 caps 0RF cough 5 days Coding Level of Care Code Est Pt Level 4 (89400) Complex EM visit Add On G2211 Diagnoses Hypothyroidism E03.9 GERD (gastroesophageal reflux disease) K21.9 Mixed hyperlipidemia E78.2 Thoracic spine pain M54.6 Time Spent (min) 22
[2023-12-01 17:07] VITALS: BP 126/82; BMI 32.4
== END 2023-12-01 17:34 | disposition home or self-care (01) ==
PROVIDERS: PCP Internal Medicine; Visit Provider Internal Medicine
DX: E03.9 Hypothyroidism, unspecified (principal); K21.9 Gastro-esophageal reflux disease without esophagitis; E78.2 Mixed hyperlipidemia; M54.6 Pain in thoracic spine

== ENCOUNTER → 2023-12-01 16:57 | Outpatient (BNVA) | payer OTHER, SELFPAY | PROVIDERS: PCP Internal Medicine; Visit Provider Internal Medicine | DX: E03.9 Hypothyroidism, unspecified (principal); K21.9 Gastro-esophageal reflux disease without esophagitis; E78.2 Mixed hyperlipidemia; M54.6 Pain in thoracic spine | CPT/HCPCS: 99212 ==

== ENCOUNTER 2024-01-31 09:08 | Outpatient (REF) | payer OTHER, SELFPAY ==
[2024-01-31 11:22] LABS: HPV 16,18/45 See PAP report
[2024-01-31 14:34] LABS: Bacterial Vaginosis PCR POSITIVE (Negative); Candida Group PCR DETECTED (Not Detect); Candida glab krusei PCR NOT DETECTED (Not Detect); Trichomonas vaginalis PCR NOT DETECTED (Not Detect)
[2024-01-31 15:06] LABS: CT PCR NOT DETECTED (Not Detect.); NG PCR NOT DETECTED (Not Detect.)
== END 2024-01-31 09:09 | disposition home or self-care (01) ==
LOC: HO.LNP 09:08
PROVIDERS: PCP Internal Medicine; Visit Provider Advanced Practice Midwife
DX: Z01.419 Encounter for gynecological examination (general) (routine) without abnormal findings (principal); Z20.2 Contact with and (suspected) exposure to infections with a predominantly sexual mode of transmission; R87.810 Cervical high risk human papillomavirus (HPV) DNA test positive; R87.610 Atypical squamous cells of undetermined significance on cytologic smear of cervix (ASC-US); B37.31 Acute candidiasis of vulva and vagina
CPT/HCPCS: 0352U; 87491; 87591; 87624; 88175; 99396

== ENCOUNTER 2024-01-31 09:08 | Outpatient (AMB) | payer OTHER, SELFPAY ==
[2024-01-31 09:21] VITALS: BP 122/72; BMI 33.0
--- NOTE | 2024-01-31 09:21 | MHC.OFFVIS ---
Vital Signs 01/31/24 09:21 Height 5 ft Weight 169 lb BMI 33.0 BP 122/72 Blood Pressure Location Lt brachial Position Sitting Intake Visit Reasons: Annual/ 30 min, room 4 Intake Note: Patient is Itchy not sure if she has a yeast infection. Would like STD testing. Portable Track Crew Chief Required: No Allergies No Known Allergies [No Known Allergies*] Allergy (Verified 12/01/23 17:30) Is last menstrual period known: Yes Last menstrual period: 01/30/17 Post menopausal: No Patient : No HPI Comments Details: She is a postmenopausal woman presenting for her annual client care specialist examination. She is doing well with no concerns. Currently sexually active, new partner. Denies any vaginal dryness or irritation. STI testing offered; she accepts. Attempting to eat a healthy diet with calcium and vitamin D and plans to start walking. Last pap smear; 2018. Last mammogram; 2022. Colonoscopy is UTD. Family history of breast, ovarian or colon cancer. [facility] Medical History Constipation Dyslipidemia Vaginitis Epigastric pain Somnolence, daytime Pelvic pain in female Right sided sciatica Skin lesion Family history of colonic polyps Encounter for gynecological examination URI (upper respiratory infection) Hyperglycemia Pre-op examination Discomfort of right ear Hypothyroid Bile salt-induced diarrhea Physical exam Hematuria Acute vaginitis Body aches Otitis media, left Abdominal bloating Generalized abdominal pain Skin lesions Tubular adenoma of colon Obesity (BMI 30-39.9) JERRY (obstructive sleep apnea) Encounter for vision screening Encounter for annual routine gynecological examination FH: ovarian cancer in first degree relative Thoracic back pain Genitofemoral neuralgia of right side Class 1 obesity with body mass index (BMI) of 34.0 to 34.9 in adult Moderate persistent asthma Migraines Hypothyroidism Fixation hardware in leg Bile salt-induced diarrhea Surgical History History of esophagogastroduodenoscopy (EGD) Hx of colonoscopy Eroded bladder suspension mesh History of section History of cholecystectomy History of local excision of skin lesion (~01/04/20) Family History Paternal Aunt History of breast cancer Mother Diabetes High cholesterol Mental health disorder Stomach cancer Uterine cancer, Onset Age: 82 Ovarian cancer Colon cancer Father No problems noted. Sister Uterine cancer Social History Household Members: Children Housing: Apartment Alcohol intake: never Patient Tobacco Use Status: Never used Tobacco e-Cigarette/Vaping Use: Never Used Second Hand Smoke Exposure: Yes Patient : No service: No Current occupational status: employed Current occupational exposures/hazards: No Cognitive needs: No Hearing needs: No Vision needs: Yes Female Reproductive History Menstrual Age of Menarche: 17 Date of last menstrual period: 01/30/17 Menopause type: natural Age of menopause: 49 Total pregnancies: 6 Full term: 4 Number of Living Children: 4 Ab induced: 2 History of abnormal pap smear: Yes (09/25 ASCUS) History of STI: No Date of Mammogram: 02/24/23 History of abnormal mammogram: No Review of Systems Const All systems reviewed & are unremarkable except as noted in HPI and below Reports as per HPI Eyes Reports no additional complaints ENT Reports no additional complaints Card Reports no additional complaints Resp Reports no additional complaints GI Reports as per HPI and Reports no additional complaints Reports as per HPI Musc Reports no additional complaints Skin/Breast Reports as per HPI Neuro Reports no additional complaints Psych Reports no additional complaints Endo Reports no additional complaints Jarett/Lymph Reports no additional complaints Aller/Immun Reports no additional complaints Physical Exam Vital Signs: Last Vital Signs BP 122/72 01/31/24 09:21 BMI result Body Mass Index 33.0 Const General: cooperative, healthy appearing, no acute distress, well developed and alert Orientation/consciousness: patient oriented x3 HEENT Head: Yes normal to inspection Eyes General: appearance normal, both eyes and all related structures Neck Neck: Yes normal visual inspection Thyroid: Thyroid normal Chest Chest palpation & inspection: normal inspection of the chest and other (no puckering, dimpling, peau de orange, retraction, discharge, masses) Breast/axilla inspection: normal inspection of the breasts Breast/axilla palpation: normal palpation of the breasts Resp Effort & Inspection: normal respiratory effort GI Inspection: Yes normal to inspection Palpation (GI): Soft to palpation Rectal Exam - Female: deferred General: Yes bladder normal to palpation External Female Exam: normal external appearance and normal appearance of the urethra Speculum Exam - Vagina: normal appearance of the vagina, normal palpation, normal vaginal discharge and vagina atrophic Speculum Exam - Cervix: normal appearance of the cervix and normal palpation Bimanual exam- vagina & uterus: normal bimanual exam, normal palpation, uterine size normal, bladder normal to palpation, normal palpation and non-tender Bimanual Exam- Adnexa, other: no masses Skin General skin exam: no rashes or lesions noted Rashes: no rashes Neuro General: patient oriented x3 Cognition (Neuro): normal cognition Extrem General: Yes normal to inspection Psych Attitude: cooperative Thought process: Normal thought process present Assessment & Plan Assessment & Plan (1) Encounter for well woman exam with routine gynecological exam: Code(s): Z01.419 - Encounter for gynecological examination (general) (routine) without abnormal findings Category: Medical Plan Discussed: Current recommendations for pap smears per ASCCP guidelines. Breast awareness, periodic self breast exams and yearly mammogram. Maintain a healthy lifestyle, well balanced diet including Calcium 1,200 mg and Vitamin D 600 IU daily, and routine exercise. Contact the office with any postmenopausal bleeding. Patient verbalizes understanding and agrees to the plan of care. She was given opportunity to ask questions and all questions were answered to the best of my ability. RTO in 1 year for annual client care specialist exam. This note is constructed using voice recognition software. While every effort has been made to ensure accuracy, drawer hardware worker errors may have been included. Orders: Orders Hepatitis B Core Antibody Today Z20.2 - Contact with and (suspected) exposure to infections with a predominantly sexual mode of transmission HIV Ab/Ag Today Z20.2 - Contact with and (suspected) exposure to infections with a predominantly sexual mode of transmission Hepatitis C Antibody Reflex Today Z20.2 - Contact with and (suspected) exposure to infections with a predominantly sexual mode of transmission Syphilis Screen Today Z20.2 - Contact with and (suspected) exposure to infections with a predominantly sexual mode of transmission MM tomosynthesis screening BI Today Z12.31 - Encounter for screening mammogram for malignant neoplasm of breast Coding Level of Care Code Est Pt Prev Care 40-64y(81836) Diagnoses Encounter for well woman exam with routine gynecological exam Z01.419
== END 2024-01-31 10:11 | disposition home or self-care (01) ==
LOC: HO.HWS 09:08
PROVIDERS: PCP Internal Medicine; Visit Provider Advanced Practice Midwife
DX: Z01.419 Encounter for gynecological examination (general) (routine) without abnormal findings (principal)
CPT/HCPCS: 99396

== ENCOUNTER 2024-02-03 09:03 | Outpatient (REF) | payer OTHER, SELFPAY ==
[2024-02-03 11:26] LABS: Syphilis Screen Nonreactive (Nonreactive)
[2024-02-03 11:28] LABS: HBc Num1 0.11 S/CO (0.00-0.79); HIV AB/AG Nonreactive (Nonreactive); HIV Num 1 0.05 S/CO (0.00-0.99); Hepatitis B Core Antibody Nonreactive (Nonreactive); ~HepC Num1 0.11 S/CO (0.00-0.79); ~Hepatitis C Antibody Nonreactive (Nonreactive)
== END 2024-02-03 09:04 | disposition home or self-care (01) ==
LOC: HO.LAB 09:03
PROVIDERS: PCP Internal Medicine; Referring Provider Internal Medicine; Visit Provider Advanced Practice Midwife
DX: Z20.2 Contact with and (suspected) exposure to infections with a predominantly sexual mode of transmission (principal)
CPT/HCPCS: 36415; 86704; 86780; 86803; 87389

== ENCOUNTER 2024-02-15 10:33 | Outpatient (REF) | payer OTHER, SELFPAY ==
[2024-02-15 17:53] LABS: Bacterial Vaginosis PCR NEGATIVE (Negative); Candida Group PCR NOT DETECTED (Not Detect); Candida glab krusei PCR NOT DETECTED (Not Detect); Trichomonas vaginalis PCR NOT DETECTED (Not Detect)
== END 2024-02-15 10:34 | disposition home or self-care (01) ==
LOC: HO.LAB 10:33
PROVIDERS: PCP Internal Medicine; Visit Provider Advanced Practice Midwife
DX: N89.8 Other specified noninflammatory disorders of vagina (principal); R87.610 Atypical squamous cells of undetermined significance on cytologic smear of cervix (ASC-US); R87.810 Cervical high risk human papillomavirus (HPV) DNA test positive
CPT/HCPCS: 0352U; 99212

== ENCOUNTER 2024-02-15 11:01 | Outpatient (AMB) | payer OTHER, SELFPAY ==
--- NOTE | 2024-02-15 10:57 | MHC.OFFVIS ---
Intake Visit Reasons: vag inf Intake Note: pt c/o recurring vag irritation, odor and discharge Rn Medical Inpatient Services: Rn Medical Inpatient Services Present ([facility]) Allergies No Known Allergies [No Known Allergies*] Allergy (Verified 02/15/24 10:57) HPI Comments Details: Patient is here today with concerns for vaginal odor and itching. Previously seen on January 30 was treated for BV and yeast and reports completing her treatment. She has also recently been diagnosed with ASCUS and positive HPV. She is no longer with her partner, admits she suspected he was not monogamous. She is very concerned about the recent Pap results and reports approximately 30 years ago she had an abnormal Pap and had cells frozen. She has pelvic cramping, no urinary symptoms and no bleeding. Recent GC chlamydia and blood work were all negative. Additionally she reports her sciatic pain is bothersome. [facility] Medical History (Updated 02/15/24 @ 11:17 by Candis Casanova CNM) ASCUS with positive high risk HPV cervical Constipation Dyslipidemia Vaginitis Epigastric pain Somnolence, daytime Pelvic pain in female Right sided sciatica Skin lesion Family history of colonic polyps Encounter for gynecological examination URI (upper respiratory infection) Hyperglycemia Pre-op examination Discomfort of right ear Hypothyroid Bile salt-induced diarrhea Physical exam Hematuria Acute vaginitis Body aches Otitis media, left Abdominal bloating Generalized abdominal pain Skin lesions Tubular adenoma of colon Obesity (BMI 30-39.9) JERRY (obstructive sleep apnea) Encounter for vision screening Encounter for annual routine gynecological examination FH: ovarian cancer in first degree relative Thoracic back pain Genitofemoral neuralgia of right side Class 1 obesity with body mass index (BMI) of 34.0 to 34.9 in adult Moderate persistent asthma Migraines Hypothyroidism Fixation hardware in leg Bile salt-induced diarrhea Surgical History History of esophagogastroduodenoscopy (EGD) Hx of colonoscopy Eroded bladder suspension mesh History of section History of cholecystectomy History of local excision of skin lesion (~01/04/20) Family History Paternal Aunt History of breast cancer Mother Diabetes High cholesterol Mental health disorder Stomach cancer Uterine cancer, Onset Age: 82 Ovarian cancer Colon cancer Father No problems noted. Sister Uterine cancer Social History Household Members: Children Housing: Apartment Alcohol intake: never Patient Tobacco Use Status: Never used Tobacco e-Cigarette/Vaping Use: Never Used Second Hand Smoke Exposure: Yes service: No Current occupational status: employed Current occupational exposures/hazards: No Cognitive needs: No Hearing needs: No Vision needs: Yes Female Reproductive History Menstrual Age of Menarche: 17 Review of Systems Const All systems reviewed & are unremarkable except as noted in HPI and below Physical Exam Const General: cooperative, healthy appearing and no acute distress Orientation/consciousness: patient oriented x3 GI Inspection: Yes normal to inspection Palpation (GI): Soft to palpation and Other GI palpation findings present (Nontender) Rectal Exam - Female: visual inspection normal General: Yes bladder normal to palpation External Female Exam: normal appearance of the urethra Speculum Exam - Vagina: normal appearance of the vagina, normal palpation and normal vaginal discharge Speculum Exam - Cervix: normal appearance of the cervix and normal palpation Bimanual exam- vagina & uterus: normal bimanual exam, normal palpation, uterine size normal, bladder normal to palpation, normal palpation, uterine shape normal, non-tender and Uterine tenderness (Slightly) Bimanual Exam- Adnexa, other: normal adnexae Neuro General: patient oriented x3 Assessment & Plan Assessment & Plan (1) ASCUS with positive high risk HPV cervical: Code(s): R87.610 - Atypical squamous cells of undetermined significance on cytologic smear of cervix (ASC-US); R87.810 - Cervical high risk human papillomavirus (HPV) DNA test positive Category: Medical (2) Vaginal odor: Code(s): N89.8 - Other specified noninflammatory disorders of vagina (3) Vaginal itching: Code(s): N89.8 - Other specified noninflammatory disorders of vagina Plan Discussed: Ascus positive HPV on recent Pap smear, educated on HPV diagnosis and progression/regression of abnormal Paps, diagnostic testing with colposcopy recommended, treatment and plan of care will be pending biopsy results. Appointment to be made today for colposcopy with Dr. Mancilla. Await BV panel for plan of care. Advised to see her primary care for her sciatic symptoms. The patient expressed understanding and agreement with the plan of care. All of her questions and concerns were addressed to the best of my ability. This note is constructed using voice recognition software. While every effort has been made to ensure accuracy, resident care technician errors may have been included. Orders: Orders Bacterial Vaginosis Panel Today N89.8 - Other specified noninflammatory disorders of vagina Coding Level of Care Code Est Pt Level 3 (21685) Diagnoses ASCUS with positive high risk HPV cervical R87.610; R87.810 Vaginal odor N89.8 Vaginal itching N89.8
--- OUTSIDE RECORDS SUMMARY | 2024-02-21 17:42 | XMS_ITS | Continuity of Care Document ---
Author Organization [facility] [address] [facility] [address] [place] [address] Phone [phone] Care Team Providers Care Rn Transitional Name Role Phone Demetrice Meier MD Care Team Information Receiv er [phone] Problems Active Problems Provider Date Non-toxic multinodular goiter Jcarlos Colon M.D. Onset: 04/14/2023 Hypothyroidism Jcarlos Colon M.D. Onset: 0 04/14/2023 Social History Type Date Description Comments Sex Unknown ETOH Use Never used alcohol Tobacco Use Start: Unknown Patient has never smoked Allergies and adverse reactions Description No Known Drug Allergies Medications Active Medications SIG Qnty Indications Order ing Provider Date Levothyroxine [id number] Tablets Take 1 Tablet By Mouth Daily And 2 Tabs On Tuesday 100tabs Jcarlos Colon M.D. 04/15/2023 Flovent [id number]/Act Lake Tubbs MD Pantoprazole Nagobt34ek Tablets DR Take 1 Tablet By Mouth Daily Randi Dalila Daysi, AISHWARYA [id number] (1000 Ut) Capsules Unknown Tmxavltguz22ag Tablets Take 1 Tablet By Mouth Twice A Day Unknown Rosuvastatin Yqjtkkp61yi Tablets Take 1 Tablet By Mouth Everyday AT Bedtime Unknown Aztutzhvdq55lq Tablets Take 1 Tablet By Mouth Everyday AT Bedtime Unknown Vital Signs Date Vital Result Comment 04/15/2023 3:35pm BP Systolic 120 mmHg BP Diastolic 80 mmHg Heart Rate 72 /min Height 61 inches 5'1 Weight 173.12 lb BMI (Body Mass Index) 32.7 kg/m2 Results Test Acquired Date Facility Test Result H/L Range N ote Laboratory test finding 03/18/2023 [facility] TSH 2.38 uIU/mL (0.4-4.2) Laboratory test finding 03/03/2022 [facility] Anti Thyroid Peroxidase AB 259.5 IU/mL High (<5.6) 1 1 Antibody measurement represents one parameter in a multicriteria diagnostic process. Correlate results with clinical presentation. This test was performed on the [employer] immunoassay system. Medical Devices Description No Information Available Encounters Type Date Location Provider Dx Diagnosis Office Visit 04/15/2023 4:00p Main Office Jcarlos Colon M.D. 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 04/15/2023 E04.2 Multinodular goiter Jcarlos Durán M.D. 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
--- OUTSIDE RECORDS SUMMARY | 2024-02-21 17:55 | XMS_ITS | Continuity of Care Document ---
Author Organization [facility] [address] [facility] [address] [place] [address] Phone [phone] Care Team Providers Care Lead Customer Service Representative Name Role Phone Demetrice Meier MD Care Team Information Receiv er [phone] Problems Active Problems Provider Date Non-toxic multinodular goiter Jcarlos Colon M.D. Onset: 04/14/2023 Hypothyroidism Jcarlos Colon M.D. Onset: 0 04/14/2023 Social History Type Date Description Comments Sex Unknown ETOH Use Never used alcohol Tobacco Use Start: Unknown Patient has never smoked Allergies and adverse reactions Description No Known Drug Allergies Medications Active Medications SIG Qnty Indications Order ing Provider Date Levothyroxine Fwtudz572nnl Tablets Take 1 Tablet By Mouth Daily And 2 Tabs On Tuesday 100tabs Jcarlos Colon M.D. 04/15/2023 Flovent TIF239ihg/Act Lake Tubbs MD Pantoprazole Xjqexp40cb Tablets DR Take 1 Tablet By Mouth Daily Randi Dalila Daysi, AISHWARYA [id number] (1000 Ut) Capsules Unknown Ytfozrgqps10ij Tablets Take 1 Tablet By Mouth Twice A Day Unknown Rosuvastatin Sarhsma48yw Tablets Take 1 Tablet By Mouth Everyday AT Bedtime Unknown Otyduzvaqw74zp Tablets Take 1 Tablet By Mouth Everyday AT Bedtime Unknown Vital Signs Date Vital Result Comment 04/15/2023 3:35pm BP Systolic 120 mmHg BP Diastolic 80 mmHg Heart Rate 72 /min Height 61 inches 5'1 Weight 173.12 lb BMI (Body Mass Index) 32.7 kg/m2 Results Test Acquired Date Facility Test Result H/L Range N ote Laboratory test finding 03/18/2023 [facility] TSH 2.38 uIU/mL (0.4-4.2) Laboratory test finding 03/03/2022 [facility] Anti Thyroid Peroxidase AB 259.5 IU/mL High (<5.6) 1 1 Antibody measurement represents one parameter in a multicriteria diagnostic process. Correlate results with clinical presentation. This test was performed on the [employer] immunoassay system. Medical Devices Description No Information [...]
== END 2024-02-15 11:38 | disposition home or self-care (01) ==
PROVIDERS: PCP Internal Medicine; Visit Provider Advanced Practice Midwife
DX: R87.610 Atypical squamous cells of undetermined significance on cytologic smear of cervix (ASC-US) (principal); R87.810 Cervical high risk human papillomavirus (HPV) DNA test positive; N89.8 Other specified noninflammatory disorders of vagina
CPT/HCPCS: 99213

== ENCOUNTER 2024-03-01 13:37 | Outpatient (REF) | payer OTHER, SELFPAY ==
--- OUTSIDE RECORDS SUMMARY | 2024-03-01 13:40 | XMS_ITS | Continuity of Care Document ---
Author Organization [facility] 2 [facility] [address] [place] [address] Phone [phone] Care Team Providers Care Customer Service Teller Name Role Phone Demetrice Meier MD Care Team Information Receiv er [phone] Problems Active Problems Provider Date Non-toxic multinodular goiter Jcarlos Colon M.D. Onset: 04/14/2023 Hypothyroidism Jcarlos Colon M.D. Onset: 0 04/14/2023 Social History Type Date Description Comments Sex Unknown ETOH Use Never used alcohol Tobacco Use Start: Unknown Patient has never smoked Allergies and adverse reactions Description No Known Drug Allergies Medications Active Medications SIG Qnty Indications Order ing Provider Date Levothyroxine [id number] Tablets Take 1 Tablet By Mouth Daily And 2 Tabs On Tuesday 100tabs Jcarlos Colon M.D. 04/15/2023 Flovent [id number]/Act Lake Tubbs MD Pantoprazole Bvepug25nh Tablets DR Take 1 Tablet By Mouth Daily Randi Dalila Daysi, AISHWARYA [id number] (1000 Ut) Capsules Unknown Ehmuupgvcj61fx Tablets Take 1 Tablet By Mouth Twice A Day Unknown Rosuvastatin Sojueds84va Tablets Take 1 Tablet By Mouth Everyday AT Bedtime Unknown Cdlfdhvdfa29sv Tablets Take 1 Tablet By Mouth Everyday AT Bedtime Unknown Vital Signs Date Vital Result Comment 04/15/2023 3:35pm BP Systolic 120 mmHg BP Diastolic 80 mmHg Heart Rate 72 /min Height 61 inches 5'1 Weight 173.12 lb BMI (Body Mass Index) 32.7 kg/m2 Results Test Acquired Date Facility Test Result H/L Range N ote Laboratory test finding 03/18/2023 [facility] TSH 2.38 uIU/mL (0.4-4.2) Laboratory test finding 03/03/2022 [facility] Anti Thyroid Peroxidase AB 259.5 IU/mL High (<5.6) 1 1 Antibody measurement represents one parameter in a multicriteria diagnostic process. Correlate results with clinical presentation. This test was performed on the [email or web address] immunoassay system. Medical Devices Description No Information [...]
== END 2024-03-01 13:38 | disposition home or self-care (01) ==
LOC: HO.MAMMO 13:37
PROVIDERS: PCP Internal Medicine; Visit Provider Internal Medicine
DX: K58.9 Irritable bowel syndrome, unspecified (principal); K21.9 Gastro-esophageal reflux disease without esophagitis; E73.9 Lactose intolerance, unspecified
CPT/HCPCS: 99212

== ENCOUNTER 2024-03-01 14:16 | Outpatient (AMB) | payer OTHER, SELFPAY ==
--- OUTSIDE RECORDS SUMMARY | 2024-03-01 14:18 | XMS_ITS | Continuity of Care Document ---
Author Organization [facility] 2 [facility] [address] [place] [address] Phone [phone] Care Team Providers Care Data Keyer Name Role Phone Demetrice Meier MD Care Team Information Receiv er [phone] Problems Active Problems Provider Date Non-toxic multinodular goiter Jcarlos Colon M.D. Onset: 04/14/2023 Hypothyroidism Jcarlos Colon M.D. Onset: 0 04/14/2023 Social History Type Date Description Comments Sex Unknown ETOH Use Never used alcohol Tobacco Use Start: Unknown Patient has never smoked Allergies and adverse reactions Description No Known Drug Allergies Medications Active Medications SIG Qnty Indications Order ing Provider Date Levothyroxine Izfiko176jwc Tablets Take 1 Tablet By Mouth Daily And 2 Tabs On Tuesday 100tabs Jcarlos Colon M.D. 04/15/2023 Flovent GCN069orl/Act Lake Tubbs MD Pantoprazole Zockfp85ps Tablets DR Take 1 Tablet By Mouth Daily Randi Dalila Daysi, AISHWARYA [id number] (1000 Ut) Capsules Unknown Wgmozuquwn33cs Tablets Take 1 Tablet By Mouth Twice A Day Unknown Rosuvastatin Ljwwcvn76ds Tablets Take 1 Tablet By Mouth Everyday AT Bedtime Unknown Dplljwfuzw04jx Tablets Take 1 Tablet By Mouth Everyday AT Bedtime Unknown Vital Signs Date Vital Result Comment 04/15/2023 3:35pm BP Systolic 120 mmHg BP Diastolic 80 mmHg Heart Rate 72 /min Height 61 inches 5'1 Weight 173.12 lb BMI (Body Mass Index) 32.7 kg/m2 Results Test Acquired Date Facility Test Result H/L Range N ote Laboratory test finding 03/18/2023 [facility] TSH 2.38 uIU/mL (0.4-4.2) Laboratory test finding 03/03/2022 [facility] Anti Thyroid Peroxidase AB 259.5 IU/mL High (<5.6) 1 1 Antibody measurement represents one parameter in a multicriteria diagnostic process. Correlate results with clinical presentation. This test was performed on the [employer] immunoassay system. Medical Devices Description No Information [...]
--- NOTE | 2024-03-01 14:21 | MHC.OFFVIS ---
Vital Signs 03/01/24 14:24 Height 5 ft Weight 169 lb 12.095 oz BMI 33.1 BP 128/76 Blood Pressure Location Rt brachial Position Sitting Pulse 84 Intake Visit Reasons: 6 month follow up Intake Note: Ximena presents in 6 months follow up of GERD. CC: Patient reports abdominal bloating, abdominal pain, and feeling constipated. [employer] Required: No Accompanied by: Self / Same As Patient Allergies No Known Allergies [No Known Allergies*] Allergy (Verified 03/01/24 14:32) HPI HPI 6 month follow up: Details: Assessment & Plan (1) GERD (gastroesophageal reflux disease): Code(s): K21.9 - Gastro-esophageal reflux disease without esophagitis Category: Medical (2) Lactose intolerance: Code(s): E73.9 - Lactose intolerance, unspecified Category: Medical (3) Nausea: Code(s): R11.0 - Nausea Category: Medical (4) Early satiety: Code(s): R68.81 - Early satiety Category: Medical (5) IBS (irritable bowel syndrome): Code(s): K58.9 - Irritable bowel syndrome without diarrhea Category: Medical Plan PATIENT SPEAKS [place] She is doing better with the simethicone but still has bloating after eating. She also finds that she can not eat as large quantity as she had in the past. She seems to have some troubles with pork which is not uncommon in my [facility] client's. I think were going to try her on some Creon as she may have some mild exocrine pancreatic insufficiency contributing to her bloating. This may allow her to eat a wider range of foods. She continues on her lansoprazole and famotidine along with senna for occasional constipation with good control. she has been having tongue numbness and gingivitis, she was told to take B 12, but she likely should take a b complex as niacin could also be deficient - I recommend this. Return office visit 6 mos. Orders: Orders H pylori Ag Stool 08/26/23 R11.0 - Nausea Medications: New gjcsdy-dxebaeng-tivglyi 36,000-114,000- 180,000 unit (Creon) administer with meals and/or snacks 2 caps PO BID 120 caps 6RF K58.9 - Irritable bowel syndrome without diarrhea Refilled lansoprazole 30 mg PO QAM 30 caps 6RF K21.9 - Gastro-esophageal reflux disease without esophagitis simethicone after meals 180 mg PO QID 120 caps 6RF 30 days famotidine 20 mg PO BEDTIME 30 tabs 6RF sennosides (senna) 17.2 mg (2 x 8.6 mg) PO DAILY 60 tabs 6RF LABS: H pylori was negative TODAYS VISIT PATIENT SPEAKS [place] She continues to have a great deal of upset stomach with gas and bloating. However, she is only taking the Creon ?occasionally? as she did not understand that I gave it to her to address these issues. I also educated her what it is 4, how it works, and white needs to be taking consistently to show results. Her big objection was that is quite a large capsule to swallow so I recommend that she open the capsule and mix it with food twice a day. She says she will try this. She continues on her lansoprazole in the morning, famotidine at night, and senna for constipation. Return office visit in 8 weeks [facility] Medical History (Updated 03/01/24 @ 14:47 by JASON Gonzalez) Encounter for well woman exam with routine gynecological exam ASCUS with positive high risk HPV cervical Constipation Dyslipidemia Vaginitis Epigastric pain Somnolence, daytime Pelvic pain in female Right sided sciatica Skin lesion Family history of colonic polyps Encounter for gynecological examination URI (upper respiratory infection) Hyperglycemia Pre-op examination Discomfort of right ear Hypothyroid Bile salt-induced diarrhea Physical exam Hematuria Acute vaginitis Body aches Otitis media, left Abdominal bloating Generalized abdominal pain Skin lesions Tubular adenoma of colon Obesity (BMI 30-39.9) JERRY (obstructive sleep apnea) Encounter for vision screening Encounter for annual routine gynecological examination FH: ovarian cancer in first degree relative Thoracic back pain Genitofemoral neuralgia of right side Class 1 obesity with body mass index (BMI) of 34.0 to 34.9 in adult Moderate persistent asthma Migraines Hypothyroidism Fixation hardware in leg Bile salt-induced diarrhea Surgical History History of esophagogastroduodenoscopy (EGD) Hx of colonoscopy Eroded bladder suspension mesh History of section History of cholecystectomy History of local excision of skin lesion (~01/04/20) Family History Paternal Aunt History of breast cancer Mother Diabetes High cholesterol Mental health disorder Stomach cancer Uterine cancer, Onset Age: 82 Ovarian cancer Colon cancer Father No problems noted. Sister Uterine cancer Social History Household Members: Children Housing: Apartment Alcohol intake: never Patient Tobacco Use Status: Never used Tobacco e-Cigarette/Vaping Use: Never Used Second Hand Smoke Exposure: Yes service: No Current occupational status: employed Current occupational exposures/hazards: No Cognitive needs: No Hearing needs: No Vision needs: Yes Female Reproductive History Menstrual Age of Menarche: 17 Review of Systems Const Denies fatigue, Denies fever(s), Denies night sweats, Denies poor appetite and Denies weight loss Eyes Details: glasses Reports requires corrective lenses ENT Reports Normal hearing present, Denies dental pain, Denies dysphagia, Denies hearing loss, Denies mouth pain, Denies odynophagia, Denies throat swelling, Denies tongue swelling and Reports other (Dentition adequate) Card Reports no additional complaints Resp Reports no additional complaints GI Details: Denies abdominal pain, Denies melena, Reports bloating, Denies hematochezia, Reports constipation, Denies GI cramping, Denies dysphagia, Reports excessive flatus, Denies early satiety, Reports heartburn, Denies diarrhea, Reports loose stools, Denies nausea, Denies odynophagia, Denies vomiting and Denies hematemesis Skin/Breast Denies pruritus, Denies lesions, Denies rash and Denies jaundice Neuro Reports Normal hearing present and Denies Abnormal speech present Endo Denies fatigue Aller/Immun Denies throat swelling and Denies tongue swelling Physical Exam Vital Signs: Last Vital Signs Pulse 84 03/01/24 14:24 BP 128/76 03/01/24 14:24 BMI result Body Mass Index 33.1 Const General: cooperative, no acute distress, well developed and well groomed Nutritional Appearance: well nourished and obese Orientation/consciousness: oriented to person, oriented to place and oriented to time Limitations: No language barrier HEENT Head: Yes normocephalic and Yes atraumatic Eyes General: appearance normal, both eyes and all related structures Pupils: Equal, round and reactive pupils present Neck Neck: Yes normal visual inspection and Yes no lymphadenopathy Thyroid: Thyroid normal Resp Effort & Inspection: normal respiratory effort and able to speak in complete sentences Auscultation: clear to auscultation bilaterally Cardio Rate: regular rate Rhythm: regular rhythm Heart sounds: Normal, physiologic split S2 sound present Peripheral pulses: radial pulses present and posterior tibial pulses present GI Inspection: No distended, Yes Abdominal panniculus present and Yes obesity Palpation (GI): Soft to palpation, nontender, no guarding, not rigid and No hepatosplenomegaly present Percussion: Yes normal to percussion Auscultation: normal bowel sounds Rectal Exam - Female: deferred Skin General skin exam: no rashes or lesions noted, turgor normal, skin not dry, no jaundice, No spider nevi and no striae Rashes: no rashes Nails: normal Neuro General: oriented to person, oriented to place and oriented to time Cranial nerves: Yes Equal, round and reactive pupils present and Yes Normal hearing present Speech: No Abnormal speech present Extrem General: Yes normal to inspection, No clubbing, No cyanosis and No edema Psych Appearance: grossly normal and well kempt Mental Status: mental status grossly normal Speech and movement: Normal speech and movement present Affect: normal affect Attitude: cooperative Thought process: Normal thought process present and not confabulating Thought content: Normal thought content present Insight: Limited insight present (Psych) Judgement: Limited judgement present (Psych) Assessment & Plan Assessment & Plan (1) IBS (irritable bowel syndrome): Code(s): K58.9 - Irritable bowel syndrome, unspecified Category: Medical (2) GERD (gastroesophageal reflux disease): Code(s): K21.9 - Gastro-esophageal reflux disease without esophagitis Category: Medical (3) Lactose intolerance: Code(s): E73.9 - Lactose intolerance, unspecified Category: Medical Plan She continues to have a great deal of upset stomach with gas and bloating. However, she is only taking the Creon ?occasionally? as she did not understand that I gave it to her to address these issues. I also educated her what it is 4, how it works, and white needs to be taking consistently to show results. Her big objection was that is quite a large capsule to swallow so I recommend that she open the capsule and mix it with food twice a day. She says she will try this. She continues on her lansoprazole in the morning, famotidine at night, and senna for constipation. Return office visit in 8 weeks Medications: New kprlwg-sbmlyfid-nvaxlra 36,000-114,000- 180,000 unit (Creon) administer with meals and/or snacks 2 caps PO BID 120 caps 6RF K58.9 - Irritable bowel syndrome, unspecified Refilled simethicone after meals 180 mg PO QID 120 caps 6RF 30 days sennosides (senna) 17.2 mg (2 x 8.6 mg) PO DAILY 60 tabs 6RF lansoprazole 30 mg PO QAM 30 caps 6RF K21.9 - Gastro-esophageal reflux disease without esophagitis famotidine 20 mg PO BEDTIME 30 tabs 6RF Coding Level of Care Code Est Pt Level 3 (18090) Diagnoses IBS (irritable bowel syndrome) K58.9 GERD (gastroesophageal reflux disease) K21.9 Lactose intolerance E73.9
[2024-03-01 14:24] VITALS: BP 128/76; PULSE 84; BMI 33.1
== END 2024-03-01 16:52 | disposition home or self-care (01) ==
PROVIDERS: PCP Internal Medicine; Visit Provider Nurse Practitioner
DX: K58.9 Irritable bowel syndrome, unspecified (principal); K21.9 Gastro-esophageal reflux disease without esophagitis; E73.9 Lactose intolerance, unspecified
CPT/HCPCS: 99213

== ENCOUNTER 2024-03-02 08:42 | Outpatient (AMB) | payer OTHER, SELFPAY ==
--- NOTE | 2024-03-02 08:43 | MHC.OFFVIS ---
Vital Signs 03/02/24 08:46 BP 120/76 Intake Visit Reasons: Breast exam Intake Note: inverted left nipple Environmental Protection Specialist: Environmental Protection Specialist Present (Nai) Allergies No Known Allergies [No Known Allergies*] Allergy (Verified 03/02/24 08:46) HPI Comments Details: Patient is here today with concerns of left-sided breast pain and nipple retraction for the last 2 weeks. She feels tenderness in the upper outer quadrant. She denies any nipple discharge. Additionally she is concerned about her recent diagnosis of ASCUS with HPV positive, she has a colonoscopy scheduled. She reports years ago at [facility] she had an abnormal Pap treated. She desires to have a hysterectomy and not deal with any risk of getting cancer. [facility] Medical History (Updated 03/02/24 @ 09:07 by Candis Casanova CNM) Retraction of left nipple Breast pain, left Encounter for well woman exam with routine gynecological exam ASCUS with positive high risk HPV cervical Constipation Dyslipidemia Vaginitis Epigastric pain Somnolence, daytime Pelvic pain in female Right sided sciatica Skin lesion Family history of colonic polyps Encounter for gynecological examination URI (upper respiratory infection) Hyperglycemia Pre-op examination Discomfort of right ear Hypothyroid Bile salt-induced diarrhea Physical exam Hematuria Acute vaginitis Body aches Otitis media, left Abdominal bloating Generalized abdominal pain Skin lesions Tubular adenoma of colon Obesity (BMI 30-39.9) JERRY (obstructive sleep apnea) Encounter for vision screening Encounter for annual routine gynecological examination FH: ovarian cancer in first degree relative Thoracic back pain Genitofemoral neuralgia of right side Class 1 obesity with body mass index (BMI) of 34.0 to 34.9 in adult Moderate persistent asthma Migraines Hypothyroidism Fixation hardware in leg Bile salt-induced diarrhea Surgical History History of esophagogastroduodenoscopy (EGD) Hx of colonoscopy Eroded bladder suspension mesh History of section History of cholecystectomy History of local excision of skin lesion (~01/04/20) Family History Paternal Aunt History of breast cancer Mother Diabetes High cholesterol Mental health disorder Stomach cancer Uterine cancer, Onset Age: 82 Ovarian cancer Colon cancer Father No problems noted. Sister Uterine cancer Social History Household Members: Children Housing: Apartment Alcohol intake: never Patient Tobacco Use Status: Never used Tobacco e-Cigarette/Vaping Use: Never Used Second Hand Smoke Exposure: Yes service: No Current occupational status: employed Current occupational exposures/hazards: No Cognitive needs: No Hearing needs: No Vision needs: Yes Female Reproductive History Menstrual Age of Menarche: 17 Review of Systems Const All systems reviewed & are unremarkable except as noted in HPI and below Reports no additional complaints Skin/Breast Reports system reviewed and no additional complaints, except as documented and Reports as per HPI Physical Exam Vital Signs: Last Vital Signs BP 120/76 03/02/24 08:46 Const General: cooperative, healthy appearing and no acute distress Chest Other: Left nipple inversion elicited, no discharge noted with the expression, tenderness to the outer edge of the breast extending to the tail Breast/axilla inspection: normal inspection of the breasts and normal inspection of the axillae Breast/axilla palpation: normal palpation of the breasts Skin General skin exam: no rashes or lesions noted Assessment & Plan Assessment & Plan (1) Breast pain, left: Code(s): N64.4 - Mastodynia Category: Medical (2) Retraction of left nipple: Code(s): N64.53 - Retraction of nipple Category: Medical Plan Discussed: Workup to include diagnostic bilateral mammogram, and left breast ultrasound. We will consider surgical consult pending results. Plan ultrasound mammogram follow up. Additionally she had questions regarding her HPV diagnoses and plan of care follow up for colposcopy, progression of HPV and ASCUS reviewed as well as diagnostic colposcopy. The patient expressed understanding and agreement with the plan of care. All of her questions and concerns were addressed to the best of my ability. Orders: Orders US breast LT complete Today N64.4 - Mastodynia, N64.53 - Retraction of nipple MM tomosynthesis diagnostic BI Today N64.4 - Mastodynia, N64.53 - Retraction of nipple, Z12.31 - Encounter for screening mammogram for malignant neoplasm of breast Coding Level of Care Code Est Pt Level 3 (28636) Diagnoses Breast pain, left N64.4 Retraction of left nipple N64.53
[2024-03-02 08:46] VITALS: BP 120/76
== END 2024-03-02 09:25 | disposition home or self-care (01) ==
LOC: HO.HWS 08:42
PROVIDERS: PCP Internal Medicine; Visit Provider Advanced Practice Midwife
DX: N64.4 Mastodynia (principal); N64.53 Retraction of nipple
CPT/HCPCS: 99213

== ENCOUNTER → 2024-03-02 08:42 | Outpatient (BNVA) | payer OTHER, SELFPAY | PROVIDERS: PCP Internal Medicine; Visit Provider Advanced Practice Midwife | DX: N64.53 Retraction of nipple (principal); N64.4 Mastodynia | CPT/HCPCS: 99212 ==

== ENCOUNTER 2024-03-05 11:57 | Outpatient (REF) | payer OTHER, SELFPAY ==
--- NOTE | ~2024-03-05 | MM_ITS ---
EXAMINATION: MM DIAGNOSTIC DIGITAL BREAST TOMOSYNTHESIS, BILATERAL Limited left breast ultrasound. CLINICAL INFORMATION: Left lateral breast pain and retroareolar nipple retraction for a few months. COMPARISON: Mammography: Comparison is made with relevant prior exams. TECHNIQUE: Digital breast mammography with tomosynthesis is performed in both the craniocaudal and mediolateral oblique views along with computer-aided detection (CAD). Limited left breast ultrasound. FINDINGS: There are scattered areas of fibroglandular density (ACR BI-RADS breast composition Category b). There are no significant masses, abnormal calcifications, or other abnormalities. Targeted color Doppler ultrasound scanning in the retroareolar region of the left breast and lateral breast from 12-5 o'clock demonstrates normal fibroglandular breast tissue. There is no sonographic abnormality. Results are provided to the patient at time of visit by the technologist. MM/MM tomosynthesis diagnostic BI IMPRESSION: Left: No mammographic or sonographic abnormality to account for the lateral left breast pain and nipple retraction. Recommend clinical evaluation and follow-up. Right: Negative. ASSESSMENT: BI-RADS BI-RADS 1 - Negative RECOMMENDATION: 1 year F/U This patient's information was entered into a reminder system with a target due date for their next mammogram. Electronically signed by: Fabiola Coburn DO 03/05/2024 12:48 PM CLARA
== END 2024-03-05 11:58 | disposition home or self-care (01) ==
LOC: HO.MAMMO 11:57
PROVIDERS: PCP Internal Medicine; Visit Provider Advanced Practice Midwife
DX: Z12.31 Encounter for screening mammogram for malignant neoplasm of breast (principal); N64.53 Retraction of nipple; N64.4 Mastodynia
CPT/HCPCS: 76642; 77062; 77066

== ENCOUNTER → 2024-03-05 12:00 | Outpatient (BNV) | payer OTHER, SELFPAY | PROVIDERS: PCP Internal Medicine; Visit Provider Internal Medicine | DX: N64.4 Mastodynia (principal); N64.53 Retraction of nipple | CPT/HCPCS: 76642; 77066; G0279 ==

== ENCOUNTER 2024-03-22 10:31 | Outpatient (AMB) | payer OTHER, SELFPAY ==
--- NOTE | 2024-03-22 10:41 | A.OFFVIS_ITS ---
Intake Visit Reasons: breast us follow up Allergies No Known Allergies [No Known Allergies*] Allergy (Verified 03/02/24 08:46) HPI Comments Details: Patient is here today for a follow up on breast imaging results, history of recent left nipple inversion and breast pain. She also reports left arm pain worsening when raising her arm over the last several weeks, has not seen her primary care for this. [facility] Medical History (Updated 03/22/24 @ 11:07 by Candis Casanova CNM) Breast pain Retraction of left nipple Breast pain, left Encounter for well woman exam with routine gynecological exam ASCUS with positive high risk HPV cervical Constipation Dyslipidemia Vaginitis Epigastric pain Somnolence, daytime Pelvic pain in female Right sided sciatica Skin lesion Family history of colonic polyps Encounter for gynecological examination URI (upper respiratory infection) Hyperglycemia Pre-op examination Discomfort of right ear Hypothyroid Bile salt-induced diarrhea Physical exam Hematuria Acute vaginitis Body aches Otitis media, left Abdominal bloating Generalized abdominal pain Skin lesions Tubular adenoma of colon Obesity (BMI 30-39.9) JERRY (obstructive sleep apnea) Encounter for vision screening Encounter for annual routine gynecological examination FH: ovarian cancer in first degree relative Thoracic back pain Genitofemoral neuralgia of right side Class 1 obesity with body mass index (BMI) of 34.0 to 34.9 in adult Moderate persistent asthma Migraines Hypothyroidism Fixation hardware in leg Bile salt-induced diarrhea Surgical History History of esophagogastroduodenoscopy (EGD) Hx of colonoscopy Eroded bladder suspension mesh History of section History of cholecystectomy History of local excision of skin lesion (~01/04/20) Family History Paternal Aunt History of breast cancer Mother Diabetes High cholesterol Mental health disorder Stomach cancer Uterine cancer, Onset Age: 82 Ovarian cancer Colon cancer Father No problems noted. Sister Uterine cancer Social History Household Members: Children Housing: Apartment Alcohol intake: never Patient Tobacco Use Status: Never used Tobacco e-Cigarette/Vaping Use: Never Used Second Hand Smoke Exposure: Yes service: No Current occupational status: employed Current occupational exposures/hazards: No Cognitive needs: No Hearing needs: No Vision needs: Yes Female Reproductive History Menstrual Age of Menarche: 17 Review of Systems Const All systems reviewed & are unremarkable except as noted in HPI and below Reports no additional complaints Skin/Breast Reports system reviewed and no additional complaints, except as documented and Reports as per HPI Physical Exam Const General: cooperative, healthy appearing and no acute distress Chest Other: Left nipple retracted generalized pain around the areola anteriorly. Breast/axilla inspection: normal inspection of the breasts (As noted above) and normal inspection of the axillae Breast/axilla palpation: normal palpation of the breasts Skin General skin exam: no rashes or lesions noted Results Reviewed Results Reviewed: [facility] [address] [place] [address] Mammography Report Signed Patient: Ximena Mendenhall MR#: [id number] : 1965 Acct:[id number] Age/Sex: 59 / F ADM Date: 03/05/24 Loc: HO.MAMMO Attending Dr: Candis Casanova CNM Ordering Physician: Candis Casanova CNM Results: 1Negative Date of Service: 03/05/24 Follow Up: 1 Year From Original Mammogram Procedure(s): MM tomosynthesis diagnostic BI Accession Number(s): [id number] cc: Candis Casanova CNM; Demetrice Jeong MD~ EXAMINATION: MM DIAGNOSTIC DIGITAL BREAST TOMOSYNTHESIS, BILATERAL Limited left breast ultrasound. CLINICAL INFORMATION: Left lateral breast pain and retroareolar nipple retraction for a few months. COMPARISON: Mammography: Comparison is made with relevant prior exams. TECHNIQUE: Digital breast mammography with tomosynthesis is performed in both the craniocaudal and mediolateral oblique views along with computer-aided detection (CAD). Limited left breast ultrasound. FINDINGS: There are scattered areas of fibroglandular density (ACR BI-RADS breast composition Category b). There are no significant masses, abnormal calcifications, or other abnormalities. Targeted color Doppler ultrasound scanning in the retroareolar region of the left breast and lateral breast from 12-5 o'clock demonstrates normal fibroglandular breast tissue. There is no sonographic abnormality. Results are provided to the patient at time of visit by the technologist. MM/MM tomosynthesis diagnostic BI IMPRESSION: Left: No mammographic or sonographic abnormality to account for the lateral left breast pain and nipple retraction. Recommend clinical evaluation and follow-up. Right: Negative. ASSESSMENT: BI-RADS BI-RADS 1 - Negative RECOMMENDATION: 1 year F/U This patient's information was entered into a reminder system with a target due date for their next mammogram. 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 Advised to see her primary care today for her arm pain, she is agreeable to go to Dr. Santana is office now and schedule an appointment. Keep appointment for tomorrow for her colposcopy. The patient expressed understanding and agreement with the plan of care. All of her questions and concerns were addressed to the best of my ability. This note is constructed using voice recognition software. While every effort has been made to ensure accuracy, consulting psychiatrist errors may have been included. Orders: Referrals Breast Surgery Referral N64.4 - Mastodynia, N64.53 - Retraction of nipple Coding Level of Care Code Est Pt Level 3 (94791) Diagnoses Retraction of left nipple N64.53 Breast pain N64.4 Encounter to discuss test results Z71.2
--- OUTSIDE RECORDS SUMMARY | 2024-03-22 11:11 | XMS_ITS | Continuity of Care Document ---
Author Organization [facility] [address] [place] [address] Phone [phone] Care Team Providers Care Mdm Developer Name Role Phone Demetrice Meier MD Care Team Information Receiv er [phone] Problems Active Problems Provider Date Non-toxic multinodular goiter Jcarlos Colon M.D. Onset: 04/14/2023 Hypothyroidism Jcarlos Colon M.D. Onset: 0 04/14/2023 Social History Type Date Description Comments Sex Unknown ETOH Use Never used alcohol Tobacco Use Start: Unknown Patient has never smoked Allergies and adverse reactions Description No Known Drug Allergies Medications Active Medications SIG Qnty Indications Order ing Provider Date Levothyroxine [id number] Tablets Take 1 Tablet By Mouth Daily And 2 Tabs On Tuesday 100tabs Jcarlos Colon M.D. 04/15/2023 Flovent [id number]/Act [place] Tubbs MD Pantoprazole Mxbpzd84lf Tablets DR Take 1 Tablet By Mouth Daily Randi Dalila Dasyi, AISHWARYA [id number] (1000 Ut) Capsules Unknown Uxcurdzixn94bh Tablets Take 1 Tablet By Mouth Twice A Day Unknown Rosuvastatin Jzqlwfo84wl Tablets Take 1 Tablet By Mouth Everyday AT Bedtime Unknown Nistuksuwm15zp Tablets Take 1 Tablet By Mouth Everyday AT Bedtime Unknown Vital Signs Date Vital Result Comment 04/15/2023 3:35pm BP Systolic 120 mmHg BP Diastolic 80 mmHg Heart Rate 72 /min Height 61 inches 5'1 Weight 173.12 lb BMI (Body Mass Index) 32.7 kg/m2 Results Test Acquired Date Facility Test Result H/L Range N ote Laboratory test finding 03/18/2023 [facility] TSH 2.38 uIU/mL (0.4-4.2) Laboratory test finding 03/03/2022 [facility] Anti Thyroid Peroxidase AB 259.5 IU/mL High (<5.6) 1 1 Antibody measurement represents one parameter in a multicriteria diagnostic process. Correlate results with clinical presentation. This test was performed on the [employer] immunoassay system. Medical Devices Description No Information [...]
== END 2024-03-22 11:11 | disposition home or self-care (01) ==
LOC: HO.HWSW 10:31
PROVIDERS: PCP Internal Medicine; Visit Provider Advanced Practice Midwife
DX: N64.53 Retraction of nipple (principal); N64.4 Mastodynia; Z71.2 Person consulting for explanation of examination or test findings
CPT/HCPCS: 99213

== ENCOUNTER 2024-03-22 16:51 | Outpatient (AMB) | payer MEDICARE, SELFPAY ==
[2024-03-22 16:55] VITALS: BP 136/80; BMI 33.2
--- NOTE | 2024-03-22 16:55 | MHC.PC.OV ---
Vital Signs 03/22/24 16:55 Height 5 ft Weight 170 lb BMI 33.2 BP 136/80 Blood Pressure Location Lt brachial Position Sitting Intake Visit Reasons: left arm pain Intake Note: Patient here c/o left arm pain unable to lift Adjuster Electrical Contacts Required: No Accompanied by: Self / Same As Patient Allergies No Known Allergies [No Known Allergies*] Allergy (Verified 03/22/24 17:15) Medication List - Last Reconciled 03/22/24 by Demetrice Person MD acetaminophen ER (Pain Relief (acetaminophen)) 650 mg PO Q8H PRN 30 days albuterol sulfate 90 mcg/actuation inhalation atorvastatin 20 mg PO BEDTIME 90 days blood pressure monitor (Blood Pressure Kit) As directed calcium acetate 667 mg PO BID 90 days cetirizine 10 mg PO DAILY cholecalciferol (vitamin D3) 25 mcg PO DAILY 90 days diclofenac sodium 75 mg PO BID famotidine 20 mg PO BEDTIME fenofibrate 54 mg PO DAILY 90 days fluticasone propionate 50 mcg/actuation sprays intranasal lansoprazole 30 mg PO QAM levothyroxine 100 mcg PO DAILY iterax-bxbdjkci-djxkony 36,000-114,000- 180,000 unit (Creon) 2 caps PO BID loratadine (Allergy Relief (loratadine)) 10 mg PO DAILY meloxicam 7.5 mg PO DAILY methocarbamol 750 mg PO Q8H 5 days nystatin 1 appl topical DAILY 30 days pregabalin 100 mg PO BID 30 days sennosides (senna) 17.2 mg (2 x 8.6 mg) PO DAILY simethicone 180 mg PO QID 30 days terbinafine HCl 250 mg PO DAILY 90 days topiramate 25 mg PO BID 90 days tretinoin 0.025% appl topical BEDTIME Tobacco use date assessed: 03/22/24 Dental Screening Dental Screen Date: 03/22/24 Did you have a dental visit in the last 12 months?: Yes Did you have a dental problem in the last 6 months where you did not have access to dental care?: No Was dental information given to patient?: Patient has dentist HPI HPI Comments History of Present Illness Details The patient is a 59-year-old female presenting with left shoulder pain. The discomfort has been persistent and extends from below the shoulder up to the entire right arm. There is a suggestion that the pain could be associated with the rotator cuff or a tendon issue. She describes the pain as widespread, originating from below and extending upwards. The exact date of onset and initial inciting events were not specified. She has not reported specific alleviating or aggravating factors, but there is concern about potential involvement of the rotator cuff. The pain has not been previously evaluated or treated, and no prior imaging or intervention for this issue is noted. She also has pure hypercholesterolemia on statins. On levothyroxine for hypothyroidism. GERD has been stable with PPIs. [facility] Medical History Breast pain Retraction of left nipple Breast pain, left Encounter for well woman exam with routine gynecological exam ASCUS with positive high risk HPV cervical Constipation Dyslipidemia Vaginitis Epigastric pain Somnolence, daytime Pelvic pain in female Right sided sciatica Skin lesion Family history of colonic polyps Encounter for gynecological examination URI (upper respiratory infection) Hyperglycemia Pre-op examination Discomfort of right ear Hypothyroid Bile salt-induced diarrhea Physical exam Hematuria Acute vaginitis Body aches Otitis media, left Abdominal bloating Generalized abdominal pain Skin lesions Tubular adenoma of colon Obesity (BMI 30-39.9) JERRY (obstructive sleep apnea) Encounter for vision screening Encounter for annual routine gynecological examination FH: ovarian cancer in first degree relative Thoracic back pain Genitofemoral neuralgia of right side Class 1 obesity with body mass index (BMI) of 34.0 to 34.9 in adult Moderate persistent asthma Migraines Hypothyroidism Fixation hardware in leg Bile salt-induced diarrhea Surgical History History of esophagogastroduodenoscopy (EGD) Hx of colonoscopy Eroded bladder suspension mesh History of section History of cholecystectomy History of local excision of skin lesion (~01/04/20) Family History Paternal Aunt History of breast cancer Mother Diabetes High cholesterol Mental health disorder Stomach cancer Uterine cancer, Onset Age: 82 Ovarian cancer Colon cancer Father No problems noted. Sister Uterine cancer Social History Household Members: Children Housing: Apartment Alcohol intake: never Patient Tobacco Use Status: Never used Tobacco e-Cigarette/Vaping Use: Never Used Second Hand Smoke Exposure: Yes service: No Current occupational status: employed Current occupational exposures/hazards: No Cognitive needs: No Hearing needs: No Vision needs: Yes Female Reproductive History Menstrual Age of Menarche: 17 Questionnaire PHQ-9 Over the last 2 weeks, how often have you been bothered by any of the following problems? 1. Little interest or pleasure in doing things: not at all 2. Feeling down, depressed, or hopeless: not at all 3. Trouble falling or staying asleep, or sleeping too much: not at all 4. Feeling tired or having little energy: not at all 5. Poor appetite or overeating: not at all 6. Feeling bad about yourself - or that you are a failure or have let yourself or your family down: not at all 7. Trouble concentrating on things, such as reading the newspaper or watching television: not at all 8. Moving or speaking so slowly that other people could have noticed. Or the opposite - being so fidgety or restless that you have been moving around a lot more than usual: not at all 9. Thoughts that you would be better off or of hurting yourself in some way: not at all Total score: 0 Depression Screening Interpretation: Negative Depression Screening Done: Yes 55922 - PHQ-9 Billing: Yes Source: Developed by Drs. Shun Au, Pat Garcia, Nando Pearson and colleagues, with an educational jake from [employer]. Thrive Questionnaire Date Thrive assessed: 03/22/24 I am a: Patient What is your living situation today?: I have a steady place to live Within the past 12 months, did the food you bought not last and you didn't have the money to get more?: Never true Within the past 12 months, did you worry whether your food would run out before you got money to buy more?: Never true Do you have trouble paying for medicines?: No Do you have trouble getting transportation to medical appointments?: No Do you have trouble paying your heating and electricity bill?: No Do you have trouble taking care of your child, family member or friend?: No Do you have trouble with day-to-day activities such as bathing, preparing meals, shopping, managing finances, etc.?: No Are you currently unemployed and looking for a job?: No Are you interested in more education?: No Please select the resources that you would like help with: None Currently or been in a relationship where the following occur: No concerns reported THRIVE Score: 0 AUDIT C Alcohol Use Questionnaire (AUDIT-C) 1. How often do you have a drink containing alcohol?: Never Total Score: 0 Score Reviewed/Action Taken: No ANA-7 AMB Questionnaire ANA-7 Date ANA - 7 assessed: 03/22/24 Feeling nervous, anxious, or on edge: 0 = Not at all Not being able to stop or control worryin = Not at all Worrying too much about different things: 0 = Not at all Trouble relaxin = Not at all Being so restless that it is hard to sit still: 0 = Not at all Becoming easily annoyed or irritable: 0 = Not at all Feeling afraid as if something awful might happen: 0 = Not at all Total ANA-7 score (0-4 normal; 5-9 mild; 10-14 moderate; 15-21 severe): 0 Source: Developed by Drs. Shun Au, Pat Garcia, Nando Pearson and colleagues, with an educational jake from [employer]. ANA-7 Assessment Billing ANA-7 Assessment Tool: ANA-7 Assessment 82304 Review of Systems Const All systems reviewed & are unremarkable except as noted in HPI and below Card Denies chest pain at rest, Denies chest pain with activity, Denies edema, Denies irregular heart rhythm, Denies claudication, Denies dyspnea, Denies dyspnea on exertion, Denies orthopnea, Denies paroxysmal nocturnal dyspnea and Denies slow heart rate Resp Denies cough, Denies dyspnea and Denies dyspnea on exertion GI Denies abdominal pain, Denies change in bowel habits, Denies excessive flatus, Denies nausea and Denies vomiting Musc Reports arthralgias Physical exam (Primary Care) Vital Signs: Last Vital Signs BP 136/80 03/22/24 16:55 BMI result Body Mass Index 33.2 BMI Assessment/Plan discussion: High BMI High, discussed plan: lifestyle, weight reduction, dietary and physical activity Tobacco/Smoking Status: Tobacco use Status Tobacco use date assessed 03/22/24 03/22/24 17:03 Patient Tobacco Use Status Never used Tobacco 03/22/24 17:03 e-Cigarette/Vaping Use Never Used 03/22/24 17:03 PHQ-9: PHQ-9 Score PHQ-9: Total score 0 03/22/24 17:22 Depression Screening Interpretation: Negative Thrive Assessment: Date of Thrive Assessment Date Thrive assessed 03/22/24 03/22/24 17:07 Currently or been in a relationship where the following occur: No concerns reported Resp Effort & Inspection: normal respiratory effort Auscultation: clear to auscultation bilaterally Cardio Jugular venous distension: no JVD Rate: regular rate Rhythm: regular rhythm Heart sounds: S1 normal heart sound present and S2 normal heart sound present Extrem General: Yes full ROM Left upper extremity: shoulder/upper arm Details: tenderness and abnormal ROM Details: pain with active ROM Details: in ABduction and in extension and pain with passive ROM Coding Level of Care Code Est Pt Level 4 (87199) Complex EM visit Add On G2211 Diagnoses Left shoulder pain M25.512 Mixed hyperlipidemia E78.2 Hypothyroidism E03.9 GERD (gastroesophageal reflux disease) K21.9 Additional Codes ANA-7 Assessment Billing - ANA-7 Assessment Tool: ANA-7 Assessment 03450 ([id number]) PHQ-9 - 37495 - PHQ-9 Billing: Yes ([id number]) Time Spent (min) 23 Assessment & Plan Assessment & Plan (1) Left shoulder pain: Code(s): M25.512 - Pain in left shoulder Category: Medical (2) Mixed hyperlipidemia: Code(s): E78.2 - Mixed hyperlipidemia Category: Medical (3) Hypothyroidism: Code(s): E03.9 - Hypothyroidism, unspecified Category: Medical (4) GERD (gastroesophageal reflux disease): Code(s): K21.9 - Gastro-esophageal reflux disease without esophagitis Category: Medical Plan - Consider sending the patient for an orthopedic evaluation to assess the necessity of a local injection or imaging for further evaluation of the right shoulder pain. - Continue monitoring blood pressure, given the history of hypertension, as it was noted to be well-controlled at this time. Patient was informed and verbally consented to the use of an ambient scribe for clinic note documentation during this visit. I discussed with the patient the probable rotator cuff involvement based on the location and nature of her shoulder pain. I suggested a possible referral to an orthopedist for further assessment if symptoms persist or worsen. I highlighted the potential need for imaging to rule out significant structural damage. We discussed maintaining her current hypertension management plan, as blood pressure appears stable. I advised her about the possible benefits and alternatives of local treatments for shoulder pain, emphasizing the importance of follow-up for reevaluation. Orders: Orders XR shoulder LT min 2V Today M25.512 - Pain in left shoulder PT Evaluation and Treatment Today M25.512 - Pain in left shoulder Referrals Orthopedics Referral M25.512 - Pain in left shoulder Patient Instructions: - Continue to monitor and manage your blood pressure as advised, with adjustments to lifestyle or medications if needed. - If shoulder pain persists or worsens, consider scheduling a follow-up appointment for potential referral to an cyber transport systems specialist. - Maintain activities that do not exacerbate shoulder pain and consider gentle ixtrm-yv-mhjgko exercises pending further evaluation.
== END 2024-03-22 17:25 | disposition home or self-care (01) ==
PROVIDERS: PCP Internal Medicine; Visit Provider Internal Medicine
DX: M25.512 Pain in left shoulder (principal); E78.2 Mixed hyperlipidemia; E03.9 Hypothyroidism, unspecified; K21.9 Gastro-esophageal reflux disease without esophagitis

== ENCOUNTER → 2024-03-22 | Outpatient (BNVA) | payer OTHER, SELFPAY | PROVIDERS: PCP Internal Medicine; Visit Provider Advanced Practice Midwife | DX: M25.512 Pain in left shoulder (principal); E78.2 Mixed hyperlipidemia; E03.9 Hypothyroidism, unspecified; K21.9 Gastro-esophageal reflux disease without esophagitis; N64.53 Retraction of nipple; N64.4 Mastodynia; Z71.2 Person consulting for explanation of examination or test findings | CPT/HCPCS: 96127; 99212 ==

== ENCOUNTER 2024-03-23 08:56 | Outpatient (REF) | payer MEDICARE, SELFPAY ==
--- NOTE | ~2024-03-23 | XR_ITS ---
CLINICAL HISTORY: M25.512 - Pain in left shoulder 4 view left shoulder Comparison: None Findings: Normal congruency of the glenohumeral joint. Minimal spurring inferior glenoid. No acromioclavicular joint arthrosis or undersurface spurs. No fractures or bony erosions. No greater tuberosity cysts. Normal bone mineralization and soft tissues. No radiopaque foreign body. Normal visualized left chest. Impression: 1. No fracture, subluxations or dislocations left shoulder. 2. Minimal spurring inferior glenoid This document has been electronically signed by: Demetrius Ignacio MD on 03/26/2024 13:04:16
--- OUTSIDE RECORDS SUMMARY | 2024-03-23 09:00 | XMS_ITS | Continuity of Care Document ---
Author Organization [facility] [address] [place] [address] Phone [phone] Care Team Providers Care Auto Dealer Name Role Phone Demetrice Meier MD Care Team Information Receiv er [phone] Problems Active Problems Provider Date Non-toxic multinodular goiter Jcarlos Colon M.D. Onset: 04/14/2023 Hypothyroidism Jcarlos Colon M.D. Onset: 0 04/14/2023 Social History Type Date Description Comments Sex Unknown ETOH Use Never used alcohol Tobacco Use Start: Unknown Patient has never smoked Allergies and adverse reactions Description No Known Drug Allergies Medications Active Medications SIG Qnty Indications Order ing Provider Date Levothyroxine Noexzi446ghl Tablets Take 1 Tablet By Mouth Daily And 2 Tabs On Tuesday 100tabs Jcarlos Colon M.D. 04/15/2023 Flovent FOR997onu/Act [place] Tubbs MD Pantoprazole Rtyktg19bq Tablets DR Take 1 Tablet By Mouth Daily Randi Dalila Daysi, AISHWARYA [id number] (1000 Ut) Capsules Unknown Sztatkpwqo69br Tablets Take 1 Tablet By Mouth Twice A Day Unknown Rosuvastatin Cnnxdel63gw Tablets Take 1 Tablet By Mouth Everyday AT Bedtime Unknown Nkpifalckv31wk Tablets Take 1 Tablet By Mouth Everyday AT Bedtime Unknown Vital Signs Date Vital Result Comment 04/15/2023 3:35pm BP Systolic 120 mmHg BP Diastolic 80 mmHg Heart Rate 72 /min Height 61 inches 5'1 Weight 173.12 lb BMI (Body Mass Index) 32.7 kg/m2 Results Test Acquired Date Facility Test Result H/L Range N ote Laboratory test finding 03/18/2023 [facility] TSH 2.38 uIU/mL (0.4-4.2) Laboratory test finding 03/03/2022 [facility] Anti Thyroid Peroxidase AB 259.5 IU/mL High (<5.6) 1 1 Antibody measurement represents one parameter in a multicriteria diagnostic process. Correlate results with clinical presentation. This test was performed on the [employer] immunoassay system. Medical Devices Description No Information [...]
== END 2024-03-23 08:57 | disposition home or self-care (01) ==
LOC: HO.XRAY 08:56
PROVIDERS: PCP Internal Medicine; Visit Provider Internal Medicine
DX: Z13.89 Encounter for screening for other disorder (principal)
CPT/HCPCS: 57454; 73030

== ENCOUNTER → 2024-03-23 09:12 | Outpatient (BNV) | payer MEDICARE, SELFPAY | PROVIDERS: PCP Internal Medicine; Visit Provider Radiology Diagnostic Radiology | DX: M25.512 Pain in left shoulder (principal) | CPT/HCPCS: 73030 ==

== ENCOUNTER 2024-03-23 09:30 | Outpatient (AMB) | payer MEDICARE, SELFPAY ==
--- OUTSIDE RECORDS SUMMARY | 2024-03-23 09:34 | XMS_ITS | Continuity of Care Document ---
Author Organization [facility] [address] [place] [address] Phone [phone] Care Team Providers Care Contract Associate Manager Name Role Phone Demetrice Meier MD Care Team Information Receiv er [phone] Problems Active Problems Provider Date Non-toxic multinodular goiter Jcarlos Colon M.D. Onset: 04/14/2023 Hypothyroidism Jcarlos Colon M.D. Onset: 0 04/14/2023 Social History Type Date Description Comments Sex Unknown ETOH Use Never used alcohol Tobacco Use Start: Unknown Patient has never smoked Allergies and adverse reactions Description No Known Drug Allergies Medications Active Medications SIG Qnty Indications Order ing Provider Date Levothyroxine [id number] Tablets Take 1 Tablet By Mouth Daily And 2 Tabs On Tuesday 100tabs Jcarlos Colon M.D. 04/15/2023 Flovent [id number]/Act Lake Tbubs MD Pantoprazole Hcaflj95xs Tablets DR Take 1 Tablet By Mouth Daily Randi Dalila Daysi, AISHWARYA [id number] (1000 Ut) Capsules Unknown Etyomarxib11ji Tablets Take 1 Tablet By Mouth Twice A Day Unknown Rosuvastatin Dwbwaxy40tn Tablets Take 1 Tablet By Mouth Everyday AT Bedtime Unknown Xhekmdecvh36ki Tablets Take 1 Tablet By Mouth Everyday AT Bedtime Unknown Vital Signs Date Vital Result Comment 04/15/2023 3:35pm BP Systolic 120 mmHg BP Diastolic 80 mmHg Heart Rate 72 /min Height 61 inches 5'1 Weight 173.12 lb BMI (Body Mass Index) 32.7 kg/m2 Results Test Acquired Date Facility Test Result H/L Range N ote Laboratory test finding 03/18/2023 [facility] TSH 2.38 uIU/mL (0.4-4.2) Laboratory test finding 03/03/2022 [facility] Anti Thyroid Peroxidase AB 259.5 IU/mL High (<5.6) 1 1 Antibody measurement represents one parameter in a multicriteria diagnostic process. Correlate results with clinical presentation. This test was performed on the [employer] immunoassay system. Medical Devices Description No Information [...]
--- NOTE | 2024-03-23 09:51 | MHC.OFFVIS ---
Intake Visit Reasons: Colposcopy Weight Yardage Checker Required: Yes Weight Yardage Checker Language: Booth Manager Services: Weight Yardage Checker Present (in person) Weight Yardage Checker Name: Cheyenne Joseph YESSENIA Information Interpreted: non-clinical & clinical Solid Tire Finisher: Solid Tire Finisher Present (Leticia/ Cheyenne Joseph YESSENIA) Accompanied by: Self / Same As Patient Allergies No Known Allergies [No Known Allergies*] Allergy (Verified 03/23/24 09:51) HPI Comments Details: Presenting for ascus/HPV high-risk positive, HPV 16/18 negative [facility] Medical History Breast pain Retraction of left nipple Breast pain, left Encounter for well woman exam with routine gynecological exam ASCUS with positive high risk HPV cervical Constipation Dyslipidemia Vaginitis Epigastric pain Somnolence, daytime Pelvic pain in female Right sided sciatica Skin lesion Family history of colonic polyps Encounter for gynecological examination URI (upper respiratory infection) Hyperglycemia Pre-op examination Discomfort of right ear Hypothyroid Bile salt-induced diarrhea Physical exam Hematuria Acute vaginitis Body aches Otitis media, left Abdominal bloating Generalized abdominal pain Skin lesions Tubular adenoma of colon Obesity (BMI 30-39.9) JERRY (obstructive sleep apnea) Encounter for vision screening Encounter for annual routine gynecological examination FH: ovarian cancer in first degree relative Thoracic back pain Genitofemoral neuralgia of right side Class 1 obesity with body mass index (BMI) of 34.0 to 34.9 in adult Moderate persistent asthma Migraines Hypothyroidism Fixation hardware in leg Bile salt-induced diarrhea Surgical History History of esophagogastroduodenoscopy (EGD) Hx of colonoscopy Eroded bladder suspension mesh History of section History of cholecystectomy History of local excision of skin lesion (~01/04/20) Family History Paternal Aunt History of breast cancer Mother Diabetes High cholesterol Mental health disorder Stomach cancer Uterine cancer, Onset Age: 82 Ovarian cancer Colon cancer Father No problems noted. Sister Uterine cancer Social History Household Members: Children Housing: Apartment Alcohol intake: never Patient Tobacco Use Status: Never used Tobacco e-Cigarette/Vaping Use: Never Used Second Hand Smoke Exposure: Yes service: No Current occupational status: employed Current occupational exposures/hazards: No Cognitive needs: No Hearing needs: No Vision needs: Yes Female Reproductive History Menstrual Age of Menarche: 17 Review of Systems Const All systems reviewed & are unremarkable except as noted in HPI and below Reports as per HPI and Reports no additional complaints GI Reports no additional complaints Reports no additional complaints Office Procedures Colposcopy Colposcopy: Pre-Procedure Counseling: Before beginning the procedure, I conducted comprehensive counseling with the patient. We thoroughly discussed the procedure itself, including its details, alternatives, and all associated risks. This included but not limited to the following complications such as bleeding, infection, and injury to the vagina, bladder, and vessels, as well as the potential need for transfusion with all its associated risks. Subsequently, the patient sign the consent. Pap smear result: Ascus/HPV positive. Procedure: During the procedure, the following steps were performed: A speculum was inserted, and acetic acid was applied. Colposcopy was conducted, allowing visualization of the transformation zone. Acetowhite lesions were identified at the 9 o'clock position. Cervical biopsies were obtained from the 9 o'clock position, followed by an endocervical curettage (ECC). Vaginoscopy of the upper vagina revealed no evidence of aceto-white lesions. Hemostasis was achieved using Monsel solution, and the patient tolerated the procedure well. Post-Procedure Instructions: The patient was advised to promptly contact the office or the after hours answering service or go to the emergency room if experiencing a temperature exceeding 100.4?F, abdominal pain, nausea/vomiting, or bleeding. Additionally, the patient was instructed to abstain from vaginal intercourse and bathtub use. The patient confirmed understanding of these instructions. Discharge Instructions: The patient was instructed to schedule a follow-up appointment in 2 weeks for further evaluation and management. Please note that this note was generated using a voice recognition program, and errors may have occurred during aligner. [id number] of cervix including upper vagina with biopsy and ECC Procedure code (CPT) selection complete Assessment & Plan Assessment & Plan (1) ASCUS with positive high risk HPV cervical: Code(s): R87.610 - Atypical squamous cells of undetermined significance on cytologic smear of cervix (ASC-US); R87.810 - Cervical high risk human papillomavirus (HPV) DNA test positive Category: Medical Plan: Discussed with the patient the result of her abnormal pap, its significance, risk of progression, persistence, and regression. the false positive/negative rate of a Pap smear as a screening test in detecting cervical cancer and the indication for a diagnostic test -colposcopy, biopsy, endocervical curettage. Colpo/biopsy/ECC done, see procedure note . The patient verbalized understanding and agreed with the plan, all questions answered. Orders: Orders AMB Colposcopy Today R87.610 - Atypical squamous cells of undetermined significance on cytologic smear of cervix (ASC-US), R87.810 - Cervical high risk human papillomavirus (HPV) DNA test positive Coding Level of Care Code Procedure Only Diagnoses ASCUS with positive high risk HPV cervical R87.610; R87.810 CPT Codes Colposcopy - CPT: 52401-Iqbopgxoa of cervix including upper vagina with biopsy and ECC ([id number])
== END 2024-03-23 10:24 | disposition home or self-care (01) ==
LOC: HO.HWS 09:30
PROVIDERS: PCP Internal Medicine; Visit Provider Obstetrics & Gynecology
DX: R87.610 Atypical squamous cells of undetermined significance on cytologic smear of cervix (ASC-US) (principal); R87.810 Cervical high risk human papillomavirus (HPV) DNA test positive
CPT/HCPCS: 57454

== ENCOUNTER 2024-03-23 10:25 | Outpatient (REF) | payer MEDICARE, SELFPAY ==
--- OUTSIDE RECORDS SUMMARY | 2024-03-23 10:42 | XMS_ITS | Continuity of Care Document ---
Author Organization [facility] [address] [place] [address] Phone [phone] Care Team Providers Care Pleat Taper Name Role Phone Demetrice Meier MD Care Team Information Receiv er [phone] Problems Active Problems Provider Date Non-toxic multinodular goiter Jcarlos Colon M.D. Onset: 04/14/2023 Hypothyroidism Jcarlos Colon M.D. Onset: 0 04/14/2023 Social History Type Date Description Comments Sex Unknown ETOH Use Never used alcohol Tobacco Use Start: Unknown Patient has never smoked Allergies and adverse reactions Description No Known Drug Allergies Medications Active Medications SIG Qnty Indications Order ing Provider Date Levothyroxine Pnrgds388asc Tablets Take 1 Tablet By Mouth Daily And 2 Tabs On Tuesday 100tabs Jcarlos Colon M.D. 04/15/2023 Flovent [id number]/Act [place] Tubbs MD Pantoprazole Lujihc14kg Tablets DR Take 1 Tablet By Mouth Daily Randi Dalila Daysi, AISHWARYA [id number] (1000 Ut) Capsules Unknown Jsazesyxaa06zx Tablets Take 1 Tablet By Mouth Twice A Day Unknown Rosuvastatin Cmffdxo55fq Tablets Take 1 Tablet By Mouth Everyday AT Bedtime Unknown Cjmwldywsa81ud Tablets Take 1 Tablet By Mouth Everyday AT Bedtime Unknown Vital Signs Date Vital Result Comment 04/15/2023 3:35pm BP Systolic 120 mmHg BP Diastolic 80 mmHg Heart Rate 72 /min Height 61 inches 5'1 Weight 173.12 lb BMI (Body Mass Index) 32.7 kg/m2 Results Test Acquired Date Facility Test Result H/L Range N ote Laboratory test finding 03/18/2023 [facility] TSH 2.38 uIU/mL (0.4-4.2) Laboratory test finding 03/03/2022 [facility] Anti Thyroid Peroxidase AB 259.5 IU/mL High (<5.6) 1 1 Antibody measurement represents one parameter in a multicriteria diagnostic process. Correlate results with clinical presentation. This test was performed on the [employer] immunoassay system. Medical Devices Description No Information [...]
== END 2024-03-23 10:26 | disposition home or self-care (01) ==
LOC: HO.LNP 10:25
PROVIDERS: Visit Provider Obstetrics & Gynecology
DX: R87.610 Atypical squamous cells of undetermined significance on cytologic smear of cervix (ASC-US) (principal); R87.810 Cervical high risk human papillomavirus (HPV) DNA test positive
CPT/HCPCS: 57454; 73030; 88305; 88312

== ENCOUNTER 2024-04-17 10:50 | Outpatient (AMB) | payer OTHER, SELFPAY ==
--- NOTE | 2024-04-17 10:52 | A.OFFVIS_ITS ---
Vital Signs 04/17/24 10:59 Height 5 ft Weight 170 lb 6 oz BMI 33.3 BP 136/66 Blood Pressure Location Lt brachial Position Sitting Pulse 77 Intake Visit Reasons: Mastodynia, Retraction of nipple Intake Note: Patient is seen in office for evaluation of mastodynia and retraction of nipple. Pt c/o: left breast nipple inverted for the past 6 months, denies pain in the nipple, admits to pain near the axilla and down the left arm, hx paternal aunt breast cancer Dx 58, no prior breast surgeries or infections, Age of first child 20 yrs old. us/mm:03/05/24 Instrumentation Tech Required: No Bacteriologist Pharmaceutical: Bacteriologist Pharmaceutical Present Accompanied by: Self / Same As Patient Allergies No Known Allergies [No Known Allergies*] Allergy (Verified 04/17/24 10:58) Medication List - Last Reconciled 04/17/24 by Regulo Foley MD acetaminophen ER (Pain Relief (acetaminophen)) 650 mg PO Q8H PRN 30 days albuterol sulfate 90 mcg/actuation inhalation atorvastatin 20 mg PO BEDTIME 90 days blood pressure monitor (Blood Pressure Kit) As directed calcium acetate 667 mg PO BID 90 days cetirizine 10 mg PO DAILY cholecalciferol (vitamin D3) 25 mcg PO DAILY 90 days diclofenac sodium 75 mg PO BID famotidine 20 mg PO BEDTIME fenofibrate 54 mg PO DAILY 90 days fluticasone propionate 50 mcg/actuation sprays intranasal lansoprazole 30 mg PO QAM levothyroxine 100 mcg PO DAILY ogpxht-gwpsxcki-qownvfr 36,000-114,000- 180,000 unit (Creon) 2 caps PO BID loratadine (Allergy Relief (loratadine)) 10 mg PO DAILY meloxicam 7.5 mg PO DAILY methocarbamol 750 mg PO Q8H 5 days nystatin 1 appl topical DAILY 30 days pregabalin 100 mg PO BID 30 days sennosides (senna) 17.2 mg (2 x 8.6 mg) PO DAILY simethicone 180 mg PO QID 30 days terbinafine HCl 250 mg PO DAILY 90 days topiramate 25 mg PO BID 90 days tretinoin 0.025% appl topical BEDTIME HPI Comments Details: 59-year-old female patient presenting for evaluation of left nipple retraction. This was 1st identified on physical examination approximately 6 months ago. She is uncertain how long the retraction has been present but denies any pain, redness or discharge associated with the nipple. She denies any changes in the right nipple. Her family history is significant for a maternal aunt with breast cancer but denies any first-degree relatives with breast cancer. She denies any previous history of breast surgery or other biopsies. She does occasionally have some discomfort in the left axilla but denies any pain around the nipple. She underwent mammogram and ultrasound on 03/05/2024. This revealed no suspicious changes to explain the nipple retraction. She is 3 para 3, and did not breastfeed her children. [facility] Medical History Breast pain Retraction of left nipple Breast pain, left Encounter for well woman exam with routine gynecological exam ASCUS with positive high risk HPV cervical Constipation Dyslipidemia Vaginitis Epigastric pain Somnolence, daytime Pelvic pain in female Right sided sciatica Skin lesion Family history of colonic polyps Encounter for gynecological examination URI (upper respiratory infection) Hyperglycemia Pre-op examination Discomfort of right ear Hypothyroid Bile salt-induced diarrhea Physical exam Hematuria Acute vaginitis Body aches Otitis media, left Abdominal bloating Generalized abdominal pain Skin lesions Tubular adenoma of colon Obesity (BMI 30-39.9) JERRY (obstructive sleep apnea) Encounter for vision screening Encounter for annual routine gynecological examination FH: ovarian cancer in first degree relative Thoracic back pain Genitofemoral neuralgia of right side Class 1 obesity with body mass index (BMI) of 34.0 to 34.9 in adult Moderate persistent asthma Migraines Hypothyroidism Fixation hardware in leg Bile salt-induced diarrhea Surgical History History of esophagogastroduodenoscopy (EGD) Hx of colonoscopy Eroded bladder suspension mesh History of section History of cholecystectomy History of local excision of skin lesion (~01/04/20) Family History Paternal Aunt History of breast cancer Mother Diabetes High cholesterol Mental health disorder Stomach cancer Uterine cancer, Onset Age: 82 Ovarian cancer Colon cancer Father No problems noted. Sister Uterine cancer Social History Household Members: Children Housing: Apartment Alcohol intake: never Patient Tobacco Use Status: Never used Tobacco e-Cigarette/Vaping Use: Never Used Second Hand Smoke Exposure: Yes service: No Current occupational status: employed Current occupational exposures/hazards: No Cognitive needs: No Hearing needs: No Vision needs: Yes Female Reproductive History Menstrual Age of Menarche: 17 Age of menopause: 49 Total pregnancies: 5 Review of Systems Const All systems reviewed & are unremarkable except as noted in HPI and below Physical Exam Vital Signs: Last Vital Signs Pulse 77 04/17/24 10:59 BP 136/66 04/17/24 10:59 BMI result Body Mass Index 33.3 Const General: cooperative and no acute distress Nutritional Appearance: well nourished Orientation/consciousness: patient oriented x3 Limitations: no limitations HEENT Head: Yes normocephalic and Yes atraumatic Ears: hearing grossly normal bilaterally Chest Other: Left breast: No skin change, small area of invagination at the central portion of the nipple but no definite nipple retraction, no nipple discharge, no palpable mass, no enlarged lymph nodes. Right breast: No skin change, no nipple retraction, no nipple discharge, no palpable mass, no enlarged lymph nodes Resp Effort & Inspection: normal respiratory effort, no audible wheezes, no cough and no respiratory distress Cardio Jugular venous distension: no JVD GI Inspection: Yes normal to inspection Skin Other: Warm, dry, no rash Neuro General: patient oriented x3 Extrem General: Yes no clubbing, cyanosis or edema Assessment & Plan Assessment & Plan (1) Retraction of left nipple: Code(s): N64.53 - Retraction of nipple Category: Medical Plan 59-year-old female patient with an average risk for breast cancer found to have an apparent change in her left nipple with retraction. She denies any symptoms related to the breasts. Her most recent mammogram and ultrasound revealed no suspicious findings in either breast. Examination today reveals a normal variation in the nipple with a slight invagination at the central portion of the nipple. No palpable mass or other suspicious changes are identified. I recommended observation with follow-up examination in 3 months to document stability. She expressed understanding and agrees with the plan. She is welcome to call sooner for any new changes. Coding Level of Care Code New Pt Level 4 (84124) Diagnoses Retraction of left nipple N64.53
[2024-04-17 10:59] VITALS: BP 136/66; PULSE 77; BMI 33.3
--- OUTSIDE RECORDS SUMMARY | 2024-04-17 11:44 | XMS_ITS | Encounter Summary ---
Author Organization [employer] [facility] Address [address] [place] [address] Care Team Providers Care Wound Care Technician Name Role Phone Lawson Ball MD Primary Care Provider [phone] Davion Workman MD Primary Care Provider [phone] Name, Antwan ORTEGA Primary Care Provider UnavailErum Umaña MD Primary Care Provider UnaForeign Small MD Primary Care Provider Unavailab Lorena Fuentes MD Primary Care Provider [phone] Racquel Cruz MD Primary Care Prov ider [facility], Pcp Primary Care Provider Unavailabl e Reason for Visit * Reason Onset Date Comments TEST RESULTS 07/26/2014 Encounter Details Date Type Department Care Team Description 07/26/2014 Telephone Adult Medicine [address] [id number] Lawson Ball MD [address] [place] [address] [id number] TEST RESULTS Social History Tobacco Use Types Packs/Day Years Used Date Smoking Tobacco: Never Smokeless Tobacco: Never Alcohol Use Standard Drinks/Week Comments No 0 (1 standard drink = 0.6 oz pur e alcohol) Sex Assigned at Date Recorded Female 06/22/2020 6:41 AM E DT Job Start Date Occupation Industry Not on file Not on file Not on file documented as of this encounter Miscellaneous Notes * Telephone Encounter - Soleadd Villa M.A. - 07/26/2014 5:06 PM EDT No answer. Unable to leave message * Telephone Encounter - Yas Gutierrez PA-C - 07/26/2014 4:45 PM EDT Please notify patient of normal results. * Telephone Encounter - Stephy Jimenes - 07/26/2014 3:00 PM EDT Inform patient: ANY URGENT OR ABNORMAL RESULTS WIILL RESULT IN A CALL BACK TO THE PATIENT LILIA. Type of test: :xray Date test was performed: 07/25/14 Where was the test performed: here Who ordered this test?: Yas Gutierrez Is the doctor here today?: YES Can the message wait until the doctor returns?: NO IF PATIENT'S PCP IS NOT IN INSTRUCT PATIENT THAT THEY WILL RECEIVE A CALL BACK WHEN THE PCP IS IN THE OFFICE NEXT. documented in this encounter Plan of Treatment Not on file documented as of this encounter Visit Diagnoses Not on filedocumented in this encounter Care Teams Wound Care Technician Relationship Specialty Start Date End Date Lawson Ball MD [address] [place] [address] PCP - General Internal Medicine 03/06/14 08/13/14 Davion Workman MD [address] [place] [id number] PCP - General Internal Medicine 08/14/14 02/11/16 Antwan Benitez MD [address] [place] [address] PCP - General Internal Medicine 02/12/16 06/22/17 Erum Ibarra MD [address] [place] [id number] PCP - General Internal Medicine 06/23/17 09/08/20 Foreign William MD [address] [place], [place] [phone] PCP - General Internal Medicine 09/09/20 12/04/20 Lorena Ortiz MD [address] [place] [id number] PCP - General Internal Medicine 12/05/20 10/11/21 Racquel Cruz MD [address] [place] [id number] PCP - General Internal Medicine 10/12/21 05/20/22 [facility], Pcp [address] [place] [id number] PCP - General Internal Medicine 05/21/22 documented as of this encounter
--- OUTSIDE RECORDS SUMMARY | 2024-04-17 11:44 | XMS_ITS | Encounter Summary ---
Author Organization [employer] [facility] Address [address] [place] [address] Care Team Providers Care Low Altitude Air Defense Officer Name Role Phone Davion Workman MD Primary Care Provider [phone] Antwan Benitez MD Primary Care Provider UnavailErum Umaña MD Primary Care Provider Foreign Boyd MD Primary Care Provider Unavailab Lorena Fuentes MD Primary Care Provider [phone] Racquel Cruz MD Primary Care Prov ider [facility], Pcp Primary Care Provider Unavailabl e Encounter Details Date Type Department Care Team Description 04/21/2015 [facility] Medical Records [address] [place] [id number] Harman[place], Oz Social History Tobacco Use Types Packs/Day Years Used Date Smoking Tobacco: Never Smokeless Tobacco: Never Alcohol Use Standard Drinks/Week Comments No 0 (1 standard drink = 0.6 oz pur e alcohol) Sex Assigned at Date Recorded Female 06/22/2020 6:41 AM E DT Job Start Date Occupation Industry Not on file Not on file Not on file documented as of this encounter Plan of Treatment Not on file documented as of this encounter Visit Diagnoses Not on filedocumented in this encounter Care Teams Low Altitude Air Defense Officer Relationship Specialty Start Date End Date Davion Workman MD [address] [place] [address] [phone] PCP - General Internal Medicine 08/14/14 02/11/16 Antwan Benitez MD [address] [place] [id number] PCP - General Internal Medicine 02/12/16 06/22/17 Erum Ibarra MD [address] [place] [address] PCP - General Internal Medicine 06/23/17 09/08/20 Foreign William MD [address] [place] [address] PCP - General Internal Medicine 09/09/20 12/04/20 Lorena Ortiz MD [address] [place] [address] PCP - General Internal Medicine 12/05/20 10/11/21 Racquel Cruz MD [address] [place] [address] PCP - General Internal Medicine 10/12/21 05/20/22 [facility], Pcp [address] [place] [address] PCP - General Internal Medicine 05/21/22 documented as of this encounter
--- OUTSIDE RECORDS SUMMARY | 2024-04-17 11:44 | XMS_ITS | Encounter Summary ---
Author Organization [employer] [facility] Address [address] [place] [address] Care Team Providers Care Popcorn Vendor Name Role Phone Davion Workman MD Primary Care Provider [phone] Antwan Benitez MD Primary Care Provider UnavailErum Umaña MD Primary Care Provider Foreign Boyd MD Primary Care Provider Unavailab Lorena Fuentes MD Primary Care Provider [phone] Racquel Cruz MD Primary Care Prov ider [facility], Pcp Primary Care Provider Unavailabl e Encounter Details Date Type Department Care Team Description 04/21/2015 [facility] Medical Records [address] [place] [address] Luis Browne Social History Tobacco Use Types Packs/Day Years [...] on filedocumented in this encounter Care Teams Popcorn Vendor Relationship Specialty Start Date End Date Davion Workman MD [address] [place] [address] PCP - General Internal Medicine 08/14/14 02/11/16 Antwan Benitez MD [address] [place] [address] PCP - General Internal Medicine 02/12/16 06/22/17 Erum Ibarra MD [address] [place] [address] PCP - General Internal Medicine 06/23/17 09/08/20 Foreign William MD [address] [place] [address] PCP - General Internal Medicine 09/09/20 12/04/20 Lorena Ortiz MD [address] [place] [address] PCP - General Internal Medicine 12/05/20 10/11/21 Racquel Cruz MD [address] [place] [address] PCP - General Internal Medicine 10/12/21 05/20/22 [facility], Pcp [address] [place] [address] PCP - General Internal Medicine 05/21/22 documented as of this encounter
--- OUTSIDE RECORDS SUMMARY | 2024-04-17 11:44 | XMS_ITS | Encounter Summary ---
Author Organization [facility] Address [address] [place] [address] Care Team Providers Care Deportation Examiner Name Role Phone Davion Workman MD Primary Care Provider [phone] Lawson Ball MD Primary Care Provider [phone] Davion Workman MD Primary Care Provider [phone] Eli, Antwan ORTEGA Primary Care Provider Unavailabl Erum Morgan MD Primary Care Provider Unava Foreign Salinas MD Primary Care Provider Unavailab Lorena Fuentes MD Primary Care Provider [phone] Racquel Cruz MD Primary Care Prov ider [facility], Pcp Primary Care Provider Unavailabl e Encounter Details Date Type Department Care Team Description 03/31/2006 Hospital Medical Records [address] [place] [address] Ian Schneider MD Social History Tobacco Use Types Packs/Day Years [...] on filedocumented in this encounter Care Teams Deportation Examiner Relationship Specialty Start Date End Date Davion Workman MD [address] [place] [address] PCP - General 11/23/05 03/05/14 Lawson Ball MD [address] [place] [address] PCP - General Internal Medicine 03/06/14 08/13/14 Davion Workman MD [address] [place] [address] PCP - General Internal Medicine 08/14/14 02/11/16 Antwan Benitez MD [address] [place], [place] [phone] PCP - General Internal Medicine 02/12/16 06/22/17 Erum Ibarra MD [address] [place], [place] [phone] PCP - General Internal Medicine 06/23/17 09/08/20 Foreign William MD [address] [place], [place] [phone] PCP - General Internal Medicine 09/09/20 12/04/20 Lorena Ortiz MD [address] [place] [address] PCP - General Internal Medicine 12/05/20 10/11/21 Racquel Cruz MD [address] [place] [address] PCP - General Internal Medicine 10/12/21 05/20/22 [facility], [place] [phone] PCP - General Internal Medicine 05/21/22 documented as of this encounter
--- OUTSIDE RECORDS SUMMARY | 2024-04-17 11:44 | XMS_ITS | Encounter Summary ---
Author Organization [employer] [facility] Address [address] [place] [address] Care Team Providers Care Contracts Paralegal Name Role Phone Erum Ibarra MD Primary Care Provider Foreign Boyd MD Primary Care Provider Unavailab Lorena Fuentes MD Primary Care Provider [phone] Racquel Cruz MD Primary Care Prov ider [facility], Pcp Primary Care Provider Unavailabl e Encounter Details Date Type Department Care Team Description 06/06/2020 Pt. Non Urgent Medical Question Adult Medicine [address] [address] Iraida Rivera PA-C [address] [place] [address] Social History Tobacco Use Types Packs/Day Years Used Date Smoking Tobacco: Never Smokeless Tobacco: Never Alcohol Use Standard Drinks/Week Comments No 0 (1 standard drink = 0.6 oz pur e alcohol) Sex Assigned at Date Recorded Female 06/22/2020 6:41 AM E DT Job Start Date Occupation Industry Not on file Not on file Not on file COVID-19 Exposure Response Date Recorded In the last month, have you been in contact with someone who was confirmed or suspected to have Coronavirus / COVID-19? No / Unsure 05/30/2020 8:36 AM EDT documented as of this encounter Miscellaneous Notes * Telephone Encounter - Aleksandra Szymanski C.M.A - 06/06/2020 8:44 AM EDTFrom: Ximena Mendenhall To: Iraida Rivera PA-C Sent: 06/06/2020 8:16 AM EDT Subject: Question regarding ULTRASOUND OF ABDOMEN I want to her to Iraida Grupo about my fatty liver and the problems w my ultrasound they did documented in this encounter Plan of Treatment Not on file documented as of this encounter Visit Diagnoses Not on filedocumented in this encounter Care Teams Contracts Paralegal Relationship Specialty Start Date End Date Erum Ibarra MD PCP - General Internal Medicine 06/23/17 09/08/20 Foreign William MD PCP - General Internal Medicine 09/09/20 12/04/20 Lorena Ortiz MD [address] [place] [address] PCP - General Internal Medicine 12/05/20 10/11/21 Raqcuel Cruz MD [address] [place] [address] PCP - General Internal Medicine 10/12/21 05/20/22 [facility], Pcp [address] [place] [address] PCP - General Internal Medicine 05/21/22 documented as of this encounter
--- OUTSIDE RECORDS SUMMARY | 2024-04-17 11:44 | XMS_ITS | Encounter Summary ---
Author Organization [facility] [facility] Address [address] [place] [address] Care Team Providers Care Marketing Manager Name Role Phone Erum Ibarra MD Primary Care Provider Foreign Boyd MD Primary Care Provider Unavailab Lorena Fuentes MD Primary Care Provider [phone] Racquel Cruz MD Primary Care Prov ider [facility], Pcp Primary Care Provider Unavailabl e Reason for Visit * Reason Comments E-prescribe Rx Request Encounter Details Date Type Department Care Team Description 04/10/2020 Refill Adult Medicine [address] [id number] Bakari Fulton PA-C [address] [place] [address] [id number] E-prescribe Rx Request Social History Tobacco Use Types Packs/Day Years [...] encounter Miscellaneous Notes * Telephone Encounter - Heather Coleman - 04/10/2020 9:34 AM EST Patient would like script to be: E-PRESCRIBED/FAXED TO PHARMACY WHEN WAS THE PATIENT'S LAST APPOINTMENT IN ADULT MEDICINE? 03/26/2020 WHEN WAS THE LAST TIME THE PATIENT SAW THEIR PCP? 02/11/2020 Does patient have an upcoming appointment? Yes 04/15/2020 (THE MEDICATION REQUESTED IS ON THE MED LIST ABOVE) All of the medications requested were on the CURRENT MEDS list Did you check the Pharmacy information above?: YES Patient wants: 90 -day supply Is this a mail order prescription request ? NO If the refill is from a FAXED refill request what is the RX # listed on the fax? N/A Patients current insurance carrier is: Payor: [employer] [facility] MCR / Plan: [facility] / Product Type: HMO [id number] documented in this encounter Plan of Treatment Not on file documented as of this encounter Visit Diagnoses Not on filedocumented in this encounter Care Teams Marketing Manager Relationship Specialty Start Date End Date Erum Ibarra MD PCP - General Internal Medicine 06/23/17 09/08/20 Foreign William MD PCP - General Internal Medicine 09/09/20 12/04/20 Lorena Ortiz MD [address] [place] [address] PCP - General Internal Medicine 12/05/20 10/11/21 Racquel Cruz MD [address] [place] [address] PCP - General Internal Medicine 10/12/21 05/20/22 Amelia Neville [address] [place] [address] PCP - General Internal Medicine 05/21/22 documented as of this encounter
--- OUTSIDE RECORDS SUMMARY | 2024-04-17 11:44 | XMS_ITS | Encounter Summary ---
Author Organization [facility] Address [address] [place] [address] Care Team Providers Care Lead Embedded Software Engineer Name Role Phone Erum Ibarra MD Primary Care Provider Unava ilForeign Snell MD Primary Care Provider Unavail Lorena Fuentes MD Primary Care Provider [phone] Racquel Cruz MD Primary Care Prov ider [facility], Pcp Primary Care Provider [facility] Encounter Details Date Type Department Care Team Description 01/30/2020 Psychiatry Teacher Report Medical Records [address] [place] [address] Dalila Bryan, POSTULANT Social History Tobacco Use Types Packs/Day Years [...] on filedocumented in this encounter Care Teams Lead Embedded Software Engineer Relationship Specialty Start Date End Date rEum Ibarra MD PCP - General Internal Medicine 06/23/17 09/08/20 Foreign William MD PCP - General Internal Medicine 09/09/20 12/04/20 Lorena Ortiz MD [address] [place] [address] PCP - General Internal Medicine 12/05/20 10/11/21 Racquel Cruz MD [address] [place] [address] PCP - General Internal Medicine 10/12/21 05/20/22 [facility], Pcp [address] [place] [address] PCP - General Internal Medicine 05/21/22 documented as of this encounter
--- OUTSIDE RECORDS SUMMARY | 2024-04-17 11:44 | XMS_ITS | Encounter Summary ---
Author Organization [facility] [facility] Address [address] [place] [address] Care Team Providers Care Metal Machinist Name Role Phone Erum Ibarra MD Primary Care Provider Unava Foreign Salinas MD Primary Care Provider Unavailab Lorena Fuentes MD Primary Care Provider [phone] Racquel Cruz MD Primary Care Prov ider [facility], Pcp Primary Care Provider Unavailabl e Reason for Visit * Reason Comments E-prescribe Rx Request Encounter Details Date Type Department Care Team Description 06/11/2019 Refill Adult Medicine [address] [address] Erum Ibarra MD E-prescribe Rx Request Social History Tobacco Use [...] encounter Miscellaneous Notes * Telephone Encounter - Harris Knapp M.A. - 06/12/2019 10:16 AM EDT Faxed to pharmacy * Telephone Encounter - Kelly Hlil M.A. - 06/12/2019 9:58 AM EDT Lab Results Component Value Date 25OHD 75 06/21/2018 25HYDROXYVIT 28 12/25/2015 * Telephone Encounter - Debby Alamo - 06/11/2019 12:57 PM EDT Patient would like script to be: E-PRESCRIBED/FAXED TO PHARMACY WHEN WAS THE PATIENT'S LAST APPOINTMENT IN ADULT MEDICINE? 06/06/19 WHEN WAS THE LAST TIME THE PATIENT SAW THEIR PCP? 06/15/18 Does patient have an upcoming appointment? Yes on 07/09/19 (THE MEDICATION REQUESTED IS ON THE MED [...] N/A Patients current insurance carrier is: Payor: [facility] MCR / Plan: [facility] / Product Type: HMO [id number] documented in this encounter Plan of Treatment Not on file documented as of this encounter Visit Diagnoses Not on filedocumented in this encounter Care Teams Metal Machinist Relationship Specialty Start Date End Date Erum Ibarra MD PCP - General Internal Medicine 06/23/17 09/08/20 Foreign William MD PCP - General Internal Medicine 09/09/20 12/04/20 Lorena Ortiz MD [address] [place], [place] [phone] PCP - General Internal Medicine 12/05/20 10/11/21 Racquel Cruz MD [address] [place] [address] PCP - General Internal Medicine 10/12/21 05/20/22 [facility], Pcp [address] [place] [address] PCP - General Internal Medicine 05/21/22 documented as of this encounter
--- OUTSIDE RECORDS SUMMARY | 2024-04-17 11:44 | XMS_ITS | Encounter Summary ---
Author Organization [facility] [facility] Address [address] [place] [address] Care Team Providers Care Delivery Assistant Name Role Phone Davion Workman MD Primary Care Provider [phone] Name, Antwan ORTEGA Primary Care Provider Unavailabl Erum Morgan MD Primary Care Provider Foreign Boyd MD Primary Care Provider Unavailab Lorena Fuentes MD Primary Care Provider [phone] Racquel Cruz MD Primary Care Prov ider [facility], Pcp Primary Care Provider Unavailabl e Reason for Visit * Reason Onset Date Comments TEST RESULTS 10/05/2014 Encounter Details Date Type Department Care Team Description 10/05/2014 Telephone Adult Medicine [facility] [address] [place] [address] Iraida Emery MD TEST RESULTS Social History Tobacco Use Types [...] encounter Miscellaneous Notes * Telephone Encounter - Davion Workman MD - 10/06/2014 2:42 PM EDT noted * Telephone Encounter - Jeremy Harding L.P.NFranco - 10/06/2014 2:25 PM EDT Telephone Information: Work Phone Not on file. Patient called FYI to Dr Workman * Telephone Encounter - Iraida Emery MD - 10/05/2014 4:23 PM EDT 14 days flagyl called in to patient's pharmacy Fyi to PCP * Telephone Encounter - Carly Lovell M.A. - 10/05/2014 4:20 PM EDT Spoke with pt and she states that she is still having the diarrhea. Informed that Dr. Emery will be sending an abx to her pharmacy and that she needs to finish medication. She was told to f/u with PCP * Telephone Encounter - Iradia Emery MD - 10/05/2014 3:52 PM EDT I just attempted to call patient but got busy signal. Please re-attempt. If she is still having diarrhea, she'll need repeat course of abx - longer course of flagyl vs PO vanc. I saw her in UC today,and she didn't mention any diarrhea documented in this encounter Plan of Treatment Not on file documented as of this encounter Visit Diagnoses Not on filedocumented in this encounter Care Teams Delivery Assistant Relationship Specialty Start Date End Date Davion Workman MD [address] [place] [address] PCP - General Internal Medicine 08/14/14 02/11/16 Name, MD Antwan [address] [place] [address] PCP - General Internal Medicine 02/12/16 06/22/17 Erum Ibarra MD [address] [place] [address] PCP - General Internal Medicine 06/23/17 09/08/20 Foreign William MD [address] [place] [address] PCP - General Internal Medicine 09/09/20 12/04/20 Lorena Ortiz MD [address] [place] [address] PCP - General Internal Medicine 12/05/20 10/11/21 Racquel Cruz MD [address] [place] [address] PCP - General Internal Medicine 10/12/21 05/20/22 [facility], Pcp [address] [place] [address] PCP - General Internal Medicine 05/21/22 documented as of this encounter
--- OUTSIDE RECORDS SUMMARY | 2024-04-17 11:44 | XMS_ITS | Encounter Summary ---
Author Organization [facility] Address [address] [place] [address] Care Team Providers Care Sales Manager Name Role Phone Davion Workman MD Primary Care Provider [phone] Lawson Ball MD Primary Care Provider Davion Workman MD Primary Care Provider [phone] Eli, Antwan ORTEGA Primary Care Provider Unavailabl Erum Morgan MD Primary Care Provider Unava Foreign Salinas MD Primary Care Provider Unavailab Lorena Fuentes MD Primary Care Provider [phone] Racquel Cruz MD Primary Care Prov ider [facility], Pcp Primary Care Provider Unavailabl e Encounter Details Date Type Department Care Team Description 10/25/2012 Release of Information Medical Records [address] [place] [address] Abstract, Provider Social History Tobacco Use Types Packs/Day Years [...] on filedocumented in this encounter Care Teams Sales Manager Relationship Specialty Start Date End Date Davion Workman MD [address] [place] [address] PCP - General 11/23/05 03/05/14 Lawson Ball MD [address] [place] [address] PCP - General Internal Medicine 03/06/14 08/13/14 Davion Workman MD [address] [place] [address] PCP - General Internal Medicine 08/14/14 02/11/16 Antwan Benitez MD [address] [place], [place] [phone] PCP - General Internal Medicine 02/12/16 06/22/17 Erum Ibarra MD [address] [place] [address] PCP - General Internal Medicine 06/23/17 09/08/20 Foreign William MD [address] [place], [place] [phone] PCP - General Internal Medicine 09/09/20 12/04/20 Lorena Ortiz MD [address] [place] [address] PCP - General Internal Medicine 12/05/20 10/11/21 Racquel Cruz MD [address] [place] [address] PCP - General Internal Medicine 10/12/21 05/20/22 [facility], [place] [phone] PCP - General Internal Medicine 05/21/22 documented as of this encounter
--- OUTSIDE RECORDS SUMMARY | 2024-04-17 11:44 | XMS_ITS | Encounter Summary ---
Author Organization [employer] [facility] Address [address] [place] [address] Care Team Providers Care Director Of Bands Name Role Phone Erum Ibarra MD Primary Care Provider Foreign Boyd MD Primary Care Provider Unavailab Lorena Fuentes MD Primary Care Provider [phone] Racquel Cruz MD Primary Care Prov ider [facility], Pcp Primary Care Provider Unavailabl e Reason for Visit * Reason Comments E-prescribe Rx Request Encounter Details Date Type Department Care Team Description 03/01/2019 Refill Adult Medicine [address] [address] Paula Isaac PA [address] [place] [address] E-prescribe Rx Request Social History Tobacco Use [...] Telephone Encounter - Harris Knapp M.A. - 03/01/2019 4:46 PM EST Faxed to pharmacy * Telephone Encounter - Jeanna Rice - 03/01/2019 10:52 AM EST Patient would like script to be: E-PRESCRIBED/FAXED TO PHARMACY WHEN WAS THE PATIENT'S LAST APPOINTMENT IN ADULT MEDICINE? 01/09/19 WHEN WAS THE LAST TIME THE PATIENT SAW THEIR PCP? 12/19/18 Does patient have an upcoming appointment? Yes 07/09/19 (THE MEDICATION REQUESTED IS ON THE [...] N/A Patients current insurance carrier is: Payor: [employer] [facility] MCR / Plan: [facility] / Product Type: HMO [id number] documented in this encounter Plan of Treatment Not on file documented as of this encounter Visit Diagnoses Not on filedocumented in this encounter Care Teams Director Of Bands Relationship Specialty Start Date End Date Erum Ibarra MD PCP - General Internal Medicine 06/23/17 09/08/20 Foreign William MD PCP - General Internal Medicine 09/09/20 12/04/20 Lorena Ortiz MD [address] [place] [address] PCP - General Internal Medicine 12/05/20 10/11/21 Racquel Cruz MD [address] [place] [address] PCP - General Internal Medicine 10/12/21 05/20/22 [facility], Pcp [address] [place] [address] PCP - General Internal Medicine 05/21/22 documented as of this encounter
--- OUTSIDE RECORDS SUMMARY | 2024-04-17 11:44 | XMS_ITS | Encounter Summary ---
Author Organization [employer] [facility] Address [address] [place] [address] Care Team Providers Care Hydro Generation Supervisor Name Role Phone Davion Workman MD Primary Care Provider [phone] Antwan Benitez MD Primary Care Provider UnavailErum Umaña MD Primary Care Provider Foreign Boyd MD Primary Care Provider Unavailab Lorena Fuentes MD Primary Care Provider [phone] Racquel Cruz MD Primary Care Prov ider [facility], Pcp Primary Care Provider Unavailabl e Encounter Details Date Type Department Care Team Description 01/30/2015 Orders Only SCRIPT DEVELOPER - [address] [id number] Dave Ball MD Social History Tobacco Use Types Packs/Day [...] on filedocumented in this encounter Care Teams Hydro Generation Supervisor Relationship Specialty Start Date End Date Davion Workman MD [address] [place] [phone] PCP - General Internal Medicine 08/14/14 02/11/16 Antwan Benitez MD [address] [place], [place] [phone] PCP - General Internal Medicine 02/12/16 06/22/17 Erum Ibarra MD [address] [place], [place] [phone] PCP - General Internal Medicine 06/23/17 09/08/20 Foreign William MD [address] [place] [address] PCP - General Internal Medicine 09/09/20 12/04/20 Lorena Ortiz MD [address] [place] [address] PCP - General Internal Medicine 12/05/20 10/11/21 Racquel Cruz MD [address] [place] [address] PCP - General Internal Medicine 10/12/21 05/20/22 [facility], [place] [address] PCP - General Internal Medicine 05/21/22 documented as of this encounter
--- OUTSIDE RECORDS SUMMARY | 2024-04-17 11:44 | XMS_ITS | Encounter Summary ---
Author Organization [employer] [facility] Address [address] [place] [address] Care Team Providers Care Pharmacy Data Analyst Name Role Phone Erum Ibarra MD Primary Care Provider Foreign Boyd MD Primary Care Provider Unavailab Lorena Fuentes MD Primary Care Provider [phone] Racquel Cruz MD Primary Care Prov ider [facility], Pcp Primary Care Provider Unavailabl e Encounter Details Date Type Department Care Team Description 03/30/2020 Pt. Non Urgent Medical Question Medicine/Pediatrics - [address] [phone] Claudia Colorado PA-C [address] [place] [address] Social History Tobacco Use Types Packs/Day Years Used Date Smoking Tobacco: Never Smokeless Tobacco: Never Alcohol Use Standard Drinks/Week Comments No 0 (1 standard drink = 0.6 oz pur e alcohol) Sex Assigned at Date Recorded Female 06/22/2020 6:41 AM E DT Job Start Date Occupation Industry Not on file Not on file Not on file documented as of this encounter Progress Notes * Marcela MartinezP.N. - 03/31/2020 8:13 AM ESTFrom: Ximena Mendenhall To: Claudia Colorado PA-C Sent: 03/30/2020 9:01 PM EST Subject: Question regarding CHEST X-RAY, 2 VIEWS I have a question about CHEST X-RAY, 2 VIEWS resulted on 03/26/20, 1:13 PM. Why I in my X-ray I become with a surge crip in my right side maybe that's w gretchen having that pain documented in this encounter Plan of Treatment Not on file documented as of this encounter Visit Diagnoses Not on filedocumented in this encounter Care Teams Pharmacy Data Analyst Relationship Specialty Start Date End Date Erum Ibarra MD PCP - General Internal Medicine 06/23/17 09/08/20 Foreign William MD PCP - General Internal Medicine 09/09/20 12/04/20 Lorena Ortiz MD [address] [place] [address] PCP - General Internal Medicine 12/05/20 10/11/21 Racquel Cruz MD [address] [place] [address] PCP - General Internal Medicine 10/12/21 05/20/22 [facility], [place] [address] PCP - General Internal Medicine 05/21/22 documented as of this encounter
--- OUTSIDE RECORDS SUMMARY | 2024-04-17 11:44 | XMS_ITS | Encounter Summary ---
Author Organization [facility] Address [address] [place] [address] Care Team Providers Care Redevelopment Manager Name Role Phone Erum Ibarra MD Primary Care Provider Unava Foreign Salinas MD Primary Care Provider Unavailab Lorena Fuentes MD Primary Care Provider [phone] Racquel Cruz MD Primary Care Prov ider [facility], Pcp Primary Care Provider Unavailabl e Reason for Visit * Reason Comments E-prescribe Rx Request Encounter Details Date Type Department Care Team Description 12/13/2018 Refill Adult Medicine [address] [address] Erum Ibarra MD E-prescribe Rx Request Social [...] encounter Miscellaneous Notes * Telephone Encounter - Radha Pina M.A. - 12/13/2018 12:05 PM EDT Please review, not previously ordered by pcp * Telephone Encounter - Leticia Lantigua - 12/13/2018 8:39 AM EDT Patient would like script to be: E-PRESCRIBED/FAXED TO PHARMACY WHEN WAS THE PATIENT'S LAST APPOINTMENT IN ADULT MEDICINE? 06/15/18 WHEN WAS THE LAST TIME THE PATIENT SAW THEIR PCP? Same as above Does patient have an upcoming appointment? Yes 12/19/18 (THE MEDICATION REQUESTED IS ON THE MED [...] N/A Patients current insurance carrier is: Payor: [employer] [facility] [employer] M[employer] / Plan: [facility] / Product Type: HMO [id number] documented in this encounter Plan of Treatment Not on file documented as of this encounter Visit Diagnoses Not on filedocumented in this encounter Care Teams Redevelopment Manager Relationship Specialty Start Date End Date Erum Ibarra MD PCP - General Internal Medicine 06/23/17 09/08/20 Foreign Willaim MD PCP - General Internal Medicine 09/09/20 12/04/20 Lorena Ortiz MD [address] [place] [id number] PCP - General Internal Medicine 12/05/20 10/11/21 Racquel Cruz MD [address] [place] [address] PCP - General Internal Medicine 10/12/21 05/20/22 [facility], Pcp [address] [place] [address] PCP - General Internal Medicine 05/21/22 documented as of this encounter
--- OUTSIDE RECORDS SUMMARY | 2024-04-17 11:44 | XMS_ITS | Encounter Summary ---
Author Organization [facility] Address [address] [place] [address] Care Team Providers Care Content Writer Name Role Phone Davion Workman MD Primary Care Provider [phone] Antwan Benitez MD Primary Care Provider UnavailErum Umaña MD Primary Care Provider Foreign Boyd MD Primary Care Provider Unavailab Lorena Fuentes MD Primary Care Provider [phone] Racquel Cruz MD Primary Care Prov ider [facility], Pcp Primary Care Provider Unavailabl e Encounter Details Date Type Department Care Team Description 09/02/2014 Business Doc Medical Records [address] [place] [id number] Abstract, Provider Social History Tobacco Use Types [...] on filedocumented in this encounter Care Teams Content Writer Relationship Specialty Start Date End Date Davion Workman MD [address] [place] [address] [id number] PCP - General Internal Medicine 08/14/14 02/11/16 Antwan Benitez MD [address] [place] [address] PCP - General Internal Medicine 02/12/16 06/22/17 Erum Ibarra MD [address] [place] [address] PCP - General Internal Medicine 06/23/17 09/08/20 Foreign William MD [address] [place] [address] PCP - General Internal Medicine 09/09/20 12/04/20 Lorena Ortiz MD [address] [place] [address] PCP - General Internal Medicine 12/05/20 10/11/21 Racquel Cruz MD [address] [place] [address] PCP - General Internal Medicine 10/12/21 05/20/22 [facility], Pcp [address] [place] [address] PCP - General Internal Medicine 05/21/22 documented as of this encounter
--- OUTSIDE RECORDS SUMMARY | 2024-04-17 11:44 | XMS_ITS | Encounter Summary ---
Author Organization [facility] Address [address] [place] [address] Care Team Providers Care Automation And Controls Supervisor Name Role Phone Davion Workman MD Primary Care Provider [phone] Name, Antwan ORTEGA Primary Care Provider Unavailabl Erum Morgan MD Primary Care Provider Foreign Boyd MD Primary Care Provider Unavailab Lorena Fuentes MD Primary Care Provider Racquel Cruz MD Primary Care Prov ider [facility], Pcp Primary Care Provider Unavailabl e Encounter Details Date Type Department Care Team Description 04/15/2015 Refill Adult Medicine [address] [phone] Lawson Ball MD [address] [place] [address] [phone] Social History Tobacco Use Types Packs/Day Years [...] Telephone Encounter - Davion Workman MD - 04/15/2015 3:29 PM EST Pt last rx was Almost a year ago i will need to see her prior to prescribing this * Telephone Encounter - Kaela Taylor M.A. - 04/15/2015 2:45 PM EST This med was rx'd for pt by Dr. Ball 06/2014 Please advise * Telephone Encounter - Kaela Taylor M.A. - 04/15/2015 2:44 PM ESTFrom: Ximena Mendenhall To: Lawson Ball MD Sent: 04/15/2015 2:36 PM EST Subject: Medication Renewal Request Original authorizing provider: MD Ximena Londono would like a refill of the following medications: Pyridoxine HCl (B-6) 100 MG Tab [Lawson Ball MD] Preferred pharmacy: [facility] [address] [place] [address] Comment: Medication renewals requested in this message routed to other providers: simvastatin (ZOCOR) 20 MG tablet [Davion Workman MD] omeprazole (PRILOSEC) 20 MG capsule [Davion Workman MD] ranitidine (ZANTAC) 150 MG tablet [Davion Workman MD] ibuprofen (ADVIL,MOTRIN) 600 MG tablet [Davion Workman MD] vitamin D (ERGOCALCIFEROL) 95462 UNITS capsule [Yas Gutierrez PA-C] clotrimazole-betamethasone (LOTRISONE) cream [Audie Tejada PA-C] documented in this encounter Plan of Treatment Not on file documented as of this encounter Visit Diagnoses Not on filedocumented in this encounter Care Teams Automation And Controls Supervisor Relationship Specialty Start Date End Date Davion Workman MD [address] [place] [phone] PCP - General Internal Medicine 08/14/14 02/11/16 Antwan Benitez MD [address] [place] [id number] PCP - General Internal Medicine 02/12/16 06/22/17 Erum Ibarra MD [address] [place] [address] PCP - General Internal Medicine 06/23/17 09/08/20 Foreign William MD [address] [place], [place] [phone] PCP - General Internal Medicine 09/09/20 12/04/20 Lorena Ortiz MD [address] [place] [address] PCP - General Internal Medicine 12/05/20 10/11/21 Racquel Cruz MD [address] [place] [address] PCP - General Internal Medicine 10/12/21 05/20/22 [facility], Pcp [address] [place], [place] [phone] PCP - General Internal Medicine 05/21/22 documented as of this encounter
--- OUTSIDE RECORDS SUMMARY | 2024-04-17 11:44 | XMS_ITS | Encounter Summary ---
Author Organization [facility] Address [address] [place] [address] Care Team Providers Care Poultry Pathologist Name Role Phone Davion Workman MD Primary Care Provider [phone] Antwan Benitez MD Primary Care Provider UnavailErum Umaña MD Primary Care Provider Foreign Boyd MD Primary Care Provider Unavailab Lorena Fuentes MD Primary Care Provider [phone] Racquel Cruz MD Primary Care Prov ider [facility], Pcp Primary Care Provider Unavailabl e Encounter Details Date Type Department Care Team Description 02/27/2015 Delivery Architect Report Medical Records [address] [place] [id number] Regulo Benson Social History Tobacco Use Types Packs/Day Years [...] on filedocumented in this encounter Care Teams Poultry Pathologist Relationship Specialty Start Date End Date Davion Workman MD [address] [place] [id number] PCP - General Internal Medicine 08/14/14 02/11/16 Antwan Benitez MD [address] [place] [phone] PCP - General Internal Medicine 02/12/16 06/22/17 Erum Ibarra MD [address] [place] [address] PCP - General Internal Medicine 06/23/17 09/08/20 Foreign William MD [address] [place] [address] PCP - General Internal Medicine 09/09/20 12/04/20 Lorena Ortiz MD [address] [place] [address] PCP - General Internal Medicine 12/05/20 10/11/21 Racquel Cruz MD [address] [place] [address] PCP - General Internal Medicine 10/12/21 05/20/22 [facility], Pcp [address] [place] [address] PCP - General Internal Medicine 05/21/22 documented as of this encounter
--- OUTSIDE RECORDS SUMMARY | 2024-04-17 11:44 | XMS_ITS | Clinical Summary ---
Author Organization [employer] [facility] it Address [address] [place] [address] Care Team Providers Care Integrity Analyst Name Role Phone Racquel Friedman MD Primary Care Prov ider Allergies No known active allergies Medications Medication Sig Dispensed Refills Start Date End Date Status albuterol HFA (PROAIR HFA ; PROVENTIL HFA ; VENTOLIN HFA) 90 mcg/actuation inhaler Inhale 2 puffs by mouth every 4 (four) hours if needed for wheezing or shortness of breath. Cough 04/29/2020 Active cholecalciferol (VITAMIN D-3) 25 mcg (1,000 unit) capsule Take 1 capsule (1,000 Units total) by mouth 1 (one) time each day. 01/06/2022 Active pancrelipase, Hop-Qmyt-Xkct, (Creon) 3,000-9,500- 15,000 unit capsule 02/09/2020 Activ e diclofenac (VOLTAREN) 75 mg EC tablet Take 1 tablet (75 mg total) by mouth 2 (two) times a day. 08/04/2021 Active docusate sodium (COLACE) 100 mg capsule Take 1 capsule (100 mg total) by mouth 2 (two) times a day. 04/16/2022 Active famotidine (PEPCID) 20 mg tablet Take 1 tablet (20 mg total) by mouth at bedtime. 04/07/2021 Active fluticasone propionate (FLONASE) 50 mcg/actuation nasal spray Administer 1-2 sprays into each nostril 1 (one) time each day. 03/04/2021 Active levothyroxine (SYNTHROID, LEVOTHROID) 100 mcg tablet Take 1 tablet (100 mcg total) by mouth 1 (one) time each day. and 2 tabs on Tuesday. 01/06/2022 Active magnesium oxide (MAG-OX) 400 mg magnesium tablet Take by mouth. Acti ve pantoprazole (PROTONIX) 40 mg EC tablet Take 1 tablet (40 mg total) by mouth 1 (one) time each day. 11/11/2021 Active polyethylene glycol (MIRALAX) 17 gram packet Take 17 g by mouth 1 (one) time each day. 09/28/2022 Active rosuvastatin (CRESTOR) 40 mg tablet Take 1 tablet (40 mg total) by mouth at bedtime. 01/06/2022 Active senna 8.6 mg tablet Take 2 tablets (17.2 mg total) by mouth 1 (one) time each day. 09/30/2021 Active spironolactone (ALDACTONE) 50 mg tablet Take 1 tablet (50 mg total) by mouth 2 (two) times a day. 01/02/2020 Active topiramate (TOPAMAX) 25 mg tablet Take 1 tablet (25 mg total) by mouth 2 (two) times a day. 01/22/2022 Active tretinoin (RETIN-A) 0.025 % cream Sig: PLEASE SEE ATTACHED FOR DETAILED DIRECTIONS 01/07/2020 Active Active Problems Problem Noted Date Diagnosed Date Esophageal dysmotility 01/02/2022 Overview (03/01/2024): Mild noted on manometry study - [facility] records JERRY on CPAP 02/11/2020 Calcific tendinitis of left shoulder 08/28/2019 Chronic heel pain, right 07/05/2017 Overview (03/01/2024): R foot Xray - calcaneal spurs. Podiatry referral Fatty liver 07/05/2017 Migraine 07/05/2017 Overview (03/01/2024): Saw Neurology. Prednisone & Elavil Renal calculi 07/05/2017 Overview (03/01/2024): Abd US 02/17/17 Type 2 diabetes mellitus with obesity 07/05/2017 Constipation 06/04/2014 Thyroid nodule 02/22/2014 Overview (03/01/2024): FNA 03/28 Benign Dermatophytosis of foot 10/31/2013 Hypothyroid 02/20/2013 Vitamin D deficiency 10/14/2011 Obesity (BMI 30.0-34.9) 08/26/2010 Hyperlipidemia 09/30/2009 IBS (irritable bowel syndrome) 06/19/2008 Overview (03/01/2024): Random colonic bx normal 2005. Depression with anxiety 12/08/2005 Heartburn 02/22/2005 Overview (03/01/2024): EGD normal 02.22.06. 48 hour ambulatory pH testing performed [facility] 05/04/2016 revealed normal amounts of acid exposure. Immunizations Name Administration Dates Next Due Hepatitis B (Gfrvlop-T-Nnbpf , Recombivax HB-Adult) 19yo and older 04/19/2017,03/16/2017 Influenza Quadravalent, MDCK , 0.5ml, with preservative (Flucelvax) 6mo and older 12/15/2017 Influenza trivalent, 0.5mL, preservative free (Fluarix; FluLaval; Fluzone) ages 6mo and older (Afluria) 3 years and older 01/08/2016 Influenza trivalent, with preservative (Fluzone; Afluria) 6mo and older 04/01/2016,01/15/2014,02/20/2013,2011,01/24/2012,01/26/2011,02/25/2010,1 Moderna SARS-CoV-2 COVID-19, mRNA, LNP-S, preservative free 08/25/2020 PPD Test 12/19/2018, 6,01/24/2012,2010 Td Tetanus diptheria (Tdvax) 7yo and older 02/20/2013,08/12/2002 Tdap Tetanus diptheria acell ular pertussis (Boostrix; Adacel) 7yo and older 05/29/2021,02/20/2013,01/28/2007 Zoster recombinant (Shingrix ) 19yo and older 05/29/2021 Surgical History Surgery Date Site/Laterality Comments SECTION PROCEDURE: MS DELIVERY ONLY OTHER SURGICAL HISTORY PROCEDURE: MS LIG/TRNSXJ FLP TUBE ABDL/VAG APPR UNI/BI COLONOSCOPY 02/22/2006 PROCEDURE: HISTORICAL COLONOSCOPY; COMMENT: WNL ESOPHAGOGASTRODUODENOSCOPY 02/22/2006 PROCEDURE: MS ESOPHAGOGASTRODUODENOSCOPY TRANSORAL DIAGNOSTIC; COMMENT: WNL KNEE SURGERY 2004 PROCEDURE: HISTORICAL KNEE SURGERY; COMMENT: left, wes in lower leg COLONOSCOPY 06/02/2011 PROCEDURE: HISTORICAL COLONOSCOPY; COMMENT: normal COLONOSCOPY 10/24/14 PROCEDURE: HISTORICAL COLONOSCOPY; COMMENT: Normal colon, hyperplastic diminutive rectal polyps ESOPHAGOGASTRODUODENOSCOPY 10/24/14 PROCEDURE: MS ESOPHAGOGASTRODUODENOSCOPY TRANSORAL DIAGNOSTIC; COMMENT: Hiatal hernia, otherwise normal OTHER SURGICAL HISTORY 04/21/2015 PROCEDURE: MS LAPAROSCOPY SLING OPERATION STRESS INCONT BREAST BIOPSY 2011 Right PROCEDURE: BX BREAST; PERC NEEDLE CORE W/IMAG GUID; COMMENT: b9 BREAST BIOPSY 2014 Right PROCEDURE: MS BX BREAST W/DEVICE 1ST LESION ULTRASOUND GUID Medical History Medical History Date Comments Family history of malignant neoplasm of gastrointestinal tract 01/21/2006 DX:Family history of maligna nt neoplasm of gastrointestinal tract; COMMENT: Patient's father had colon cancer at age 55. An aunt had colon cancer at age 45. Negative colonoscopy 02/22/2006, no colon cancer screening needed for 5 years. Heartburn 02/22/2005 DX:Heartburn; CO MMENT: EGD normal 02.22.06. Nevus 02/15/2012 DX:Nevus Fracture, tibia DX:Fracture, tib ia; COMMENT: left, required surgery Hypothyroid 02/20/2013 DX:Hypothyroid Dermatophytosis of foot 10/31/2013 DX:[place] tophytosis of foot Renal calculi 07/05/2017 DX:Renal calculi ; COMMENT: Abd US 02/17/17 Fatty liver 07/05/2017 DX:Fatty liver Migraine 07/05/2017 DX:Migraine Pre-diabetes 07/05/2017 DX:Pre-diabetes; COMMENT: 12/06/1629SxlD5B =6.1 Chronic heel pain, right 07/05/2017 DX:[place] fatou heel pain, right; COMMENT: R foot Xray - calcaneal spurs. Podiatry referral Constipation 06/04/2014 DX:Constipation Depression with anxiety 12/08/2005 DX:Depre ssion with anxiety IBS (irritable bowel syndrome) 06/19/2008 D X:IBS (irritable bowel syndrome); COMMENT: Random colonic bx normal 2005. Leg pain 02/20/2013 DX:Leg pain Obese 08/26/2010 DX:Obese Vitamin D deficiency 10/14/2011 DX:Vitamin D deficiency Thyroid nodule 02/22/2014 DX:Thyroid nodul e; COMMENT: FNA 03/28 Benign Historical Medical DX 04/24/2009 DX:Spondyl olysis, lumbar region Keloid scar of skin 11/10/2012 DX:Keloid sc ar of skin Helicobacter pylori infection 12/08/2005 DX :Helicobacter pylori infection; COMMENT: POSITIVE AGAIN 03/22 - TX'D WITH PREVPAC Midline thoracic back pain 12/19/2018 DX:Mi dline thoracic back pain Colitis DX:Colitis Abdominal pain DX:Abdominal yamilex n IBS (irritable bowel syndrome) D X:IBS (irritable bowel syndrome) Colon polyp DX:Colon polyp Family History Medical History Relation Name Comments Breast cancer Aunt p 54 paternal Arthritis Brother 1 Colon cancer Father age 55, diabete s, hypertension Colon cancer Father's side aunt, breast c ancer Diabetes Maternal Grandmother hyperte nsion Arthritis Mother Cervical cancer Mother Diabetes Mother blindness, bunny ract, hypertension, glaucoma Arthritis Sister 1 Depression Son 1 suicidal-hospit alized Other: schizophrenia. Son 2 Relation Name Status Comments Aunt p 54 Brother 1 Brother 2 Alive Father Father's side Maternal Grandmother Mother Sister 1 Sister 2 Alive Sister 3 Alive Son 1 Son 2 Social History Tobacco Use Types Packs/Day Years Used Date Smoking Tobacco: Never Smokeless Tobacco: Never Alcohol Use Standard Drinks/Week Comments No 0 (1 standard drink = 0.6 oz pur e alcohol) Sex and Gender Information Value Date Recorded Sex Assigned at Not on file Gender Identity Not on file Sexual Orientation Not on file Obstetrics History Last Filed Vital Signs Vital Sign Reading Time Taken Comments Blood Pressure 116/64 04/16/2022 10:41 AM EST Pulse 86 04/16/2022 10:41 AM EST Temperature - - Respiratory Rate - - Oxygen Saturation - - Inhaled Oxygen Concentration - - Weight 78.2 kg (172 lb 6.4 oz) 04/16/2022 10:41 AM EST Height 154.9 cm (5' 1 ) 04/16/2022 10:41 AM EST Body Mass Index 32.57 04/16/2022 10:41 AM EST Plan of Treatment Health Maintenance Due Date Last Done Comments Pneumococcal Vaccine: Pediatrics (0 to 5 Years) and At-Risk Patients (6 to 64 Years) (1 of 2 - PCV) 1973 Diabetes: Annual Foot Exam 1977 Diabetes: Annual Retina Eye Exam 1977 Cervical Cancer Screening: HPV 02/03/1988 Hepatitis B Vaccines (3 of 3 - 19+ 3-dose series) 09/13/2017 04/19/2017, 03/16/2017 Zoster Vaccines (2 of 2) 07/24/2021 05/29/2021 Colorectal Cancer Screening: Colonoscopy 02/20/2022 10/24/2014 Depression Screening 02/20/2022 Social Influencers of Health Screening 02/20/2022 Diabetes: Blood Sugar Control Test (HGBA1C) 07/02/2022 01/01/2022 Diabetes: Annual Urine Albumin-Creatinine Ratio (uACR) 01/01/2023 01/01/2022 Diabetes: Annual GFR (Glomerular Filtration Rate) 01/01/2023 01/01/2022 Breast Cancer Screening 04/03/2023 04/03/2021, 05/15 COVID-19 Vaccine ( season) 2023 10/08/2020, 08/25/2020 Influenza Vaccine (#1) 2023 8, 04/01/2016, 01/08/2016, Additional history exists Cholesterol Screening (Lipid Panel) 01/01/2027 01/01/2022 DTaP,Tdap,and Td Vaccines (6 - Td or Tdap) 05/30/2031 05/29/2021, 02/20/2013, 02/20/2013, Additional history exists HIV Screening Completed 01/18/2019 Hepatitis C Screening Completed 01/18/2019 HIB Vaccines Aged Out No longer eligi ble based on patient's age to complete this topic HPV Vaccines Aged Out No longer eligi ble based on patient's age to complete this topic Hepatitis A Vaccines Aged Out No long er eligible based on patient's age to complete this topic IPV Vaccines Aged Out No longer eligi ble based on patient's age to complete this topic MMR Vaccines Aged Out No longer eligi ble based on patient's age to complete this topic Meningococcal ACWY Vaccine Aged Out N o longer eligible based on patient's age to complete this topic RSV Immunization Patients Under 20 months Aged Out No longer eligible based on patient's age to complete this topic Varicella Vaccines Aged Out No longer eligible based on patient's age to complete this topic Procedures Procedure Name Priority Date/Time Associated Diagnosis Comments URINE ALBUMIN CREATININE RATIO Routine 01/01/2022 ANNUAL BMP BLOOD TEST Routine 01/01/2022 HEMOGLOBIN A1C Routine 01/01/2022 LIPID PANEL Routine 01/01/2022 DIAGNOSTIC MAMMOGRAPHY INCLUDING CAD BILATERAL Routine 04/03/2021 1:57 PM EST Mastodynia HEPATITIS C SCREENING Routine 01/18/2019 HIV SCREENING Routine 01/18/2019 COLONOSCOPY Routine 10/24/2014 from Last 3 Months or Most Recently Relevant to Health Maintenance Results * Urine Albumin Creatinine Ratio (01/01/2022) Pathologist [facility] Urine Albumin Creatinine Ratio abstracted Historical Provider MD MORRIS LITTLE E * Annual BMP Blood Test (01/01/2022) Pathologist [facility] Annual BMP Blood Test abstracted Historical Provider MD MORRIS LITTLE E * Hemoglobin A1c (01/01/2022) Pathologist [facility] Hemoglobin A1C 6.5 6.5 % Blood Venous blood specimen / Unknown Historical Provider LAB BLOOD ORDERAB LES * (ABNORMAL) Lipid panel (01/01/2022) Pathologist [facility] LDL/HDL Ratio 4 0 - 4 Triglycerides 193(A) 0 - 150 mg/dL Cholesterol 211(A) 0 - 200 mg/dL HDL 50 40 mg/dL LDL Cholesterol 123(A) 0 - 100 mg/dL Blood Venous blood specimen / Unknown Historical Provider LAB BLOOD ORDERAB LES * DIAGNOSTIC MAMMOGRAPHY INCLUDING CAD BILATERAL (04/03/2021 1:57 PM EST) Anatomical Region Laterality Modality Mammography 03/24/2021 11:5 3 AM EST Narrative 04/03/2021 2:40 PM EST This is a summary report. The complete report is available in the patient's medical record. If you cannot access the medical record, please contact the sending organization for a detailed fax or copy. Exam: Diagnostic mammogram and right breast ultrasound History: Right breast pain. Comparison: Mammography as recent as 05/15/2018 and as far back as 11/27/2013 Findings: Bilateral full-field digital diagnostic mammography was performed with tomosynthesis and interpreted with computer-aided detection. Breast parenchyma is composed of scattered fibroglandular densities. ??No new suspicious mass, architectural distortion, or suspicious calcifications. Sonography performed in the area of right breast pain delineated by the patient at the 2-5 o'clock position. ??No solid or cystic lesion identified. Impression: No mammographic or sonographic correlate for right breast pain. ??Further management of symptoms should be clinically based. No mammographic evidence of malignancy in either breast. BI-RADS 1-negative Procedure Note Alexandria Galo MD - 03/02/2022 This is a summary report. The complete report is available in thepatient's medical record. If you cannot access the medical record, pleasecontact the sending organization for a detailed fax or copy. Exam: Diagnostic mammogram and right breast ultrasound History: Right breast pain. Comparison: Mammography as recent as 05/15/2018 and as far back as11/27/2013 Findings: Bilateral full-field digital diagnostic mammography was performed withtomosynthesis and interpreted with computer-aided detection. Breast parenchyma is composed of scattered fibroglandular densities. Nonew suspicious mass, architectural distortion, or suspiciouscalcifications. Sonography performed in the area of right breast pain delineated by thepatient at the 2-5 o'clock position. No solid or cystic lesionidentified. Impression: No mammographic or sonographic correlate for right breast pain. Furthermanagement of symptoms should be clinically based. No mammographic evidence of malignancy in either breast. BI-RADS 1-negative Chelly Badillo QUART[facility] IMG BI PROCEDURES * HIV Screening (01/18/2019) HIV Screening abstracted Historical Provider [facility] * Hepatitis C Screening (01/18/2019) Hepatitis C Screening abstracted Historical Provider [facility] * Colonoscopy (10/24/2014) Colonoscopy normal, abstracted Anatomical Region Laterality Modality Other Historical Provider [facility] from Last 3 Months or Most Recently Relevant to Health Maintenance Care Teams Integrity Analyst Relationship Specialty Start Date End Date Racquel Friedman MD PCP - General Internal Medicine 10/12/21
--- OUTSIDE RECORDS SUMMARY | 2024-04-17 11:44 | XMS_ITS | Encounter Summary ---
Author Organization [employer] [facility] Address [address] [place] [address] Care Team Providers Care Mastic Sprayer Name Role Phone Davion Workman MD Primary Care Provider [phone] Lawson Ball MD Primary Care Provider [phone] Davion Workman MD Primary Care Provider Name, Antwan ORTEGA Primary Care Provider Unavailabl Erum Morgan MD Primary Care Provider Unava Foreign Salinas MD Primary Care Provider Unavailab Lorena Fuentes MD Primary Care Provider [phone] Racquel Cruz MD Primary Care Prov ider [facility], Pcp Primary Care Provider Unavailabl e Encounter Details Date Type Department Care Team Description 06/12/2011 Business Doc Medical Records [address] [place] [address] Abstract, Provider Social History Tobacco Use Types [...] on filedocumented in this encounter Care Teams Mastic Sprayer Relationship Specialty Start Date End Date Davion Workman MD [address] [place] [address] PCP - General 11/23/05 03/05/14 Lawson Ball MD [address] [place] [address] PCP - General Internal Medicine 03/06/14 08/13/14 Davion Workman MD [address] [place] [address] PCP - General Internal Medicine 08/14/14 02/11/16 Antwan Benitez MD [address] [place] [address] PCP - General Internal Medicine 02/12/16 06/22/17 Erum Ibarra MD [address] [place], [place] [phone] PCP - General Internal Medicine 06/23/17 09/08/20 Foreign William MD [address] [place] [address] PCP - General Internal Medicine 09/09/20 12/04/20 Lorena Ortiz MD [address] [place] [address] PCP - General Internal Medicine 12/05/20 10/11/21 Racquel Cruz MD [address] [place] [address] PCP - General Internal Medicine 10/12/21 05/20/22 [facility], [address] [address] PCP - General Internal Medicine 05/21/22 documented as of this encounter
--- OUTSIDE RECORDS SUMMARY | 2024-04-17 11:44 | XMS_ITS | Encounter Summary ---
Author Organization [employer] [facility] Address [address] [place] [address] Care Team Providers Care Radio Adjuster Name Role Phone Erum Ibarra MD Primary Care Provider Unava Foreign Salinas MD Primary Care Provider Unavailab Lorena Fuentes MD Primary Care Provider [phone] Racquel Cruz MD Primary Care Prov ider [facility], Pcp Primary Care Provider Unavailabl e Encounter Details Date Type Department Care Team Description 09/22/2018 Armor Reconnaissance Specialist Report Medical Records [address] [place] [address] Abstract, Provider Social History Tobacco Use Types [...] on filedocumented in this encounter Care Teams Radio Adjuster Relationship Specialty Start Date End Date Erum Ibarra MD PCP - General Internal Medicine 06/23/17 09/08/20 Foreign William MD PCP - General Internal Medicine 09/09/20 12/04/20 Lorena Ortiz MD [address] [place] [address] PCP - General Internal Medicine 12/05/20 10/11/21 Racquel Cruz MD [address] [place] [address] PCP - General Internal Medicine 10/12/21 05/20/22 [facility], Pcp [address] [place] [address] PCP - General Internal Medicine 05/21/22 documented as of this encounter
--- OUTSIDE RECORDS SUMMARY | 2024-04-17 11:44 | XMS_ITS | Encounter Summary ---
Author Organization [employer] [facility] Address [address] [place] [address] Care Team Providers Care Blood Bank Credit Clerk Name Role Phone Davion Workman MD Primary Care Provider [phone] Antwan Benitez MD Primary Care Provider UnavailErum Umaña MD Primary Care Provider Foreign Boyd MD Primary Care Provider Unavailab Lorena Fuentes MD Primary Care Provider [phone] Racquel Cruz MD Primary Care Prov ider [facility], Pcp Primary Care Provider Unavailabl e Encounter Details Date Type Department Care Team Description 10/28/2014 Business Doc Medical Records [address] [place] [address] Abstract, Provider Social History Tobacco Use Types [...] on filedocumented in this encounter Care Teams Blood Bank Credit Clerk Relationship Specialty Start Date End Date Davion Workman MD [address] [place] [address] [phone] PCP - General Internal Medicine 08/14/14 02/11/16 Antwan Benitez MD [address] [place] [address] PCP - General Internal Medicine 02/12/16 06/22/17 Erum Ibarra MD [address] [place] [address] PCP - General Internal Medicine 06/23/17 09/08/20 Foreign William MD [address] [place] [address] PCP - General Internal Medicine 09/09/20 12/04/20 Lorena Ortiz MD [address] [place] [address] PCP - General Internal Medicine 12/05/20 10/11/21 Racquel Cruz MD [address] [place] [address] PCP - General Internal Medicine 10/12/21 05/20/22 [facility], Pcp [address] [place] [address] PCP - General Internal Medicine 05/21/22 documented as of this encounter
--- OUTSIDE RECORDS SUMMARY | 2024-04-17 11:44 | XMS_ITS | Encounter Summary ---
Author Organization [employer] [facility] Address [address] [place] [address] Care Team Providers Care Diabetes Educator Name Role Phone Davion Workman MD Primary Care Provider [phone] Antwan Benitez MD Primary Care Provider UnavailErum Umaña MD Primary Care Provider Foreign Body MD Primary Care Provider Unavailab Lorena Fuentes MD Primary Care Provider [phone] Racquel Cruz MD Primary Care Prov ider [facility], Pcp Primary Care Provider Unavailabl e Encounter Details Date Type Department Care Team Description 09/03/2015 Business Doc Medical Records [address] [place] [address] Abstract, Provider Social History Tobacco Use Types [...] on filedocumented in this encounter Care Teams Diabetes Educator Relationship Specialty Start Date End Date Davion Workman MD [address] [place] [address] [phone] PCP - General Internal Medicine 08/14/14 02/11/16 Antwan Benitez MD [address] [place] [address] PCP - General Internal Medicine 02/12/16 06/22/17 Erum Ibarra MD [address] [place] [address] PCP - General Internal Medicine 06/23/17 09/08/20 Foreign William MD [address] [place] [address] PCP - General Internal Medicine 09/09/20 12/04/20 Lorena Ortiz MD [address] [place] [address] PCP - General Internal Medicine 12/05/20 10/11/21 Racquel Cruz MD [address] [place] [address] PCP - General Internal Medicine 10/12/21 05/20/22 [facility], Pcp [address] [place] [address] PCP - General Internal Medicine 05/21/22 documented as of this encounter
--- OUTSIDE RECORDS SUMMARY | 2024-04-17 11:44 | XMS_ITS | Encounter Summary ---
Author Organization [employer] [facility] Address [address] [place] [address] Care Team Providers Care Line Maintenance Name Role Phone Erum Ibarra MD Primary Care Provider Unava Foreign Salinas MD Primary Care Provider Unavail Lorena Fuentes MD Primary Care Provider Racquel Cruz MD Primary Care Prov ider [facility], Pcp Primary Care Provider Unavailabl e Encounter Details Date Type Department Care Team Description 03/06/2019 Release of Information Medical Records [address] [place] [address] Abstract, Provider Social History Tobacco Use Types [...] on filedocumented in this encounter Care Teams Line Maintenance Relationship Specialty Start Date End Date Erum Ibarra MD PCP - General Internal Medicine 06/23/17 09/08/20 Foreign William MD PCP - General Internal Medicine 09/09/20 12/04/20 Lorena Ortiz MD [address] [place] [address] PCP - General Internal Medicine 12/05/20 10/11/21 Racquel Cruz MD [address] [place] [address] PCP - General Internal Medicine 10/12/21 05/20/22 [facility], Pcp [address] [place] [address] PCP - General Internal Medicine 05/21/22 documented as of this encounter
--- OUTSIDE RECORDS SUMMARY | 2024-04-17 11:44 | XMS_ITS | Encounter Summary ---
Author Organization [employer] [facility] Address [address] [place] [address] Care Team Providers Care Roll Scale Worker Name Role Phone Erum Ibarra MD Primary Care Provider Unava ilForeign Snell MD Primary Care Provider Unavailab Lorena Fuentes MD Primary Care Provider [phone] Racquel Cruz MD Primary Care Prov ider [facility], Pcp Primary Care Provider Unavailabl e Encounter Details Date Type Department Care Team Description 06/06/2019 Telephone Operator Report Medical Records [address] [place] [address] Jared Kemp MD Social History Tobacco Use Types Packs/Day [...] on filedocumented in this encounter Care Teams Roll Scale Worker Relationship Specialty Start Date End Date Erum Ibarra MD PCP - General Internal Medicine 06/23/17 09/08/20 Foreign William MD PCP - General Internal Medicine 09/09/20 12/04/20 Lorena Ortiz MD [address] [place] [address] PCP - General Internal Medicine 12/05/20 10/11/21 Racquel Cruz MD [address] [place] [address] PCP - General Internal Medicine 10/12/21 05/20/22 [facility], Pcp [address] [place] [address] PCP - General Internal Medicine 05/21/22 documented as of this encounter
--- OUTSIDE RECORDS SUMMARY | 2024-04-17 11:44 | XMS_ITS | Encounter Summary ---
Author Organization [employer] [facility] Address [address] [place] [address] Care Team Providers Care Home Health Billing Specialist Name Role Phone Davion Workman MD Primary Care Provider [phone] Antwan Benitez MD Primary Care Provider UnavailErum Umaña MD Primary Care Provider Foreign Boyd MD Primary Care Provider Unavailab Lorena Fuentes MD Primary Care Provider [phone] Racquel Cruz MD Primary Care Prov ider [facility], Pcp Primary Care Provider Unavailabl e Encounter Details Date Type Department Care Team Description 08/18/2015 Rehabilitation Services Coordinator Report Medical Records [address] [place] [address] Guy Grijalva MD Social History Tobacco Use Types Packs/Day [...] on filedocumented in this encounter Care Teams Home Health Billing Specialist Relationship Specialty Start Date End Date Davion Workman MD [address] [place] [address] PCP - General Internal Medicine 08/14/14 02/11/16 NameAntwan MD [address] [place] [address] PCP - General Internal Medicine 02/12/16 06/22/17 Erum Ibarra MD [address] [place] [address] PCP - General Internal Medicine 06/23/17 09/08/20 Foreign William MD [address] [place] [address]20 PCP - General Internal Medicine 09/09/20 12/04/20 Lorena Ortiz MD [address] [place] [address] PCP - General Internal Medicine 12/05/20 10/11/21 Racquel Cruz MD [address] [place] [address] PCP - General Internal Medicine 10/12/21 05/20/22 [facility], Pcp [address] [place] [address] PCP - General Internal Medicine 05/21/22 documented as of this encounter
--- OUTSIDE RECORDS SUMMARY | 2024-04-17 11:44 | XMS_ITS | Encounter Summary ---
Author Organization [email or web address] [facility] Address [address] [place] [address] Care Team Providers Care Retail Support Specialist Name Role Phone Erum Ibarra MD Primary Care Provider Foreign Boyd MD Primary Care Provider Unavailab Lorena Fuentes MD Primary Care Provider [phone] Racquel Cruz MD Primary Care Prov ider [facility], Pcp Primary Care Provider Unavailabl e Reason for Visit * Reason Comments E-prescribe Rx Request Encounter Details Date Type Department Care Team Description 03/25/2018 Refill Adult Medicine [address] [address] Iraida Rivera PA-C [address] [place] [address] E-prescribe Rx Request Social History Tobacco Use [...] encounter Miscellaneous Notes * Telephone Encounter - Cheko Ramos - 03/25/2018 1:03 PM EST Patient would like script to be: E-PRESCRIBED/FAXED TO PHARMACY WHEN WAS THE PATIENT'S LAST APPOINTMENT IN ADULT MEDICINE? 03/17/18 WHEN WAS THE LAST TIME THE PATIENT SAW THEIR PCP? 01/30/18 Does patient have an upcoming appointment? Yes 03/28/18 (THE MEDICATION REQUESTED IS ON THE MED LIST ABOVE) All of the medications requested were on the CURRENT MEDS list Did you check the Pharmacy information above?: YES Patient wants: 30 -day supply Is this a mail order prescription request ? NO If the refill is from a FAXED refill request what is the RX # listed on the fax? N/A Patients current insurance carrier is: [facility] / Plan: [facility] / Product Type: HMO [id number] documented in this encounter Plan of Treatment Not on file documented as of this encounter Visit Diagnoses Not on filedocumented in this encounter Care Teams Retail Support Specialist Relationship Specialty Start Date End Date Erum Ibarra MD PCP - General Internal Medicine 06/23/17 09/08/20 Foreign William MD PCP - General Internal Medicine 09/09/20 12/04/20 Lorena Ortiz MD [address] [place] [address] PCP - General Internal Medicine 12/05/20 10/11/21 Racquel Cruz MD [address] [place] [address] PCP - General Internal Medicine 10/12/21 05/20/22 Amelia Neville [address] [place] [address] PCP - General Internal Medicine 05/21/22 documented as of this encounter
--- OUTSIDE RECORDS SUMMARY | 2024-04-17 11:44 | XMS_ITS | Encounter Summary ---
Author Organization [employer] [facility] Address [address] [place] [address] Care Team Providers Care Strategy Specialist Name Role Phone Davion Workman MD Primary Care Provider [phone] Lawson Ball MD Primary Care Provider [phone] Davion Workman MD Primary Care Provider [phone] Eli, Antwan ORTEGA Primary Care Provider Unavailabl Erum Morgan MD Primary Care Provider Unava Foerign Salinas MD Primary Care Provider Unavailab Lorena Fuentes MD Primary Care Provider [phone] Racquel Cruz MD Primary Care Prov ider [facility], Pcp Primary Care Provider Unavailabl e Encounter Details Date Type Department Care Team Description 12/09/2011 Database Software Technician Report Medical Records [address] [place] [address] Shun Ty Social History Tobacco Use Types Packs/Day Years [...] on filedocumented in this encounter Care Teams Strategy Specialist Relationship Specialty Start Date End Date Davion Workman MD [address] [place] [address] PCP - General 11/23/05 03/05/14 Lawson Ball MD [address] [place] [address] PCP - General Internal Medicine 03/06/14 08/13/14 Davion Workman MD [address] [place] [address] PCP - General Internal Medicine 08/14/14 02/11/16 Antwan Benitez MD [address] [place], [place] [phone] PCP - General Internal Medicine 02/12/16 06/22/17 Erum Ibarra MD [address] [place], [place] [phone] PCP - General Internal Medicine 06/23/17 09/08/20 Foreign William MD [address] [place], [place] [phone] PCP - General Internal Medicine 09/09/20 12/04/20 Lorena Ortiz MD [address] [place] [address] PCP - General Internal Medicine 12/05/20 10/11/21 Racquel Cruz MD [address] [place] [address] PCP - General Internal Medicine 10/12/21 05/20/22 [facility], [place] [phone] PCP - General Internal Medicine 05/21/22 documented as of this encounter
--- OUTSIDE RECORDS SUMMARY | 2024-04-17 11:44 | XMS_ITS | Encounter Summary ---
Author Organization [employer] [facility] Address [address] [place] [address] Care Team Providers Care Account Executive Healthcare Name Role Phone Erum Ibarra MD Primary Care Provider Unava Foreign Salinas MD Primary Care Provider Unavailab Lorena Fuentes MD Primary Care Provider [phone] Racquel Cruz MD Primary Care Prov ider [facility], Pcp Primary Care Provider Unavailabl e Encounter Details Date Type Department Care Team Description 03/12/2020 Telephone Triage Nurse Report Medical Records [address] [place] [address] Dalila Bryan, COMPASS OPERATOR Social History Tobacco Use Types Packs/Day Years [...] have Coronavirus / COVID-19? No / Unsure 02/13/2020 9:24 AM EST documented as of this encounter Plan of Treatment Not on file documented as of this encounter Visit Diagnoses Not on filedocumented in this encounter Care Teams Account Executive Healthcare Relationship Specialty Start Date End Date Erum Ibarra MD PCP - General Internal Medicine 06/23/17 09/08/20 Foreign William MD PCP - General Internal Medicine 09/09/20 12/04/20 Lorena Ortiz MD [address] [place] [address] PCP - General Internal Medicine 12/05/20 10/11/21 Racquel Cruz MD [address] [place] [address] PCP - General Internal Medicine 10/12/21 05/20/22 [facility], Pcp [address] [place] [address] PCP - General Internal Medicine 05/21/22 documented as of this encounter
--- OUTSIDE RECORDS SUMMARY | 2024-04-17 11:45 | XMS_ITS | Encounter Summary ---
Author Organization [employer] [facility] Address [address] [place] [address] Care Team Providers Care Digital Print Operator Name Role Phone Erum Ibarra MD Primary Care Provider UnaForeign Small MD Primary Care Provider Unavailab Lorena Fuentes MD Primary Care Provider Racquel Cruz MD Primary Care Prov ider [facility], Pcp Primary Care Provider Unavailabl e Reason for Visit * Reason Comments E-prescribe Rx Request Encounter Details Date Type Department Care Team Description 09/03/2020 Refill Adult Medicine [address] [address] Erum Ibarra MD E-prescribe Rx Request Social [...] have Coronavirus / COVID-19? No / Unsure 08/15/2020 10:22 AM EDT documented as of this encounter Miscellaneous Notes * Telephone Encounter - Cecelia Cote M.A. - 09/03/2020 9:57 AM EDT MELANI 07/29/2020 No F/U appt Lab Results Component Value Date TSH 4.34 02/13/2020 * Telephone Encounter - Desiree Alexandr - 09/03/2020 9:40 AM EDT Patient would like script to be: E-PRESCRIBED/FAXED TO PHARMACY WHEN WAS THE PATIENT'S LAST APPOINTMENT IN ADULT MEDICINE? 07/29/2020 WHEN WAS THE LAST TIME THE PATIENT SAW THEIR PCP? Same as above Does patient have an upcoming appointment? no (THE MEDICATION REQUESTED IS ON THE MED LIST ABOVE) All of the medications requested were on the CURRENT MEDS list Did you check the Pharmacy information above?: YES Patient wants: please see sig Is this a mail order prescription request ? NO If the refill is from a FAXED refill request what is the RX # listed on the fax? N/A Patients current insurance carrier is: Payor: [employer] [facility] [employer] MCR / Plan: [facility] / Product Type: HMO [id number] documented in this encounter Plan of Treatment Not on file documented as of this encounter Visit Diagnoses Not on filedocumented in this encounter Care Teams Digital Print Operator Relationship Specialty Start Date End Date Eurm Ibarra MD PCP - General Internal Medicine 06/23/17 09/08/20 Foreign William MD PCP - General Internal Medicine 09/09/20 12/04/20 Lorena Ortiz MD [address] [place] [address] PCP - General Internal Medicine 12/05/20 10/11/21 Racquel Cruz MD [address] [place] [address] PCP - General Internal Medicine 10/12/21 05/20/22 [facility], Pcp [address] [place] [address] PCP - General Internal Medicine 05/21/22 documented as of this encounter
--- OUTSIDE RECORDS SUMMARY | 2024-04-17 11:45 | XMS_ITS | Encounter Summary ---
Author Organization [employer] [facility] Address [address] [place] [address] Care Team Providers Care Nude Model Name Role Phone Davion Workman MD Primary Care Provider [phone] Lawson Ball MD Primary Care Provider [phone] Davion Workman MD Primary Care Provider [phone] Eli, Antwan ORTEGA Primary Care Provider Unavailabl Erum Mogran MD Primary Care Provider Unava Foreign Salinas MD Primary Care Provider Unavailab Lorena Fuentes MD Primary Care Provider [phone] Racquel Cruz MD Primary Care Prov ider [facility], Pcp Primary Care Provider Unavailabl e Encounter Details Date Type Department Care Team Description 05/28/2009 Hospital Medical Records [address] [place] [address] Dru Bush MD Social History Tobacco Use Types Packs/Day [...] on filedocumented in this encounter Care Teams Nude Model Relationship Specialty Start Date End Date Davion Workman MD [address] [place] [address] PCP - General 11/23/05 03/05/14 Lawson Ball MD [address] [place] [address] PCP - General Internal Medicine 03/06/14 08/13/14 Davion Workman MD [address] [place] [address] PCP - General Internal Medicine 08/14/14 02/11/16 Antwan Benitez MD [address] [place], [place] [phone] PCP - General Internal Medicine 02/12/16 06/22/17 Erum Ibarra MD [address] [place], [place] [phone] PCP - General Internal Medicine 06/23/17 09/08/20 Foreign William MD [address] [place], [place] [phone] PCP - General Internal Medicine 09/09/20 12/04/20 Lorena Ortiz MD [address] [place] [address] PCP - General Internal Medicine 12/05/20 10/11/21 Racquel Cruz MD [address] [place] [address] PCP - General Internal Medicine 10/12/21 05/20/22 [facility], [place] [phone] PCP - General Internal Medicine 05/21/22 documented as of this encounter
--- OUTSIDE RECORDS SUMMARY | 2024-04-17 11:45 | XMS_ITS | Encounter Summary ---
Author Organization [employer] [facility] Address [address] [place] [address] Care Team Providers Care Parking Enforcement Technician Name Role Phone Erum Ibarra MD Primary Care Provider Unava Foreign Salinas MD Primary Care Provider Unavailab Lorena Fuentes MD Primary Care Provider [phone] Racquel Cruz MD Primary Care Prov ider [facility], [facility]cp Primary Care Provider Unavailabl e Reason for Visit * Reason Onset Date Comments Faxed Refill 06/11/2020 Encounter Details Date Type Department Care Team Description 06/11/2020 Refill Adult Medicine [address] [address] Erum Ibarra MD Faxed Refill Social History Tobacco Use Types Packs/Day Years [...] Telephone Encounter - Cecelia Cote M.A. - 06/11/2020 5:28 PM EDT MELANI 02/11/2020 pe w/pcp No F/U appt Lab Results Component Value Date TSH 4.34 02/13/2020 * Telephone Encounter - Leticia Grzegorz - 06/11/2020 3:05 PM EDT Patient would like script to be: E-PRESCRIBED/FAXED TO PHARMACY WHEN WAS THE PATIENT'S LAST APPOINTMENT IN ADULT MEDICINE? 05/12/20 WHEN WAS THE LAST TIME THE PATIENT SAW THEIR PCP? 04/15/20 Does patient have an upcoming appointment? MY MESSAGE HAS BEEN SENT TO PATIENT (THE MEDICATION REQUESTED IS ON THE MED [...] N/A Patients current insurance carrier is: [facility] / Plan: [facility] / Product Type: HMO [id number] documented in this encounter Plan of Treatment Not on file documented as of this encounter Visit Diagnoses Not on filedocumented in this encounter Care Teams Parking Enforcement Technician Relationship Specialty Start Date End Date Erum Ibarra MD PCP - General Internal Medicine 06/23/17 09/08/20 Foreign William MD PCP - General Internal Medicine 09/09/20 12/04/20 Lorena Ortiz MD [address] [place] [address] [place] [address] PCP - General Internal Medicine 12/05/20 10/11/21 Racquel Cruz MD [address] [place] [address] PCP - General Internal Medicine 10/12/21 05/20/22 [facility] Pcp [address] [place] [address] PCP - General Internal Medicine 05/21/22 documented as of this encounter
--- OUTSIDE RECORDS SUMMARY | 2024-04-17 11:45 | XMS_ITS | Encounter Summary ---
Author Organization [facility] Address [address] [place] [address] Care Team Providers Care Import Dispatcher Name Role Phone [facility], Pcp Primary Care Provider Unavailabl e Reason for Visit * Reason Comments E-prescribe Rx Request Encounter Details Date Type Department Care Team Description 06/08/2023 Refill Gastroenterology - [place] [address] [id number] Denver Munoz PA-C 175 [facility] [address] [place] [address] E-prescribe Rx Request Social History Tobacco Use [...] encounter Miscellaneous Notes * Telephone Encounter - Glo Oneill M.A. - 06/08/2023 3:30 PM EDT MELANI 04/16/22 No upcoming appt documented in this encounter Plan of Treatment Not on file documented as of this encounter Visit Diagnoses Not on filedocumented in this encounter Care Teams Import Dispatcher Relationship Specialty Start Date End Date Community, Pcp PCP - General Internal Medicine 05/21/22 documented as of this encounter
--- OUTSIDE RECORDS SUMMARY | 2024-04-17 11:45 | XMS_ITS | Encounter Summary ---
Author Organization [facility] Address [address] [place] [address] Care Team Providers Care Experimental Psychologist Name Role Phone Erum Ibarra MD Primary Care Provider Foreign Boyd MD Primary Care Provider Unavailab Lorena Fuentes MD Primary Care Provider [phone] Racquel Cruz MD Primary Care Prov ider [facility], Pcp Primary Care Provider Unavailabl e Reason for Visit * Reason Onset Date Comments Faxed Refill 03/17/2018 Encounter Details Date Type Department Care Team Description 03/17/2018 Refill Adult Medicine [address] [address] Erum Ibarra MD Faxed Refill Social History [...] encounter Miscellaneous Notes * Telephone Encounter - Erum Ibarra MD - 03/20/2018 5:33 PM [place] [address] iu weekly. Needs repeat blood test - no recent vit D level - should be checkedto ensure we are not oversupplementing. * Telephone Encounter - Fabiola Lo - 03/17/2018 12:15 PM EST Patient would like script to be: E-PRESCRIBED/FAXED TO PHARMACY? WHEN WAS THE PATIENT'S LAST APPOINTMENT IN ADULT MEDICINE? 01/18/18? WHEN WAS THE LAST TIME THE PATIENT SAW THEIR PCP? 12/15/17 ? Does patient have an upcoming appointment? Yes 06/15/18 ? (THE MEDICATION REQUESTED??IS ON THE MED LIST ABOVE) All of the medications requested were on the CURRENT MEDS list ? Did you check the Pharmacy information above?: YES ? Patient wants: 90 -day supply ? Is this a mail order prescription request ? ??NO ? If the refill is from a FAXED refill request what is the RX # listed on the fax? N/A ? Patients current insurance carrier is: [facility] / Plan: [facility] / Product Type: HMO [id number] ? documented in this encounter Plan of Treatment Not on file documented as of this encounter Results * 25 HYDROXY INCLUDES FRACTIONS IF PERFORMED (06/21/2018 7:35 AM EDT) VITAMIN D, 25-HYDROXY 75 30 - 80 ng/mL 06/21/2018 1:24 PM EDT [facility] 06/21/2018 7:35 AM EDT 06/21/2018 7:36 AM EDT Erum Ibarra MD LAB [facility] [employer] documented in this encounter Visit Diagnoses Diagnosis Vitamin D deficiency- Primary Unspecified vitamin D deficiency documented in this encounter Care Teams Experimental Psychologist Relationship Specialty Start Date End Date Erum Ibarra MD PCP - General Internal Medicine 06/23/17 09/08/20 Foreign William MD PCP - General Internal Medicine 09/09/20 12/04/20 Lorena Ortiz MD [address] [place] [address] PCP - General Internal Medicine 12/05/20 10/11/21 Racquel Cruz MD [address] [place] [address] PCP - General Internal Medicine 10/12/21 05/20/22 [facility], [address] [address] PCP - General Internal Medicine 05/21/22 documented as of this encounter
--- OUTSIDE RECORDS SUMMARY | 2024-04-17 11:45 | XMS_ITS | Encounter Summary ---
Author Organization [facility] Address [address] [place] [address] Care Team Providers Care Budget Analyst Name Role Phone Foreign William MD Primary Care Provider Unavailab Lorena Fuentes MD Primary Care Provider [phone] aRcquel Cruz MD Primary Care Prov ider [facility], Pcp Primary Care Provider Unavailabl e Encounter Details Date Type Department Care Team Description 10/13/2020 Refill OBGYN - [place] [address] [place] [address] Elicia Oliveros [facility] [address] [place] [address] Social History Tobacco Use Types Packs/Day Years [...] have Coronavirus / COVID-19? No / Unsure 09/23/2020 10:44 AM EDT documented as of this encounter Plan of Treatment Not on file documented as of this encounter Visit Diagnoses Not on filedocumented in this encounter Care Teams Budget Analyst Relationship Specialty Start Date End Date Foreign William MD PCP - General Internal Medicine 09/09/20 12/04/20 Lorena Ortiz MD [address] [place] [address] PCP - General Internal Medicine 12/05/20 10/11/21 Racquel Cruz MD [address] [place] [address] PCP - General Internal Medicine 10/12/21 05/20/22 [facility], Pcp [address] [place] [address] PCP - General Internal Medicine 05/21/22 documented as of this encounter
--- OUTSIDE RECORDS SUMMARY | 2024-04-17 11:45 | XMS_ITS | Encounter Summary ---
Author Organization [facility] Address [address] [place] [address] Care Team Providers Care Structural Steel Painter Name Role Phone Foreign William MD Primary Care Provider Unavailab Lorena Fuentes MD Primary Care Provider [phone] Racquel Cruz MD Primary Care Prov ider [facility], Pcp Primary Care Provider Unavailabl e Encounter Details Date Type Department Care Team Description 10/13/2020 Refill Adult Medicine [address] [address] Erum Ibarra MD Social History Tobacco Use Types Packs/Day [...] on filedocumented in this encounter Care Teams Structural Steel Painter Relationship Specialty Start Date End Date Foreign William MD PCP - General Internal Medicine 09/09/20 12/04/20 Lorena Ortiz MD [address] [place] [address] PCP - General Internal Medicine 12/05/20 10/11/21 Racquel Cruz MD [address] [place] [address] PCP - General Internal Medicine 10/12/21 05/20/22 [facility], Pcp [address] [place] [address] PCP - General Internal Medicine 05/21/22 documented as of this encounter
--- OUTSIDE RECORDS SUMMARY | 2024-04-17 11:45 | XMS_ITS | Encounter Summary ---
Author Organization [facility] Address [address] [place] [address] Care Team Providers Care Apple Picker Name Role Phone Lorena Ortiz MD Primary Care Provider [phone] Racquel Cruz MD Primary Care Prov ider [facility], Pcp Primary Care Provider Unavailabl e Reason for Visit * Reason Comments E-prescribe Rx Request Encounter Details Date Type Department Care Team Description 09/12/2021 Refill Adult Medicine [address] [address] Chelly Badillo APRN E-prescribe Rx Request Social History Tobacco Use [...] Exposure Response Date Recorded In the last 10 days, have yo u been in contact with someone who was confirmed or suspected to have Coronavirus/COVID-19? No / Unsure 09/04/2021 2:46 PM EDT documented as of this encounter Miscellaneous Notes * Telephone Encounter - Kaela Taylor M.A. - 09/28/2021 11:16 AM EDT Lab Results Component Value Date NA 141 03/24/2021 K 3.7 03/24/2021 CO2 25 03/24/2021 CL 107 03/24/2021 BUN 13 03/24/2021 CREAT 0.67 03/24/2021 GLU 143 03/24/2021 CA 9.7 03/24/2021 GFR > 60 03/24/2021 Last appt 07/07/21 with Chelly Badillo LEAD PRODUCER Pending appt with Claudia Eastman, PAC 12/2021 * Telephone Encounter - Bre Feldman - 09/28/2021 10:54 AM EDT Switching to [place] * Telephone Encounter - Bre Feldman - 09/22/2021 11:11 AM EDT L/m for pt 2 attempt pt needs to select new provider Lorena Ortiz panel is close, never seen Lorena Ortiz * Telephone Encounter - Bre Feldman - 09/15/2021 10:19 AM EDT L/m for pt pt needs to select new provider Lorena Ortiz panel is close, never seen Lorena Ortiz * Telephone Encounter - Bre Feldman - 09/15/2021 10:15 AM EDT Patient would like script to be: E-PRESCRIBED/FAXED TO PHARMACY WHEN WAS THE PATIENT'S LAST APPOINTMENT IN ADULT MEDICINE? 07/06/21 WHEN WAS THE LAST TIME THE PATIENT SAW THEIR PCP? Never seen pcp Does patient have an upcoming appointment? Yes 12/31/21 (THE MEDICATION REQUESTED IS ON THE MED [...] N/A Patients current insurance carrier is: Payor: [facility] [employer] [facility] MCR / Plan: [facility] / Product Type: HMO [id number] documented in this encounter Plan of Treatment Not on file documented as of this encounter Visit Diagnoses Not on filedocumented in this encounter Care Teams Apple Picker Relationship Specialty Start Date End Date Lorena Ortiz MD [address] [place] [address] PCP - General Internal Medicine 12/05/20 10/11/21 Racquel Cruz MD [address] [place] [address] PCP - General Internal Medicine 10/12/21 05/20/22 [facility] [place] [address] PCP - General Internal Medicine 05/21/22 documented as of this encounter
--- OUTSIDE RECORDS SUMMARY | 2024-04-17 11:45 | XMS_ITS | Clinical Summary ---
Author Organization [facility] Address [address] [place] [address] Care Team Providers Care Electrical Maintenance Technician Name Role Phone Ruthie Cedeño DMD Primary Care Provider Source Comments PLEASE NOTE, if this patient is a minor, it may be UNLAWFUL to discuss sensitive information that is contained in these records (such as FAMILY PLANNING, MENTAL HEALTH or SUBSTANCE ABUSE) with the minor patient's parent or other person without the patient's specific authorization.[facility] Social History Tobacco Use Types Packs/Day Years Used Date Smoking Tobacco: Never Assessed Social Connections Answer Date Recorded Connectedness 0 11/30/2023 Financial Resource Strain Answer Date R ecorded Financial Resource Strain 0 2023 Stress Answer Date Recorded Stress 0 09/12/2023 Physical Activity Answer Date Recorded Physical Activity 0 09/12/2023 Food Insecurity Answer Date Recorded Food 0 12/08/2023 Transportation Needs Answer Date Record ed Transportation 0 09/12/2023 Housing Stability Answer Date Recorded Housing 0 09/12/2023 Safety and Environment Answer Date Ryan rded Safety 0 09/12/2023 Utilities Answer Date Recorded Utilities 0 09/12/2023 Employment Answer Date Recorded Stress 0 11/30/2023 Comments Unknown Sex and Gender Information Value Date Recorded Sex Assigned at Not on file Legal Sex Female 12:17 PM PDT Gender Identity Not on file Sexual Orientation Not on file Last Filed Vital Signs Vital Sign Reading Time Taken Comments Blood Pressure 118/76 09/29/2023 3:56 PM EDT Pulse 86 09/29/2023 3:56 PM EDT Temperature - - Respiratory Rate - - Oxygen Saturation - - Inhaled Oxygen Concentration - - Weight - - Height - - Body Mass Index - - Plan of Treatment Health Maintenance Due Date Last Done Comments Dental Perio Charting 1967 Dental Prophy 1967 Diabetes Screening 1967 HPV Screening 1967 Hepatitis C Screening 1967 Lipid Screening 1967 Pap + HPV 1967 Tobacco Screening 1967 HIV Screening 1982 Medicare Annual Wellness Visit 1985 Cervical Cancer Screening 02/03/1988 Pap Smear 02/03/1988 Breast Cancer Screening (Mammogram) 2007 CT Colonography 02/03/2012 Colonoscopy 02/03/2012 Colorectal Cancer Screening 02/03/2012 FIT/gFOBT 02/03/2012 Fecal DNA 02/03/2012 Flexible Sigmoidoscopy 02/03/2012 Imm-Zoster, Recombinant (1 of 2) 2017 Imm-Hepatitis B (3 of 3 - 19 + 3-dose series) 09/13/2017 04/19/2017, 03/16/2017 [id number] ( season) 2023 021, 08/25/2020 Imm-Influenza (#1) 2023 04/01/2016, 1 , 01/15/2014, Additional history exists Alcohol and Drug Screen 03/14/2024 Depression Annual Screen 03/14/2024 Hypertension Screening (#1) 09/28/2024 Dental BW 09/30/2024 09/29/2023 Dental Examination 09/30/2024 09/29/2023 Dental FMX/Pano 09/30/2028 09/29/2023 Imm-DTaP/Tdap/Td (4 - Td or Tdap) 05/30/2031 05/29/2021, 02/20/2013, 01/28/2007 Cervical Ablation/Cold-Knife Conization Discontinued Cervical Cryotherapy Discontinued Colposcopy Discontinued Endometrial Biopsy Discontinued Excision/Leep Discontinued HPV Genotyping Discontinued Vaginal Pap Discontinued Vulvoscopy Discontinued Procedures Procedure Name Priority Date/Time Associated Diagnosis Comments INTRAORAL - COMP SERIES OF RADIOGRAPHIC IMAGES Routine 09/29/2023 4:00 PM EDT Defective dental baptism Encounter for dental examination COMP ORAL EVALUATION - NEW/ESTABLISHED PATIENT Routine 09/29/2023 4:00 PM EDT Defective dental baptism Encounter for dental examination from Last 3 Months or Most Recently Relevant to Health Maintenance Insurance [facility] Care Teams Electrical Maintenance Technician Relationship Specialty Start Date End Date Ruthie Cedeño DMD [address] [place] [address] PCP - General 11/23/18
--- OUTSIDE RECORDS SUMMARY | 2024-04-17 11:45 | XMS_ITS | Clinical Summary ---
Author Organization [facility] Address [address] [place] [address] Care Team Providers Care Salt Grinder Name Role Phone Community, Pcp Primary Care Provider Unavailabl e Allergies No known active allergies Medications Medication Sig Dispensed Refills Start Date End Date Status Magnesium 400 MG Tab Take by mouth. 0 Active CREON 6097-9535 units CAPSULE ENTERIC COATED PARTICLES 0 02/09/2020 Active tretinoin (RETIN-A) 0.025 % cream PLEASE SEE ATTACHED FOR DETAILED DIRECTIONS 0 01/07/2020 Active spironolactone (ALDACTONE) 50 MG tablet Take 50 mg by mouth 2 Times Daily. 0 01/02/2020 Active ALBUTEROL SULFATE 108 (90 Base) MCG/ACT Aero Soln Inhale 2 Puffs into the lungs every 4 hours as needed for Cough, Wheezing or Shortness of Breath. 1 Inhaler 3 04/29/2020 Active fluticasone 50 MCG/ACT nasal spray 1-2 Sprays by Each Nare route daily. 15.8 mL 4 03/04/2021 Active famotidine (PEPCID) 20 MG tablet Take 1 tablet by mouth at bedtime. 60 tablet 5 04/07/2021 Active diclofenac (VOLTAREN) 75 MG EC tablet TAKE 1 TABLET BY MOUTH TWICE A DAY 60 Tablet 4 08/04/2021 Active pantoprazole (PROTONIX) 40 MG tablet Take 1 Tablet by mouth daily. 0 11/11/2021 Active Senna-Time 8.6 MG tablet TAKE 2 TABLETS BY MOUTH DAILY 0 09/30/2021 Active levothyroxine 100 MCG tablet Take 1 Tablet by mouth daily. and 2 tabs on Helder 100 Tablet 1 01/06/2022 Active rosuvastatin (CRESTOR) 40 MG tablet Take 1 Tablet by mouth at bedtime. 90 Tablet 1 01/06/2022 Active Cholecalciferol (D3-1000) 25 MCG (1000 UT) Cap Take 1 Capsule by mouth daily. 90 Capsule 1 01/06/2022 Active topiramate (TOPAMAX) 25 MG tablet TAKE 1 TABLET BY MOUTH TWICE A DAY 60 Tablet 4 01/22/2022 Active polyethylene glycol (MiraLax) 17 g packet Take 1 Packet by mouth daily. 30 Each 11 09/28/2022 Active docusate sodium (COLACE) 100 MG capsule TAKE 1 CAPSULE BY MOUTH TWICE A DAY 60 Capsule 11 06/08/2023 Active Active Problems Problem Noted Date Esophageal dysmotility 01/02/2022 Overview: Mild noted on manometry study - [facility] records JERRY on CPAP 02/11/2020 Calcific tendinitis of left shoulder Renal calculi 07/05/2017 Overview: Abd US 02/17/17 Fatty liver 07/05/2017 Migraine 07/05/2017 Overview: Saw Neurology. Prednisone & Elavil Chronic heel pain, right 07/05/2017 Overview: R foot Xray - calcaneal spurs. Podiatry referral Type 2 diabetes mellitus with obesity Constipation 06/04/2014 Thyroid nodule 02/22/2014 Overview: FNA 03/28 Benign Dermatophytosis of foot 10/31/2013 Hypothyroid 02/20/2013 Vitamin D deficiency 10/14/2011 Obesity (BMI 30.0-34.9) 08/26/2010 Hyperlipidemia 09/30/2009 IBS (irritable bowel syndrome) 9 Overview: Random colonic bx normal 2005. Family history of malignant neoplasm of gastrointestinal tract 01/21/2006 Overview: Negative colonoscopy 02/22/2006, 06/02/2011, no colon cancer screening needed for 5 years. Depression with anxiety 12/08/2005 History of Helicobacter pylori infection 12/08/2005 Overview: POSITIVE AGAIN 03/22 - TX'D WITH PREVPAC Heartburn 02/22/2005 Overview: EGD normal 02.22.06. 48 hour ambulatory pH testing performed [facility] 05/04/2016 revealed normal amounts of acid exposure. Resolved Problems Problem Noted Date Resolved Date History of COVID-19 07/29/2020 01/02/2022 Overview: 04/15/2020: Tested at [facility] urgent care Sprain of thoracic region 01/04/20192021 Thoracic spondylosis without myelopathy 01/05/20 19 01/02/2022 Midline thoracic back pain 12/19/201801/02 Leg pain 02/20/2013 01/02/2022 Fracture, tibia 02/11/2020 Overview: left, required surgery Immunizations Name Administration Dates Next Due COVID-19 (Moderna) 10/08/2020,08/25/2020 Hepatitis B > 19yrs 04/19/2017,03/16/2017 Influenza (> 6 Months) 04/01/2016,2013,02/20/2013,2011,01/24/2012,01/26/2011,02/25/2010,1 Influenza (>6 Months) Split Preservative Free 01/08/2016 Influenza Vaccine-quadrivale nt 4 Years Plus 12/15/2017 PPD-RBMG 12/19/2018, 6,01/24/2012,2010 Shingrix (Recombinant zoster vaccine) 05/29/2021 TD ([facility] S [facility] CHILDREN) 02/20/2013,08/12/2002 Tdap 05/29/2021,02/20/2013,01/28/2007 Family History Medical History Relation Name Comments CA Breast Aunt p 54 paternal Arthritis Brother 2 Cancer of the Colon Father age 55, diabetes, hypertension Cancer of the Colon Father's side aunt, b reast cancer Diabetes Maternal Grandmother hyperte nsion Arthritis Mother Cervical Cancer Mother Diabetes Mother blindness, bunny ract, hypertension, glaucoma Arthritis Sister 3 Depression Son 1 suicidal-hospit alized schizophrenia.[other] Son 2 Relation Name Status Comments Aunt p 54 Brother 1 Alive Brother 2 Father Father's side Maternal Grandmother Mother Sister 1 Alive Sister 2 Alive Sister 3 Son 1 Son 2 Social History Tobacco Use Types Packs/Day Years Used Date Smoking Tobacco: Never Smokeless Tobacco: Never Tobacco Cessation:Counseling Given: Not Answered Alcohol Use Standard Drinks/Week Comments No 0 (1 standard drink = 0.6 oz pur e alcohol) Sex Assigned at Date Recorded Female 06/22/2020 6:41 AM E DT Job Start Date Occupation Industry Not on file Not on file Not on file Last Filed Vital Signs Vital Sign Reading Time Taken Comments Blood Pressure 116/64 04/16/2022 10:41 AM EST Pulse 86 04/16/2022 10:41 AM EST Temperature 36.3 ??C (97.3 ??F) 04/16/2022 10:[address] Respiratory Rate 14 07/06/2021 9:20 AM EDT Oxygen Saturation 99% 11/14/2021 11:16 AM EDT Inhaled Oxygen Concentration - - Weight 78.2 kg (172 lb 6.4 oz) 04/16/2022 10:41 AM EST Height 154.9 cm (5' 1 ) 04/16/2022 10:41 AM EST Body Mass Index 32.57 04/16/2022 10:41 AM EST Plan of Treatment Health Maintenance Due Date Last Done Comments DIABETES: ANNUAL FOOT EXAM 1985 PNEUMOCOCCAL VACCINE FOR HIG H RISK PATIENTS (#1) 1986 DIABETES: ANNUAL EYE EXAM 03/27/2011 03/27/2010, 07/2007 COLON CANCER SCREENING 10/25/2019 5, 10/24/2014, 06/02/2011, Additional history exists SHINGLES VACCINE (2 of 2) 07/24/2021 05/29/2021 BASELINE HEALTH EXAM 40-64 02/12/202202/12, 02/11/2020, 06/21/2018, Additional history exists DIABETES: BLOOD SUGAR CONTRO L TEST (HGBA1C) 04/03/2022 01/01/2022, 01/01/2022, 03/24/2021, Additional history exists MAMMOGRAM 04/03/2022 04/03/2021, 06/2018, 01/26/2017 (External Completion), Additional history exists DEPRESSION SCREEN 12/31/2022 12/31/2021, , 05/14/2015, Additional history exists DIABETES/HEART DISEASE: MARGARITA DENISE CHOLESTEROL (LDL) 01/01/2023 01/01/2022, 02/13/2020, 12/29/2018, Additional history exists DIABETES: ANNUAL URINE PROTE IN TEST (MICROALBUMIN) 01/01/2023 01/01/2022 Covid-19 Vaccine (2022- 4 season) 2023 10/08/2020, 08/25/2020 INFLUENZA (#1) 2023 02/11/2020 (Refu sed), 06/06/2019 (Refused), 12/15/2017, Additional history exists BMI CHECK/ADVISE 03/14/2024 12/31/2021, , 05/12/2020, Additional history exists CERVICAL CANCER SCREENING 10/15/20262021 (External Completion), 09/01/2015, 10/01/2014, Additional history exists DTAP/TDAP/TD (5 - Td or Tdap) 05/30/2031, 02/20/2013, 02/20/2013, Additional history exists Care Teams Salt Grinder Relationship Specialty Start Date End Date [facility], Pcp PCP - General Internal Medicine 05/21/22
--- OUTSIDE RECORDS SUMMARY | 2024-04-17 11:45 | XMS_ITS | Encounter Summary ---
Author Organization [facility] Address [address] [place] [address] Care Team Providers Care Paint Factory Worker Name Role Phone Davion Workman MD Primary Care Provider [phone] Lawson Ball MD Primary Care Provider [phone] Davion Workman MD Primary Care Provider [phone] Name, Antwan ORTEGA Primary Care Provider Unavailabl Erum Morgan MD Primary Care Provider Unava Foreign Salinas MD Primary Care Provider Unavailab Lorena Fuentes MD Primary Care Provider [phone] Racquel Cruz MD Primary Care Prov ider [facility], Pcp Primary Care Provider Unavailabl e Encounter Details Date Type Department Care Team Description 08/15/2013 Business Doc Medical Records [address] [place] [id number] Abstract, Provider Social History Tobacco Use Types [...] on filedocumented in this encounter Care Teams Paint Factory Worker Relationship Specialty Start Date End Date Davion Workman MD [address] [place] [address] PCP - General 11/23/05 03/05/14 Lawson Ball MD [address] [place] [address] PCP - General Internal Medicine 03/06/14 08/13/14 Davion Workman MD [address] [place] [address] PCP - General Internal Medicine 08/14/14 02/11/16 Antwan Benitez MD [address] [place] [address] PCP - General Internal Medicine 02/12/16 06/22/17 Erum Ibarra MD [address] [place], [place] [id number] PCP - General Internal Medicine 06/23/17 09/08/20 Foreign William MD [address] [place] [address] PCP - General Internal Medicine 09/09/20 12/04/20 Lorena Ortiz MD [address] [place] [address] PCP - General Internal Medicine 12/05/20 10/11/21 Racquel Cruz MD [address] [place] [address] PCP - General Internal Medicine 10/12/21 05/20/22 [facility], [address] [address] PCP - General Internal Medicine 05/21/22 documented as of this encounter
--- OUTSIDE RECORDS SUMMARY | 2024-04-17 11:45 | XMS_ITS | Encounter Summary ---
Author Organization [facility] Address [address] [place] [address] Care Team Providers Care Machinist Mechanic Name Role Phone Erum Ibarra MD Primary Care Provider Foreign Boyd MD Primary Care Provider Unavailab Lorena Fuentes MD Primary Care Provider [phone] Racquel Cruz MD Primary Care Prov ider [facility], Pcp Primary Care Provider Unavailabl e Reason for Visit * Reason Comments E-prescribe Rx Request Encounter Details Date Type Department Care Team Description 06/13/2018 Refill Adult Medicine [address] [address] Iraida Rivera PA-C [address] [place] [address] E-prescribe Rx Request Social History Tobacco Use [...] Telephone Encounter - Erum Ibarra MD - 06/13/2018 9:13 AM EDT I sent a 90 day Rx in February, with 1 refill. I am seeing her on . I will order rpt TSH * Telephone Encounter - Sylwia Will M.A. - 06/13/2018 8:37 AM EDT Lab Results Component Value Date TSH 4.23 12/24/2017 * Telephone Encounter - Fabiola Lo - 06/13/2018 8:31 AM EDT Patient would like script to be: E-PRESCRIBED/FAXED TO PHARMACY ?? WHEN WAS THE PATIENT'S LAST APPOINTMENT IN ADULT MEDICINE? 03/28/18 ?? WHEN WAS THE LAST TIME THE PATIENT SAW THEIR PCP? 12/15/17 ?? Does patient have an upcoming appointment? Yes 06/15/18 ?? (THE MEDICATION REQUESTED IS ON THE MED LIST ABOVE) All of the medications requested were on the CURRENT MEDS list ?? Did you check the Pharmacy information above?: YES ?? Patient wants: 90 -day supply ?? Is this a mail order prescription request ? NO ?? If the refill is from a FAXED refill request what is the RX # listed on the fax? N/A ?? Patients current insurance carrier is: [facility] / Plan: [facility] / Product Type: HMO [id number] ? documented in this encounter Plan of Treatment Not on file documented as of this encounter Visit Diagnoses Not on filedocumented in this encounter Care Teams Machinist Mechanic Relationship Specialty Start Date End Date Erum Ibarra MD PCP - General Internal Medicine 06/23/17 09/08/20 Foreign William MD PCP - General Internal Medicine 09/09/20 12/04/20 Lorena Ortiz MD [address] [place] [address] PCP - General Internal Medicine 12/05/20 10/11/21 Racquel Cruz MD [address] [place] [address] PCP - General Internal Medicine 10/12/21 05/20/22 [facility], [place] [address] PCP - General Internal Medicine 05/21/22 documented as of this encounter
--- OUTSIDE RECORDS SUMMARY | 2024-04-17 11:45 | XMS_ITS | Encounter Summary ---
Author Organization [employer] [facility] Address [address] [place] [address] Care Team Providers Care Brazing Furnace Operator Name Role Phone Lorena Ortiz MD Primary Care Provider [phone] Racquel Cruz MD Primary Care Prov ider [facility], Pcp Primary Care Provider Unavailabl e Encounter Details Date Type Department Care Team Description 04/03/2021 Refill Adult Medicine [address] [phone] Lorena Ortiz MD [address] [place] [address] [phone] Social History Tobacco Use Types Packs/Day Years [...] have Coronavirus / COVID-19? No / Unsure 04/03/2021 1:46 PM EST documented as of this encounter Miscellaneous Notes * Telephone Encounter - Senia Abdirashid Rouse - 04/03/2021 11:11 AM EST Sravanthi 03/24/21 Lab Results Component Value Date NA 141 03/24/2021 K 3.7 03/24/2021 CO2 25 03/24/2021 CL 107 03/24/2021 BUN 13 03/24/2021 CREAT 0.67 03/24/2021 GLU 143 03/24/2021 CA 9.7 03/24/2021 GFR > 60 03/24/2021 documented in this encounter Plan of Treatment Not on file documented as of this encounter Visit Diagnoses Not on filedocumented in this encounter Care Teams Brazing Furnace Operator Relationship Specialty Start Date End Date Lorena Ortiz MD [address] [place] [address] PCP - General Internal Medicine 12/05/20 10/11/21 Racquel Cruz MD [address] [place] [address] PCP - General Internal Medicine 10/12/21 05/20/22 [facility], Pcp [address] [place] [address] PCP - General Internal Medicine 05/21/22 documented as of this encounter
--- OUTSIDE RECORDS SUMMARY | 2024-04-17 11:45 | XMS_ITS | Encounter Summary ---
Author Organization [facility] Address [address] [place] [address] Care Team Providers Care Cost Estimating Clerk Name Role Phone Davion Workman MD Primary Care Provider [phone] Lawson Ball MD Primary Care Provider [phone] Davion Workman MD Primary Care Provider [phone] Eli, Antwan ORTEGA Primary Care Provider Unavailabl e Erum Ibarra MD Primary Care Provider Unava Foreign Salinas MD Primary Care Provider Unavailab Lorena Fuentes MD Primary Care Provider [phone] Racquel Cruz MD Primary Care Prov ider [facility], Pcp Primary Care Provider Unavailabl e Encounter Details Date Type Department Care Team Description 01/30/2014 Sight Mounter Report Medical Records [address] [place] [address] Jeimy Atkinson MD Social History Tobacco Use Types Packs/Day [...] on filedocumented in this encounter Care Teams Cost Estimating Clerk Relationship Specialty Start Date End Date Davion Workman MD [address] [place] [address] PCP - General 11/23/05 03/05/14 Lawson Ball MD [address] [place] [address] PCP - General Internal Medicine 03/06/14 08/13/14 Davion Workman MD [address] [place] [address] PCP - General Internal Medicine 08/14/14 02/11/16 Antwan Benitez MD [address] [place], [place] [phone] PCP - General Internal Medicine 02/12/16 06/22/17 Erum Ibarra MD [address] [place], [place] [phone] PCP - General Internal Medicine 06/23/17 09/08/20 Foregin William MD [address] [place], [place] [phone] PCP - General Internal Medicine 09/09/20 12/04/20 Lorena Ortiz MD [address] [place] [address] PCP - General Internal Medicine 12/05/20 10/11/21 Racquel Cruz MD [address] [place] [address] PCP - General Internal Medicine 10/12/21 05/20/22 [facility], [place] [phone] PCP - General Internal Medicine 05/21/22 documented as of this encounter
--- OUTSIDE RECORDS SUMMARY | 2024-04-17 11:45 | XMS_ITS | Encounter Summary ---
Author Organization [employer] [facility] Address [address] [place] [address] Care Team Providers Care Family Law Specialist Name Role Phone Davion Workman MD Primary Care Provider [phone] Antwan Benitez MD Primary Care Provider UnavailErum Umaña MD Primary Care Provider Foreign Boyd MD Primary Care Provider Unavailab Lorena Fuentes MD Primary Care Provider [phone] Racquel Cruz MD Primary Care Prov ider [facility], Pcp Primary Care Provider Unavailabl e Encounter Details Date Type Department Care Team Description 01/27/2016 Release of Information Medical Records [address] [place] [address] Abstract, Provider Social History Tobacco Use Types [...] on filedocumented in this encounter Care Teams Family Law Specialist Relationship Specialty Start Date End Date Davion Workman MD [address] [place] [address] PCP - General Internal Medicine 08/14/14 02/11/16 Antwan Benitez MD [address] [place] [address] PCP - General Internal Medicine 02/12/16 06/22/17 Erum Ibarra MD [address] [place] [address] PCP - General Internal Medicine 06/23/17 09/08/20 Foreign William MD [address] [place] [address] PCP - General Internal Medicine 09/09/20 12/04/20 Lorena Ortiz MD [address] [place] [address] PCP - General Internal Medicine 12/05/20 10/11/21 Racquel Cruz MD [address] [place] [address] PCP - General Internal Medicine 10/12/21 05/20/22 [facility], Pcp [address] [place] [address] PCP - General Internal Medicine 05/21/22 documented as of this encounter
--- OUTSIDE RECORDS SUMMARY | 2024-04-17 11:45 | XMS_ITS | Encounter Summary ---
Author Organization [facility] [facility] Address [address] [place] [address] Care Team Providers Care Ticket Scheduler Name Role Phone Davion Workman MD Primary Care Provider [phone] Name, Antwan ORTEGA Primary Care Provider Unavailabl Erum Morgan MD Primary Care Provider Foreign Boyd MD Primary Care Provider Unavailab Lorena Fuentes MD Primary Care Provider [phone] Racquel Cruz MD Primary Care Prov ider [facility], Pcp Primary Care Provider Unavailabl e Encounter Details Date Type Department Care Team Description 02/09/2016 Java Software Report Medical Records [address] [place] [address] Bean Fuentes PA-C [address] [facility] [address] [place] [address] Social History Tobacco Use Types Packs/Day Years [...] on filedocumented in this encounter Care Teams Ticket Scheduler Relationship Specialty Start Date End Date Davion Workman MD [address] [place] [address] [phone] PCP - General Internal Medicine 08/14/14 02/11/16 Antwan Benitez MD [address] [place], [place] [phone] PCP - General Internal Medicine 02/12/16 06/22/17 Erum Ibarra MD [address] [place] [address] PCP - General Internal Medicine 06/23/17 09/08/20 Foreign Willima MD [address] [place], [place] [phone] PCP - General Internal Medicine 09/09/20 12/04/20 Lorena Ortiz MD [address] [place] [address] PCP - General Internal Medicine 12/05/20 10/11/21 Racquel Cruz MD [address] [place] [address] PCP - General Internal Medicine 10/12/21 05/20/22 [facility], Pcp [address] [place], [place] [phone] PCP - General Internal Medicine 05/21/22 documented as of this encounter
--- OUTSIDE RECORDS SUMMARY | 2024-04-17 11:45 | XMS_ITS | Encounter Summary ---
Author Organization [employer] [facility] Address [address] [place] [address] Care Team Providers Care Catshovel Driver Name Role Phone Erum Ibarra MD Primary Care Provider Unava Foreign Salinas MD Primary Care Provider Unavailab Lorena Fuentes MD Primary Care Provider [phone] Racquel Cruz MD Primary Care Prov ider [facility], Pcp Primary Care Provider Unavailabl e Reason for Visit * Reason Comments E-prescribe Rx Request Encounter Details Date Type Department Care Team Description 08/06/2020 Refill Adult Medicine [address] [address] Erum Ibarra MD E-prescribe Rx Request Social [...] Telephone Encounter - Kaela Taylor M.A. - 08/06/2020 1:30 PM EDT Lab Results Component Value Date CHOL 243 02/13/2020 LDL 162 02/13/2020 HDL 49 02/13/2020 TRIG 160 02/13/2020 SGOT 56 02/13/2020 SGPT 92 02/13/2020 Last appt 07/29/20 * Telephone Encounter - Debby Alamo - 08/06/2020 7:42 AM EDT Patient would like script to be: E-PRESCRIBED/FAXED TO PHARMACY WHEN WAS THE PATIENT'S LAST APPOINTMENT IN ADULT MEDICINE? 07/29/20 WHEN WAS THE LAST TIME THE PATIENT SAW THEIR PCP? 04/15/20 Does patient have an upcoming appointment? No-unable to reach left [facility] to call for appointment due to refill request. Appt due (THE MEDICATION REQUESTED IS ON THE MED [...] current insurance carrier is: Payor: [facility] / Plan: [facility] / Product Type: HMO [id number] documented in this encounter Plan of Treatment Not on file documented as of this encounter Visit Diagnoses Not on filedocumented in this encounter Care Teams Catshovel Driver Relationship Specialty Start Date End Date Erum Ibarra MD PCP - General Internal Medicine 06/23/17 09/08/20 Foreign William MD PCP - General Internal Medicine 09/09/20 12/04/20 Lorena Ortiz MD [address] [place] [address] PCP - General Internal Medicine 12/05/20 10/11/21 Racquel Cruz MD [address] [place] [address] PCP - General Internal Medicine 10/12/21 05/20/22 [facility], Pcp [address] [place] [address] PCP - General Internal Medicine 05/21/22 documented as of this encounter
--- OUTSIDE RECORDS SUMMARY | 2024-04-17 11:45 | XMS_ITS | Encounter Summary ---
Author Organization [employer] [facility] Address [address] [place] [address] Care Team Providers Care Clinic Administrator Name Role Phone Davion Workman MD Primary Care Provider Antwan Benitez MD Primary Care Provider UnavailErum Umaña MD Primary Care Provider Foreign Boyd MD Primary Care Provider Unavailab Lorena Fuentes MD Primary Care Provider [phone] Racquel Cruz MD Primary Care Prov ider [facility], Pcp Primary Care Provider Unavailabl e Encounter Details Date Type Department Care Team Description 12/13/2015 Business Doc Medical Records [address] [place] [address] Abstract, Provider Social History Tobacco Use Types [...] on filedocumented in this encounter Care Teams Clinic Administrator Relationship Specialty Start Date End Date Davion Workman MD [address] [place] [address] [phone] PCP - General Internal Medicine 08/14/14 02/11/16 Antwan Benitez MD [address] [place] [address] PCP - General Internal Medicine 02/12/16 06/22/17 Erum Ibarra MD [address] [place] [address] PCP - General Internal Medicine 06/23/17 09/08/20 Foreign William MD [address] [place] [address] PCP - General Internal Medicine 09/09/20 12/04/20 Lorena Ortiz MD [address] [place] [address] PCP - General Internal Medicine 12/05/20 10/11/21 Racquel Cruz MD [address] [place] [address] PCP - General Internal Medicine 10/12/21 05/20/22 [facility], Pcp [address] [place] [address] PCP - General Internal Medicine 05/21/22 documented as of this encounter
--- OUTSIDE RECORDS SUMMARY | 2024-04-17 11:45 | XMS_ITS | Encounter Summary ---
Author Organization [facility] [facility] Address [address] [place] [address] Care Team Providers Care Tile Layer Helper Name Role Phone Lorena Ortiz MD Primary Care Provider [phone] Racquel Cruz MD Primary Care Prov ider [facility], Pcp Primary Care Provider Unavailabl e Encounter Details Date Type Department Care Team Description 03/04/2021 Refill Adult Medicine [address] [address] Gena Nicolas, [place] Social History Tobacco Use Types Packs/Day Years [...] encounter Miscellaneous Notes * Telephone Encounter - Katt Moses M.A. - 03/04/2021 1:15 PM EST RX faxed to pharmacy. * Telephone Encounter - Andrew Ling - 03/04/2021 1:15 PM EST Script sent to pharmacy * Telephone Encounter - Danni Blue M.A. - 03/04/2021 1:09 PM EST Last office visit 01/29/21 documented in this encounter Plan of Treatment Not on file documented as of this encounter Visit Diagnoses Not on filedocumented in this encounter Care Teams Tile Layer Helper Relationship Specialty Start Date End Date Lorena Ortiz MD [address] [place] [address] PCP - General Internal Medicine 12/05/20 10/11/21 Racquel Cruz MD [address] [place] [address] PCP - General Internal Medicine 10/12/21 05/20/22 [facility], [address] [address] PCP - General Internal Medicine 05/21/22 documented as of this encounter
--- OUTSIDE RECORDS SUMMARY | 2024-04-17 11:45 | XMS_ITS | Encounter Summary ---
Author Organization [facility] Address [address] [place] [address] Care Team Providers Care Recycle Driver Name Role Phone Davion Workman MD Primary Care Provider [phone] Lawson Ball MD Primary Care Provider [phone] Davion Workman MD Primary Care Provider [phone] Eli, Antwan ORTEGA Primary Care Provider Unavailabl Erum Morgan MD Primary Care Provider Unava Foreign Salinas MD Primary Care Provider Unavailab Lorena Fuentes MD Primary Care Provider [phone] Racquel Cruz MD Primary Care Prov ider [facility], Pcp Primary Care Provider Unavailabl e Encounter Details Date Type Department Care Team Description 04/16/2011 Boot Liner Maker Report Medical Records [address] [place] [address] Adonis Keller Social History Tobacco Use Types Packs/Day Years [...] on filedocumented in this encounter Care Teams Recycle Driver Relationship Specialty Start Date End Date Davino Workman MD [address] [place] [address] PCP - General 11/23/05 03/05/14 Lawson Ball MD [address] [place] [address] PCP - General Internal Medicine 03/06/14 08/13/14 Davion Workman MD [address] [place] [address] PCP - General Internal Medicine 08/14/14 02/11/16 Antwan Benitez MD [address] [place], [place] [phone] PCP - General Internal Medicine 02/12/16 06/22/17 Erum Ibarra MD [address] [place], [place] [phone] PCP - General Internal Medicine 06/23/17 09/08/20 Foreign William MD [address] [place], [place] [phone] PCP - General Internal Medicine 09/09/20 12/04/20 Lorena Ortiz MD [address] [place] [address] PCP - General Internal Medicine 12/05/20 10/11/21 Racquel Cruz MD [address] [place] [address] PCP - General Internal Medicine 10/12/21 05/20/22 [facility], [place] [phone] PCP - General Internal Medicine 05/21/22 documented as of this encounter
--- OUTSIDE RECORDS SUMMARY | 2024-04-17 11:45 | XMS_ITS | Encounter Summary ---
Author Organization [facility] Address [address] [place] [address] Care Team Providers Care Malted Milk Masher Name Role Phone Lorena Ortiz MD Primary Care Provider [phone] Racquel Cruz MD Primary Care Prov ider [facility], Pcp Primary Care Provider Unavailabl e Encounter Details Date Type Department Care Team Description 02/27/2021 Telephone Adult Medicine [address] [phone] Lorena Ortiz MD [address] [place] [address] [phone] Social History Tobacco Use Types Packs/Day Years [...] have Coronavirus / COVID-19? No / Unsure 01/29/2021 8:35 AM EST documented as of this encounter Plan of Treatment Not on file documented as of this encounter Visit Diagnoses Not on filedocumented in this encounter Care Teams Malted Milk Masher Relationship Specialty Start Date End Date Lorena Ortiz MD [address] [place] [address] PCP - General Internal Medicine 12/05/20 10/11/21 Racquel Cruz MD [address] [place] [address] PCP - General Internal Medicine 10/12/21 05/20/22 [facility], Pcp [address] [place] [address] PCP - General Internal Medicine 05/21/22 documented as of this encounter
--- OUTSIDE RECORDS SUMMARY | 2024-04-17 11:45 | XMS_ITS | Encounter Summary ---
Author Organization [employer] [facility] Address [address] [place] [address] Care Team Providers Care Informatics Application Analyst Name Role Phone Foreign William MD Primary Care Provider Unavailab Lorena Fuentes MD Primary Care Provider [phone] Racquel Cruz MD Primary Care Prov ider [facility], Pcp Primary Care Provider Unavailabl e Encounter Details Date Type Department Care Team Description 09/23/2020 Refill Adult Medicine [address] [address] Iraida Rivera PA-C [address] [place] [address] [phone] Social History Tobacco Use Types Packs/Day Years [...] Telephone Encounter - Radha Pina M.A. - 09/24/2020 2:10 PM EDT Ov 09/23 Lab Results Component Value Date NA 139 02/13/2020 K 4.3 02/13/2020 CO2 26 02/13/2020 CL 106 02/13/2020 BUN 14 02/13/2020 CREAT 0.64 02/13/2020 GLU 100 02/13/2020 CA 9.5 02/13/2020 GFR > 60 02/13/2020 documented in this encounter Plan of Treatment Not on file documented as of this encounter Visit Diagnoses Not on filedocumented in this encounter Care Teams Informatics Application Analyst Relationship Specialty Start Date End Date Foreign William MD PCP - General Internal Medicine 09/09/20 12/04/20 Lorena Ortiz MD [address] [place] [address] PCP - General Internal Medicine 12/05/20 10/11/21 Racquel Cruz MD [address] [place] [address] PCP - General Internal Medicine 10/12/21 05/20/22 [facility], [address] [address] PCP - General Internal Medicine 05/21/22 documented as of this encounter
--- OUTSIDE RECORDS SUMMARY | 2024-04-17 11:45 | XMS_ITS | Encounter Summary ---
Author Organization [facility] Address [address] [place] [address] Care Team Providers Care Sap Consultant Name Role Phone Racquel Cruz MD Primary Care Prov ider [facility], Pcp Primary Care Provider Unavailabl e Encounter Details Date Type Department Care Team Description 01/06/2022 Refill Adult Medicine [address] [address] Gladys Skinner PA-C Social History Tobacco Use Types Packs/Day Years [...] suspected to have Coronavirus/COVID-19? No / Unsure 12/31/2021 9:03 AM EDT documented as of this encounter Miscellaneous Notes * Telephone Encounter - Danni Blue M.A. - 01/06/2022 9:24 AM EDT Last office visit 12/31/21 Next office visit 05/25/22 with new PCP Lab Results Component Value Date CHOL 211 01/01/2022 LDL 123 01/01/2022 HDL 50 01/01/2022 TRIG 193 01/01/2022 SGOT 31 01/01/2022 SGPT 47 01/01/2022 documented in this encounter Plan of Treatment Not on file documented as of this encounter Visit Diagnoses Not on filedocumented in this encounter Care Teams Sap Consultant Relationship Specialty Start Date End Date Racquel Cruz MD [address] [place] [address] PCP - General Internal Medicine 10/12/21 05/20/22 [facility], Pcp [address] [place] [address] PCP - General Internal Medicine 05/21/22 documented as of this encounter
--- OUTSIDE RECORDS SUMMARY | 2024-04-17 11:45 | XMS_ITS | Encounter Summary ---
Author Organization [employer] [facility] Address [address] [place] [address] Care Team Providers Care Plate Worker Helper Name Role Phone Erum Ibarra MD Primary Care Provider UnaForeign Small MD Primary Care Provider Unavailab Lorena Fuentes MD Primary Care Provider [phone] Racquel Cruz MD Primary Care Prov ider [facility], Pcp Primary Care Provider Unavailabl e Encounter Details Date Type Department Care Team Description 06/12/2018 Asphalt Tamper Report Medical Records [address] [place] [address] Rodolfo Wiley PA-C Social History Tobacco Use Types Packs/Day [...] on filedocumented in this encounter Care Teams Plate Worker Helper Relationship Specialty Start Date End Date Erum Ibarra MD PCP - General Internal Medicine 06/23/17 09/08/20 Foreign William MD PCP - General Internal Medicine 09/09/20 12/04/20 Lorena Ortiz MD [address] [place] [address] PCP - General Internal Medicine 12/05/20 10/11/21 Racquel Cruz MD [address] [place] [address] PCP - General Internal Medicine 10/12/21 05/20/22 [facility], Pcp [address] [place] [address] PCP - General Internal Medicine 05/21/22 documented as of this encounter
--- OUTSIDE RECORDS SUMMARY | 2024-04-17 11:45 | XMS_ITS | Encounter Summary ---
Author Organization [facility] Address [address] [place] [address] Care Team Providers Care River Tester Name Role Phone Davion Workman MD Primary Care Provider [phone] Antwan Benitez MD Primary Care Provider UnavailErum Umaña MD Primary Care Provider Foreign Boyd MD Primary Care Provider Unavailab Lorena Fuentes MD Primary Care Provider [phone] Racquel Cruz MD Primary Care Prov ider [facility], Pcp Primary Care Provider Unavailabl e Encounter Details Date Type Department Care Team Description 12/16/2015 [employer] Equipment Tender Report Medical Records [address] [place] [address] Shala Cedillo MD Social History Tobacco Use Types Packs/Day [...] on filedocumented in this encounter Care Teams River Tester Relationship Specialty Start Date End Date Davion Workman MD [address] [place] [address] PCP - General Internal Medicine 08/14/14 02/11/16 Antwan Benitez MD [address] [place] [address] PCP - General Internal Medicine 02/12/16 06/22/17 Erum Ibarra MD [address] [place], [place] [phone] PCP - General Internal Medicine 06/23/17 09/08/20 Foreign William MD [address] [place] [address] PCP - General Internal Medicine 09/09/20 12/04/20 Lorena Ortiz MD [address] [place] [address] PCP - General Internal Medicine 12/05/20 10/11/21 Racquel Cruz MD [address] [place] [address] PCP - General Internal Medicine 10/12/21 05/20/22 [facility], Pcp [address] [place] [address] PCP - General Internal Medicine 05/21/22 documented as of this encounter
--- OUTSIDE RECORDS SUMMARY | 2024-04-17 11:45 | XMS_ITS | Encounter Summary ---
Author Organization [email or web address] Address [address] [place] [address] Care Team Providers Care Ice Cream Machine Operator Name Role Phone Lawson Ball MD Primary Care Provider [phone] Davion Workman MD Primary Care Provider [phone] Name, Antwan ORTEGA Primary Care Provider UnavailErum Umaña MD Primary Care Provider Foreign Boyd MD Primary Care Provider Unavailab Lorena Fuentes MD Primary Care Provider [phone] Racquel Cruz MD Primary Care Prov ider Pending Sale To [facility], Pcp Primary Care Provider Unavailabl e Encounter Details Date Type Department Care Team Description 06/21/2014 Hospital Medical Records [address] [place] [address] Bakari Ledesma Social History Tobacco Use Types Packs/Day Years [...] on filedocumented in this encounter Care Teams Ice Cream Machine Operator Relationship Specialty Start Date End Date Lawson Ball MD [address] [place] [address] [phone] PCP - General Internal Medicine 03/06/14 08/13/14 Davion Workman MD [address] [place] [address] PCP - General Internal Medicine 08/14/14 02/11/16 Antwan Benitez MD [address] [place] [address] PCP - General Internal Medicine 02/12/16 06/22/17 Erum Ibarra MD [address] [place], [place] [phone] PCP - General Internal Medicine 06/23/17 09/08/20 Foreign William MD [address] [place], [place] [phone] PCP - General Internal Medicine 09/09/20 12/04/20 Lorena Ortiz MD [address] [place] [address] PCP - General Internal Medicine 12/05/20 10/11/21 Racquel Cruz MD [address] [place] [address] PCP - General Internal Medicine 10/12/21 05/20/22 Pending Sale To [facility], Pcp [address] [place] [address] PCP - General Internal Medicine 05/21/22 documented as of this encounter
--- OUTSIDE RECORDS SUMMARY | 2024-04-17 11:45 | XMS_ITS | Encounter Summary ---
Author Organization [facility] Address [address] [place] [address] Care Team Providers Care Agate Setter Name Role Phone Davion Workman MD Primary Care Provider [phone] Name, Antwan ORTEGA Primary Care Provider Unavailabl Erum Morgan MD Primary Care Provider Foreign Boyd MD Primary Care Provider Unavailab Lorena Fuentes MD Primary Care Provider [phone] Racquel Cruz MD Primary Care Prov ider [facility], Pcp Primary Care Provider Unavailabl e Encounter Details Date Type Department Care Team Description 02/11/2016 Hospital Medical Records [address] [place] [address] [place] [address] Social History Tobacco Use Types Packs/Day Years [...] on filedocumented in this encounter Care Teams Agate Setter Relationship Specialty Start Date End Date Davion Workman MD [address] [place] [address] [phone] PCP - General Internal Medicine 08/14/14 02/11/16 Eli, MD Antwan [address] [place], [place] [phone] PCP - General Internal Medicine 02/12/16 06/22/17 Erum Ibarra MD [address] [place] [address] PCP - General Internal Medicine 06/23/17 09/08/20 Foreign William MD [address] [place] [address] PCP - General Internal Medicine 09/09/20 12/04/20 Lorena Ortiz MD [address] [place] [address] PCP - General Internal Medicine 12/05/20 10/11/21 Racquel Cruz MD [address] [place] [address] PCP - General Internal Medicine 10/12/21 05/20/22 [facility], Pcp [address] [place], [place] [phone] PCP - General Internal Medicine 05/21/22 documented as of this encounter
== END 2024-04-17 11:16 | disposition home or self-care (01) ==
PROVIDERS: PCP Internal Medicine; Visit Provider Surgery
DX: N64.53 Retraction of nipple (principal)
CPT/HCPCS: 99204

== ENCOUNTER → 2024-05-17 12:13 | Outpatient (AMB) | payer OTHER, SELFPAY ==
[2024-05-17 12:29] VITALS: BMI 33.2
--- NOTE | 2024-05-17 12:29 | A.OFFVIS_ITS ---
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 Mendenhall is a 59 year old right hand dominant female who presents today as a new patient for a evaluation of left shoulder pain. No hx of injury. Patient states on going pain for about for a month. She mentions that her pain is on the anterior aspect of the shoulder. Patient notices that her pain is worse when she is doing over head activities, reaching for her back and laying on her left side. She has tried and failed Tylenol. 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 Impression: 1. No fracture, subluxations or dislocations left shoulder. 2. Minimal spurring inferior glenoid Allergies No Known Allergies [No Known Allergies*] Allergy (Verified 05/17/24 12:43) HPI HPI DIRECTOR OUTCOMES- Left shoulder pain: Details: Ms. Mendenhall is a 59 year old right hand dominant female who presents today as a new patient for a evaluation of left shoulder pain. She denies any injury or trauma. She reports that the pain has been ongoing for the past month. She reports that the pain is located along the anterior aspect of the shoulder and occasionally will radiate down to the elbow. Her pain is worse with overhead activities. She has tried and failed Tylenol. 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 [facility] Medical History Breast pain Retraction of left nipple Breast pain, left Encounter for well woman exam with routine gynecological exam ASCUS with positive high risk HPV cervical Constipation Dyslipidemia Vaginitis Epigastric pain Somnolence, daytime Pelvic pain in female Right sided sciatica Skin lesion Family history of colonic polyps Encounter for gynecological examination URI (upper respiratory infection) Hyperglycemia Pre-op examination Discomfort of right ear Hypothyroid Bile salt-induced diarrhea Physical exam Hematuria Acute vaginitis Body aches Otitis media, left Abdominal bloating Generalized abdominal pain Skin lesions Tubular adenoma of colon Obesity (BMI 30-39.9) JERRY (obstructive sleep apnea) Encounter for vision screening Encounter for annual routine gynecological examination FH: ovarian cancer in first degree relative Thoracic back pain Genitofemoral neuralgia of right side Class 1 obesity with body mass index (BMI) of 34.0 to 34.9 in adult Moderate persistent asthma Migraines Hypothyroidism Fixation hardware in leg Bile salt-induced diarrhea Surgical History History of esophagogastroduodenoscopy (EGD) Hx of colonoscopy Eroded bladder suspension mesh History of section History of cholecystectomy History of local excision of skin lesion (~01/04/20) Family History Paternal Aunt History of breast cancer Mother Diabetes High cholesterol Mental health disorder Stomach cancer Uterine cancer, Onset Age: 82 Ovarian cancer Colon cancer Father No problems noted. 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 Current occupational exposures/hazards: No Cognitive needs: No Hearing needs: No Vision needs: Yes Female Reproductive History Menstrual Age of Menarche: 17 Review of Systems Const All systems reviewed & are unremarkable except as noted in HPI and below Physical Exam Vital Signs: BMI result Body Mass Index 33.2 Const General: cooperative, healthy appearing and no acute distress Resp Effort & Inspection: normal respiratory effort and able to speak in complete sentences Cardio Rate: regular rate Peripheral pulses: Peripheral pulses 2+ throughout Skin Lesions: no lesions Rashes: no rashes Extrem Other: Left shoulder normal to inspection no ecchymosis erythema or edema. Forward flexion abduction to 90 degrees. Able to reach back pocket. Pain with cross- body reach. 3-5 strength with empty can. Negative drop-arm. NVI. Office Procedures AMB Joint Injection/Aspiration Joint Injection/Aspiration Primary Site: left shoulder Prep: site was prepped using aseptic technique, ethochloride spray was applied and injection warnings given Injected: 80 mg of, DepoMedrol and with 8 mL of (2% plain lidocaine) Approach Used: posterolateral Procedure: The patient tolerated the procedure well, but had some pain with the injection and there was some relief with the local anesthesia Coding 09952 - Large joint Procedure code (CPT) selection complete Assessment & Plan Assessment & Plan (1) Painful arc syndrome of left shoulder: Code(s): M75.102 - Unspecified rotator cuff tear or rupture of left shoulder, not specified as traumatic Category: Medical Plan Ms. Mendenhall is a 59 year old right hand dominant female who presents today as a new patient for a evaluation of left shoulder pain. She denies any injury or trauma. She reports that the pain has been ongoing for the past month. She reports that the pain is located along the anterior aspect of the shoulder and occasionally will radiate down to the elbow. Her pain is worse with overhead activities. She has tried and failed Tylenol. 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 While the office today, the patient was offered a cortisone injection in the left shoulder with 80 mg of DepoMedrol. The patient was explained the risks, benefits, and alternatives to receiving this injection. After receiving consent for the injection, the patient had the procedure done while in the office today. The patient tolerated the procedure well with no complications. I have also recommended physical therapy which the patient will attend. She will follow-up 6 weeks, sooner if needed. X-rays of the left which were obtained on 03/23/2024 and were reviewed by me, Muna Vera PA-C, revealed no acute fracture dislocation. Orders: Orders PT Evaluation and Treatment Today M75.102 - Unspecified rotator cuff tear or rupture of left shoulder, not specified as traumatic Coding Level of Care Code New Pt Level 3 (82474) Diagnoses Painful arc syndrome of left shoulder M75.102 CPT Codes Coding - 17915 Large joint: 69738 - Large joint ([id number])
--- OUTSIDE RECORDS SUMMARY | 2024-05-17 14:45 | XMS_ITS | Clinical Summary ---
Author Organization [facility] Address [address] [place] [address] Care Team Providers Care Assistant Engineer Name Role Phone Ruthie Cedeño DMD Primary Care Provider [phone] Source Comments PLEASE NOTE, if this patient [...] 19 + 3-dose series) 09/13/2017 04/19/2017, 03/16/2017 [id number] ( season) 2023 021, 08/25/2020 Imm-Influenza (#1) [...] Routine 09/29/2023 4:00 PM EDT Defective dental gnosticism Encounter for dental examination COMP ORAL EVALUATION - NEW/ESTABLISHED PATIENT Routine 09/29/2023 4:00 PM EDT Defective dental gnosticism Encounter for dental examination from Last 3 Months or Most Recently Relevant to Health Maintenance Insurance [facility] Care Teams Assistant Engineer Relationship Specialty Start Date End Date Ruthie Cedeño DMD [address] [place] [address] PCP - General 11/23/18
--- OUTSIDE RECORDS SUMMARY | 2024-05-17 14:45 | XMS_ITS | Clinical Summary ---
Author Organization [facility] Address [address] [place] [address] Care Team Providers Care Java Programmer Analyst Name Role Phone Racquel Friedman MD Primary Care Prov ider Allergies No known active allergies Medications albuterol HFA (PROAIR HFA ; PROVENTIL HFA ; VENTOLIN HFA) 90 mcg/actuation inhaler Inhale 2 puffs by mouth every 4 (four) hours if needed for wheezing or shortness of breath. Cough 1 Active cholecalciferol (VITAMIN D-3) 25 mcg (1,000 unit) capsule Take 1 capsule (1,000 Units total) by mouth 1 (one) time each day. 2 Active pancrelipase, Ooh-Ezln-Jslr, (Creon) 3,000-9,500- 15,000 unit capsule 0 Active diclofenac (VOLTAREN) 75 mg EC tablet Take 1 tablet (75 mg total) by mouth 2 (two) times a day. 2 Active docusate sodium (COLACE) 100 mg capsule Take 1 capsule (100 mg total) by mouth 2 (two) times a day. 3 Active famotidine (PEPCID) 20 mg tablet Take 1 tablet (20 mg total) by mouth at bedtime. 2 Active fluticasone propionate (FLONASE) 50 mcg/actuation nasal spray Administer 1-2 sprays into each nostril 1 (one) time each day. 1 Active levothyroxine (SYNTHROID, LEVOTHROID) 100 mcg tablet Take 1 tablet (100 mcg total) by mouth 1 (one) time each day. and 2 tabs on Tuesday. 2 Active magnesium oxide (MAG-OX) 400 mg magnesium tablet Take by mouth. Activ e pantoprazole (PROTONIX) 40 mg EC tablet Take 1 tablet (40 mg total) by mouth 1 (one) time each day. 2 Active polyethylene glycol (MIRALAX) 17 gram packet Take 17 g by mouth 1 (one) time each day. 3 Active rosuvastatin (CRESTOR) 40 mg tablet Take 1 tablet (40 mg total) by mouth at bedtime. 2 Active senna 8.6 mg tablet Take 2 tablets (17.2 mg total) by mouth 1 (one) time each day. 2 Active spironolactone (ALDACTONE) 50 mg tablet Take 1 tablet (50 mg total) by mouth 2 (two) times a day. 0 Active topiramate (TOPAMAX) 25 mg tablet Take 1 tablet (25 mg total) by mouth 2 (two) times a day. 2 Active tretinoin (RETIN-A) 0.025 % cream Sig: PLEASE SEE ATTACHED FOR DETAILED DIRECTIONS 0 Active Active Problems Problem Noted Date Diagnosed Date Esophageal dysmotility 01/02/2022 Overview (03/01/2024): Mild noted on manometry study - [facility] records JERRY on CPAP 02/11/2020 Calcific [...] 12/08/2005 Heartburn 02/22/2005 Overview (03/01/2024): EGD normal 12.12.06. 48 hour ambulatory pH testing performed [facility] 05/04/2016 revealed normal amounts of acid exposure. Immunizations Name Administration Dates Next Due Hepatitis B (Govvbsk-P-Bohml , Recombivax HB-Adult) 19yo and older 04/19/2017,03/16/2017 Influenza Quadravalent, MDCK , 0.5ml, with preservative (Flucelvax) 6mo and older 12/15/2017 Influenza trivalent, 0.5mL, preservative free (Fluarix; FluLaval; Fluzone) ages 6mo and older (Afluria) 3 years and older 01/08/2016 Influenza trivalent, with preservative (Fluzone; Afluria) 6mo and older 04/01/2016,01/15/2014,02/20/2013,2011,01/24/2012,01/26/2011,02/25/2010,1 Moderna SARS-CoV-2 COVID-19, mRNA, LNP-S, preservative free 08/25/2020 PPD Test 12/19/2018,,01/24/2012,2010 Td Tetanus diptheria (Tdvax) 7yo and older 02/20/2013,08/12/2002 Tdap Tetanus diptheria acell ular pertussis (Boostrix; Adacel) 7yo and older 05/29/2021,02/20/2013,01/28/2007 Zoster recombinant (Shingrix ) 19yo and older 05/29/2021 Surgical History Surgery Date Site/Laterality Comments SECTION PROCEDURE: CT DELIVERY ONLY OTHER SURGICAL HISTORY PROCEDURE: CT LIG/TRNSXJ FLP TUBE ABDL/VAG APPR UNI/BI COLONOSCOPY 02/22/2006 PROCEDURE: HISTORICAL COLONOSCOPY; COMMENT: WNL ESOPHAGOGASTRODUODENOSCOPY 02/22/2006 PROCEDURE: CT ESOPHAGOGASTRODUODENOSCOPY TRANSORAL DIAGNOSTIC; COMMENT: WNL KNEE SURGERY 2004 PROCEDURE: HISTORICAL KNEE SURGERY; COMMENT: left, wes in lower leg COLONOSCOPY 06/02/2011 PROCEDURE: HISTORICAL COLONOSCOPY; COMMENT: normal COLONOSCOPY 10/24/14 PROCEDURE: HISTORICAL COLONOSCOPY; COMMENT: Normal colon, hyperplastic diminutive rectal polyps ESOPHAGOGASTRODUODENOSCOPY 10/24/14 PROCEDURE: CT ESOPHAGOGASTRODUODENOSCOPY TRANSORAL DIAGNOSTIC; COMMENT: Hiatal hernia, otherwise normal OTHER SURGICAL HISTORY 04/21/2015 PROCEDURE: CT LAPAROSCOPY SLING OPERATION STRESS INCONT BREAST BIOPSY 2011 Right PROCEDURE: BX BREAST; PERC NEEDLE CORE W/IMAG GUID; COMMENT: b9 BREAST BIOPSY 2014 Right PROCEDURE: CT BX BREAST W/DEVICE 1ST LESION ULTRASOUND GUID [...] Hypothyroid 02/20/2013 DX:Hypothyroid Dermatophytosis of foot 10/31/2013 DX:Markle tophytosis of foot Renal calculi 07/05/2017 DX:Renal calculi ; COMMENT: Abd US 02/17/17 Fatty liver 07/05/2017 DX:Fatty liver Migraine 07/05/2017 DX:Migraine Pre-diabetes 07/05/2017 DX:Pre-diabetes; COMMENT: 12/06/1624TnwD4Z =6.1 Chronic heel pain, right 07/05/2017 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, 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; COMMENT: R foot [...] drink = 0.6 oz pur e alcohol) Comments Unknown Sex and Gender Information Value Date Recorded Sex Assigned at Not on file Legal Sex Female 1:56 PM EST Gender Identity Not on file Sexual Orientation [...] 04/16/2022 10:41 AM EST Plan of Treatment Upcoming Encounters Date Type Department Care Team (Late st Contact Info) Description 07/02/2024 1:30 PM EDT Office Visit Internal Medicine - [place] [address] [place] [address] Sada Fay MD [address] [place] [address] Health Maintenance Due Date Last Done Comments Diabetes: Annual Foot Exam 1977 Diabetes: Annual Retina Eye Exam 1977 Pneumococcal Vaccine: 50+ Years (1 of 2 - PCV) 1986 Pneumococcal Vaccine: Pediatrics (0 to 5 Years) and At-Risk Patients (6 to 64 Years) (1 of 2 - PCV) 1986 Cervical Cancer Screening: HPV 02/03/1988 Hepatitis B [...] patient's age to complete this topic Meningococcal B Vacine Aged Out No lo nger eligible based on patient's age to complete [...] Results * Urine Albumin Creatinine Ratio (01/01/2022) Urine Albumin Creatinine Ratio abstracted Result [facility] Provider HEALTH MAINTENANCE Final Result * Annual BMP Blood Test (01/01/2022) Pathologist [facility] Annual BMP Blood Test abstracted Result [facility] HEALTH MAINTENANCE Final Result * Hemoglobin A1c (01/01/2022) Pathologist [facility] Hemoglobin A1C 6.5 <=6.5 % Blood Venous blood specimen / Unknown Result [facility] LAB BLOOD ORDERABLES [place] Result * (ABNORMAL) Lipid panel (01/01/2022) Pathologist [facility] LDL/HDL Ratio 4 0 - 4 Triglycerides 193(A) 0 - 150 mg/dL Cholesterol 211(A) 0 - 200 mg/dL HDL 50 >=40 mg/dL LDL Cholesterol 123(A) 0 - 100 mg/dL Blood Venous blood specimen / Unknown Result [facility] LAB BLOOD ORDERABLES [place] Result * DIAGNOSTIC MAMMOGRAPHY INCLUDING CAD BILATERAL (04/03/2021 [...] of malignancy in either breast. BI-RADS 1-negative Result [facility] Chelly Badillo CORRECTIONAL OFFICER CHIEF IMG BI PROCEDURES Final Re sult * HIV Screening (01/18/2019) Pathologist [facility] HIV Screening abstracted Result [facility] Provider HEALTH MAINTENANCE Final Result * Hepatitis C Screening (01/18/2019) Hepatitis C Screening abstracted Result [facility] Provider HEALTH MAINTENANCE Final Result * Colonoscopy (10/24/2014) Colonoscopy normal, abstracted Anatomical Region Laterality Modality Other Historical Provider HEALTH MAINTENANCE Final Result from Last 3 Months or Most Recently Relevant [place] [id number] Care Teams Java Programmer Analyst Relationship Specialty Start Date End Date Racquel Friedman MD PCP - General Internal Medicine 10/12/21
--- OUTSIDE RECORDS SUMMARY | 2024-05-17 14:45 | XMS_ITS | Clinical Summary ---
Author Organization [facility] Address [address] [place] [address] Care Team Providers Care Key Account Coordinator Name Role Phone Lorena Ortiz MD Primary Care Provider [phone] Social History Tobacco Use Types Packs/Day Years Used Date Smoking Tobacco: Never Assessed Sex and Gender Information Value Date Recorded Sex Assigned at Not on file Gender Identity Not on file Sexual Orientation Not on file Plan of Treatment Upcoming Encounters Date Type Department Care Team ([facility] st Contact Info) Description 06/26/2024 11:00 AM EDT Office Visit [address] [address] Roger Pringle APRN [address] [place] [address] Health Maintenance Due Date Last Done Comments Hepatitis C Virus Screening 1967 HIV Screening 02/03/1980 DTaP/Tdap/Td Vaccines (1 - Tdap) 1986 Hepatitis B Vaccines (1 of 3 - 19+ 3-dose series) 01/13 Pap Smear (Ages 21-65) 02/03/1988 Mammogram 2007 Colonoscopy 02/03/2012 Pneumococcal Vaccines 50+ (1 of 1 - PCV) 2017 Zoster (Shingles) Vaccine (1 of 2) 2017 Influenza Vaccine 10/13/2023 COVID-19 Vaccine ( - 2023-25 season) 2023 Care Teams Key Account Coordinator Relationship Specialty Start Date End Date Lorena Ortiz MD [address] [place] [address] PCP - General
--- OUTSIDE RECORDS SUMMARY | 2024-05-17 14:45 | XMS_ITS | Continuity of Care Document ---
Author Organization [facility] [address] [place] [address] Phone [phone] Care Team Providers Care Rn House Supervisor Name Role Phone Demetrice Meier MD Care Team Information Receiv er [phone] Problems Active Problems Provider Date Non-toxic multinodular goiter Jcarlos Colon M.D. Onset: 04/14/2023 Hypothyroidism Jcarlos Colon M.D. Onset: 0 04/14/2023 Social History Type Date Description Comments Sex Unknown ETOH Use Never used alcohol Tobacco Use Start: Unknown Patient has never smoked Allergies and adverse reactions Description No Known Drug Allergies Medications Active Medications SIG Qnty Indications Order ing Provider Date Levothyroxine [id number] Tablets Take 1 Tablet By Mouth Daily And 2 Tabs On Tuesday 100tabs Jcarlos Colon M.D. 04/15/2023 Flovent [id number]/Act [place] Tubbs MD Pantoprazole Ljbkki23aj Tablets DR Take 1 Tablet By Mouth Daily Randi Dalila Daysi, AISHWARYA [id number] (1000 Ut) Capsules Unknown Xpfzytxjyk36of Tablets Take 1 Tablet By Mouth Twice A Day Unknown Rosuvastatin Xtbauwh83cy Tablets Take 1 Tablet By Mouth Everyday AT Bedtime Unknown Wrwureyasc32vc Tablets Take 1 Tablet By Mouth Everyday AT Bedtime Unknown Vital Signs Date Vital Result Comment 04/15/2023 3:35pm BP Systolic 120 mmHg BP Diastolic 80 mmHg Heart Rate 72 /min Height 61 inches 5'1 Weight 173.12 lb BMI (Body Mass Index) 32.7 kg/m2 Results Test Acquired Date Facility Test Result H/L Range N ote Laboratory test finding 03/18/2023 [facility] TSH 2.38 uIU/mL (0.4-4.2) Laboratory test finding 03/03/2022 [facility] Anti Thyroid Peroxidase AB 259.5 IU/mL High (<5.6) 1 1 Antibody measurement represents one parameter in a multicriteria diagnostic process. Correlate results with clinical presentation. This test was performed on the [employer] immunoassay system. Medical Devices Description No Information [...]
== END ==
PROVIDERS: PCP Internal Medicine; Visit Provider Physician Assistant
DX: M75.102 Unspecified rotator cuff tear or rupture of left shoulder, not specified as traumatic (principal)
CPT/HCPCS: 20610; 99203

== ENCOUNTER → 2024-05-17 12:13 | Outpatient (BNVA) | payer OTHER, SELFPAY | PROVIDERS: PCP Internal Medicine; Visit Provider Physician Assistant | DX: M75.102 Unspecified rotator cuff tear or rupture of left shoulder, not specified as traumatic (principal) | CPT/HCPCS: 20610; J1010; J2003 ==

== ENCOUNTER 2024-06-01 10:05 | Outpatient (RCR) | payer OTHER, MEDICARE, SELFPAY | END 2024-08-15 08:47 | disposition home or self-care (01) | LOC: HO.PT 10:05 | PROVIDERS: PCP Internal Medicine; Visit Provider Physician Assistant | DX: M75.102 Unspecified rotator cuff tear or rupture of left shoulder, not specified as traumatic (principal) ==

== ENCOUNTER 2024-06-04 14:33 | Outpatient (AMB) | payer OTHER, MEDICARE, SELFPAY ==
--- NOTE | 2024-06-04 15:03 | MHC.OFFVIS ---
Intake Visit Reasons: colpo results Associate Creative Director Required: Yes Associate Creative Director Language: Division Sergeant Services: Associate Creative Director Present (in person) Associate Creative Director Name: Cheyenne CASAS Information Interpreted: non-clinical & clinical Allergies No Known Allergies [No Known Allergies*] Allergy (Verified 05/17/24 12:43) HPI Comments Details: The patient is schedule telehealth visit post colpo for follow-up. The patient is doing well with no complaints. The pathology showed the following: A. Endocervix, curettage: - Mostly squamous epithelium with active inflammation. - Rare small strip of endocervical epithelium within normal limits. - No atypia identified. B. Cervix, 9 o'clock, biopsy: Inflamed squamous mucosa with reactive changes; no endocervical epithelium identified; no atypia seen [facility] Medical History Breast pain Retraction of left nipple Breast pain, left Encounter for well woman exam with routine gynecological exam ASCUS with positive high risk HPV cervical Constipation Dyslipidemia Vaginitis Epigastric pain Somnolence, daytime Pelvic pain in female Right sided sciatica Skin lesion Family history of colonic polyps Encounter for gynecological examination URI (upper respiratory infection) Hyperglycemia Pre-op examination Discomfort of right ear Hypothyroid Bile salt-induced diarrhea Physical exam Hematuria Acute vaginitis Body aches Otitis media, left Abdominal bloating Generalized abdominal pain Skin lesions Tubular adenoma of colon Obesity (BMI 30-39.9) JERRY (obstructive sleep apnea) Encounter for vision screening Encounter for annual routine gynecological examination FH: ovarian cancer in first degree relative Thoracic back pain Genitofemoral neuralgia of right side Class 1 obesity with body mass index (BMI) of 34.0 to 34.9 in adult Moderate persistent asthma Migraines Hypothyroidism Fixation hardware in leg Bile salt-induced diarrhea Surgical History History of esophagogastroduodenoscopy (EGD) Hx of colonoscopy Eroded bladder suspension mesh History of section History of cholecystectomy History of local excision of skin lesion (~01/04/20) Family History Paternal Aunt History of breast cancer Mother Diabetes High cholesterol Mental health disorder Stomach cancer Uterine cancer, Onset Age: 82 Ovarian cancer Colon cancer Father No problems noted. 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 Current occupational exposures/hazards: No Cognitive needs: No Hearing needs: No Vision needs: Yes Female Reproductive History Menstrual Age of Menarche: 17 Review of Systems Const All systems reviewed & are unremarkable except as noted in HPI and below Reports as per HPI and Reports no additional complaints GI Reports no additional complaints Reports no additional complaints Telehealth Telehealth Telehealth Platform: Telephone Location of provider rendering services: practice address Location of patient: address on file Patient Identification confirmed using: Name, : Yes Telehealth method: video Patient verbally consented to treatment: Yes Patient verbally consented to billing insurance company: Yes Patient informed of any privacy concerns related to visit: Yes Minutes spent on Phone/Video with Pt.: 2 Assessment & Plan Assessment & Plan (1) ASCUS with positive high risk HPV cervical: Code(s): R87.610 - Atypical squamous cells of undetermined significance on cytologic smear of cervix (ASC-US); R87.810 - Cervical high risk human papillomavirus (HPV) DNA test positive Category: Medical Plan: Discussed with the patient the pathology results of the colposcopy biopsies & endocervical curettage ( negative). Discussed with the patient the sensitivity specificity, positive and negative predictive value in detecting cervical cancer in addition discussed the regression, persistence and progression rates. Recommended co-testing in 12 months, if cytology and or HPV are abnormal will proceed was colposcopy biopsy and endocervical curettage. Instructions given to the patient to schedule a co test appointment in 1 year. All questions answered the patient verbalized understanding. I spent a total of 20 minutes reviewing the chart, talking to the patient via video and documenting in the medical record. Coding Level of Care Code Tele Est Pt Level 3 (28193) Diagnoses ASCUS with positive high risk HPV cervical R87.610; R87.810
== END 2024-06-04 15:37 | disposition home or self-care (01) ==
LOC: HO.HWS 14:33
PROVIDERS: PCP Internal Medicine; Visit Provider Obstetrics & Gynecology
DX: R87.610 Atypical squamous cells of undetermined significance on cytologic smear of cervix (ASC-US) (principal); R87.810 Cervical high risk human papillomavirus (HPV) DNA test positive
CPT/HCPCS: 99213

== ENCOUNTER 2024-07-24 17:11 | Outpatient (AMB) | payer MEDICARE, SELFPAY ==
[2024-07-24 17:14] VITALS: BP 128/82; BMI 33.0
--- NOTE | 2024-07-24 17:14 | MHC.PC.OV ---
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 Required: No Accompanied by: Self / Same As Patient Allergies No Known Allergies [No Known Allergies*] Allergy (Verified 07/24/24 17:33) Medication List - Last Reconciled 07/24/24 by Demetrice Person MD acetaminophen ER (Pain Relief (acetaminophen)) 650 mg PO Q8H PRN 30 days albuterol sulfate 90 mcg/actuation inhalation atorvastatin 20 mg PO BEDTIME 90 days blood pressure monitor (Blood Pressure Kit) As directed calcium acetate 667 mg PO BID 90 days cetirizine 10 mg PO DAILY cholecalciferol (vitamin D3) 25 mcg PO DAILY 90 days diclofenac sodium 75 mg PO BID empagliflozin (Jardiance) 10 mg PO DAILY famotidine 20 mg PO BEDTIME fenofibrate 54 mg PO DAILY 90 days fluticasone propionate 50 mcg/actuation sprays intranasal lansoprazole 30 mg PO QAM levothyroxine 100 mcg PO DAILY bqciim-lyhajzew-azmspze 36,000-114,000- 180,000 unit (Creon) 2 caps PO BID loratadine (Allergy Relief (loratadine)) 10 mg PO DAILY meloxicam 7.5 mg PO DAILY methocarbamol 750 mg PO Q8H 5 days nystatin 1 appl topical DAILY 30 days pregabalin 100 mg PO BID 30 days sennosides (senna) 17.2 mg (2 x 8.6 mg) PO DAILY simethicone 180 mg PO QID 30 days terbinafine HCl 250 mg PO DAILY 90 days topiramate 25 mg PO BID 90 days tretinoin 0.025% appl topical BEDTIME Tobacco use date assessed: 03/22/24 Dental Screening Dental Screen Date: 03/22/24 HPI HPI Comments History of Present Illness Details The patient is a 59-year-old female presenting with complaints that include prediabetes, osteopenia, elevated liver enzymes, hyperlipidemia, thyroid disorder, and back pain associated with suspected arthritis. Blood glucose levels were noted to have improved from 125 to 108, indicating management improvement. Hypertension well controlled with medications. Osteopenia was diagnosed following a bone density test, for which the patient is managing with calcium and vitamin D. Elevated liver enzymes were initially noted but have improved after dietary adjustments. Hyperlipidemia remains a concern with elevated cholesterol and triglyceride levels. Thyroid function is reportedly stable. Back pain, attributed to arthritis, has been managed with consultation from a surgeon in [place]. Allergies have been minimal, though she experienced a past allergic reaction believed to be related to the flu. Nipple retraction was observed, and she has a scheduled follow-up in August for further evaluation. [facility] Medical History (Updated 07/24/24 @ 17:44 by Demetrice Person MD) Breast pain Retraction of left nipple Breast pain, left Encounter for well woman exam with routine gynecological exam ASCUS with positive high risk HPV cervical Constipation Dyslipidemia Vaginitis Epigastric pain Somnolence, daytime Pelvic pain in female Right sided sciatica Skin lesion Family history of colonic polyps Encounter for gynecological examination URI (upper respiratory infection) Hyperglycemia Pre-op examination Discomfort of right ear Hypothyroid Bile salt-induced diarrhea Physical exam Hematuria Acute vaginitis Body aches Otitis media, left Abdominal bloating Generalized abdominal pain Skin lesions Tubular adenoma of colon Obesity (BMI 30-39.9) JERRY (obstructive sleep apnea) Encounter for vision screening Encounter for annual routine gynecological examination FH: ovarian cancer in first degree relative Thoracic back pain Genitofemoral neuralgia of right side Class 1 obesity with body mass index (BMI) of 34.0 to 34.9 in adult Moderate persistent asthma Migraines Hypothyroidism Fixation hardware in leg Bile salt-induced diarrhea Surgical History History of esophagogastroduodenoscopy (EGD) Hx of colonoscopy Eroded bladder suspension mesh History of section History of cholecystectomy History of local excision of skin lesion (~01/04/20) Family History Paternal Aunt History of breast cancer Mother Diabetes High cholesterol Mental health disorder Stomach cancer Uterine cancer, Onset Age: 82 Ovarian cancer Colon cancer Father No problems noted. 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 1. Little interest or pleasure in doing things: several days 2. Feeling down, depressed, or hopeless: several days 3. Trouble falling or staying asleep, or sleeping too much: more than half the days 4. Feeling tired or having little energy: nearly every day 5. Poor appetite or overeating: several days 6. Feeling bad about yourself - or that you are a failure or have let yourself or your family down: not at all 7. Trouble concentrating on things, such as reading the newspaper or watching television: several days 8. Moving or speaking so slowly that other people could have noticed. Or the opposite - being so fidgety or restless that you have been moving around a lot more than usual: several days 9. Thoughts that you would be better off or of hurting yourself in some way: not at all Total score: 10 Depression Screening Interpretation: Positive Depression Screening Follow-up: Existing condition and Follow-up Visit Requested Depression Screening Done: Yes 09866 - PHQ-9 Billing: Yes Source: Developed by Drs. Shun Au, Pat Garcia, Nando Pearson and colleagues, with an educational jake from [employer]. Thrive Questionnaire Date Thrive assessed: 03/22/24 I am a: Patient What is your living situation today?: I have a steady place to live Within the past 12 months, did the food you bought not last and you didn't have the money to get more?: Sometimes True Within the past 12 months, did you worry whether your food would run out before you got money to buy more?: Sometimes True Do you have trouble paying for medicines?: Yes Do you have trouble getting transportation to medical appointments?: No Do you have trouble paying your heating and electricity bill?: Yes Do you have trouble taking care of your child, family member or friend?: Yes Do you have trouble with day-to-day activities such as bathing, preparing meals, shopping, managing finances, etc.?: No Are you currently unemployed and looking for a job?: No Are you interested in more education?: No Please select the resources that you would like help with: Housing/Alf and Utilities Currently or been in a relationship where the following occur: I choose not to answer THRIVE Score: 3 AUDIT C Alcohol Use Questionnaire (AUDIT-C) 1. How often do you have a drink containing alcohol?: Never Total Score: 0 Score Reviewed/Action Taken: No ANA-7 AMB Questionnaire ANA-7 Date ANA - 7 assessed: 03/22/24 Feeling nervous, anxious, or on edge: 1 = Several days Not being able to stop or control worryin = Several days Worrying too much about different things: 1 = Several days Trouble relaxin = Not at all Being so restless that it is hard to sit still: 0 = Not at all Becoming easily annoyed or irritable: 1 = Several days Feeling afraid as if something awful might happen: 0 = Not at all Total ANA-7 score (0-4 normal; 5-9 mild; 10-14 moderate; 15-21 severe): 4 Source: Developed by Drs. Shun Au, Pat Garcia, Nando Pearson and colleagues, with an educational jake from [employer]. ANA-7 Assessment Billing ANA-7 Assessment Tool: ANA-7 Assessment 17743 Review of Systems Const All systems reviewed & are unremarkable except as noted in HPI and below Card Denies chest pain at rest, Denies chest pain with activity, Denies edema, Denies irregular heart rhythm, Denies claudication, Denies dyspnea, Denies dyspnea on exertion, Denies orthopnea, Denies paroxysmal nocturnal dyspnea and Denies slow heart rate Resp Denies cough, Denies dyspnea and Denies dyspnea on exertion GI Denies abdominal pain, Denies change in bowel habits, Denies excessive flatus, Denies nausea and Denies vomiting Physical exam (Primary Care) Vital Signs: Last Vital Signs BP 128/82 07/24/24 17:14 BMI result Body Mass Index 33.0 BMI Assessment/Plan discussion: High BMI High, discussed plan: lifestyle, weight reduction, dietary and physical activity Tobacco/Smoking Status: Tobacco use Status Tobacco use date assessed 03/22/24 07/24/24 17:17 Patient Tobacco Use Status Never used Tobacco 07/24/24 17:17 e-Cigarette/Vaping Use Never Used 07/24/24 17:17 PHQ-9: PHQ-9 Score PHQ-9: Total score 10 07/24/24 17:36 Depression Screening Interpretation: Positive Depression Screening Follow-up: Existing condition and Follow-up Visit Requested Thrive Assessment: Date of Thrive Assessment Date Thrive assessed 03/22/24 07/24/24 17:17 Currently or been in a relationship where the following occur: I choose not to answer Resp Effort & Inspection: normal respiratory effort Auscultation: clear to auscultation bilaterally Cardio Jugular venous distension: no JVD Rate: regular rate Rhythm: regular rhythm Heart sounds: S1 normal heart sound present and S2 normal heart sound present Extrem General: Yes full ROM Coding Level of Care Code Est Pt Level 4 (05938) Complex EM visit Add On G2211 Diagnoses Impaired glucose tolerance R73.02 Transaminitis R74.01 Hypertension I10 Mixed hyperlipidemia E78.2 Thoracic spine pain M54.6 Mild major depression, single episode F32.0 Hypothyroidism E03.9 Additional Codes ANA-7 Assessment Billing - ANA-7 Assessment Tool: ANA-7 Assessment 94342 ([id number]) PHQ-9 - 42244 - PHQ-9 Billing: Yes ([id number]) Time Spent (min) 23 Assessment & Plan Assessment & Plan (1) Impaired glucose tolerance: Code(s): R73.02 - Impaired glucose tolerance (oral) Category: Medical (2) Transaminitis: Comment: BASELINE LABS 09/23/22 Estimated GFR > 60 Hemoglobin A1c % 6.3 Total Bilirubin 0.6 AST 36 H ALT 43 H Alkaline Phosphatase 85 Amylase 37 Lipase [address] ABDOMEN AND PELVIS 02/2022 ENHANCED LIVER NORMAL IN SIZE WITH EQUIVOCAL MILD HEPATIC STEATOSIS CORRELATION WITH LIVER FUNCTION TESTS REQUIRED. STATUS POST CHOLECYSTECTOMY. ENHANCED SPLEEN NORMAL IN SIZE. Code(s): R74.01 - Elevation of levels of liver transaminase levels Category: Medical (3) Hypertension: Code(s): I10 - Essential (primary) hypertension Category: Medical (4) Mixed hyperlipidemia: Code(s): E78.2 - Mixed hyperlipidemia Category: Medical (5) Thoracic spine pain: Code(s): M54.6 - Pain in thoracic spine Category: Medical (6) Mild major depression, single episode: Code(s): F32.0 - Major depressive disorder, single episode, mild Category: Medical (7) Hypothyroidism: Code(s): E03.9 - Hypothyroidism, unspecified Category: Medical Plan Continue diet and lifestyle modification efforts. Osteopenia management involves continued calcium and vitamin D supplementation. Elevated liver enzymes improved after dietary modifications, and further monitoring is recommended. Hyperlipidemia requires reevaluation with lipid profile tests and further dietary adjustments as needed. Thyroid function is stable, and no immediate concerns are indicated. Back pain attributed to arthritis will continue to be managed with a surgeon in [place] and relevant medications. Address potential allergic reactions promptly if they arise.: Patient was informed and verbally consented to the use of an ambient scribe for clinic note documentation during this visit. Discussed with the patient management strategies for her prediabetes, osteopenia, elevated liver enzymes, and hyperlipidemia. Emphasized the importance of monitoring blood glucose levels and maintaining calcium and vitamin D supplementation. For hyperlipidemia, encouraged dietary adjustments and upcoming retesting for lipid levels. Discussed monitoring liver function and thyroid stability. Explained the ongoing management of back pain associated with arthritis, including surgery consultation. Informed the patient about the importance of being vigilant about any future allergic reactions. Provided information about follow-up appointments in August for nipple retraction evaluation and advised routine follow-ups with me for overall health monitoring. Orders: Orders Comprehensive [place]. Panel Fast Today R73.02 - Impaired glucose tolerance (oral) Vitamin B12 and Folate Today E53.8 - Deficiency of other specified B group vitamins Lipid Panel Today E78.5 - Hyperlipidemia, unspecified Thyroid Stimulating Hormone Today E03.9 - Hypothyroidism, unspecified Vitamin D 25-OH Total Today E55.9 - Vitamin D deficiency, unspecified Medications: Changed From fluticasone propionate 50 mcg/actuation intranasal To fluticasone propionate 50 mcg/actuation 1 spray intranasal BID 16 grams 0RF 30 days From levothyroxine 100 mcg PO DAILY To levothyroxine 100 mcg PO DAILY 90 tabs 1RF 90 days Refilled cholecalciferol (vitamin D3) 25 mcg PO DAILY 90 caps 1RF 90 days fenofibrate 54 mg PO DAILY 90 tabs 1RF 90 days E78.2 - Mixed hyperlipidemia famotidine 20 mg PO BEDTIME 30 tabs 6RF lansoprazole 30 mg PO QAM 90 caps 2RF K21.9 - Gastro-esophageal reflux disease without esophagitis atorvastatin 20 mg PO BEDTIME 90 tabs 1RF 90 days calcium acetate 667 mg PO BID 180 tabs 2RF 90 days Patient Instructions: - Continue monitoring blood glucose levels regularly. - Take calcium and vitamin D supplements as directed. - Follow dietary modifications to improve cholesterol and triglyceride levels. - Schedule and attend the follow-up appointment for the nipple retraction in August. - Consult with a surgeon for back pain as needed. - Monitor for any allergic reactions and report them promptly. - Regular follow-up appointments for routine health assessments.
== END 2024-07-24 17:45 | disposition home or self-care (01) ==
LOC: HO.HMCH 17:12
PROVIDERS: PCP Internal Medicine; Visit Provider Internal Medicine
DX: R73.02 Impaired glucose tolerance (oral) (principal); R74.01 Elevation of levels of liver transaminase levels; I10 Essential (primary) hypertension; E78.2 Mixed hyperlipidemia; M54.6 Pain in thoracic spine; F32.0 Major depressive disorder, single episode, mild; E03.9 Hypothyroidism, unspecified

== ENCOUNTER → 2024-07-24 17:11 | Outpatient (BNVA) | payer OTHER, SELFPAY | PROVIDERS: PCP Internal Medicine; Visit Provider Internal Medicine | DX: R73.02 Impaired glucose tolerance (oral) (principal); R74.01 Elevation of levels of liver transaminase levels; E78.2 Mixed hyperlipidemia; I10 Essential (primary) hypertension; M54.6 Pain in thoracic spine; F32.0 Major depressive disorder, single episode, mild; E03.9 Hypothyroidism, unspecified | CPT/HCPCS: 96127; 99212 ==

== ENCOUNTER 2024-07-30 09:05 | Outpatient (REF) | payer OTHER, SELFPAY ==
--- OUTSIDE RECORDS SUMMARY | 2024-07-30 09:18 | XMS_ITS | Encounter Summary ---
Author Organization [facility] Address [address] [place] [address] Care Team Providers Care Hand Tufter Name Role Phone Erum Ibarra MD Primary Care Provider Foreign Boyd MD Primary Care Provider Unavailab Lorena Fuentes MD Primary Care Provider [phone] Racquel Cruz MD Primary Care Prov ider [facility], Pcp Primary Care Provider Unavailabl e Encounter Details Date Type Department Care Team Description 06/06/2020 Pt. Non Urgent Medical Question Adult Medicine [address] [address] Iraida Rivera PA-C [address] [place] [id number] Social History Tobacco Use Types Packs/Day Years [...] on filedocumented in this encounter Care Teams Hand Tufter Relationship Specialty Start Date End Date Erum Ibarra MD PCP - General Internal Medicine 06/23/17 09/08/20 Foreign William MD PCP - General Internal Medicine 09/09/20 12/04/20 Lorena Ortiz MD [address] [place] [address] PCP - General Internal Medicine 12/05/20 10/11/21 Racquel Cruz MD [address] [place] [address] PCP - General Internal Medicine 10/12/21 05/20/22 [facility], Pcp [address] [place] [address] PCP - General Internal Medicine 05/21/22 documented as of this encounter
--- OUTSIDE RECORDS SUMMARY | 2024-07-30 09:18 | XMS_ITS | Encounter Summary ---
Author Organization [facility] Address [address] [place] [address] Care Team Providers Care Screenplay Writer Name Role Phone Davion Workman MD Primary Care Provider [phone] Antwan Benitez MD Primary Care Provider UnavailErum Umaña MD Primary Care Provider Foreign Boyd MD Primary Care Provider Unavailab Lorena Fuentes MD Primary Care Provider [phone] Racquel Cruz MD Primary Care Prov ider [facility], Pcp Primary Care Provider Unavailabl e Encounter Details Date Type Department Care Team Description 02/27/2015 Supervisor Border Department Report Medical Records [address] [place] [id number] Regulo Benson Social History Tobacco Use Types [...] on filedocumented in this encounter Care Teams Screenplay Writer Relationship Specialty Start Date End Date Davion Workman MD [address] [place] [id number] PCP - General Internal Medicine 08/14/14 02/11/16 Antwan Benitez MD [address] [place] [id number] PCP - General Internal Medicine 02/12/16 06/22/17 Erum Ibarra MD [address] [place] [address] PCP - General Internal Medicine 06/23/17 09/08/20 Foreign William MD [address] [place] [address] PCP - General Internal Medicine 09/09/20 12/04/20 Lorena Ortiz MD [address] [place] [address] PCP - General Internal Medicine 12/05/20 10/11/21 Racquel Cruz MD [address] [place] [address] PCP - General Internal Medicine 10/12/21 05/20/22 [facility], Pcp [address] [place] [address] PCP - General Internal Medicine 05/21/22 documented as of this encounter
--- OUTSIDE RECORDS SUMMARY | 2024-07-30 09:19 | XMS_ITS | Clinical Summary ---
Author Organization [facility] Address [address] [place] [address] Phone Care Team Providers Care Staffing Operations Manager Name Role Phone Unavailable Primary Care Provider Unavailabl e Allergies No known active allergies Medications albuterol HFA (PROAIR HFA ; PROVENTIL HFA ; VENTOLIN HFA) 90 mcg/actuation inhaler Inhale 2 puffs by mouth every 4 (four) hours if needed for wheezing or shortness of breath. Cough 1 Active cholecalciferol (VITAMIN D-3) 25 mcg (1,000 unit) capsule Take 1 capsule (1,000 Units total) by mouth 1 (one) time each day. 2 Active pancrelipase, Faf-Eomt-Ntyo, (Creon) 3,000-9,500- 15,000 unit capsule 0 Active [...] SEE ATTACHED FOR DETAILED DIRECTIONS 0 Active acetaminophen (TYLENOL 8 HOUR) 650 mg 8 hr tablet TAKE 1 TABLET BY MOUTH EVERY 8 HOURS NEEDED FOR PAIN FOR 30 DAYS 4 Active Active Problems Problem Noted Date Diagnosed Date Esophageal dysmotility 01/02/2022 Overview (03/01/2024): Mild noted on manometry study - [facility] records JERRY on CPAP 02/11/2020 Calcific tendinitis of left shoulder 08/28/2019 Chronic heel pain, right 07/05/2017 Overview (03/01/2024): R foot Xray - calcaneal spurs. Podiatry referral Fatty liver 07/05/2017 Migraine 07/05/2017 Overview (03/01/2024): Saw Neurology. Prednisone & Elavil Renal calculi 07/05/2017 Overview (03/01/2024): Abd US 02/17/17 Type 2 diabetes mellitus wit h obesity ([facility] V24, [facility] V28) 07/05/2017 Constipation 06/04/2014 Thyroid nodule 02/22/2014 Overview (03/01/2024): FNA 03/28 Benign Dermatophytosis of foot 10/31/2013 Hypothyroid 02/20/2013 Vitamin D deficiency 10/14/2011 Obesity (BMI 30.0-34.9) 08/26/2010 Hyperlipidemia 09/30/2009 IBS (irritable bowel syndrome) 06/19/2008 Overview (03/01/2024): Random colonic bx normal 2005. Depression with anxiety 12/08/2005 Heartburn 02/22/2005 Overview (03/01/2024): EGD normal 12.12.06. 48 hour ambulatory pH testing performed [facility] 05/04/2016 revealed normal amounts of acid exposure. Immunizations Name Administration Dates Next Due Hepatitis B (Pvlqmgi-I-Uzzpo , Recombivax HB-Adult) 19yo and older 04/19/2017,03/16/2017 [...] History Surgery Date Site/Laterality Comments SECTION PROCEDURE: SD DELIVERY ONLY OTHER SURGICAL HISTORY PROCEDURE: SD LIG/TRNSXJ FLP TUBE ABDL/VAG APPR UNI/BI COLONOSCOPY 02/22/2006 PROCEDURE: HISTORICAL COLONOSCOPY; COMMENT: WNL ESOPHAGOGASTRODUODENOSCOPY 02/22/2006 PROCEDURE: SD ESOPHAGOGASTRODUODENOSCOPY TRANSORAL DIAGNOSTIC; COMMENT: WNL KNEE SURGERY 2004 PROCEDURE: HISTORICAL KNEE SURGERY; COMMENT: left, wes in lower leg COLONOSCOPY 06/02/2011 PROCEDURE: HISTORICAL COLONOSCOPY; COMMENT: normal COLONOSCOPY 10/24/14 PROCEDURE: HISTORICAL COLONOSCOPY; COMMENT: Normal colon, hyperplastic diminutive rectal polyps ESOPHAGOGASTRODUODENOSCOPY 10/24/14 PROCEDURE: SD ESOPHAGOGASTRODUODENOSCOPY TRANSORAL DIAGNOSTIC; COMMENT: Hiatal hernia, otherwise normal OTHER SURGICAL HISTORY 04/21/2015 PROCEDURE: SD LAPAROSCOPY SLING OPERATION STRESS INCONT BREAST BIOPSY 2012 Right PROCEDURE: BX BREAST; PERC NEEDLE CORE W/IMAG GUID; COMMENT: b9 BREAST BIOPSY 2014 Right PROCEDURE: SD BX BREAST W/DEVICE 1ST LESION ULTRASOUND GUID [...] Hypothyroid 02/20/2013 DX:Hypothyroid Dermatophytosis of foot 10/31/2013 DX:[place] tophytosis of foot Renal calculi 07/05/2017 DX:Renal calculi ; COMMENT: Abd US 02/17/17 Fatty liver 07/05/2017 DX:Fatty liver Migraine 07/05/2017 DX:Migraine Pre-diabetes 07/05/2017 DX:Pre-diabetes; COMMENT: 12/06/1659QkoE8S =6.1 Chronic heel pain, right 07/05/2017 DX:[place] fatou heel pain, right; COMMENT: R foot [...] Sign Reading Time Taken Comments Blood Pressure 105/66 07/02/2024 1:05 PM EDT Pulse 71 07/02/2024 1:05 PM EDT Temperature 36.8 ??C (98.2 ??F) 07/02/2024 1:05 PM ED T Respiratory Rate - - Oxygen Saturation 97% 07/02/2024 1:05 PM EDT Inhaled Oxygen Concentration - - Weight 76.2 kg (168 lb) 07/02/2024 1:05 PM EDT Height 154.9 cm (5' 1 ) 07/02/2024 1:05 PM EDT Body Mass Index 31.74 07/02/2024 1:05 PM EDT Plan of Treatment Health Maintenance Due Date [...] 05/29/2021 Colorectal Cancer Screening: Colonoscopy 02/20/2022 10/24/2014 Medicare Annual Wellness Visit 02/20/2022 Social Influencers of Health Screening 02/20/2022 Diabetes: Blood Sugar Control Test (HGBA1C) 07/02/2022 01/01/2022 Diabetes: Annual Urine Albumin-Creatinine Ratio (uACR) 01/01/2023 01/01/2022 Diabetes: Annual GFR (Glomerular Filtration Rate) 01/01/2023 01/01/2022 Breast Cancer Screening 04/03/2023 04/03/2021, 05/15 COVID-19 Vaccine ( season) 2023 10/08/2020, 08/25/2020 Influenza Vaccine (Season Ended) 2024 12/15/2017, 04/01/2016, 01/08/2016, Additional history exists Depression Screening 07/02/2025 07/02/2024 Cholesterol Screening (Lipid Panel) 01/01/2027 01/01/2022 DTaP,Tdap,and [...] age to complete this topic Meningococcal B Vaccine Aged Out No l onger eligible based on patient's age to complete [...] Ratio (01/01/2022) Urine Albumin Creatinine Ratio abstracted us Historical Provider MD HEALTH MAINTENANCE Final Result * Annual BMP Blood Test (01/01/2022) Annual BMP Blood Test abstracted Result [facility] HEALTH MAINTENANCE Final Result * Hemoglobin A1c (01/01/2022) Hemoglobin A1C 6.5 <=6.5 % Blood Venous blood specimen / Unknown Result [facility] Provider LAB BLOOD ORDERABLES [place] Result * (ABNORMAL) Lipid panel (01/01/2022) LDL/HDL Ratio 4 0 - 4 Triglycerides 193(A) 0 - 150 mg/dL Cholesterol 211(A) 0 - 200 mg/dL HDL 50 >=40 mg/dL LDL Cholesterol 123(A) 0 - 100 mg/dL Blood Venous blood specimen / Unknown Result [facility] Provider LAB BLOOD ORDERABLES [place] Result * [...] in either breast. BI-RADS 1-negative Chelly Badillo BIOFUELS PRODUCT DEVELOPMENT MANAGER IMG BI PROCEDURES Final Re sult * HIV Screening (01/18/2019) Pathologist [facility] HIV Screening abstracted Result [facility] Provider HEALTH MAINTENANCE Final Result * Hepatitis C Screening (01/18/2019) Pathologist [facility] Hepatitis C Screening abstracted [facility] Provider HEALTH MAINTENANCE Final Result * Colonoscopy (10/24/2014) Pathologist [facility] Colonoscopy normal, abstracted Anatomical Region Laterality Modality Other Historical Provider HEALTH MAINTENANCE Final Result from Last 3 Months or Most Recently Relevant to Health Maintenance Insurance [place]ICAID - [place] [employer] MEDICARE
--- OUTSIDE RECORDS SUMMARY | 2024-07-30 09:19 | XMS_ITS | Encounter Summary ---
Author Organization [employer] [facility] Address [address] [place] [address] Care Team Providers Care Chaplain Resident Name Role Phone Erum Ibarra MD Primary Care Provider Foreign Boyd MD Primary Care Provider Unavailab Lorena Fuentes MD Primary Care Provider [phone] Racquel Cruz MD Primary Care Prov ider [facility], Pcp Primary Care Provider Unavailabl e Encounter Details Date Type Department Care Team Description 02/13/2020 Human Resources Designate Report Medical Records [address] [place] [id number] [place] [address] [place] [id number] Social History Tobacco Use Types Packs/Day Years [...] on filedocumented in this encounter Care Teams Chaplain Resident Relationship Specialty Start Date End Date Erum Ibarra MD PCP - General Internal Medicine 06/23/17 09/08/20 Foreign William MD PCP - General Internal Medicine 09/09/20 12/04/20 Lorena Ortiz MD [address] [place] [address] PCP - General Internal Medicine 12/05/20 10/11/21 Racquel Cruz MD [address] [place] [address] PCP - General Internal Medicine 10/12/21 05/20/22 [facility], Pcp [address] [place] [address] PCP - General Internal Medicine 05/21/22 documented as of this encounter
--- OUTSIDE RECORDS SUMMARY | 2024-07-30 09:19 | XMS_ITS | Encounter Summary ---
Author Organization [facility] Address [address] [place] [address] Care Team Providers Care Primary Education Professor Name Role Phone Davion Workman MD Primary Care Provider [phone] Antwan Benitez MD Primary Care Provider UnavailErum Umaña MD Primary Care Provider Foreign Boyd MD Primary Care Provider Unavailab Lorena Fuentes MD Primary Care Provider [phone] Racquel Cruz MD Primary Care Prov ider [facility], Pcp Primary Care Provider Unavailabl e Encounter Details Date Type Department Care Team Description 10/28/2014 Business Doc Medical Records [address] [place] [id number] Abstract, Provider Social History Tobacco Use Types [...] on filedocumented in this encounter Care Teams Primary Education Professor Relationship Specialty Start Date End Date Davion Workman MD [address] [place] [address] [id number] PCP - General Internal Medicine 08/14/14 02/11/16 Antwan Benitez MD [address] [place] [address] PCP - General Internal Medicine 02/12/16 06/22/17 Erum Ibarra MD [address] [place] [address] PCP - General Internal Medicine 06/23/17 09/08/20 Foreign William MD [address] [place] [address] PCP - General Internal Medicine 09/09/20 12/04/20 Lorena Ortiz MD [address] [place] [address] PCP - General Internal Medicine 12/05/20 10/11/21 Racquel Cruz MD [address] [place] [address] PCP - General Internal Medicine 10/12/21 05/20/22 [facility], Pcp [address] [place] [address] PCP - General Internal Medicine 05/21/22 documented as of this encounter
--- OUTSIDE RECORDS SUMMARY | 2024-07-30 09:19 | XMS_ITS | Encounter Summary ---
Author Organization [facility] Address [address] [place] [address] Care Team Providers Care Junior Software Developer Name Role Phone Erum Ibarra MD Primary Care Provider Unava Foreign Salinas MD Primary Care Provider Unavailab Lorena Fuentes MD Primary Care Provider [phone] Racquel Cruz MD Primary Care Prov ider [facility], Pcp Primary Care Provider Unavailabl e Reason for Visit * Reason Comments E-prescribe Rx Request Encounter Details Date Type Department Care Team Description 01/05/2019 Refill Adult Medicine [address] [address] Erum Ibarra MD E-prescribe Rx Request Social [...] Telephone Encounter - Kaela Taylor M.A. - 01/05/2019 2:35 PM EDT rx faxedc * Telephone Encounter - CRYSTAL Floyd - 01/05/2019 11:28 AM EDT No refills. PT will likely need repeat TSH and office visit for furture refills * Telephone Encounter - Kelly Hill M.A. - 01/05/2019 10:05 AM EDT Lab Results Component Value Date TSH 2.33 06/15/2018 Please review for Care Team out of the office today, thank you. * Telephone Encounter - Michelle Feldman - 01/05/2019 8:13 AM EDT Patient would like script to be: E-PRESCRIBED/FAXED TO PHARMACY WHEN WAS THE PATIENT'S LAST APPOINTMENT IN ADULT MEDICINE? 12/19/18 WHEN WAS THE LAST TIME THE PATIENT SAW THEIR PCP? Same as above Does patient have an upcoming appointment? Yes (THE MEDICATION REQUESTED IS ON THE MED [...] N/A Patients current insurance carrier is: Payor: [employer] [facility] MCR / Plan: [facility] / Product Type: HMO [id number] documented in this encounter Plan of Treatment Not on file documented as of this encounter Visit Diagnoses Not on filedocumented in this encounter Care Teams Junior Software Developer Relationship Specialty Start Date End Date Erum Ibarra MD PCP - General Internal Medicine 06/23/17 09/08/20 Foreign William MD PCP - General Internal Medicine 09/09/20 12/04/20 Lorena Ortiz MD [address] [place] [address] PCP - General Internal Medicine 12/05/20 10/11/21 Racquel Cruz MD [address] [place] [address] PCP - General Internal Medicine 10/12/21 05/20/[address] [address] PCP - General Internal Medicine 05/21/22 documented as of this encounter
--- OUTSIDE RECORDS SUMMARY | 2024-07-30 09:19 | XMS_ITS | Encounter Summary ---
Author Organization [facility] Address [address] [place] [address] Care Team Providers Care Compliance And Control Analyst Name Role Phone Erum Ibarra MD Primary Care Provider Foreign Boyd MD Primary Care Provider Unavailab Lorena Fuentes MD Primary Care Provider [phone] Racquel Cruz MD Primary Care Prov ider [facility], Pcp Primary Care Provider Unavailabl e Reason for Visit * Reason Comments E-prescribe Rx Request Encounter Details Date Type Department Care Team Description 04/10/2020 Refill Adult Medicine [address] [id number] Bakair Fulton PA-C [address] [place] [address] [phone] E-prescribe Rx Request Social History Tobacco Use [...] N/A Patients current insurance carrier is: Payor: [employer] [facility] MCR / Plan: [facility] / Product Type: HMO [id number] documented in this encounter Plan of Treatment Not on file documented as of this encounter Visit Diagnoses Not on filedocumented in this encounter Care Teams Compliance And Control Analyst Relationship Specialty Start Date End Date Erum Ibarra MD PCP - General Internal Medicine 06/23/17 09/08/20 Foreign William MD PCP - General Internal Medicine 09/09/20 12/04/20 Lorena Ortiz MD [address] [place] [address] PCP - General Internal Medicine 12/05/20 10/11/21 Racquel Cruz MD [address] [place] [address] PCP - General Internal Medicine 10/12/21 05/20/22 Amelia Neville [address] [place] [address] PCP - General Internal Medicine 05/21/22 documented as of this encounter
--- OUTSIDE RECORDS SUMMARY | 2024-07-30 09:19 | XMS_ITS | Encounter Summary ---
Author Organization [employer] [facility] Address [address] [place] [address] Care Team Providers Care Wind Turbine Technician Name Role Phone Davion Workman MD Primary Care Provider [phone] Antwan Benitez MD Primary Care Provider UnavailErum Umaña MD Primary Care Provider Foreign Boyd MD Primary Care Provider Unavailab Lorena Fuentes MD Primary Care Provider [phone] Racquel Cruz MD Primary Care Prov ider [facility], Pcp Primary Care Provider Unavailabl e Encounter Details Date Type Department Care Team Description 02/25/2015 Can Bander Operator Report Medical Records [address] [place] [address] Anita Chow, AISHWARYA Social History Tobacco Use Types Packs/Day Years [...] on filedocumented in this encounter Care Teams Wind Turbine Technician Relationship Specialty Start Date End Date Davion Workman MD [address] [place] [address] [id number] PCP - General Internal Medicine 08/14/14 02/11/16 NameAntwan MD [address] [place] [address] PCP - General Internal Medicine 02/12/16 06/22/17 Erum Ibarra MD [address] [place] [address] PCP - General Internal Medicine 06/23/17 09/08/20 Foreign William MD [address] [place] [address] PCP - General Internal Medicine 09/09/20 12/04/20 Lorena Ortiz MD [address] [place] [address] PCP - General Internal Medicine 12/05/20 10/11/21 Racquel Cruz MD [address] [place] [address] PCP - General Internal Medicine 10/12/21 05/20/22 [facility], Pcp [address] [place] [address] PCP - General Internal Medicine 05/21/22 documented as of this encounter
--- OUTSIDE RECORDS SUMMARY | 2024-07-30 09:19 | XMS_ITS | Encounter Summary ---
Author Organization [email or web address] [facility] Address [address] [place] [address] Care Team Providers Care Registered Physical Therapist Name Role Phone Erum Ibarra MD Primary Care Provider Unava ilForeign Snell MD Primary Care Provider Unavailab Lorena Fuentes MD Primary Care Provider [phone] Racquel Cruz MD Primary Care Prov ider [facility], Pcp Primary Care Provider Unavailabl e Encounter Details Date Type Department Care Team Description 06/06/2019 Import Specialist Report Medical Records [address] [place] [id number] Jared Kemp MD Social History Tobacco Use [...] on filedocumented in this encounter Care Teams Registered Physical Therapist Relationship Specialty Start Date End Date Erum Ibarra MD PCP - General Internal Medicine 06/23/17 09/08/20 Foreign William MD PCP - General Internal Medicine 09/09/20 12/04/20 Lorena Ortiz MD [address] [place] [address] PCP - General Internal Medicine 12/05/20 10/11/21 Racquel Cruz MD [address] [place] [address] PCP - General Internal Medicine 10/12/21 05/20/22 [facility], Pcp [address] [place] [address] PCP - General Internal Medicine 05/21/22 documented as of this encounter
--- OUTSIDE RECORDS SUMMARY | 2024-07-30 09:19 | XMS_ITS | Encounter Summary ---
Author Organization [employer] [facility] Address [address] [place] [address] Care Team Providers Care Elevator Dispatcher Name Role Phone Erum Ibarra MD Primary Care Provider Unava Foreign Salinas MD Primary Care Provider Unavailab Lorena Fuentes MD Primary Care Provider Racquel Cruz MD Primary Care Prov ider [facility], Pcp Primary Care Provider Unavailabl e Reason for Visit * Reason Comments E-prescribe Rx Request Encounter Details Date Type Department Care Team Description 06/11/2019 Refill Adult Medicine [address] [address] Erum Ibarra MD E-prescribe Rx Request Social [...] to pharmacy * Telephone Encounter - Kelly Hill M.A. - 06/12/2019 9:58 AM EDT Lab [...] carrier is: Payor: [facility] MCR / Plan: [facility] / Product Type: HMO [id number] documented in this encounter Plan of Treatment Not on file documented as of this encounter Visit Diagnoses Not on filedocumented in this encounter Care Teams Elevator Dispatcher Relationship Specialty Start Date End Date Erum Ibarra MD PCP - General Internal Medicine 06/23/17 09/08/20 Foreign William MD PCP - General Internal Medicine 09/09/20 12/04/20 Lorena Ortiz MD [address] [place], [place] [phone] PCP - General Internal Medicine 12/05/20 10/11/21 Racquel Cruz MD [address] [place] [address] PCP - General Internal Medicine 10/12/21 05/20/22 [facility], Pcp [address] [place] [address] PCP - General Internal Medicine 05/21/22 documented as of this encounter
--- OUTSIDE RECORDS SUMMARY | 2024-07-30 09:19 | XMS_ITS | Encounter Summary ---
Author Organization [employer] [facility] Address [address] [place] [address] Care Team Providers Care Application Security Engineer Name Role Phone Davion Workman MD Primary Care Provider [phone] Lawson Ball MD Primary Care Provider [phone] Davion Workman MD Primary Care Provider [phone] Eli, Antwan ORTEGA Primary Care Provider Unavailabl Erum Morgan MD Primary Care Provider Unava Foreign Salinas MD Primary Care Provider Unavailab Lorena Fuentes MD Primary Care Provider [phone] Racquel Cruz MD Primary Care Prov ider [facility], Pcp Primary Care Provider Unavailabl e Encounter Details Date Type Department Care Team Description 08/17/2011 Release of Information Medical Records [address] [place] [id number] Abstract, Provider Social History Tobacco Use Types [...] on filedocumented in this encounter Care Teams Application Security Engineer Relationship Specialty Start Date End Date Davion Workman MD [address] [place] [address] PCP - General 11/23/05 03/05/14 Lawson Ball MD [address] [place] [address] PCP - General Internal Medicine 03/06/14 08/13/14 Davion Workman MD [address] [place] [address] PCP - General Internal Medicine 08/14/14 02/11/16 Antwan Benitez MD [address] [place], [place] [phone] PCP - General Internal Medicine 02/12/16 06/22/17 Erum Ibarra MD [address] [place] [address] PCP - General Internal Medicine 06/23/17 09/08/20 Foreign William MD [address] [place], [place] [phone] PCP - General Internal Medicine 09/09/20 12/04/20 Lorena Ortiz MD [address] [place] [address] PCP - General Internal Medicine 12/05/20 10/11/21 Racquel Cruz MD [address] [place] [address] PCP - General Internal Medicine 10/12/21 05/20/22 [facility], [place] [phone] PCP - General Internal Medicine 05/21/22 documented as of this encounter
--- OUTSIDE RECORDS SUMMARY | 2024-07-30 09:19 | XMS_ITS | Encounter Summary ---
Author Organization [employer] [facility] Address [address] [place] [address] Care Team Providers Care Algebra Teacher Name Role Phone Erum Ibarra MD Primary Care Provider Foreign Boyd MD Primary Care Provider Unavailab Lorena Fuentes MD Primary Care Provider [phone] Racquel Cruz MD Primary Care Prov ider [facility], Pcp Primary Care Provider Unavailabl e Reason for Visit * Reason Comments E-prescribe Rx Request Encounter Details Date Type Department Care Team Description 03/01/2019 Refill Adult Medicine [address] [address] Paula Isaac PA [address] [place] [address] E-prescribe Rx Request Social History Tobacco Use [...] N/A Patients current insurance carrier is: Payor: [employer] [facility] MCR / Plan: [facility] / Product Type: HMO [id number] documented in this encounter Plan of Treatment Not on file documented as of this encounter Visit Diagnoses Not on filedocumented in this encounter Care Teams Algebra Teacher Relationship Specialty Start Date End Date Erum Ibarra MD PCP - General Internal Medicine 06/23/17 09/08/20 Foreign William MD PCP - General Internal Medicine 09/09/20 12/04/20 Lorena Ortiz MD [address] [place] [address] PCP - General Internal Medicine 12/05/20 10/11/21 Racquel Cruz MD [address] [place] [address] PCP - General Internal Medicine 10/12/21 05/20/22 [facility], Pcp [address] [place] [address] PCP - General Internal Medicine 05/21/22 documented as of this encounter
--- OUTSIDE RECORDS SUMMARY | 2024-07-30 09:19 | XMS_ITS | Encounter Summary ---
Author Organization [facility] Address [address] [place] [address] Care Team Providers Care Plateman Name Role Phone Lawson Ball MD Primary Care Provider [phone] Davion Workman MD Primary Care Provider [phone] Name, Antwan ORTEGA Primary Care Provider UnavailErum Umaña MD Primary Care Provider UnaForeign Small MD Primary Care Provider Unavailab Lorena Fuentes MD Primary Care Provider [phone] Racquel Cruz MD Primary Care Prov ider [facility], Pcp Primary Care Provider Unavailabl e Reason for Visit * Reason Onset Date Comments TEST RESULTS 07/26/2014 Encounter Details Date Type Department Care Team Description 07/26/2014 Telephone Adult Medicine [address] [id number] Lawson Ball MD [address] [place] [address] [phone] TEST RESULTS Social History Tobacco Use Types [...] encounter Miscellaneous Notes * Telephone Encounter - Soledad Villa M.A. - 07/26/2014 5:06 PM EDT [...] on filedocumented in this encounter Care Teams Plateman Relationship Specialty Start Date End Date Lawson Ball MD [address] [place] [address] PCP - General Internal Medicine 03/06/14 08/13/14 Davion Workman MD [address] [place] [address]14 PCP - General Internal Medicine 08/14/14 02/11/16 Antwan Benitez MD [address] [place] [address] 33235 PCP - General Internal Medicine 02/12/16 06/22/17 Erum Ibarra MD [address] [place] [address] 38938 PCP - General Internal Medicine 06/23/17 09/08/20 Foreign William MD [address] [place], [place] [phone] PCP - General Internal Medicine 09/09/20 12/04/20 Lorena Ortiz MD [address] [place] [address] 60015 PCP - General Internal Medicine 12/05/20 10/11/21 Racquel Cruz MD [address] [place] [address] 8[address] PCP - General Internal Medicine 10/12/21 05/20/22 [facility], Pcp [address] [place] [address] 84767 PCP - General Internal Medicine 05/21/22 documented as of this encounter
--- OUTSIDE RECORDS SUMMARY | 2024-07-30 09:19 | XMS_ITS | Encounter Summary ---
Author Organization [facility] Address [address] [place] [address] Care Team Providers Care Resident Associate Name Role Phone Erum Ibarra MD Primary Care Provider Unava ilForeign Snell MD Primary Care Provider Unavailab Lorena Fuentes MD Primary Care Provider [phone] Racquel Cruz MD Primary [facility] Prov ider [facility]cp Primary Care Provider Unavailabl e Encounter Details Date Type Department Care Team Description 09/22/2018 Manager Car Report Medical Records [address] [place] [address] Abstract, Provider Social History Tobacco Use Types [...] on filedocumented in this encounter Care Teams Resident Associate Relationship Specialty Start Date End Date Erum Ibarra MD PCP - General Internal Medicine 06/23/17 09/08/20 Foreign William MD PCP - General Internal Medicine 09/09/20 12/04/20 Lorena Ortiz MD [address] [place] [address] 86123 PCP - General Internal Medicine 12/05/20 10/11/21 Racquel Cruz MD [address] [place] [address] PCP - General Internal Medicine 10/12/21 05/20/22 [facility] Pcp [address] [place] [address] 018[address] PCP - General Internal Medicine 05/21/22 documented as of this encounter
--- OUTSIDE RECORDS SUMMARY | 2024-07-30 09:19 | XMS_ITS | Encounter Summary ---
Author Organization [facility] Address [address] [place] [address] Care Team Providers Care Life Insurance Actuary Name Role Phone Davion Workman MD Primary Care Provider [phone] Name, Antwan ORTEGA Primary Care Provider Unavailabl Erum Morgan MD Primary Care Provider Foreign Boyd MD Primary Care Provider Unavailab Lorena Fuentes MD Primary Care Provider [phone] Racquel Cruz MD Primary Care Prov ider [facility], Pcp Primary Care Provider Unavailabl e Encounter Details Date Type Department Care Team Description 01/30/2015 Orders Only [employer] - [address] [phone] Dave Ball MD Pelvic pain in female (Primary Dx) Social History Tobacco Use Types Packs/Day Years [...] documented as of this encounter Results * SMEAR, STAIN WET SMEAR LAB CODE (01/30/2015 4:14 PM EST) Unknown 01/30/2015 4:14 PM EST 01/30/2015 4:15 PM EST [facility] - 01/30/2015 5:51 PM EST TRICH, BY WET PREP. INDETERMINANT FOR TRICHOMONAS; REFER TO ANTIGEN CLUE CELL RESULT: NEGATIVE FOR CLUE CELLS YEAST RESULT: NEGATIVE FOR YEAST Dave Ball MD LAB Performing Organization Address [facility] Co de Phone Number [address] * GONORRHEA DNA PROBE (01/30/2015 4:14 PM EST) GC SWAB NEGATIVE NEGATIVE 01/31/2015 12:57 PM EST [facility] 01/30/2015 4:14 PM EST 01/30/2015 4:14 PM EST Dave Ball MD LAB Performing Organization Address [facility] Co de [address] * CHLAMYDIA DNA PROBE (01/30/2015 4:14 PM EST) CHLAMYDIA SWAB NEGATIVE NEGATIVE 01/31/2015 12:57 PM EST [facility] 01/30/2015 4:14 PM EST 01/30/2015 4:14 PM EST Dave Ball MD LAB Performing Organization Address [facility] Co de Phone [address] documented in this encounter Visit Diagnoses Diagnosis Pelvic pain in female- Primary Unspecified symptom associated with female genital organs documented in this encounter Care Teams Life Insurance Actuary Relationship Specialty Start Date End Date Davion Workman MD [address] [place], [place] [phone] PCP - General Internal Medicine 08/14/14 02/11/16 Antwan Benitez MD [address] [place] [address] PCP - General Internal Medicine 02/12/16 06/22/17 Erum Ibarra MD [address] [place] [address] PCP - General Internal Medicine 06/23/17 09/08/20 Foreign William MD [address] [place] [address] PCP - General Internal Medicine 09/09/20 12/04/20 Lorena Ortiz MD [address] [place] [address] PCP - General Internal Medicine 12/05/20 10/11/21 Racquel Cruz MD [address] [place] [address] PCP - General Internal Medicine 10/12/21 05/20/22 [facility], Pcp [address] [place] [address] 76827 PCP - General Internal Medicine 05/21/22 documented as of this encounter
--- OUTSIDE RECORDS SUMMARY | 2024-07-30 09:19 | XMS_ITS | Encounter Summary ---
Author Organization [employer] [facility] Address [address] [place] [address] Care Team Providers Care Wilderness Guide Name Role Phone Erum Ibarra MD Primary Care Provider Unava Foreign Salinas MD Primary Care Provider Unavailab Lorena Fuentes MD Primary Care Provider [phone] Racquel Cruz MD Primary Care Prov ider [facility], Pcp Primary Care Provider Unavailabl e Encounter Details Date Type Department Care Team Description 01/04/2020 Hospital Medical Records [address] [place] [address] Vinod Montanez MD Social History Tobacco Use Types Packs/Day [...] on filedocumented in this encounter Care Teams Wilderness Guide Relationship Specialty Start Date End Date Erum Ibarra MD PCP - General Internal Medicine 06/23/17 09/08/20 Foreign William MD PCP - General Internal Medicine 09/09/20 12/04/20 Lorena Ortiz MD [address] [place] [address] PCP - General Internal Medicine 12/05/20 10/11/21 Racquel Cruz MD [address] [place] [address] PCP - General Internal Medicine 10/12/21 05/20/22 [facility], Pcp [address] [place] [address] PCP - General Internal Medicine 05/21/22 documented as of this encounter
--- OUTSIDE RECORDS SUMMARY | 2024-07-30 09:19 | XMS_ITS | Encounter Summary ---
Author Organization [facility] Address [address] [place] [address] Care Team Providers Care Internal Combustion Engine Inspector Name Role Phone Davion Workman MD Primary Care Provider [phone] Antwan Benitez MD Primary Care Provider UnavailErum Umaña MD Primary Care Provider Foreign Boyd MD Primary Care Provider Unavailab Lorena Fuentes MD Primary Care Provider [phone] Racquel Cruz MD Primary Care Prov ider [facility], Pcp Primary Care Provider Unavailabl e Encounter Details Date Type Department Care Team Description 01/30/2015 Orders Only [employer] - [address] [phone] Dave Ball MD Social History Tobacco Use [...] on filedocumented in this encounter Care Teams Internal Combustion Engine Inspector Relationship Specialty Start Date End Date Davion Workman MD [address] [place] [address] [phone] PCP - General Internal Medicine 08/14/14 02/11/16 NameAntwan MD [address] [place], [place] [phone] PCP - General Internal Medicine 02/12/16 06/22/17 Erum Ibarra MD [address] [place], [place] 9[address]3020 PCP - General Internal Medicine 06/23/17 09/08/20 Foreign William MD [address] [place] [address] PCP - General Internal Medicine 09/09/20 12/04/20 Lorena Ortiz MD [address] [place] [address] PCP - General Internal Medicine 12/05/20 10/11/21 Racquel Cruz MD [address] [place] [address] PCP - General Internal Medicine 10/12/21 05/20/22 [facility], [place] [address] PCP - General Internal Medicine 05/21/22 documented as of this encounter
--- OUTSIDE RECORDS SUMMARY | 2024-07-30 09:19 | XMS_ITS | Encounter Summary ---
Author Organization [facility] Address [address] [place] [address] Care Team Providers Care Boxer Operator Name Role Phone Erum Ibarra MD Primary Care Provider Unava Foreign Salinas MD Primary Care Provider Unavailab Lorena Fuentes MD Primary Care Provider [phone] Racquel Cruz MD Primary Care Prov ider [facility], Pcp Primary Care Provider Unavailabl e Reason for Visit * Reason Onset Date Comments Provider Call Back 11/29/2019 Encounter Details Date Type Department Care Team Description 11/29/2019 Telephone Adult Medicine [facility] [address] [place] [address] Erum Ibarra MD Provider Call Back Social History Tobacco Use Types Packs/Day Years [...] Miscellaneous Notes * Telephone Encounter - Kaela Young M.A. - 11/30/2019 4:[address] scan faxed to [facility] at fax# [phone] Attn: Daniela. * Telephone Encounter - Nidia Kimball - 11/30/2019 9:03 AM EDT Daniela calling to check status. Daniela states it is needed today. Daniela states they need to confirm if this is the same CT scan the urologist would like to order. If it is the same, this is the last day to cancel the order or it will be denied. * Telephone Encounter - Franci Gunderson - 11/29/2019 11:21 AM EDT Caller requesting call back from provider: Is the caller the patient? NO If caller is not the patient, what is the callers name? Daniela-[facility] Callers relationship to patient? N/A If person calling is not the patient themselves, is there a verbal release in FYI or permanent comments for this person: NO Reason for call back: [facility] would like the pt's Imaging CT ABD & PELVIS W/O CONTRAST results from 09/21/19 faxed to [phone] Caller offered to speak with the nurse for assistance: YES Response: Patient offered to speak with nurse for assistance and patient agreed. Message forwarded to nurse. documented in this encounter Plan of Treatment Not on file documented as of this encounter Visit Diagnoses Not on filedocumented in this encounter Care Teams Boxer Operator Relationship Specialty Start Date End Date Erum Ibarra MD PCP - General Internal Medicine 06/23/17 09/08/20 Foreign William MD PCP - General Internal Medicine 09/09/20 12/04/20 Lorena Ortiz MD [address] [place] [address] PCP - General Internal Medicine 12/05/20 10/11/21 Racquel Cruz MD [address] [place] [address] 22342 PCP - General Internal Medicine 10/12/21 05/20/22 [facility], Pcp [address] [place] [address] PCP - General Internal Medicine 05/21/22 documented as of this encounter
--- OUTSIDE RECORDS SUMMARY | 2024-07-30 09:19 | XMS_ITS | Continuity of Care Document ---
Author Organization [facility] [address] [place] [address] Phone [phone] Care Team Providers Care Health Care Aide Name Role Phone Demetrice Meier MD Care Team Information Receiv er [phone] Problems Active Problems Provider Date Non-toxic multinodular goiter Jcarlos Colon M.D. Onset: 04/14/2023 Hypothyroidism Jcarlos Colon M.D. Onset: 0 04/14/2023 Social History Type Date Description Comments Sex Unknown ETOH Use Never used alcohol Tobacco Use Start: Unknown Patient has never smoked Allergies and adverse reactions Description No Known Drug Allergies Medications Active Medications SIG Qnty Indications Order ing Provider Date Levothyroxine [id number] Tablets Take 1 Tablet By Mouth Daily And 2 Tabs On Tuesday 100tabs Jcarlos Colon M.D. 04/15/2023 Flovent UMV231gng/Act [place] Tubbs MD Pantoprazole Btyuxv85mw Tablets DR Take 1 Tablet By Mouth Daily Randi June Daysi, AISHWARYA [id number] (1000 Ut) Capsules Unknown Vrsdtbrneq20dw Tablets Take 1 Tablet By Mouth Twice A Day Unknown Rosuvastatin Vparigv55rr Tablets Take 1 Tablet By Mouth Everyday AT Bedtime Unknown Vcrwnnmljr02sn Tablets Take 1 Tablet By Mouth Everyday AT Bedtime Unknown Vital Signs Date Vital Result Comment 04/15/2023 3:35pm BP Systolic 120 mmHg BP Diastolic 80 mmHg Heart Rate 72 /min Height 61 inches 5'1 Weight 173.12 lb BMI (Body Mass Index) 32.7 kg/m2 Results Test Acquired Date Facility Test Result H/L Range N ote TSH 03/18/2023 [facility] TSH 2.38 uIU/mL (0.4-4.2) Anti Thyroid Peroxidase AB 03/03/2022 [facility] Anti Thyroid Peroxidase AB 259.5 IU/mL High (<5.6) 1 1 Antibody measurement represents one parameter in a multicriteria diagnostic process. Correlate results with clinical presentation. This test was performed on the Aubrey immunoassay system. Medical Devices Description No Information [...]
--- OUTSIDE RECORDS SUMMARY | 2024-07-30 09:19 | XMS_ITS | Encounter Summary ---
Author Organization [facility] Address [address] [place] [address] Care Team Providers Care Heel Wheeler Name Role Phone Davion Workman MD Primary Care Provider [phone] Lawson Ball MD Primary Care Provider [phone] Davion Workman MD Primary Care Provider [phone] Eli, Antwan ORTEGA Primary Care Provider Unavailabl e Erum Ibarra MD Primary Care Provider Unava Foreign Salinas MD Primary Care Provider Unavailab Lorena Fuentes MD Primary Care Provider Racquel Cruz MD Primary Care Prov ider [facility], Pcp Primary Care Provider Unavailabl e Encounter Details Date Type Department Care Team Description 10/05/2011 Hospital Medical Records [address] [place] [address] Kathy Adams PA-C Social History Tobacco Use Types Packs/Day [...] on filedocumented in this encounter Care Teams Heel [place] Relationship Specialty Start Date End Date Davion Workman MD [address] [place] [address] 26245 PCP - General 11/23/05 03/05/14 Lawson Ball MD [address] [place] [address] 99460 PCP - General Internal Medicine 03/06/14 08/13/14 Davion Workman MD [address] [place] [address] 97568 PCP - General Internal Medicine 08/14/14 02/11/16 Antwan Benitez MD [address] [place], [place] [phone] PCP - General Internal Medicine 02/12/16 06/22/17 Erum Ibarra MD [address] [place], [place] 9[address]20 PCP - General Internal Medicine 06/23/17 09/08/20 Foreign William MD [address] [place] [address] 68079 PCP - General Internal Medicine 09/09/20 12/04/20 Lorena Ortiz MD [address] [place] [address] PCP - General Internal Medicine 12/05/20 10/11/21 Racquel Cruz MD [address] [place], [place] [phone] PCP - General Internal Medicine 10/12/21 05/20/22 [facility], [place] [phone] PCP - General Internal Medicine 05/21/22 documented as of this encounter
--- OUTSIDE RECORDS SUMMARY | 2024-07-30 09:19 | XMS_ITS ---
Author Organization [facility] Address [address] [place] [address] Care Team Providers Care Supervisor Garment Manufacturing Name Role Phone Shaheen Kirkland Primary Care Provider REASON FOR VISIT Lab work/DI Encounters Encounter Location [place] [address] 07/25/2024 Shaheen Kirkland Plan Of Treatment Next Appt Details Provider Name:Shaheen Kirkland, 10/15/2024 10:00:00 AM, [address] [place] [address], [address], Progress Notes * Ximena MENDENHALLDOB:1965 (59 yo F)Acc No.[id number]:07/25/2024 Patient:?Ximena MENDENHALL :1965???Age:59 Y???Sex:Female Address:[address] [place] [address] [place] [address] * true * Date:? Generated for Oumoui [email or web address]/[email or web address]/eTransmitting on:?07/30/2024 09:19 AM EDT
--- OUTSIDE RECORDS SUMMARY | 2024-07-30 09:20 | XMS_ITS | Encounter Summary ---
Author Organization [facility] Address [address] [place] [address] Care Team Providers Care Custom Feed Mill Operator Name Role Phone Davion Workman MD Primary Care Provider [phone] Antwan Benitez MD Primary Care Provider UnavailErum Umaña MD Primary Care Provider Foreign Boyd MD Primary Care Provider Unavailab Lorena Fuentes MD Primary Care Provider [phone] Racquel Cruz MD Primary Care Prov ider [facility], Pcp Primary Care Provider Unavailabl e Encounter Details Date Type Department Care Team Description 04/21/2015 [facility] Medical Records [address] [place] [address] Harmanli, Oz Social History Tobacco Use Types [...] on filedocumented in this encounter Care Teams Custom Feed Mill Operator Relationship Specialty Start Date End Date Davion Workman MD [address] [place] [address] [phone] PCP - General Internal Medicine 08/14/14 02/11/16 Antwan Benitez MD [address] [place] [address] PCP - General Internal Medicine 02/12/16 06/22/17 Erum Ibarra MD [address] [place] [address] PCP - General Internal Medicine 06/23/17 09/08/20 Foreign William MD [address] [place] [address] PCP - General Internal Medicine 09/09/20 12/04/20 Lorena Ortiz MD [address] [place] [address] PCP - General Internal Medicine 12/05/20 10/11/21 Racquel Cruz MD [address] [place] [address] PCP - General Internal Medicine 10/12/21 05/20/22 [facility], Pcp [address] [place] [address] PCP - General Internal Medicine 05/21/22 documented as of this encounter
--- OUTSIDE RECORDS SUMMARY | 2024-07-30 09:20 | XMS_ITS | Encounter Summary ---
Author Organization [email or web address] [facility] Address [address] [place] [address] Care Team Providers Care Bale Sewer Name Role Phone Davion Workman MD Primary Care Provider [phone] Lawson Ball MD Primary Care Provider Davion Workman MD Primary Care Provider [phone] Name, Antwan ORTEGA Primary Care Provider Unavailabl Erum Morgan MD Primary Care Provider Unava Foreign Salinas MD Primary Care Provider Unavailab Lorena Fuentes MD Primary Care Provider [phone] Racquel Cruz MD Primary Care Prov ider [facility], Pcp Primary Care Provider Unavailabl e Encounter Details Date Type Department Care Team Description 11/28/2013 [facility] Medical Records [address] [place] [address] Abstract, Provider Social History Tobacco Use Types [...] on filedocumented in this encounter Care Teams Bale Sewer Relationship Specialty Start Date End Date Davion Workman MD [address] [place] [address] PCP - General 11/23/05 03/05/14 Lawson Ball MD [address] [place] [address] 30480 PCP - General Internal Medicine 03/06/14 08/13/14 Davion Workman MD [address] [place] [address] 56552 PCP - General Internal Medicine 08/14/14 02/11/16 Antwan Benitez MD [address] [place] [address] 8[address] PCP - General Internal Medicine 02/12/16 06/22/17 Erum Ibarra MD [address] [place], [place] 4651120 PCP - General Internal Medicine 06/23/17 09/08/20 Foreign William MD [address] [place] [address] 13043 PCP - General Internal Medicine 09/09/20 12/04/20 Lorena Ortiz MD [address] [place] [address] 65514 PCP - General Internal Medicine 12/05/20 10/11/21 Racquel Cruz MD [address] [place] [address] PCP - General Internal Medicine 10/12/21 05/20/22 [facility], [address] [address] PCP - General Internal Medicine 05/21/22 documented as of this encounter
--- OUTSIDE RECORDS SUMMARY | 2024-07-30 09:20 | XMS_ITS | Encounter Summary ---
Author Organization [facility] [facility] Address [address] [place] [address] Care Team Providers Care Directory Carrier Name Role Phone Davion Workman MD Primary Care Provider Lawson Ball MD Primary Care Provider [phone] Davion Workman MD Primary Care Provider [phone] Eli, Antwan ORTEGA Primary Care Provider Unavailabl Erum Morgan MD Primary Care Provider Unava Foreign Salinas MD Primary Care Provider Unavailab Lorena Fuentes MD Primary Care Provider [phone] Racquel Cruz MD Primary [facility] Prov ider [facility] Primary Care Provider Unavailabl e Reason for Visit * Reason Onset Date Comments Pain, Foot 10/26/2013 Encounter Details Date Type Department Care Team Description 10/26/2013 Telephone Adult Medicine [address] [phone] Davion Workman MD [address] [place] [address] [phone] Pain, Foot Social History Tobacco Use Types Packs/Day Years [...] encounter Miscellaneous Notes * Telephone Encounter - Helen Sloan R.N. - 10/26/2013 11:31 AM EDT [phone] (home) C/o bilateral foot pain goes from ball of feet towards toes, uncomfortable to walk/stand Appt made for tomorrow in [facility] * Telephone Encounter - Buffy Burnham - 10/26/2013 9:32 AM EDT Symptoms patient is presenting:both feet are painful No injury How long has patient had these symptoms?: 2weeks PCP: Davion Workman [place] / [place] / Product Type: MEDICARE [id number] documented in this encounter Plan of Treatment Not on file documented as of this encounter Visit Diagnoses Not on filedocumented in this encounter Care Teams Directory Carrier Relationship Specialty Start Date End Date Davion Workman MD [address] [place] [address] PCP - General 11/23/05 03/05/14 Lawson Ball MD [address] [place] [address] PCP - General Internal Medicine 03/06/14 08/13/14 Davion Workman MD [address] [place] [address] PCP - General Internal Medicine 08/14/14 02/11/16 Antwan Benitez MD [address] [place] [address] PCP - General Internal Medicine 02/12/16 06/22/17 Erum Ibarra MD [address] [place], [place] [phone] PCP - General Internal Medicine 06/23/17 09/08/20 Foreign William MD [address] [place] [address] PCP - General Internal Medicine 09/09/20 12/04/20 Lorena Ortiz MD [address] [place] [address] PCP - General Internal Medicine 12/05/20 10/11/21 Racquel Cruz MD [address] [place] [address] PCP - General Internal Medicine 10/12/21 05/20/22 [facility] Pcp [address] [place] [address] PCP - General Internal Medicine 05/21/22 documented as of this encounter
--- OUTSIDE RECORDS SUMMARY | 2024-07-30 09:20 | XMS_ITS | Patient Health Record ---
Author Organization [employer] Address [address] [place] [address] Care Team Providers Care Commercial Pest Control Representative Name Role Phone Shaheen Kirkland Primary Care Provider [phone] Lila Sindi Unavailable [phone] Allergies No Known Allergies Results Component Value Reference Range Notes Basic Metabolic Panel w/eGFR [id number] Reviewed date:05/30/2024 01:01:29 PM Interpretation: Normal Performing Lab:NL1, , [address] [place], [address] Lexis Brito M.D. Notes/Report: Received Date: 0; 0; 0; 0; 0; 0 FASTING:YES FASTING: YES GLUCOSE 86 65-99 mg/dL Fasting reference interval UREA NITROGEN (BUN) 13 7-25 mg/dL CREATININE 0.54 0.50-1.03 mg/dL EGFR 107 > OR = 60 mL/min/1.73m2 BUN/CREATININE RATIO SEE NOTE: 6-22 (calc) Not Reported: BUN and Creatinine are within reference range. SODIUM 140 135-146 mmol/L POTASSIUM 4.1 3.5-5.3 mmol/L CHLORIDE 101 98-110 mmol/L CARBON DIOXIDE 29 20-32 mmol/L CALCIUM 9.7 8.6-10.4 mg/dL CBC (H/H,RBC,Indices,WBC,Plt ) 1759 Reviewed date:05/30/2024 01:01:29 PM Interpretation: Normal Performing Lab:NL1, , [address] [place], [address] Lexis Brito M.D. Notes/Report: Received Date: 0; 0; 0; 0; 0; 0 FASTING:YES FASTING: YES WHITE BLOOD CELL COUNT 6.6 3.8-10.8 Thousand/ uL RED BLOOD CELL COUNT 4.61 3.80-5.10 Million/uL HEMOGLOBIN 12.9 11.7-15.5 g/dL HEMATOCRIT 39.5 35.0-45.0 % MCV 85.7 80.0-100.0 fL MCH 28.0 27.0-33.0 pg MCHC 32.7 32.0-36.0 g/dL For adults, a slight decrease in the calculated MCHC value (in the range of 30 to 32 g/dL) is most likely not clinically significant; however, it should be interpreted with caution in correlation with other red cell parameters and the patient's clinical condition. RDW 13.5 11.0-15.0 % PLATELET COUNT 361 140-400 Thousand/uL MPV 9.0 7.5-12.5 fL TSH w/Free T4 rfx 03833 Reviewed date:05/30/2024 01:01:29 PM Interpretation: Normal Performing Lab:NL1, , [address] [place], [address] Lexis Brito M.D. Notes/Report: Received Date: [id number] 0; 0; 0; 0; 0; 0 FASTING:YES FASTING: YES TSH W/REFLEX TO FT4 1.13 0.40-4.50 mIU/L Hemoglobin A1c 496 Reviewed date:05/30/2024 01:01:29 PM Interpretation:6.5 Performing Lab:NL1, , [address] [place], [address] Lexis Brito M.D. Notes/Report: Received Date: [id number] 0; 0; 0; 0; 0; 0 FASTING:YES FASTING: YES HEMOGLOBIN A1c 6.5 <5.7 % of total Hgb For someone without known diabetes, a hemoglobin A1c value of 6.5% or greater indicates that they may have diabetes and this should be confirmed with a follow-up test. For someone with known diabetes, a value <7% indicates that their diabetes is well controlled and a value greater than or equal to 7% indicates suboptimal control. A1c targets should be individualized based on duration of diabetes, age, comorbid conditions, and other considerations. Currently, no consensus exists regarding use of hemoglobin A1c for diagnosis of diabetes for children. Microalbumin,[facility] (w/crea t) 6517 Reviewed date:05/30/2024 01:01:29 PM Interpretation: Normal Performing Lab:NL1, , [address] [place], [address] Lexis Brito M.D. Notes/Report: Received Date: 0; 0; 0; 0; 0; 0 FASTING:YES FASTING: YES CREATININE, RANDOM URINE 159 20-275 mg/dL ALBUMIN, URINE 1.4 See Note: mg/dL Reference Range: Reference Range Not established ALBUMIN/CREATININE RATIO, RANDOM URINE 9 <30 mg/g creat The ADA defines abnormalities in albumin excretion as follows: Albuminuria Category Result (mg/g creatinine) Normal to Mildly increased <30 Moderately increased 30-299 Severely increased > OR = 300 The ADA recommends that at least two of three specimens collected within a 3-6 month period be abnormal before considering a patient to be within a diagnostic category. Lipid Panel w/refl LDL 84510 Reviewed date:05/30/2024 01:01:29 PM Interpretation:207 Performing Lab:NL1, , [address] [place], [address] Lexis Brito M.D. Notes/Report: Received Date: 0; 0; 0; 0; 0; 0 FASTING:YES FASTING: YES CHOLESTEROL, TOTAL 309 <200 mg/dL HDL CHOLESTEROL 75 > OR = 50 mg/dL TRIGLYCERIDES 127 <150 mg/dL LDL-CHOLESTEROL 207 LDL-C levels > or = 190 mg/dL may indicate familial hypercholesterolemia (FH). Clinical assessment and measurement of blood lipid levels should be considered for all first degree relatives of patients with an FH diagnosis. LDL Cholesterol (LDL-C) levels > or = 300 mg/dL may indicate homozygous familial hypercholesterolemia (HoFH). Untreated, these extremely high LDL-C levels can result in premature CV events and mortality. Patients should be identified early and provided appropriate interventions to reduce the cumulative LDL-C burden from . For questions about testing for familial hypercholesterolemia, please call [employer] Client Services at [email or web address].GENE.INFO. Donya T, et al. J National Lipid Association Recommendations for Patient-Centered Management of Dyslipidemia: Part 1 Journal of Clinical Lipidology 2015;9(2), 129-169. Cuchel, M. et al. (2014). Homozygous familial hypercholesterolaemia: new insights and guidance for clinicians to improve detection and clinical management. Heart Journal, 35(32), 9532-8722. Reference range: <100 Desirable range <100 mg/dL for primary prevention; <70 mg/dL for patients with CHD or diabetic patients with > or = 2 CHD risk factors. LDL-C is now calculated using the Terrell-Madhu calculation, which is a validated novel method providing better accuracy than the Friedewald equation in the estimation of LDL-C. Terrell CONDE et al. DARYN. 2013;310(19): 5094-8105 (http://education.Tagbrand.com/faq/YVN727) CHOL/HDLC RATIO 4.1 <5.0 (calc) NON HDL CHOLESTEROL 234 <130 mg/dL (calc) Non-HDL level > or = 220 is very high and may indicate genetic familial hypercholesterolemia (FH). Clinical assessment and measurement of blood lipid levels should be considered for all first-degree relatives of patients with an FH diagnosis. For patients with diabetes plus 1 major ASCVD risk factor, treating to a non-HDL-C goal of <100 mg/dL (LDL-C of <70 mg/dL) is considered a therapeutic option. X-ray: Spines, Cervical Reviewed date:06/18/2024 10:49:19 AM Interpretation:Degenerative changes and spasm Performing Lab: Notes/Report: Degenerative changes and spasm X-ray: Spines, Thoracic Spin e Reviewed date:06/18/2024 10:48:12 AM Interpretation:Degenerative spondylosis Performing Lab: Notes/Report: Degenerative spondylosis X-ray: Lumbar Spine Reviewed date:06/18/2024 04:27:53 PM Interpretation:Normal Performing Lab: Notes/Report: Normal MRI: Cervical Spine, w/o Con trast Reviewed date:07/25/2024 11:29:43 AM Interpretation:Mild disc herniation Performing Lab: Notes/Report: Mild disc herniation MRI: Thoracic Spine, w/o Con trast Reviewed date:07/25/2024 11:28:52 AM Interpretation:Mild degenerative changes Performing Lab: Notes/Report: Mild degenerative changes Reason For Referral Reason 59 year old female w ith upper back pain secondary to posture. Diagnosis 1 Upper back pain (M54 .9) Referral Organization [facility] Referring Provider First Name Sindi Referring Provider Last Name Lila Referring Provider Speciality [facility] ctice Referred Provider [facility] Referred Provider Specialty Physical The rapy General Notes Sindi Sharp 11:56:57 AM > Patient would like referral to go to PT at [place] [address] [facility] Floor 5, that is where she is currently for PT on her shoulder. Referral Priority Routine Reason Please evaluate and treat. 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) Referral Organization [facility] Referring Provider First Name Sindi Referring Provider Last Name Lila Referring Provider Speciality Family Saavedra ctice Referred Provider David Villatoro Referred Provider Specialty Spinal Surge ry General Notes Mary Tsang 07/05 12:16:42 PM >faxed referral with the last visti note med summary and chi, Dr Villatoro-Spinal Surgery, [email or web address], support 07/05/2024 13:56:03 PM>, ReferralPoint: Patient Reviewed Link, kina, support 07/05/2024 13:56:04 PM>, ReferralPoint: Referral Recommendations Sent to Patient , DAVID KILLTYLER , [address] [place] [address], [facility], [address] , , , [place] MARYCRUZ Desire 07/10/2024 01:55:22 PM >Refaxed at the patient 's request Referral Priority Routine Reason pain Diagnosis 1 Neck pain (M54.2) Diagnosis 2 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) Diagnosis 3 Thoracic arthritis ( M46.84) Diagnosis 4 Thoracic abscess (J8 6.9) Diagnosis 5 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) Referral Organization [facility] Referring Provider First Name Shaheen Referring Provider Last Name Marita Referring Provider Speciality Internal edicine Referred Provider Specialty Physiatry Referral Priority Routine Reason toe pain Diagnosis 1 Toe pain (M79.676) Referral Organization [facility] Referring Provider First Name Shaheen Referring Provider Last Name Marita Referring Provider Speciality Internal M edicine Referred Provider Specialty Podiatry - S urgical Chiropody Referral Priority Routine Medications Medication SIG (Take, Route, Frequency, Duration) Notes Start Date End Date Status Lansoprazole 30 MG Oral for 90 Days Active Pregabalin 100 MG Oral for 30 Days Active Calcium Acetate (Phos Binder) 667 MG TAKE 1 TABLET BY MOUTH TWICE A DAY Oral for 90 Days Active Fenofibrate 54 MG Oral for 90 Days Active Methocarbamol 750 MG TAKE 1 TABLET BY MO UTH EVERY DAY AT NIGHT for 30 Active Atorvastatin Calcium 80 MG 1 tablet Oral ly Once a day for 90 days Active Levothyroxine Sodium 100 MCG TAKE 1 TABL ET BY MOUTH DAILY AND 2 TABS ON TUESDAY Oral for 90 Days Active [facility]S D3 25 MCG (1000 UT) TAKE 1 CAPSULE B Y MOUTH EVERY DAY Oral for 90 Days Active Jardiance 10 MG 1 tablet Orally Once a day for 90 days 06/06/2024 Active Nystatin 305451 UNIT/GM 1 APPL TOPICALLY DAILY FOR 30 DAYS External for 30 Days Active Acetaminophen ER 650 MG TAKE 1 TABLET BY MOUTH EVERY 8 HOURS NEEDED FOR PAIN FOR 30 DAYS Oral for 40 Days Active Famotidine 20 MG 20 MG ORALLY BEDTIME Oral for 90 Days Active Topiramate 25 MG TAKE 1 TABLET ORALLY 2 TIMES A DAY FOR 90 DAYS Oral for 90 Days Active Escitalopram Oxalate 10 MG 1 tablet Oral ly Once a day Active Albuterol Sulfate HFA 108 (90 Base) MCG/ACT TAKE 2 PUFFS (INHALATION) EVERY 6 HOURS (SHORTNESS OF BREATH OR WHEEZING) FOR 10 DAYS Inhalation for 20 Days Active CVS Gas Relief Ultra Strength 180 MG 180 MG ORALLY 4 TIMES A DAY FOR 30 DAYS AFTER MEALS Oral for 12 Days Active Social History Tobacco Use: Social History Observation Description Date Details (start date - stop date) Never Smoker NA - NA Tobacco Control (Standard) Question Answer Notes Tobacco use: Nonsmoker Problems Problem Type SNOMED Code ICD Code Onset Dates Problem Status W/U Status Risk Notes Problem Body mass index 30.00 to 34.99 (882074166399377) Body mass index (BMI) 31.0-31.9, adult (Z68.31) 025 Active confirmed Problem Body mass index 30.00 to 34.99 (920741271297234) Body mass index (BMI) 32.0-32.9, adult (Z68.32) 025 Active confirmed Problem Gastroesophageal reflux disease (774517189) GERD (gastroesophageal reflux disease) (K21.9) Active confirmed Problem Neck pain (88361097) Neck pain (M54.2) Active confirmed Problem Type II diabetes mellitus well controlled (034860327) Diabetes type 2, controlled (E11.9) Active confirmed Problem Hyperlipidaemia (47296230) Hyperlipidemia LDL goal <100 (E78.5) Active confirmed Problem Lumbago with sciatica (862012108) 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) Active confirmed Problem Thoracic arthritis (5353895) Thoracic arthritis (M46.84) Active confirmed Problem 64686490 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) Active confirmed Vital Signs Temperature 98.6 degrees Fahrenheit 07/27/2024 Respiratory Rate 16 /min 07/27/2024 Oximetry 98 % 07/27/2024 Blood pressure diastolic 66 mm Hg 07/27/2024 Height 61 in 07/27/2024 Blood pressure systolic 114 mm Hg 07/27/2024 Weight 171.2 lbs 07/27/2024 BMI 32.34 kg/m2 07/27/2024 Encounters Encounter Location [place] [address] 05/30/2024 Shaheen Kirkland [address] [address] 05/31/2024 Shaheen Kirkland [address] [address] 06/18/2024 Shaheen Kirkland [address] [address] 07/10/2024 Shaheen Kirkland [address] [address] 07/11/2024 Shaheen Kirkland Degeneration of intervertebral disc of cervicothoracic region M50.[address] [address] 07/25/2024 Shaheen Kirkland [address] [address] 06/06/2024 Shaheen Kirkland Diabetes type 2, controlled E11.9 ; Hyperlipidemia LDL goal <100 E78.5 ; Lumbosacral pain M54.50 ; Mid back pain M54.9 ; Neck pain M54.2 and Body mass index (BMI) 32.0-32.9, adult Z68.[address] [address] 07/03/2024 Sindi Sharp Degeneration of intervertebral disc of cervicothoracic region M50.33 ; Encounter for behavioral health screening Z13.30 and Body mass index (BMI) 31.0-31.9, adult Z68.31 [place] [address] 07/27/2024 Shaheen Kirkland Neck pain M54.2 ; Sciatica associated with disorder of lumbar spine M53.9 ; Degeneration of intervertebral disc of cervicothoracic region M50.33 ; Thoracic abscess J86.9 ; Thoracic arthritis M46.84 ; Toe pain M79.676 and Body mass index (BMI) 32.0-32.9, adult Z68.32 [place] [address] 05/24/2024 Shaheen Kirkland Screening for malign ant neoplasm Z12.9 ; Hyperlipidemia LDL goal <100 E78.5 ; Breast cancer screening Z12.31 and Body mass index (BMI) 32.0-32.9, adult Z68.32 [place] [address] 07/16/2024 Shaheen Kirkland Acute sinusitis J01. 90 ; Diabetes type 2, controlled E11.9 and Body mass index (BMI) 31.0-31.9, adult Z68.[address] [address] 07/23/2024 Shaheen Kirkland Diabetes type 2, controlled E11.9 ; Sciatica associated with disorder of lumbar spine M53.9 and Body mass index (BMI) 32.0-32.9, adult Z68.[address] [address] 05/31/2024 Sindi Sharp Encounter for behavioral health screening Z13.30 and Upper back pain M54.9 Assessments Encounter Date Diagnosis (ICD Code) Assessment Notes Treatment Notes Treatment Clinical Notes Section Notes 05/24/2024 Screening for malignant neoplasm (ICD-10 - Z12.9) 05/24/2024 Hyperlipidemia LDL goal <100 (ICD-10 - E78.5) 05/31/2024 Upper back pain (ICD-10 - M54.9) 05/31/2024 Encounter for behavioral health screening (ICD-10 - Z13.30) 06/06/2024 Diabetes type 2, controlled (ICD-10 - E11.9) 06/06/2024 Hyperlipidemia LDL goal <100 (ICD-10 - E78.5) 07/03/2024 Degeneration of intervertebral disc of cervicothoracic region (ICD-10 - M50.33) 07/11/2024 Degeneration of intervertebral disc of cervicothoracic region (ICD-10 - M50.33) 07/16/2024 Acute sinusitis (ICD-10 - J01.90) 07/23/2024 Diabetes type 2, controlled (ICD-10 - E11.9) 07/27/2024 Neck pain (ICD-10 - M54.2) 07/27/2024 Sciatica associated with disorder of lumbar spine (ICD-10 - M53.9) 07/16/2024 Diabetes type 2, controlled (ICD-10 - E11.9) 07/23/2024 Sciatica associated with disorder of lumbar spine (ICD-10 - M53.9) 07/27/2024 Degeneration of intervertebral disc of cervicothoracic region (ICD-10 - M50.33) 07/03/2024 Encounter for behavioral health screening (ICD-10 - Z13.30) 06/06/2024 Lumbosacral pain (ICD-10 - M54.50) 05/24/2024 Breast cancer screening (ICD-10 - Z12.31) 07/03/2024 Body mass index (BMI) 31.0-31.9, adult (ICD-10 - Z68.31) 06/06/2024 Mid back pain (ICD-10 - M54.9) 05/24/2024 Body mass index (BMI) 32.0-32.9, adult (ICD-10 - Z68.32) 07/23/2024 Body mass index (BMI) 32.0-32.9, adult (ICD-10 - Z68.32) 07/16/2024 Body mass index (BMI) 31.0-31.9, adult (ICD-10 - Z68.31) 07/27/2024 Thoracic abscess (ICD-10 - J86.9) 07/27/2024 Thoracic arthritis (ICD-10 - M46.84) 06/06/2024 Neck pain (ICD-10 - M54.2) 06/06/2024 Body mass index (BMI) 32.0-32.9, adult (ICD-10 - Z68.32) 07/27/2024 Toe pain (ICD-10 - M79.676) 07/27/2024 Body mass index (BMI) 32.0-32.9, adult (ICD-10 - Z68.32) Plan Of Treatment Pending Test Test Name Order Date Colonoscopy: Referral 05/24/2024 Mammography Screening with U/S for Dense Tissue If Needed 05/24/2024 Next Appt Details Provider Name:Shaheen Kirkland, 10/15/2024 10:00:00 AM, [address] [place] [address], [address], Insurance Providers Payer Name Payer Address Payer Phone Subscriber Number Group Number Insured Name Patient Relationship to Insured Coverage Start Date Coverage End Date [employer] Medicare Adv LUKE Arellano MD [address] [place] [address] [id number] Colon, Ximena Self - patient is the insured Medicaid [place] [address] [id number] Colon, Ximena Self - patient is the insured
--- OUTSIDE RECORDS SUMMARY | 2024-07-30 09:20 | XMS_ITS | Encounter Summary ---
Author Organization [employer] [facility] Address [address] [place] [address] Care Team Providers Care Greenhouse Worker Name Role Phone Davion Workman MD Primary Care Provider [phone] Name, Antwan ORTEGA Primary Care Provider Unavailabl Erum Morgan MD Primary Care Provider Foreign Boyd MD Primary Care Provider Unavailab Lorena Fuentes MD Primary Care Provider Racquel Cruz MD Primary Care Prov ider Counts Include [facility], Pcp Primary Care Provider Unavailabl e Encounter Details Date Type Department Care Team Description 02/11/2016 Hospital Medical Records [address] [place] [address] [place] [address] Social History Tobacco Use Types Packs/Day Years [...] on filedocumented in this encounter Care Teams Greenhouse Worker Relationship Specialty Start Date End Date Davion Workman MD [address] [place] [id number] PCP - General Internal Medicine 08/14/14 02/11/16 Eli, MD Antwan [address] [place], [place] [phone] PCP - General Internal Medicine 02/12/16 06/22/17 Erum Ibarra MD [address] [place] [address] PCP - General Internal Medicine 06/23/17 09/08/20 Foreign William MD [address] [place] [address] PCP - General Internal Medicine 09/09/20 12/04/20 Lorena Ortiz MD [address] [place] [address] PCP - General Internal Medicine 12/05/20 10/11/21 Racquel Cruz MD [address] [place] [address] PCP - General Internal Medicine 10/12/21 05/20/22 Counts Include [address] [facility], Pcp [address] [place], [place] [phone] PCP - General Internal Medicine 05/21/22 documented as of this encounter
--- OUTSIDE RECORDS SUMMARY | 2024-07-30 09:20 | XMS_ITS | Encounter Summary ---
Author Organization [facility] Address [address] [place] [address] Care Team Providers Care Tire Recapping Machine Operator Name Role Phone Davion Workman MD Primary Care Provider [phone] Lawson Ball MD Primary Care Provider Davion Workman MD Primary Care Provider [phone] Eli, Antwan ORTEGA Primary Care Provider Unavailabl Erum Morgan MD Primary Care Provider Unava Foreign Salinas MD Primary Care Provider Unavailab Lorena Fuentes MD Primary Care Provider Racquel Cruz MD Primary Care Prov ider [facility], Pcp Primary Care Provider Unavailabl e Encounter Details Date Type Department Care Team Description 05/21/2013 DOT Physical Forms Medical Records [address] [place] [address] Abstract, Provider Social History Tobacco Use Types [...] on filedocumented in this encounter Care Teams Tire Recapping Machine Operator Relationship Specialty Start Date End Date Davion Workman MD [address] [place] [address] PCP - General 11/23/05 03/05/14 Lawson Ball MD [address] [place] [address] PCP - General Internal Medicine 03/06/14 08/13/14 Davion Workman MD [address] [place] [address] PCP - General Internal Medicine 08/14/14 02/11/16 Antwan Benitez MD [address] [place], [place] [phone] PCP - General Internal Medicine 02/12/16 06/22/17 Erum Ibarra MD [address] [place] [address] PCP - General Internal Medicine 06/23/17 09/08/20 Foreign William MD [address] [place], [place] [phone] PCP - General Internal Medicine 09/09/20 12/04/20 Lorena Ortiz MD [address] [place] [address] PCP - General Internal Medicine 12/05/20 10/11/21 Racquel Cruz MD [address] [place] [address] PCP - General Internal Medicine 10/12/21 05/20/22 [facility], [facility], [place] [phone] PCP - General Internal Medicine 05/21/22 documented as of this encounter
--- OUTSIDE RECORDS SUMMARY | 2024-07-30 09:20 | XMS_ITS | Encounter Summary ---
Author Organization [employer] [facility] Address [address] [place] [address] Care Team Providers Care Switch Adjuster Name Role Phone Erum Ibarra MD Primary Care Provider Foreign Boyd MD Primary Care Provider Unavailab Lorena Fuentes MD Primary Care Provider [phone] Racquel Cruz MD Primary Care Prov ider [facility], Pcp Primary Care Provider Unavailabl e Reason for Visit * Reason Comments E-prescribe Rx Request Encounter Details Date Type Department Care Team Description 03/25/2018 Refill Adult Medicine [address] [address] Iraida Rivera PA-C [address] [place] [address] E-prescribe Rx Request Social History Tobacco Use [...] N/A Patients current insurance carrier is: Payor[facility] / Plan: [facility] / Product Type: HMO [id number] documented in this encounter Plan of Treatment Not on file documented as of this encounter Visit Diagnoses Not on filedocumented in this encounter Care Teams Switch Adjuster Relationship Specialty Start Date End Date Erum Ibarra MD PCP - General Internal Medicine 06/23/17 09/08/20 Foreign William MD PCP - General Internal Medicine 09/09/20 12/04/20 Lorena Ortiz MD [address] [place] [address] PCP - General Internal Medicine 12/05/20 10/11/21 Racquel Cruz MD [address] [place] [address] PCP - General Internal Medicine 10/12/21 05/20/22 Amelia Neville [address] [place] [address] PCP - General Internal Medicine 05/21/22 documented as of this encounter
--- OUTSIDE RECORDS SUMMARY | 2024-07-30 09:20 | XMS_ITS | Encounter Summary ---
Author Organization [facility] Address [address] [place] [address] Care Team Providers Care Recording Studio Intern Name Role Phone Davion Workman MD Primary Care Provider [phone] Antwan Benitez MD Primary Care Provider UnavailErum Umaña MD Primary Care Provider Foreign Boyd MD Primary Care Provider Unavailab Lorena Fuentes MD Primary Care Provider [phone] Racquel Cruz MD Primary Care Prov ider [facility], Pcp Primary Care Provider Unavailabl e Encounter Details Date Type Department Care Team Description 08/18/2015 Small Parts Assembler Report Medical Records [address] [place] [address] Guy Grijalva MD Social History Tobacco Use [...] on filedocumented in this encounter Care Teams Recording Studio Intern Relationship Specialty Start Date End Date Davion Workman MD [address] [place] [address] PCP - General Internal Medicine 08/14/14 02/11/16 NameAntwan MD [address] [place] [address] PCP - General Internal Medicine 02/12/16 06/22/17 Erum Ibarra MD [address] [place] [address] PCP - General Internal Medicine 06/23/17 09/08/20 Foreign William MD [address] [place] [address] PCP - General Internal Medicine 09/09/20 12/04/20 Lorena Ortiz MD [address] [place] [address] PCP - General Internal Medicine 12/05/20 10/11/21 Racquel Cruz MD [address] [place] [address] PCP - General Internal Medicine 10/12/21 05/20/22 [facility], Pcp [address] [place] [address] PCP - General Internal Medicine 05/21/22 documented as of this encounter
--- OUTSIDE RECORDS SUMMARY | 2024-07-30 09:20 | XMS_ITS | Clinical Summary ---
Author Organization Formerly [facility] Address [address] [place] [address] Care Team Providers Care Member Of Parliament Name Role Phone Shaheen Kirkland Primary Care Provider [phone] Active Problems Problem Noted Date Diagnosed Date Esophageal dysmotility 01/02/2022 Overview (06/26/2024): Mild noted on manometry study - [facility] records JERRY on CPAP 02/11/2020 Calcific tendinitis of left shoulder 08/28/2019 Chronic heel pain, right 07/05/2017 Overview (06/26/2024): R foot Xray - calcaneal spurs. Podiatry referral Fatty liver 07/05/2017 Migraine 07/05/2017 Overview (06/26/2024): Saw Neurology. Prednisone & Elavil Type 2 diabetes mellitus with obesity 07/05/2017 Constipation 06/04/2014 Tinea pedis 10/31/2013 Hypothyroid 02/20/2013 Hyperlipidemia 09/30/2009 IBS (irritable bowel syndrome) 06/19/2008 Overview (06/26/2024): Random colonic bx normal 2005. Family history of malignant neoplasm of gastrointestinal tract 01/21/2006 Overview (06/26/2024): Negative colonoscopy 02/22/2006, 06/02/2011, no colon cancer screening needed for 5 years. Depression with anxiety 12/08/2005 Heartburn 02/22/2005 Overview (06/26/2024): EGD normal 12.12.06. 48 hour ambulatory pH testing performed [facility] 05/04/2016 revealed normal amounts of acid exposure. Resolved Problems Problem Noted Date Diagnosed Date Resolved Date Vitamin D deficiency 10/14/2011 025 Encounters Date Type Department Care Team Description 07/11/2024 Orders Only [facility] [address] [place] [phone] Provider, MD Bj 07/05/2024 Transcribe Orders [facility] [address] [facility] [address] [place] [address] Shaheen Kirkland, DO Degeneration, intervertebral disc, cervicothoracic (Primary Dx) 07/03/2024 9:00 AM EDT Treatment [facility] [address] [place] [phone] System, Provider Not In Couture, Sindi, PT Upper back pain (Primary Dx); Mid back pain; Muscle weakness 07/03/2024 Travel 06/27/2024 11:30 AM EDT Evaluation [facility] [address] [place] [phone] System, Provider Not In Sindi Coreas, PT Upper back pain (Primary Dx); Mid back pain; Muscle weakness 06/27/2024 Plan of Care Documentation [facility] [address] [place] [phone] 06/26/2024 11:00 AM EDT Erroneous Encounter [facility] [address] [place] [address] Roger Pringle APRN ERRONEOUS ENCOUNTER--DISREGARD (Primary Dx) 06/26/2024 Travel 06/04/2024 Transcribe Orders [facility] [address] [place] [phone] Sindi Sharp PA-C Upper back pain (Primary Dx) 05/28/2024 Telephone [facility] [address] [place] [address] Anne Marie Garcia MA 05/24/2024 Transcribe Orders [facility] [address] [phone] Shaheen Kirkland DO Colon cancer screening (Primary Dx) from Last 3 Months Social History Tobacco Use Types Packs/Day Years Used Date Smoking Tobacco: Never Assessed PHQ-2 Answer Date Recorded PHQ-2 Total Score 4 06/26/2024 Comments Unknown Sex and Gender Information Value Date Recorded Sex Assigned at Not on file Legal Sex Female 12:09 PM EDT Gender Identity Not on file Sexual Orientation Not on file Plan of Treatment Upcoming Encounters Date Type Department Care Team ([facility] st Contact Info) Description 08/09/2024 10:00 AM EDT Consult [facility] [address] [phone] Shirley Thompson PA [address] [address] Health Maintenance Due Date Last Done Comments Hepatitis C Virus Screening 1967 Creatinine with GFR 1977 Foot Exam 1977 Hemoglobin A1C 1977 Lipid Panel 1977 Ophthalmology Exam 1977 HIV Screening 02/03/1980 Microalbumin/Creatinine Rati o Urine 1985 DTaP/Tdap/Td Vaccines (1 - Tdap) 1986 Hepatitis B Vaccines (1 of 3 - 19+ 3-dose series) 1986 Pneumococcal Vaccines 50+ (1 of 2 - PCV) 1986 Pap Smear (Ages 21-65) 02/03/1988 Mammogram 2007 Colonoscopy 02/03/2012 Zoster (Shingles) Vaccine (1 of 2) 2017 COVID-19 Vaccine (3 - 2023-2 5 season) 2023 10/08/2020, 08/25/2020 Influenza Vaccine 10/12/2024 04/01/2016, , 01/08/2016, Additional history exists Goals Goal Patient Goal Type Associated Problems Recent Progress Patient-Stated? Author PT LTG 1 Physical Therapy No Sindi Coreas PT Note: Target Date: 09/05/24 Pt will... Improve JAYSHREE to less than 40 to demonstrate improved functional activities Be able to lift 10lb chair to table with proper mechanics with pain less than 3/10 Be able to perform negative spotter including cooking and cleaning with pain less than 4/10 PT STG 1 Physical Therapy No Sindi Coreas PT Note: Target Date: 07/26/24 Pt will... Be independent with HEP 5x/wk to demonstrate therapeutic carry over between sessions and improved longer term outcomes. Reduce JAYSHREE to less than 60 to demonstrate improved functional activities Improve LE strength to 4/5 or better to improved functional activities Procedures Procedure Name Priority Date/Time Associated Diagnosis Comments XR THORACIC SPINE 2 VIEWS Routine 07/11/2024 9:06 AM EDT from Last 3 Months Results * XR Thoracic spine 2 views (07/11/2024 9:06 AM EDT) Anatomical Region Laterality Modality T-spine Computed Radiogr aphy External Provider MD [facility] KEIRA CORTES Final Result from Last 3 Months Insurance [facility] [employer] MGD MEDICARE Member Subscriber Plan / Payer (Ef fective 2024-Present) Name:Colon, Ximena Relation to Subscriber:Self Name:Josesito Mendenhalldes Payer ID:[id number] (NAIC) Type:Not on file Address: [place] [phone] Member Subscriber Plan / Payer (Ef fective 2024-Present) Name:ColonJosesitoXimena Relation to Subscriber:Self Name:Ximena Mendenhall Payer ID:[id number] (NAIC) Type:Not on file Address: [place] [address] [place] [address] [facility] MEDICARE Member Subscriber Plan / Payer (Ef fective 2024-Present) Name:ColonTaraXimena Relation to Subscriber:Self Name:ColonJosesitoXimena Payer ID:[id number] (NAIC) Type:Not on file Address: [place] [phone] Care Teams Member Of Parliament Relationship Specialty Start Date End Date Shaheen Kirkland DO [address] [place] [address] PCP - General Internal Medicine 06/27/24
--- OUTSIDE RECORDS SUMMARY | 2024-07-30 09:20 | XMS_ITS | Encounter Summary ---
Author Organization [facility] Address [address] [place] [address] Care Team Providers Care Borematic Operator Name Role Phone Davion Workman MD Primary Care Provider [phone] Name, Antwan ORTEGA Primary Care Provider Unavailabl Erum Morgan MD Primary Care Provider Foreign Boyd MD Primary Care Provider Unavailab Lorena Fuentes MD Primary Care Provider [phone] Racquel Cruz MD Primary Care Prov ider [facility], Pcp Primary Care Provider Unavailabl e Encounter Details Date Type Department Care Team Description 02/09/2016 Chief Contract Officer Report Medical Records [address] [place] [address] Bean Fuentes PA-C [address] [facility] [address] [place] [address] Social History Tobacco Use Types Packs/Day Years [...] on filedocumented in this encounter Care Teams Borematic Operator Relationship Specialty Start Date End Date Davion Workman MD [address] [place] [address] [phone] PCP - General Internal Medicine 08/14/14 02/11/16 Antwan Benitez MD [address] [place], [place] [phone] PCP - General Internal Medicine 02/12/16 06/22/17 Erum Ibarra MD [address] [place] [address] PCP - General Internal Medicine 06/23/17 09/08/20 Foreign William MD [address] [place], [place] [phone] PCP - General Internal Medicine 09/09/20 12/04/20 Lorena Ortiz MD [address] [place] [address] PCP - General Internal Medicine 12/05/20 10/11/21 Racquel Cruz MD [address] [place] [address] PCP - General Internal Medicine 10/12/21 05/20/22 [facility], Pcp [address] [place], [place] [phone] PCP - General Internal Medicine 05/21/22 documented as of this encounter
--- OUTSIDE RECORDS SUMMARY | 2024-07-30 09:20 | XMS_ITS | Encounter Summary ---
Author Organization [facility] Address [address] [place] [address] Care Team Providers Care Respiratory Clinician Name Role Phone Lorena Ortiz MD Primary Care Provider [phone] Racquel Cruz MD Primary Care Prov ider [facility], Pcp Primary Care Provider Unavailabl e Encounter Details Date Type Department Care Team Description 03/04/2021 Refill Adult Medicine [address] [address] Gena Nicolas, [place] Social History Tobacco Use [...] on filedocumented in this encounter Care Teams Respiratory Clinician Relationship Specialty Start Date End Date Lorena Ortiz MD [address] [place] [address] PCP - General Internal Medicine 12/05/20 10/11/21 Racquel Cruz MD [address] [place] [address] PCP - General Internal Medicine 10/12/21 05/20/22 [facility], [address] [address] PCP - General Internal Medicine 05/21/22 documented as of this encounter
--- OUTSIDE RECORDS SUMMARY | 2024-07-30 09:20 | XMS_ITS | Encounter Summary ---
Author Organization [employer] [facility] Address [address] [place] [address] Care Team Providers Care Manager Brand Name Role Phone Davion Workman MD Primary Care Provider [phone] Lawson Ball MD Primary Care Provider [phone] Davion Workman MD Primary Care Provider [phone] Eli, Antwan ORTEGA Primary Care Provider Unavailabl Erum Morgan MD Primary Care Provider Unava Foreign Salinas MD Primary Care Provider Unavailab Lorena Fuentes MD Primary Care Provider [phone] Racquel Cruz MD Primary Care Prov ider [facility], Pcp Primary Care Provider Unavailabl e Encounter Details Date Type Department Care Team Description 09/01/2013 Orders Only Adult Medicine [address] [phone] Davion Workman MD [address] [place] [address] [phone] Social History Tobacco Use Types Packs/Day Years [...] on filedocumented in this encounter Care Teams Manager Brand Relationship Specialty Start Date End Date Davion Workman MD [address] [place] [address] PCP - General 11/23/05 03/05/14 Lawson Ball MD [address] [place] [address] PCP - General Internal Medicine 03/06/14 08/13/14 Davion Workman MD [address] [place] [address] PCP - General Internal Medicine 08/14/14 02/11/16 Antwan Benitez MD [address] [place] [address] PCP - General Internal Medicine 02/12/16 06/22/17 Erum Ibarra MD [address] [place] [address] PCP - General Internal Medicine 06/23/17 09/08/20 Foreign William MD [address] [place] [address] PCP - General Internal Medicine 09/09/20 12/04/20 Lorena Ortiz MD [address] [place] [address] PCP - General Internal Medicine 12/05/20 10/11/21 Racquel Cruz MD [address] [place] [address] PCP - General Internal Medicine 10/12/21 05/20/22 [facility], Pcp [address] [place] [address] PCP - General Internal Medicine 05/21/22 documented as of this encounter
--- OUTSIDE RECORDS SUMMARY | 2024-07-30 09:20 | XMS_ITS | Encounter Summary ---
Author Organization [employer] [facility] Address [address] [place] [address] Care Team Providers Care Flexographic Printing Machinist Name Role Phone Davion Workman MD Primary Care Provider [phone] Antwan Benitez MD Primary Care Provider UnavailErum Umaña MD Primary Care Provider Foreign Boyd MD Primary Care Provider Unavailab Lorena Fuentes MD Primary Care Provider [phone] Racquel Cruz MD Primary Care Prov ider [facility], Pcp Primary Care Provider Unavailabl e Encounter Details Date Type Department Care Team Description 06/11/2015 Therapeutic Massage Technician Report Medical Records [address] [place] [address] Regulo Benson Social History Tobacco Use Types [...] on filedocumented in this encounter Care Teams Flexographic Printing Machinist Relationship Specialty Start Date End Date Davion Workman MD [address] [place] [address] PCP - General Internal Medicine 08/14/14 02/11/16 Antwan Benitez MD [address] [place] [address] PCP - General Internal Medicine 02/12/16 06/22/17 Erum Ibarra MD [address] [place] [address] PCP - General Internal Medicine 06/23/17 09/08/20 Foreign William MD [address] [place] [address] PCP - General Internal Medicine 09/09/20 12/04/20 Lorena Ortiz MD [address] [place] [address] PCP - General Internal Medicine 12/05/20 10/11/21 Racquel Cruz MD [address] [place] [address] PCP - General Internal Medicine 10/12/21 05/20/22 [facility], Pcp [address] [place] [address] PCP - General Internal Medicine 05/21/22 documented as of this encounter
--- OUTSIDE RECORDS SUMMARY | 2024-07-30 09:20 | XMS_ITS | Encounter Summary ---
Author Organization [employer] [facility] Address [address] [place] [address] Care Team Providers Care Title One Reading Teacher Name Role Phone Davion Workman MD Primary Care Provider [phone] Lawson Ball MD Primary Care Provider [phone] Davion Workman MD Primary Care Provider [phone] Eli, Antwan ORTEGA Primary Care Provider Unavailabl Erum Morgan MD Primary Care Provider Unava Foreign Salinas MD Primary Care Provider Unavailab Lorena Fuentes MD Primary Care Provider Racquel Cruz MD Primary Care Prov ider [facility], Pcp Primary Care Provider Unavailabl e Reason for Visit * Reason Onset Date Comments Prior Authorization 06/21/2012 prevacid Encounter Details Date Type Department Care Team Description 06/21/2012 Telephone Adult Medicine [address] [phone] Davion Workman MD [address] [place] [address] [phone] Prior Authorization (prevacid) Social History Tobacco Use Types Packs/Day Years [...] encounter Miscellaneous Notes * Telephone Encounter - Agnieszka Ross L.P.N. - 06/21/2012 5:15 PM EDT Prior auth faxed to [employer] @ @ 5:10PM for Prevacid 30mg caps. One cap po twice daily. * Telephone Encounter - Elaine Marie M.A. - 06/21/2012 3:02 PM EDT Sending to [facility]astro, original provider was . Yaquelin only filled it today because the pt saw her today and needed a refill. * Telephone Encounter - Charla Wei - 06/21/2012 2:56 PM EDT What is the name of the medication patient is having a problem with?: prevacid What is the problem?: pt needs prior auth for 90 days, for 2 times a day, as her insurance only cover it for 1 tab per day for 30 days, pt was given meds for 1 tab for 30 days, as pt stated she really needs this med Is the patient calling about the problem? NO If the patient is not the caller who is? [facility] Is this a NEW medication?: NO How long has the patient been taking this medication? months Who prescribed this medication for the patient? Yaquelin Christianson Who is patients PCP?: Davion Workman MD [place] Plan[place] Product Type: MEDICARE [id number] documented in this encounter Plan of Treatment Not on file documented as of this encounter Visit Diagnoses Not on filedocumented in this encounter Care Teams Title One Reading Teacher Relationship Specialty Start Date End Date Davion Workman MD [address] [place] [address] PCP - General 11/23/05 03/05/14 Lawson Ball MD [address] [place] [address] PCP - General Internal Medicine 03/06/14 08/13/14 Davion Workman MD [address] [place] [address] PCP - General Internal Medicine 08/14/14 02/11/16 Antwan Benitez MD [address] [place], [place] [phone] PCP - General Internal Medicine 02/12/16 06/22/17 Erum Ibarra MD [address] [place], [place] [phone] PCP - General Internal Medicine 06/23/17 09/08/20 Foreign William MD [address] [place] [address] PCP - General Internal Medicine 09/09/20 12/04/20 Lorena Ortiz MD [address] [place] [address] PCP - General Internal Medicine 12/05/20 10/11/21 Racquel Cruz MD [address] [place] [address] PCP - General Internal Medicine 10/12/21 05/20/22 [facility], Pcp [address] [place], [place] [phone] PCP - General Internal Medicine 05/21/22 documented as of this encounter
--- OUTSIDE RECORDS SUMMARY | 2024-07-30 09:20 | XMS_ITS | Encounter Summary ---
Author Organization [facility] Address [address] [place] [address] Care Team Providers Care Corrections Corporal Name Role Phone Davion Workman MD Primary Care Provider [phone] Lawson Ball MD Primary Care Provider Davion Workman MD Primary Care Provider [phone] Eli, Antwan ORTEGA Primary Care Provider Unavailabl Erum Morgan MD Primary Care Provider Unava Foreign Salinas MD Primary Care Provider Unavailab Lorena Fuentes MD Primary Care Provider [phone] Racquel Cruz MD Primary Care Prov ider [facility], Pcp Primary Care Provider Unavailabl e Encounter Details Date Type Department Care Team Description 10/15/2011 Orders Only Adult Medicine [address] [phone] Davion Workman MD [address] [place] [address] [phone] Social History Tobacco Use Types Packs/Day Years [...] on filedocumented in this encounter Care Teams Corrections Corporal Relationship Specialty Start Date End Date Davion Workman MD [address] [place] [address] PCP - General 11/23/05 03/05/14 Lawson Ball MD [address] [place] [address] PCP - General Internal Medicine 03/06/14 08/13/14 Davion Workman MD [address] [place] [address] PCP - General Internal Medicine 08/14/14 02/11/16 Antwan Benitez MD [address] [place] [address] PCP - General Internal Medicine 02/12/16 06/22/17 Erum Ibarra MD [address] [place] [address] PCP - General Internal Medicine 06/23/17 09/08/20 Foreign William MD [address] [place] [address] PCP - General Internal Medicine 09/09/20 12/04/20 Lorena Ortiz MD [address] [place] [address] PCP - General Internal Medicine 12/05/20 10/11/21 Racquel Cruz MD [address] [place] [address] PCP - General Internal Medicine 10/12/21 05/20/22 [facility], Pcp [address] [place] [address] PCP - General Internal Medicine 05/21/22 documented as of this encounter
--- OUTSIDE RECORDS SUMMARY | 2024-07-30 09:20 | XMS_ITS | Encounter Summary ---
Author Organization [employer] [facility] Address [address] [place] [address] Care Team Providers Care School Psychometrist Name Role Phone Davion Workman MD Primary Care Provider [phone] Antwan Benitez MD Primary Care Provider UnavailErum Umaña MD Primary Care Provider Foreign Boyd MD Primary Care Provider Unavailab Lorena Fuentes MD Primary Care Provider [phone] Racquel Cruz MD Primary Care Prov ider [facility], Pcp Primary Care Provider Unavailabl e Encounter Details Date Type Department Care Team Description 04/21/2015 [facility] Medical Records [address] [place] [address] Luis Browne Social History Tobacco Use Types [...] on filedocumented in this encounter Care Teams School Psychometrist Relationship Specialty Start Date End Date Davion Workman MD [address] [place] [address] PCP - General Internal Medicine 08/14/14 02/11/16 Antwan Benitez MD [address] [place] [address] PCP - General Internal Medicine 02/12/16 06/22/17 Erum Ibarra MD [address] [place] [address] PCP - General Internal Medicine 06/23/17 09/08/20 Foreign William MD [address] [place] [address] PCP - General Internal Medicine 09/09/20 12/04/20 Lorena Ortiz MD [address] [place] [address] PCP - General Internal Medicine 12/05/20 10/11/21 Racquel Cruz MD [address] [place] [address] PCP - General Internal Medicine 10/12/21 05/20/22 [facility], Pcp [address] [place] [address] PCP - General Internal Medicine 05/21/22 documented as of this encounter
--- OUTSIDE RECORDS SUMMARY | 2024-07-30 09:20 | XMS_ITS | Encounter Summary ---
Author Organization [facility] Address [address] [place] [address] Care Team Providers Care Plant Technician Name Role Phone Davion Workman MD Primary Care Provider [phone] Lawson Ball MD Primary Care Provider [phone] Davion Workman MD Primary Care Provider [phone] Eli, Antwan ORTEGA Primary Care Provider Unavailabl Erum Morgan MD Primary Care Provider Unava Foreign Salinas MD Primary Care Provider Unavailab Lorena Fuentes MD Primary Care Provider [phone] Racquel Cruz MD Primary Care Prov ider [facility], Pcp Primary Care Provider Unavailabl e Encounter Details Date Type Department Care Team Description 07/13/2012 Fruit And Vegetable Classer Report Medical Records [address] [place] [address] Efren Delarosa Social History Tobacco Use Types Packs/Day Years [...] on filedocumented in this encounter Care Teams Plant Technician Relationship Specialty Start Date End Date Davion Workman MD [address] [place] [address] PCP - General 11/23/05 03/05/14 Lawson Ball MD [address] [place] [address] PCP - General Internal Medicine 03/06/14 08/13/14 Davion Workman MD [address] [place] [address] PCP - General Internal Medicine 08/14/14 02/11/16 Antwan Benitez MD [address] [place], [place] [phone] PCP - General Internal Medicine 02/12/16 06/22/17 Erum Ibarra MD [address] [place] [address] PCP - General Internal Medicine 06/23/17 09/08/20 Foreign William MD [address] [place], [place] [phone] PCP - General Internal Medicine 09/09/20 12/04/20 Lorena Ortiz MD [address] [place] [address] PCP - General Internal Medicine 12/05/20 10/11/21 Racquel Cruz MD [address] [place] [address] PCP - General Internal Medicine 10/12/21 05/20/22 [facility], [place] [phone] PCP - General Internal Medicine 05/21/22 documented as of this encounter
--- OUTSIDE RECORDS SUMMARY | 2024-07-30 09:20 | XMS_ITS | Encounter Summary ---
Author Organization [email or web address] [facility] Address [address] [place] [address] Care Team Providers Care Mail Weigher Name Role Phone Davion Workman MD Primary Care Provider [phone] Lawson Ball MD Primary Care Provider [phone] Davion Workman MD Primary Care Provider [phone] Name, Antwan ORTEGA Primary Care Provider Unavailabl Erum Morgan MD Primary Care Provider Unava Foreign Salinas MD Primary Care Provider Unavailab Lorena Fuentes MD Primary Care Provider [phone] Racquel Cruz MD Primary Care Prov ider [facility], Pcp Primary Care Provider Unavailabl e Encounter Details Date Type Department Care Team Description 08/15/2013 Business Doc Medical Records [address] [place] [id number] Abstract, Provider Social History Tobacco Use Types [...] on filedocumented in this encounter Care Teams Mail Weigher Relationship Specialty Start Date End Date Davion Workman MD [address] [place] [address] PCP - General 11/23/05 03/05/14 Lawson Ball MD [address] [place] [address] 00652 PCP - General Internal Medicine 03/06/14 08/13/14 Davion Workman MD [address] [place] [address] 50495 PCP - General Internal Medicine 08/14/14 02/11/16 Antwan Benitez MD [address] [place] [address] 8[address] PCP - General Internal Medicine 02/12/16 06/22/17 Erum Ibarra MD [address] [place], [place] [phone] PCP - General Internal Medicine 06/23/17 09/08/20 Foreign William MD [address] [place] [address] 00182 PCP - General Internal Medicine 09/09/20 12/04/20 Lorena Ortiz MD [address] [place] [address]56 PCP - General Internal Medicine 12/05/20 10/11/21 Racquel Cruz MD [address] [place] [address] PCP - General Internal Medicine 10/12/21 05/20/22 [facility], [address] [address] PCP - General Internal Medicine 05/21/22 documented as of this encounter
--- OUTSIDE RECORDS SUMMARY | 2024-07-30 09:21 | XMS_ITS | Encounter Summary ---
Author Organization [employer] [facility] Address [address] [place] [address] Care Team Providers Care Tipping Machine Operator Automatic Name Role Phone Foreign William MD Primary Care Provider Unavailab Lorena Fuentes MD Primary Care Provider [phone] Racquel Cruz MD Primary Care Prov ider [facility], Pcp Primary Care Provider Unavailabl e Encounter Details Date Type Department Care Team Description 10/13/2020 Refill Adult Medicine [address] [id number] Paula Isaac PA [address] [place] [address] [id number] Social History Tobacco Use Types Packs/Day Years [...] Telephone Encounter - Cecelia Cote M.A. - 10/13/2020 8:09 AM EDT Raul msg sent pt needs appt with new pcp 30 day supply pending med f/u appt documented in this encounter Plan of Treatment Not on file documented as of this encounter Visit Diagnoses Not on filedocumented in this encounter Care Teams Tipping Machine Operator Automatic Relationship Specialty Start Date End Date Foreign William MD PCP - General Internal Medicine 09/09/20 12/04/20 Lorena Ortiz MD [address] [place] [address] PCP - General Internal Medicine 12/05/20 10/11/21 Racquel Cruz MD [address] [place] [address] PCP - General Internal Medicine 10/12/21 05/20/22 [facility], [address] [address] PCP - General Internal Medicine 05/21/22 documented as of this encounter
--- OUTSIDE RECORDS SUMMARY | 2024-07-30 09:21 | XMS_ITS | Encounter Summary ---
Author Organization [employer] [facility] Address [address] [place] [address] Care Team Providers Care Adjunct Writing Instructor Name Role Phone Davion Workman MD Primary Care Provider [phone] Lawson Ball MD Primary Care Provider Davion Workamn MD Primary Care Provider [phone] Eli, Antwan ORTEGA Primary Care Provider Unavailabl Erum Morgan MD Primary Care Provider Unava Foreign Salinas MD Primary Care Provider Unavailab Lorena Fuentes MD Primary Care Provider [phone] Racquel Cruz MD Primary Care Prov ider [facility], Pcp Primary Care Provider Unavailabl e Reason for Visit * Reason Onset Date Comments Testing 09/18/2010 Request for Auth orization Encounter Details Date Type Department Care Team Description 09/18/2010 Telephone Adult Medicine [address] [phone] Davion Workman MD [address] [place] [address] [phone] Testing (Request for Authorization) Social History Tobacco Use Types Packs/Day Years [...] Telephone Encounter - Davion Workman MD - 09/18/2010 9:15 AM EDT Well order exercise stress * Telephone Encounter - Chinyere Walls - 09/18/2010 8:42 AM EDT Your request for auth for nuclear stress test was reviewed at [employer] and was denied. They recommend exercise stress test prior to nuclear testing. You may call [phone] use option # 3 and refer to case # [id number] to discuss this decision. Thanks documented in this encounter Plan of Treatment Not on file documented as of this encounter Visit Diagnoses Diagnosis Chest pain- Primary Chest pain, unspecified documented in this encounter Care Teams Adjunct Writing Instructor Relationship Specialty Start Date End Date Davion Workman MD [address] [place] [address] PCP - General 11/23/05 03/05/14 Lawson Ball MD [address] [place] [address] PCP - General Internal Medicine 03/06/14 08/13/14 Davion Workman MD [address] [place] [address] PCP - General Internal Medicine 08/14/14 02/11/16 Antwan Benitez MD [address] [place] [address] PCP - General Internal Medicine 02/12/16 06/22/17 Erum Ibarra MD [address] [place] [address] PCP - General Internal Medicine 06/23/17 09/08/20 Foreign William MD [address] [place] [address] PCP - General Internal Medicine 09/09/20 12/04/20 Lorena Ortiz MD [address] [place], [place] [phone] PCP - General Internal Medicine 12/05/20 10/11/21 Racquel Cruz MD [address] [place] [address] PCP - General Internal Medicine 10/12/21 05/20/22 [facility], Pcp [address] [place] [address] PCP - General Internal Medicine 05/21/22 documented as of this encounter
--- OUTSIDE RECORDS SUMMARY | 2024-07-30 09:21 | XMS_ITS | Encounter Summary ---
Author Organization [employer] [facility] Address [address] [place] [address] Care Team Providers Care Voltmeter Operator Name Role Phone Lawson Ball MD Primary Care Provider [phone] Davion Workman MD Primary Care Provider [phone] Name, Antwan ORTEGA Primary Care Provider UnavailErum Umaña MD Primary Care Provider Foreign Boyd MD Primary Care Provider Unavailab Lorena Fuentes MD Primary Care Provider [phone] Racquel Cruz MD Primary Care Prov ider [facility], Pcp Primary Care Provider Unavailabl e Encounter Details Date Type Department Care Team Description 06/21/2014 Hospital Medical Records [address] [place] [address] Bakari Ledesma Social History Tobacco Use Types [...] on filedocumented in this encounter Care Teams Voltmeter Operator Relationship Specialty Start Date End Date Lawson Ball MD [address] [place] [address] [phone] PCP - General Internal Medicine 03/06/14 08/13/14 Davion Workman MD [address] [place] [address] PCP - General Internal Medicine 08/14/14 02/11/16 Antwan Benitez MD [address] [place] [address] PCP - General Internal Medicine 02/12/16 06/22/17 Erum Ibarra MD [address] [place], [place] [phone] PCP - General Internal Medicine 06/23/17 09/08/20 Foreign William MD [address] [place], [place] [phone] PCP - General Internal Medicine 09/09/20 12/04/20 Lorena Ortiz MD [address] [place] [address] PCP - General Internal Medicine 12/05/20 10/11/21 Racquel Cruz MD [address] [place] [address] PCP - General Internal Medicine 10/12/21 05/20/22 [facility], Pcp [address] [place] [address] PCP - General Internal Medicine 05/21/22 documented as of this encounter
--- OUTSIDE RECORDS SUMMARY | 2024-07-30 09:21 | XMS_ITS | Encounter Summary ---
Author Organization [employer] [facility] Address [address] [place] [address] Care Team Providers Care Skin Piler Name Role Phone Davion Workman MD Primary Care Provider [phone] Lawson Ball MD Primary Care Provider [phone] Davion Workman MD Primary Care Provider [phone] Eli, Antwan ORTEGA Primary Care Provider Unavailabl Erum Morgan MD Primary Care Provider Unava Foreign Salinas MD Primary Care Provider Unavailab Lorena Fuentes MD Primary Care Provider Racquel Cruz MD Primary Care Prov ider [facility], Pcp Primary Care Provider Unavailabl e Reason for Visit * Reason Onset Date Comments E-prescribe Rx Request 08/02/2010 Encounter Details Date Type Department Care Team Description 08/02/2010 Refill Gastroenterology - [address] [address] Efren Pat MD E-prescribe Rx Request Social History Tobacco [...] encounter Miscellaneous Notes * Telephone Encounter - Rocio Salazar - 08/07/2010 10:05 AM EDT Called patient and she also has multiple issues so i triaged this call and she should have appointment soon. * Telephone Encounter - Helen Emmanuel Lpn - 08/07/2010 8:32 AM EDT Pt hasn't seen pcp since 2008, please schedule appt.thanks * Telephone Encounter - Misty Carlos - 08/03/2010 9:21 AM EDT pls triage first. * Telephone Encounter - Clover Low - 08/03/2010 8:15 AM EDT Patient has not been seen by Dr Pat in 2 years. Please ask PCP to review and fill if appropriate. documented in this encounter Plan of Treatment Not on file documented as of this encounter Visit Diagnoses Not on filedocumented in this encounter Care Teams Skin Piler Relationship Specialty Start Date End Date Davion Workman MD [address] [place] [address] PCP - General 11/23/05 03/05/14 Lawson Ball MD [address] [place] [address] PCP - General Internal Medicine 03/06/14 08/13/14 Davion Workman MD [address] [place] [address] PCP - General Internal Medicine 08/14/14 02/11/16 Antwan Benitez MD [address] [place] [address] PCP - General Internal Medicine 02/12/16 06/22/17 Erum Ibarra MD [address] [place] [address] PCP - General Internal Medicine 06/23/17 09/08/20 Foreign William MD [address] [place], [place] [phone] PCP - General Internal Medicine 09/09/20 12/04/20 Lorena Ortiz MD [address] [place] [address] PCP - General Internal Medicine 12/05/20 10/11/21 Racquel Cruz MD [address] [place] [address] PCP - General Internal Medicine 10/12/21 05/20/22 [facility], Pcp [address] [place], [place] [phone] PCP - General Internal Medicine 05/21/22 documented as of this encounter
--- OUTSIDE RECORDS SUMMARY | 2024-07-30 09:21 | XMS_ITS ---
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) Referral Organization [facility] Referring Provider First Name Shaheen Referring Provider Last Name Marita Referring Provider Speciality Internal M edicine Referred Provider Specialty Physiatry Referral Priority Routine Reason toe pain Diagnosis 1 Toe pain (M79.676) Referral Organization [facility] Referring Provider First Name Shaheen Referring Provider Last Name Marita Referring Provider Speciality Internal M edicine Referred Provider Specialty Podiatry - S urgical Chiropody Referral Priority Routine REASON FOR VISIT needs pain management referral-YR Medications Medication SIG (Take, Route, Frequency, Duration) Notes Start Date End Date Status Calcium Acetate (Phos Binder) 667 MG TAKE 1 TABLET BY MOUTH TWICE A DAY Oral for 90 Days Active Atorvastatin Calcium 80 MG 1 tablet Oral ly Once a day for 90 days Active Famotidine 20 MG 20 MG ORALLY BEDTIME Oral for 90 Days Active Albuterol Sulfate HFA 108 (90 Base) MCG/ACT TAKE 2 PUFFS (INHALATION) EVERY 6 HOURS (SHORTNESS OF BREATH OR WHEEZING) FOR 10 DAYS Inhalation for 20 Days Active [facility] Gas Relief Ultra Strength 180 MG 180 MG ORALLY 4 TIMES A DAY FOR 30 DAYS AFTER MEALS Oral for 12 Days Active Levothyroxine Sodium 100 MCG TAKE 1 TABL ET BY MOUTH DAILY AND 2 TABS ON TUESDAY Oral for 90 Days Active [facility]S D3 25 MCG (1000 UT) TAKE 1 CAPSULE B Y MOUTH EVERY DAY Oral for 90 Days Active Nystatin 122002 UNIT/GM 1 APPL TOPICALLY DAILY FOR 30 DAYS External for 30 Days Active Acetaminophen ER 650 MG TAKE 1 TABLET BY MOUTH EVERY 8 HOURS NEEDED FOR PAIN FOR 30 DAYS Oral for 40 Days Active Topiramate 25 MG TAKE 1 TABLET ORALLY 2 TIMES A DAY FOR 90 DAYS Oral for 90 Days Active Lansoprazole 30 MG Oral for 90 Days Active Pregabalin 100 MG Oral for 30 Days Active Fenofibrate 54 MG Oral for 90 Days Active Jardiance 10 MG 1 tablet Orally Once a day for 90 days 06/06/2024 Active Escitalopram Oxalate 10 MG 1 tablet Oral ly Once a day Active Methocarbamol 750 MG TAKE 1 TABLET BY MO UTH EVERY DAY AT NIGHT for 30 Active Social History Tobacco Use: Social History Observation Description Date Details (start date - stop date) Never Smoker NA - NA Tobacco Control (Standard) Question Answer Notes Tobacco use: Nonsmoker Problems Problem Type SNOMED Code ICD Code Onset Dates Problem Status W/U Status Risk Notes Problem Thoracic arthritis (6724886) Thoracic arthritis (M46.84) Active confirmed Vital Signs Temperature 98.6 degrees Fahrenheit 07/28/19 25 Height 61 in 07/27/2024 Weight 171.2 lbs 07/27/2024 BMI 32.34 kg/m2 07/27/2024 Blood pressure systolic 114 mm Hg 07/28/19 25 Blood pressure diastolic 66 mm Hg 025 Respiratory Rate 16 /min 07/27/2024 Oximetry 98 % 07/27/2024 Encounters Encounter Location Date Provider Diagnosis [address] [address] 07/27/2024 Shaheen Gitman Neck pain M54.2 ; Sciatica associated with disorder of lumbar spine M53.9 ; Degeneration of intervertebral disc of cervicothoracic region M50.33 ; Thoracic abscess J86.9 ; Thoracic arthritis M46.84 ; Toe pain M79.676 and Body mass index (BMI) 32.0-32.9, adult Z68.32 Assessments Encounter Date Diagnosis (ICD Code) Assessment Notes Treatment Notes Treatment Clinical Notes Section Notes 07/27/2024 Neck pain (ICD-10 - M54.2) 07/27/2024 Sciatica associated with disorder of lumbar spine (ICD-10 - M53.9) 07/27/2024 Degeneration of intervertebral disc of cervicothoracic region (ICD-10 - M50.33) 07/27/2024 Thoracic abscess (ICD-10 - J86.9) 07/27/2024 Thoracic arthritis (ICD-10 - M46.84) 07/27/2024 Toe pain (ICD-10 - M79.676) 07/27/2024 Body mass index (BMI) 32.0-32.9, adult (ICD-10 - Z68.32) Plan Of Treatment Referrals Referral Date Details 07/27/2024 07/27/2024, pain 07/27/2024 07/27/2024, toe pain Next Appt Details Follow Up: 4 Weeks, Reason: Provider Name:Shaheen Kirkland, 10/15/2024 10:00:00 AM, [address] [place] [address], Progress Notes * Ximena MENDENHALLDOB:1965 (59 yo F)Acc No.[id number]:07/27/2024 Progress Notes Patient:?Ximena MENDENHALL Provider:?Shaheen Kirkland DO :1965???Age:59 Y???Sex:Female D ate:07/27/2024 External Visit ID:[id number] Address:[address] [place] [address] Check In:11:05 AM EST Subjective: * Chief Complaints: * ???needs pain management ref erral-YR * HPI: ???General:? Patient complains about toe pain, most likely corn versus arthritis, patient was seen by surgeon who advised that patient should be referred to a regional transfer liaison for injection. * ROS:?General ROS:?General?No complaints.?Respiratory?No Shortness of Breath, No Cough.?Cardiovascular?No: Chest Pain.?GI/?No: , Abdominal pain, .?Neurology?No focal complaints, No encephalopathic complaints.? * Medical History:? * Surgical History:? * Hospitalization/Major Diagno stic Procedure:? * Social History:?Language Spoken?Language Spoken?Botswanan 05/31/2024 ES somali as well ???How do you like To Learn?:?Verbal 05/31/2024 ES ???Patient's perception of literacy?I read well in:?Botswanan 05/31/2024 ES also in somali ???Health Literacy?How confident are you filling out medical forms by yourself??1 Extremely 05/31/2024 ES ???Tobacco Control (Standard)?Tobacco use:?Nonsmoker * Medications:?TakingEscitalop demarcus Oxalate 10 MG Tablet 1 tablet Orally Once a day Pregabalin 100 MG Capsule Oral Lansoprazole 30 MG Capsule Delayed Release Oral Fenofibrate 54 MG Tablet Oral CVS D3 25 MCG (1000 UT) Capsule TAKE 1 CAPSULE BY MOUTH EVERY DAY Oral Levothyroxine Sodium 100 MCG Tablet TAKE 1 TABLET BY MOUTH DAILY AND 2 TABS ON TUESDAY Oral Acetaminophen ER 650 MG Tablet Extended Release TAKE 1 TABLET BY MOUTH EVERY 8 HOURS NEEDED FOR PAIN FOR 30 DAYS Oral Nystatin 583137 UNIT/GM Cream 1 APPL TOPICALLY DAILY FOR 30 DAYS External Topiramate 25 MG Tablet TAKE 1 TABLET ORALLY 2 TIMES A DAY FOR 90 DAYS Oral Famotidine 20 MG Tablet 20 MG ORALLY BEDTIME Oral CVS Gas Relief Ultra Strength 180 MG Capsule 180 MG ORALLY 4 TIMES A DAY FOR 30 DAYS AFTER MEALS Oral Albuterol Sulfate HFA 108 (90 Base) MCG/ACT Aerosol Solution TAKE 2 PUFFS (INHALATION) EVERY 6 HOURS (SHORTNESS OF BREATH OR WHEEZING) FOR 10 DAYS Inhalation Calcium Acetate (Phos Binder) 667 MG Tablet TAKE 1 TABLET BY MOUTH TWICE A DAY Oral Atorvastatin Calcium 80 MG Tablet 1 tablet Orally Once a day Methocarbamol 750 MG Tablet TAKE 1 TABLET BY MOUTH EVERY DAY AT NIGHT Jardiance 10 MG Tablet 1 tablet Orally Once a day Medication List reviewed and reconciled with the patientTaking Escitalopram Oxalate 10 MG Tablet 1 tablet Orally Once a day Taking Pregabalin 100 MG Capsule Oral Taking Lansoprazole 30 MG Capsule Delayed Release Oral Taking Fenofibrate 54 MG Tablet Oral Taking CVS D3 25 MCG (1000 UT) Capsule TAKE 1 CAPSULE BY MOUTH EVERY DAY Oral Taking Levothyroxine Sodium 100 MCG Tablet TAKE 1 TABLET BY MOUTH DAILY AND 2 TABS ON TUESDAY Oral Taking Acetaminophen ER 650 MG Tablet Extended Release TAKE 1 TABLET BY MOUTH EVERY 8 HOURS NEEDED FOR PAIN FOR 30 DAYS Oral Taking Nystatin 163709 UNIT/GM Cream 1 APPL TOPICALLY DAILY FOR 30 DAYS External Taking Topiramate 25 MG Tablet TAKE 1 TABLET ORALLY 2 TIMES A DAY FOR 90 DAYS Oral Taking Famotidine 20 MG Tablet 20 MG ORALLY BEDTIME Oral Taking CVS Gas Relief Ultra Strength 180 MG Capsule 180 MG ORALLY 4 TIMES A DAY FOR 30 DAYS AFTER MEALS Oral Taking Albuterol Sulfate HFA 108 (90 Base) MCG/ACT Aerosol Solution TAKE 2 PUFFS (INHALATION) EVERY 6 HOURS (SHORTNESS OF BREATH OR WHEEZING) FOR 10 DAYS Inhalation Taking Calcium Acetate (Phos Binder) 667 MG Tablet TAKE 1 TABLET BY MOUTH TWICE A DAY Oral Taking Atorvastatin Calcium 80 MG Tablet 1 tablet Orally Once a day Taking Methocarbamol 750 MG Tablet TAKE 1 TABLET BY MOUTH EVERY DAY AT NIGHT Taking Jardiance 10 MG Tablet 1 tablet Orally Once a day Medication List reviewed and reconciled with the patient * Allergies:?no[Allergies Veri fied] Objective: * Vitals:?MA/Nurse:[id number], Tem p:Tympanic:98.6F, Ht:61in, Wt:171.2lbs, BMI:32.34Index, BP:114/66mm Hg, HR:Sittin, RR:16, O2 Sat:O2 Sat:98, Pain Scale: 8, Smoking:never, # cigs day:0, # of yrs smoked:0. * Examination: ???General Examination: ?General Appearance:? A & O x 3 in NAD.?HEENT?NC/AT, no conj. paleness or scleral icterus.?Neck:?No JVD .?Heart:?RSR, normal S1S2.?Lungs:?CTA, Equal Sounds.?Abdomen:? . .?Back:? . .?Extremities:? . .?Diabetic Foot Exam?monofilament exam?normal in 5 areas good skin integrity, good foot care reddened corn on pinky interphalangeal joint ?Skin:?No rash in visible areas. .?Neurologic Exam:?CN-Intact, EOMI, PERRLA, Normal Speech, Attention and Comprehension, .?Psych:? ., affect normal, good eye contact, oriented to person, oriented to place, oriented to time, normal speech, appropriate.? * Physical Examination:? 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 Plan: * Treatment: 2.?Sciatica associated with disorder of lumbar spine? Referral To:Physiatry ?Reason:pain 3.?Degeneration of intervert ebral disc of cervicothoracic region? Referral To:Physiatry ?Reason:pain 4.?Thoracic abscess? Referral To:Physiatry ?Reason:pain 5.?Thoracic arthritis? Referral To:Physiatry ?Reason:pain 6.?Toe pain? Referral To:Podiatry - Surgical Chiropody ?Reason:toe pain * Procedure Codes:?3078F DIAST BP < 80 MM [id number] AMNT PAIN NOTED PAIN [id number] SYST BP LT 130 MM [id number] MED LIST DOCD IN [id number] RVW MEDS BY RX/DR IN [id number] BODY MASS INDEX DOCD * Follow Up:?4 Weeks Care Plan: * Problems:? * Billing Information: * Visit Code:? 45887 ESTABLISHED PATIENT, CESARIO. * Procedure Codes:? 3078F DIAST BP < 80 MM HG. 1125F AMNT PAIN NOTED PAIN PRSNT. 3074F SYST BP LT 130 MM HG. 1159F MED LIST DOCD IN RCRD. 1160F RVW MEDS BY RX/DR IN RCRD. 3008F BODY MASS INDEX DOCD. Care Plan Details* * Sign off status: Completed true * Provider:Sarah Kirkland DO Date:? 025 Generated for Aristeo kumari/Malcom/Mulugeta on:?07/30/2024 09:20 AM EDT History and Physical Notes * HPI (History of Present Illness) Category Sub-Category Detail Notes Category Not es General Patient complai ns about toe pain, most likely corn versus arthritis, patient was seen by surgeon who advised that patient should be referred to a regional transfer liaison for injection Examination Category Sub-Category Detail Notes Category Not es General Examination HEENT NC/AT, no conj. paleness or scleral icterus Neck: No JVD Heart: RSR, normal S1S2 Lungs: CTA, Equal Sounds Abdomen: . Extremities: . General Appearance: A & O x 3 in NAD Skin: No rash in visible a reas. Neurologic Exam: CN-Intact, EOMI, PERRLA, Normal Speech, Attention and Comprehension, Back: . Psych: ., affect normal, go od eye contact, oriented to person, oriented to place, oriented to time, normal speech, appropriate Diabetic Foot Exam monofilament exam: n ormal in 5 areas good skin integrity, good foot care reddened corn on pinky interphalangeal joint Consultation Request Notes Referral Date Referring Provider Referred Provider Not es 07/27/2024 Shaheen Kirkland , pain 07/27/2024 Shaheen Kirkland , toe pain
--- OUTSIDE RECORDS SUMMARY | 2024-07-30 09:21 | XMS_ITS | Encounter Summary ---
Author Organization [facility] Address [address] [place] [address] Care Team Providers Care Marketing Content Manager Name Role Phone Davion Workman MD Primary Care Provider [phone] Lawson Ball MD Primary Care Provider [phone] Davion Workman MD Primary Care Provider [phone] Eli, Antwan ORTEGA Primary Care Provider Unavailabl Erum Morgan MD Primary Care Provider Unava Foreign Salinas MD Primary Care Provider Unavailab Lorena Fuentes MD Primary Care Provider [phone] Racquel Cruz MD Primary Care Prov ider [facility], Pcp Primary Care Provider Unavailabl e Reason for Visit * Reason Onset Date Comments My Chart Appointment 01/21/2014 Encounter Details Date Type Department Care Team Description 01/21/2014 Telephone Adult Medicine [address] [phone] Davion Workman MD [address] [place] [address] [phone] My Chart Appointment Social History Tobacco Use Types Packs/Day Years [...] Telephone Encounter - Helen Sloan R.N. - 01/21/2014 8:58 AM EST [phone] (home) CAll #1 placed to patient She went to er yesterday for r SIDE CHEST PAIN, MOST OF PAIN UNDER R BREAST AND ARM , APPT RESCHEDULED FOR 01/24/[address] BALL SHE IS REQUESTING A CHANGE IN PCP I REQUESTED HOSPITAL PAPERWORK * Telephone Encounter - Mylene Franklin - 01/21/2014 8:33 AM EST Patient has scheduled a visit through My Chart. Please call patient to triage for appropriateness. Date appointment is booked: 03/06 @8:[address] Ball Reason for appointment: having lots of right side chest pain is more under breath and under arm theright side.went to the emergency room they told me I need to make and apoiment as soon possible forthe problem. documented in this encounter Plan of Treatment Not on file documented as of this encounter Visit Diagnoses Not on filedocumented in this encounter Care Teams Marketing Content Manager Relationship Specialty Start Date End Date Davion Workman MD [address] [place], [place] [phone] PCP - General 11/23/05 03/05/14 Lawson Ball MD [address] [place] [address] PCP - General Internal Medicine 03/06/14 08/13/14 Davion Workman MD [address] [place] [address] PCP - General Internal Medicine 08/14/14 02/11/16 Antwan Benitez MD [address] [place] [address] PCP - General Internal Medicine 02/12/16 06/22/17 Erum Ibarra MD [address] [place], [place] [phone] PCP - General Internal Medicine 06/23/17 09/08/20 Foreign William MD [address] [place] [address] PCP - General Internal Medicine 09/09/20 12/04/20 Lorena Ortiz MD [address] [place] [address] PCP - General Internal Medicine 12/05/20 10/11/21 Racquel Cruz MD [address] [place] [address] PCP - General Internal Medicine 10/12/21 05/20/22 [facility], Pcp [address] [place] [address] PCP - General Internal Medicine 05/21/22 documented as of this encounter
--- OUTSIDE RECORDS SUMMARY | 2024-07-30 09:21 | XMS_ITS | Encounter Summary ---
Author Organization [facility] Address [address] [place] [address] Care Team Providers Care Grout Worker Name Role Phone Lorena Ortiz MD Primary Care Provider [phone] Racquel Cruz MD Primary Care Prov ider [facility], Pcp Primary Care Provider Unavailabl e Reason for Visit * Reason Comments E-prescribe Rx Request Encounter Details Date Type Department Care Team Description 09/12/2021 Refill Adult Medicine [address] [address] Chelly Badillo APRN E-prescribe Rx Request Social [...] 03/24/2021 Last appt 07/07/21 with Chelly Badillo PHYSICAL SCIENCE AIDE Pending appt with Claudia Eastman, PAC 12/2021 * Telephone Encounter - Bre Feldman - 09/28/2021 10:54 AM EDT Switching to [place] * Telephone Encounter - Bre Felmdan - 09/22/2021 11:11 AM EDT L/m for [...] N/A Patients current insurance carrier is: Payor: [employer] MCR / Plan: [facility] / Product Type: HMO [id number] documented in this encounter Plan of Treatment Not on file documented as of this encounter Visit Diagnoses Not on filedocumented in this encounter Care Teams Grout Worker Relationship Specialty Start Date End Date Lorena Ortiz MD [address] [place] [address] PCP - General Internal Medicine 12/05/20 10/11/21 Racquel Cruz MD [address] [place] [address] PCP - General Internal Medicine 10/12/21 05/20/22 [facility], [place] [address] PCP - General Internal Medicine 05/21/22 documented as of this encounter
--- OUTSIDE RECORDS SUMMARY | 2024-07-30 09:21 | XMS_ITS | Encounter Summary ---
Author Organization [facility] Address [address] [place] [address] Care Team Providers Care Private Branch Exchange Installer Name Role Phone Erum Ibarra MD Primary Care Provider Unava ilForeign Snell MD Primary Care Provider Unavailab Lorena Fuentes MD Primary Care Provider Racquel Cruz MD Primary Care Prov ider Replaced By [facility], Pcp Primary Care Provider Unavailabl e Encounter Details Date Type Department Care Team Description 07/17/2020 [address] Supervisor Report Medical Records [address] [place] [address] Dalila Bryan, SERVICE STATION EQUIPMENT MECHANIC Social History Tobacco Use Types Packs/Day Years [...] or suspected to have Coronavirus / COVID-19? Unable to assess 06/26/2020 8:31 AM EDT documented as of this encounter Plan of Treatment Not on file documented as of this encounter Visit Diagnoses Not on filedocumented in this encounter Care Teams Private Branch Exchange Installer Relationship Specialty Start Date End Date Erum Ibarra MD PCP - General Internal Medicine 06/23/17 09/08/20 Foreign William MD PCP - General Internal Medicine 09/09/20 12/04/20 Lorena Ortiz MD [address] [place] [address] PCP - General Internal Medicine 12/05/20 10/11/21 Racquel Cruz MD [address] [place] [address] PCP - General Internal Medicine 10/12/21 05/20/22 Replaced By [facility], Pcp [address] [place] [address] PCP - General Internal Medicine 05/21/22 documented as of this encounter
--- OUTSIDE RECORDS SUMMARY | 2024-07-30 09:21 | XMS_ITS | Encounter Summary ---
Author Organization [employer] [facility] Address [address] [place] [address] Care Team Providers Care Ordnance Equipment Worker Name Role Phone Racquel Cruz MD Primary Care Prov ider Counts Include [address] [facility], Pcp Primary Care Provider Unavailabl e Encounter Details Date Type Department Care Team Description 01/06/2022 Refill Adult Medicine [address] [address] Gena Nicolas PA-C Social History Tobacco Use Types Packs/Day [...] Encounter - Danni Blue M.A. - 01/06/2022 8:40 AM EDT Last office visit 12/31/21 Next office visit 05/25/22 with new PCP Lab Results Component Value Date 25OHD 46 01/01/2022 25HYDROXYVIT 28 12/25/2015 Per result note: ??Vitamin D level is normal; please continue with daily supplementation to avoid deficiency. documented in this encounter Plan of Treatment Not on file documented as of this encounter Visit Diagnoses Not on filedocumented in this encounter Care Teams Ordnance Equipment Worker Relationship Specialty Start Date End Date Racquel Cruz MD [address] [place] [address] PCP - General Internal Medicine 10/12/21 05/20/22 Counts Include [address] [facility], Pcp [address] [place] [address] PCP - General Internal Medicine 05/21/22 documented as of this encounter
--- OUTSIDE RECORDS SUMMARY | 2024-07-30 09:21 | XMS_ITS | Encounter Summary ---
Author Organization [facility] Address [address] [place] [address] Care Team Providers Care Software Test Manager Name Role Phone Foreign William MD Primary Care Provider Unavailab Lorena Fuentes MD Primary Care Provider [phone] Racquel Cruz MD Primary Care Prov ider Count Includes [facility], Pcp Primary Care Provider Unavailabl e Encounter Details Date Type Department Care Team Description 09/23/2020 Refill Adult Medicine [address] [address] Iraida Rivera PA-C [address] [place] [address] [phone] Social History Tobacco Use Types Packs/Day Years [...] Encounter - Radha Pina M.A. - 09/24/2020 2:08 PM EDT Sravanthi 09/23 Lab Results Component Value Date NA 139 02/13/2020 K 4.3 02/13/2020 CO2 26 02/13/2020 CL 106 02/13/2020 BUN 14 02/13/2020 CREAT 0.64 02/13/2020 GLU 100 02/13/2020 CA 9.5 02/13/2020 GFR > 60 02/13/2020 documented in this encounter Plan of Treatment Not on file documented as of this encounter Visit Diagnoses Not on filedocumented in this encounter Care Teams Software Test Manager Relationship Specialty Start Date End Date Foreign William MD PCP - General Internal Medicine 09/09/20 12/04/20 Lroena Ortiz MD [address] [place] [address] PCP - General Internal Medicine 12/05/20 10/11/21 Racquel Cruz MD [address] [place] [address] PCP - General Internal Medicine 10/12/21 05/20/22 Count Includes [facility], [address] [address] PCP - General Internal Medicine 05/21/22 documented as of this encounter
--- OUTSIDE RECORDS SUMMARY | 2024-07-30 09:21 | XMS_ITS | Encounter Summary ---
Author Organization [facility] Address [address] [place] [address] Care Team Providers Care Grease Packer Name Role Phone Erum Ibarra MD Primary Care Provider UnaForeign Small MD Primary Care Provider Unavailab Lorena Fuentes MD Primary Care Provider [phone] Racquel Cruz MD Primary Care Prov ider [facility], Pcp Primary Care Provider Unavailabl e Reason for Visit * Reason Comments E-prescribe Rx Request Encounter Details Date Type Department Care Team Description 09/03/2020 Refill Adult Medicine [address] [address] Erum Ibarra MD E-prescribe Rx Request Social [...] N/A Patients current insurance carrier is: Payor: [employer] [facility] [employer] MCR / Plan: [facility] / Product Type: HMO [id number] documented in this encounter Plan of Treatment Not on file documented as of this encounter Visit Diagnoses Not on filedocumented in this encounter Care Teams Grease Packer Relationship Specialty Start Date End Date Erum Ibarra MD PCP - General Internal Medicine 06/23/17 09/08/20 Foreign William MD PCP - General Internal Medicine 09/09/20 12/04/20 Lorena Ortiz MD [address] [place] [address] PCP - General Internal Medicine 12/05/20 10/11/21 Racquel Cruz MD [address] [place] [address] PCP - General Internal Medicine 10/12/21 05/20/22 [facility], Pcp [address] [place] [address] PCP - General Internal Medicine 05/21/22 documented as of this encounter
--- OUTSIDE RECORDS SUMMARY | 2024-07-30 09:21 | XMS_ITS | Encounter Summary ---
Author Organization [email or web address] [facility] Address [address] [place] [address] Care Team Providers Care Guide Tour Name Role Phone Davion Workman MD Primary Care Provider [phone] Antwan Benitez MD Primary Care Provider UnavailErum Umaña MD Primary Care Provider Foreign Boyd MD Primary Care Provider Unavailab Lorena Fuentes MD Primary Care Provider [phone] Racquel Cruz MD Primary Care Prov ider [facility], Pcp Primary Care Provider Unavailabl e Encounter Details Date Type Department Care Team Description 12/16/2015 Client Relationship Executive Report Medical Records [address] [place] [address] Shala Cedillo MD Social History Tobacco Use [...] on filedocumented in this encounter Care Teams Guide Tour Relationship Specialty Start Date End Date Davion Workman MD [address] [place] [address] PCP - General Internal Medicine 08/14/14 02/11/16 Antwan Benitez MD [address] [place] [address] PCP - General Internal Medicine 02/12/16 06/22/17 Erum Ibarra MD [address] [place], [place] [phone] PCP - General Internal Medicine 06/23/17 09/08/20 Foreign William MD [address] [place] [address] PCP - General Internal Medicine 09/09/20 12/04/20 Lorena Ortiz MD [address] [place] [address] PCP - General Internal Medicine 12/05/20 10/11/21 Racquel Cruz MD [address] [place] [address] PCP - General Internal Medicine 10/12/21 05/20/22 [facility], Pcp [address] [place] [address] PCP - General Internal Medicine 05/21/22 documented as of this encounter
--- OUTSIDE RECORDS SUMMARY | 2024-07-30 09:21 | XMS_ITS | Clinical Summary ---
Author Organization [facility] Address [address] [place] [address] Care Team Providers Care Decorative Engraver Apprentice Name Role Phone Community, Pcp Primary Care Provider Unavailabl e Allergies No known active allergies Medications Medication Sig Dispensed Refills Start Date End Date Status Magnesium 400 MG Tab Take by mouth. 0 Active CREON 6557-1849 units CAPSULE ENTERIC COATED PARTICLES 0 02/09/2020 [...] Overview: Mild noted on manometry study - [facility] records JERRY on CPAP 02/11/2020 Calcific [...] 02.22.06. 48 hour ambulatory pH testing performed [facility] 05/04/2016 revealed normal amounts of acid exposure. Resolved Problems Problem Noted Date Resolved Date History of COVID-19 07/29/2020 01/02/2022 Overview: 04/15/2020: Tested at [facility] urgent care Sprain of thoracic region [...] 05/14/2015, Additional history exists DIABETES/HEART DISEASE: MARGARITA WALKER CHOLESTEROL (LDL) 01/01/2023 01/01/2022, 02/13/2020, 12/29/2018, Additional history exists DIABETES: ANNUAL URINE PROTE IN TEST (MICROALBUMIN) 01/01/2023 01/01/2022 Covid-19 Vaccine (2022-04 4 season) 2023 10/08/2020, 08/25/2020 BMI CHECK/ADVISE 03/14/2024 12/31/2021, , 05/12/2020, Additional history exists INFLUENZA (Season Ended) 2024 020 (Refused), 06/06/2019 (Refused), 12/15/2017, Additional history exists CERVICAL CANCER SCREENING 10/15/20262021 (External Completion), 09/01/2015, 10/01/2014, Additional history exists DTAP/TDAP/TD (5 - Td or Tdap) 05/30/2031, 02/20/2013, 02/20/2013, Additional history exists Care Teams Decorative Engraver Apprentice Relationship Specialty Start Date End Date [facility], Pcp PCP - General Internal Medicine 05/21/22
--- OUTSIDE RECORDS SUMMARY | 2024-07-30 09:21 | XMS_ITS | Clinical Summary ---
Author Organization [facility] Address [address] [place] [address] Care Team Providers Care Buffing Wheel Former Machine Name Role Phone Ruthie Cedeño DMD Primary Care Provider [phone] Source Comments PLEASE NOTE, if this patient [...] Health Maintenance Due Date Last Done Comments Anxiety Screening 1967 Dental Perio Charting 1967 Dental Prophy 1967 [...] 19 + 3-dose series) 09/13/2017 04/19/2017, 03/16/2017 [id number] ( season) 2023 021, 08/25/2020 Imm-Influenza (#1) [...] Routine 09/29/2023 4:00 PM EDT Defective dental oriental orthodox Encounter for dental examination COMP ORAL EVALUATION - NEW/ESTABLISHED PATIENT Routine 09/29/2023 4:00 PM EDT Defective dental oriental orthodox Encounter for dental examination from Last 3 Months or Most Recently Relevant to Health Maintenance Insurance [facility] - [facility] Care Teams Buffing Wheel Former Machine Relationship Specialty Start Date End Date Ruthie Cedeño DMD [address] [place] [address] PCP - General 11/23/18
--- OUTSIDE RECORDS SUMMARY | 2024-07-30 09:21 | XMS_ITS | Encounter Summary ---
Author Organization [facility] Address [address] [place] [address] Care Team Providers Care Mri Technologist Name Role Phone Racquel Cruz MD Primary Care Prov ider [facility], Pcp Primary Care Provider Unavailabl e Encounter Details Date Type Department Care Team Description 11/27/2021 Residential Tech Report Medical Records [address] [place] [address] [facility] Social History Tobacco Use Types Packs/Day Years [...] suspected to have Coronavirus/COVID-19? No / Unsure 11/14/2021 10:46 AM EDT documented as of this encounter Plan of Treatment Not on file documented as of this encounter Visit Diagnoses Not on filedocumented in this encounter Care Teams Mri Technologist Relationship Specialty Start Date End Date Racquel Cruz MD [address] [place] [address] [phone] PCP - General Internal Medicine 10/12/21 05/20/22 [facility], Pcp [address] [place] [address] PCP - General Internal Medicine 05/21/22 documented as of this encounter
--- OUTSIDE RECORDS SUMMARY | 2024-07-30 09:21 | XMS_ITS | Encounter Summary ---
Author Organization [facility] Address [address] [place] [address] Care Team Providers Care Assistant Oceanographer Name Role Phone Davion Workman MD Primary Care Provider [phone] Lawson Ball MD Primary Care Provider [phone] Davion Workman MD Primary Care Provider [phone] Eli, Antwan ORTEGA Primary Care Provider Unavailabl Erum Morgan MD Primary Care Provider Unava Foreign Salinas MD Primary Care Provider Unavailab Lorena Fuentes MD Primary Care Provider [phone] Racquel Cruz MD Primary Care Prov ider [facility], Pcp Primary Care Provider Unavailabl e Encounter Details Date Type Department Care Team Description 05/28/2009 Hospital Medical Records [address] [place] [address] Dru Bush MD Social History Tobacco Use [...] on filedocumented in this encounter Care Teams Assistant Oceanographer Relationship Specialty Start Date End Date Davion Workman MD [address] [place] [address] PCP - General 11/23/05 03/05/14 Lawson Ball MD [address] [place] [address] PCP - General Internal Medicine 03/06/14 08/13/14 Davion Workman MD [address] [place] [address] PCP - General Internal Medicine 08/14/14 02/11/16 Antwan Benitez MD [address] [place], [place] [phone] PCP - General Internal Medicine 02/12/16 06/22/17 Erum Ibarra MD [address] [place], [place] [phone] PCP - General Internal Medicine 06/23/17 09/08/20 Foreign William MD [address] [place], [place] [phone] PCP - General Internal Medicine 09/09/20 12/04/20 Lorena Ortiz MD [address] [place] [address] PCP - General Internal Medicine 12/05/20 10/11/21 Racquel Cruz MD [address] [place] [address] PCP - General Internal Medicine 10/12/21 05/20/22 [facility], [place] [phone] PCP - General Internal Medicine 05/21/22 documented as of this encounter
--- OUTSIDE RECORDS SUMMARY | 2024-07-30 09:21 | XMS_ITS | Encounter Summary ---
Author Organization [facility] Address [address] [place] [address] Care Team Providers Care Director Digital Catalogue Name Role Phone [facility], Pcp Primary Care Provider Unavailabl e Reason for Visit * Reason Onset Date Comments Medication 09/24/2022 Encounter Details Date Type Department Care Team Description 09/24/2022 Refill [facility] [place] [address] [id number] Denver Munoz PA-C 175 [facility] [address] [place] [address] Medication Social History Tobacco Use Types Packs/Day Years [...] encounter Miscellaneous Notes * Telephone Encounter - Andra Romero - 09/24/2022 12:11 PM EDT NOV 02.11.2023 MELANI 04.16.2022 documented in this encounter Plan of Treatment Not on file documented as of this encounter Visit Diagnoses Not on filedocumented in this encounter Care Teams Director Digital Catalogue Relationship Specialty Start Date End Date [facility], Pcp PCP - General Internal Medicine 05/21/22 documented as of this encounter
--- OUTSIDE RECORDS SUMMARY | 2024-07-30 09:21 | XMS_ITS | Encounter Summary ---
Author Organization [employer] [facility] Address [address] [place] [address] Care Team Providers Care Chief Meteorologist Name Role Phone Erum Ibarra MD Primary Care Provider Unava Foreign Salinas MD Primary Care Provider Unavailab Lorena Fuentes MD Primary Care Provider [phone] Racquel Cruz MD Primary Care Prov ider [facility], Pcp Primary Care Provider Unavailabl e Reason for Visit * Reason Onset Date Comments Faxed Refill 06/11/2020 Encounter Details Date Type Department Care Team Description 06/11/2020 Refill Adult Medicine [address] [address] Erum Ibarra MD Faxed Refill Social History [...] N/A Patients current insurance carrier is: [facility] MCR / Plan: [facility] / Product Type: HMO [id number] documented in this encounter Plan of Treatment Not on file documented as of this encounter Visit Diagnoses Not on filedocumented in this encounter Care Teams Chief Meteorologist Relationship Specialty Start Date End Date Erum Ibarra MD PCP - General Internal Medicine 06/23/17 09/08/20 Foreign William MD PCP - General Internal Medicine 09/09/20 12/04/20 Lorena Ortiz MD [address] [place] [address] [place] [address] PCP - General Internal Medicine 12/05/20 10/11/21 Racquel Cruz MD [address] [place] [address] PCP - General Internal Medicine 10/12/21 05/20/22 [facility], Pcp [address] [place] [address] PCP - General Internal Medicine 05/21/22 documented as of this encounter
--- OUTSIDE RECORDS SUMMARY | 2024-07-30 09:21 | XMS_ITS | Encounter Summary ---
Author Organization [employer] [facility] Address [address] [place] [address] Care Team Providers Care Weight Training Instructor Name Role Phone Erum Ibarra MD Primary Care Provider Foreign Boyd MD Primary Care Provider Unavailab Lorena Fuentes MD Primary Care Provider [phone] Racquel Cruz MD Primary Care Prov ider [facility], Pcp Primary Care Provider Unavailabl e Reason for Visit * Reason Onset Date Comments refill request 06/11/2020 Encounter Details Date Type Department Care Team Description 06/11/2020 Refill Adult Medicine [address] [address] Iraida Rivera PA-C [address] [place] [address] refill request Social History Tobacco Use Types Packs/Day Years [...] Telephone Encounter - Cecelia Cote M.A. - 06/12/2020 8:04 AM EDT MELANI 02/11/2020 pe w/pcp No F/U appt * Telephone Encounter - Leticia Lantigua - 06/11/2020 2:00 PM EDT Patient would like script to be: E-PRESCRIBED/FAXED TO PHARMACY WHEN WAS THE PATIENT'S LAST APPOINTMENT IN ADULT MEDICINE? 05/12/20 WHEN WAS THE LAST TIME THE PATIENT SAW THEIR PCP? 05/05/20 Does patient have an upcoming appointment? My chart message has been sent to pt (THE MEDICATION REQUESTED IS ON THE MED [...] N/A Patients current insurance carrier is: Payor: [email or web address] [facility] MCR / Plan: [facility] / Product Type: HMO [id number] documented in this encounter Plan of Treatment Not on file documented as of this encounter Visit Diagnoses Not on filedocumented in this encounter Care Teams Weight Training Instructor Relationship Specialty Start Date End Date Erum Ibarra MD PCP - General Internal Medicine 06/23/17 09/08/20 Foreign William MD PCP - General Internal Medicine 09/09/20 12/04/20 Lorena Ortiz MD [address] [place] [address] PCP - General Internal Medicine 12/05/20 10/11/21 Racquel Cruz MD [address] [place] [address] PCP - General Internal Medicine 10/12/21 05/20/22 [facility], Pcp [address] [place] [address] PCP - General Internal Medicine 05/21/22 documented as of this encounter
--- OUTSIDE RECORDS SUMMARY | 2024-07-30 09:21 | XMS_ITS | Encounter Summary ---
Author Organization [employer] [facility] Address [address] [place] [address] Care Team Providers Care Bar Useful Or Busser Name Role Phone Davion Workman MD Primary Care Provider [phone] Lawson Ball MD Primary Care Provider [phone] Davion Workman MD Primary Care Provider [phone] Eli, Antwan ORTEGA Primary Care Provider Unavailabl Erum Morgan MD Primary Care Provider Unava Foreign Salinas MD Primary Care Provider Unavailab Lorena Fuentes MD Primary Care Provider [phone] Racquel Cruz MD Primary Care Prov ider [facility], Pcp Primary Care Provider Unavailabl e Encounter Details Date Type Department Care Team Description 04/16/2011 Acute Specialist Report Medical Records [address] [place] [address] Adonis Keller Social History Tobacco Use Types [...] on filedocumented in this encounter Care Teams Bar Useful Or Busser Relationship Specialty Start Date End Date Davion Workman MD [address] [place] [id number] PCP - General 11/23/05 03/05/14 Lawson Ball MD [address] [place] [address] PCP - General Internal Medicine 03/06/14 08/13/14 Davion Workman MD [address] [place] [address] PCP - General Internal Medicine 08/14/14 02/11/16 Antwan Benitez MD [address] [place], [place] [id number] PCP - General Internal Medicine 02/12/16 06/22/17 Erum Ibarra MD [address] [place], [place] [id number] PCP - General Internal Medicine 06/23/17 09/08/20 Foreign William MD [address] [place], [place] [id number] PCP - General Internal Medicine 09/09/20 12/04/20 Lorena Ortiz MD [address] [place] [address] PCP - General Internal Medicine 12/05/20 10/11/21 Racquel Cruz MD [address] [place] [address] PCP - General Internal Medicine 10/12/21 05/20/22 [facility], [place] [id number] PCP - General Internal Medicine 05/21/22 documented as of this encounter
--- OUTSIDE RECORDS SUMMARY | 2024-07-30 09:21 | XMS_ITS | Encounter Summary ---
Author Organization [employer] [facility] Address [address] [place] [address] Care Team Providers Care Sail Lay Out Worker Name Role Phone [facility], [facility], Pcp Primary Care Provider Unavailabl e Reason for Visit * Reason Comments E-prescribe Rx Request Encounter Details Date Type Department Care Team Description 06/08/2023 Refill Gastroenterology - [place] [address] [id number] Denver Munoz PA-C 175 [facility] [address] [place] [address] E-prescribe Rx Request Social History Tobacco Use [...] on filedocumented in this encounter Care Teams Sail Lay Out Worker Relationship Specialty Start Date End Date Community, Pcp PCP - General Internal Medicine 05/21/22 documented as of this encounter
--- OUTSIDE RECORDS SUMMARY | 2024-07-30 09:21 | XMS_ITS ---
Author Organization [employer] Address [address] [place] [address] Care Team Providers Care Tractor Operator Name Role Phone Shaheen Kirkland Primary Care Provider [phone] REASON FOR VISIT form for work LF // Emily confirmed 07/23/24 1:42pm Medications Medication SIG (Take, Route, Frequency, Duration) Notes Start Date End Date Status Albuterol Sulfate HFA 108 (90 Base) MCG/ACT TAKE 2 PUFFS (INHALATION) EVERY 6 HOURS (SHORTNESS OF BREATH OR WHEEZING) FOR 10 DAYS Inhalation for 20 Days Active [facility] Gas Relief Ultra Strength 180 MG 180 MG ORALLY 4 TIMES A DAY FOR 30 DAYS AFTER MEALS Oral for 12 Days Active Famotidine 20 MG 20 MG ORALLY BEDTIME Oral for 90 Days Active Atorvastatin Calcium 80 MG 1 tablet Oral ly Once a day for 90 days Active Calcium Acetate (Phos Binder) 667 MG TAKE 1 TABLET BY MOUTH TWICE A DAY Oral for 90 Days Active Topiramate 25 MG TAKE 1 TABLET ORALLY 2 TIMES A DAY FOR 90 DAYS Oral for 90 Days Active Nystatin 964064 UNIT/GM 1 APPL TOPICALLY DAILY FOR 30 DAYS External for 30 Days Active Acetaminophen ER 650 MG TAKE 1 TABLET BY MOUTH EVERY 8 HOURS NEEDED FOR PAIN FOR 30 DAYS Oral for 40 Days Active Levothyroxine Sodium 100 MCG TAKE 1 TABL ET BY MOUTH DAILY AND 2 TABS ON TUESDAY Oral for 90 Days Active [facility] D3 25 MCG (1000 UT) TAKE 1 CAPSULE B Y MOUTH EVERY DAY Oral for 90 Days Active Fenofibrate 54 MG Oral for 90 Days Active Lansoprazole 30 MG Oral for 90 Days Active Pregabalin 100 MG Oral for 30 Days Active Escitalopram Oxalate 10 MG 1 tablet Oral ly Once a day Active Jardiance 10 MG 1 tablet Orally Once a day for 90 days 06/06/2024 Active Methocarbamol 750 MG TAKE 1 TABLET BY [facility] EVERY DAY AT NIGHT for 30 Active Social History Tobacco Use: Social History Observation Description Date Details (start date - stop date) Never Smoker NA - NA Tobacco Control (Standard) Question Answer Notes Tobacco use: Nonsmoker Vital Signs Temperature 98.7 degrees Fahrenheit 07/24/19 25 Height 61 in 07/23/2024 Weight 170.6 lbs 07/23/2024 BMI 32.23 kg/m2 07/23/2024 Blood pressure systolic 133 mm Hg 07/24/19 25 Blood pressure diastolic 82 mm Hg 025 Respiratory Rate 16 /min 07/23/2024 Oximetry 98 % 07/23/2024 Encounters Encounter Location [place] [address] 07/23/2024 Shaheen Kirkland Diabetes type 2, controlled E11.9 ; Sciatica associated with disorder of lumbar spine M53.9 and Body mass index (BMI) 32.0-32.9, adult Z68.32 Assessments Encounter Date Diagnosis (ICD Code) Assessment Notes Treatment Notes Treatment Clinical Notes Section Notes 07/23/2024 Diabetes type 2, controlled (ICD-10 - E11.9) 07/23/2024 Sciatica associated with disorder of lumbar spine (ICD-10 - M53.9) 07/23/2024 Body mass index (BMI) 32.0-32.9, adult (ICD-10 - Z68.32) Plan Of Treatment Next Appt Details Follow Up: 4 Weeks, Reason: Provider Name:Shaheen Kirkland, 10/15/2024 10:00:00 AM, [address] [place] [address], [id number], Progress Notes * Ximena MENDENHALLDOB:1965 (59 yo F)Acc No.[id number]:07/23/2024 Progress Note Patient:?Ximena MENDENHALL Provider:?Shaheen Kirkland DO :1965???Age:59 Y???Sex:Female D ate:07/23/2024 External Visit ID:[id number] Address:[address] [place] [address] , [place] [address] Check In:03:39 PM Basim O ut:04:06 PM EST Subjective: * Chief Complaints: * ???form for work LF // Emily confirmed 07/23/24 1:42pm * HPI: ???General:?No red flags on comperhensive system targeted ROS patient complains about severe sciatica and neck pain, she does give MRI, expectation injections.? No weakness in her hands or legs. No incontinence or saddle anesthesia. ???Diabetes:?c/o Diabetes type 2.?glucose monitoring?checks occassionally.?glucose control?Good.?hypoglycemia?none.?medication adherence?Good.?polyuria?..?polydypsia?..?polyphagia?..? * ROS:?General ROS:?General?No complaints.?Respiratory?No Shortness of Breath, No Cough.?Cardiovascular?No: Chest Pain.?GI/?No: , Abdominal pain, .?Neurology?No focal complaints, No encephalopathic complaints.? * Medical History:? * Surgical History:? * Hospitalization/Major Diagno stic Procedure:? * Social History:?Language Spoken?Language Spoken?Nigerian 05/31/2024 ES mosotho as well ???How do you like To Learn?:?Verbal 05/31/2024 ES ???Patient's perception of literacy?I read well in:?Nigerian 05/31/2024 ES also in mosotho ???Health Literacy?How confident are you filling out [...] FOR PAIN FOR 30 DAYS Oral Nystatin 853451 UNIT/GM Cream 1 APPL TOPICALLY DAILY FOR [...] 1 tablet Orally Once a day Taking Escitalopram Oxalate 10 MG Tablet 1 tablet [...] PAIN FOR 30 DAYS Oral Taking Nystatin 248876 UNIT/GM Cream 1 APPL TOPICALLY DAILY FOR [...] Tablet 1 tablet Orally Once a day DiscontinuedAmoxicillin 500 MG Tablet 1 tablet Orally Three times a day Azithromycin 250 MG Tablet TAKE 2 TABLETS BY MOUTH TODAY, THEN TAKE 1 TABLET DAILY FOR 4 DAYS DIRECTED Oral Diclofenac Sodium 75 MG Tablet Delayed Release 1 tablet as needed Orally Twice a day Medication List reviewed and reconciled with the patientDiscontinued Amoxicillin 500 MG Tablet 1 tablet Orally Three times a day Discontinued Azithromycin 250 MG Tablet TAKE 2 TABLETS BY MOUTH TODAY, THEN TAKE 1 TABLET DAILY FOR 4 DAYS DIRECTED Oral Discontinued Diclofenac Sodium 75 MG Tablet Delayed Release 1 tablet as needed Orally Twice a day Medication List reviewed and reconciled with the patient * Allergies:?no[Allergies Veri fied] Objective: * Vitals:?Temp:Tympanic:98.7F, Ht:61in, Wt:170.6lbs, BMI:32.23Index, BP:133/82mm Hg, HR:Sittin, RR:16, O2 Sat:O2 Sat:98, Pain Scale: 8, Smoking:never, # cigs day:0, # of yrs smoked:0. * Examination: ???General Examination: ?General Appearance:? A & O x 3 in NAD.?HEENT?NC/AT, no conj. paleness or scleral icterus.?Neck:?No JVD .?Heart:?RSR, normal S1S2.?Lungs:?CTA, Equal Sounds.?Abdomen:? . .?Back:?Muscle strength normal. Slump test negative,.?Extremities:? . .?Skin:?No rash in visible areas. .?Neurologic Exam:?CN-Intact, EOMI, PERRLA, Normal Speech, Attention and Comprehension, .?Psych:? ., affect normal, good eye contact, oriented to person, oriented to place, oriented to time, normal speech, appropriate.? * Physical Examination:? Assessment: * Assessment: 1.?Diabetes type 2, controll ed - E11.9 (Primary)???2.?Sciatica associated with disorder of lumbar spine - M53.9???3.?Body mass index (BMI) 32.0-32.9, adult - Z68.32??? Plan: * Treatment: * Procedure Codes:?3079F DIAST BP 80-89 MM [id number] SYST BP GE 130 - 139MM [id number] AMNT PAIN NOTED PAIN [id number] MED LIST DOCD IN [id number] RVW MEDS BY RX/DR IN [id number] BODY MASS INDEX DOCD * Follow Up:?4 Weeks * Billing Information: * Visit Code:? 40139 ESTABLISHED PATIENT, CESARIO. * Procedure Codes:? 3079F DIAST BP 80-89 MM HG. 3075F SYST BP GE 130 - 139MM HG. 1125F AMNT PAIN NOTED PAIN PRSNT. 1159F MED LIST DOCD IN RCRD. 1160F RVW MEDS BY RX/DR IN RCRD. 3008F BODY MASS INDEX DOCD. * Sign off status: Completed true * Provider:?Shaheen Kirkland DO Date:? 025 Generated for Aristeo kumari/Malcom/eTransmitting on:?07/30/2024 09:20 AM EDT History and Physical Notes * HPI (History of Present Illness) Category Sub-Category Detail Notes Category Not es Diabetes glucose monitoring checks occassionally glucose control Good hypoglycemia none medication adherence Good polyuria . polydypsia . polyphagia . Diabetes type 2 General No red flags on comperhensive system targeted ROS patient complains about severe sciatica and neck pain, she does give MRI, expectation injections. No weakness in her hands or legs. No incontinence or saddle anesthesia Examination Category Sub-Category Detail Notes Category Not es General Examination HEENT NC/AT, no conj. paleness or scleral icterus Neck: No JVD Heart: RSR, normal S1S2 Lungs: CTA, Equal Sounds Abdomen: . Extremities: . General Appearance: A & O x 3 in NAD Skin: No rash in visible a reas. Neurologic Exam: CN-Intact, EOMI, PERRLA, Normal Speech, Attention and Comprehension, Back: Muscle strength norm al. Slump test negative, Psych: ., affect normal, go od eye contact, oriented to person, oriented to place, oriented to time, normal speech, appropriate
--- OUTSIDE RECORDS SUMMARY | 2024-07-30 09:21 | XMS_ITS | Encounter Summary ---
Author Organization [facility] Address [address] [place] [address] Care Team Providers Care Hydrator Operator Name Role Phone Erum Ibarra MD Primary Care Provider Unava ilForeign Snell MD Primary Care Provider Unavailab Lorena Fuentes MD Primary Care Provider [phone] Racquel Cruz MD Primary Care Prov ider [facility], Pcp Primary Care Provider Unavailabl e Encounter Details Date Type Department Care Team Description 07/19/2018 Transfer Records Medical Records [address] [place] [id number] Abstract, Provider Social History Tobacco Use Types [...] on filedocumented in this encounter Care Teams Hydrator Operator Relationship Specialty Start Date End Date Erum Ibarra MD PCP - General Internal Medicine 06/23/17 09/08/20 Foreign William MD PCP - General Internal Medicine 09/09/20 12/04/20 Lorena Ortiz MD [address] [place] [address] PCP - General Internal Medicine 12/05/20 10/11/21 Racquel Cruz MD [address] [place] [address] PCP - General Internal Medicine 10/12/21 05/20/22 [facility], Pcp [address] [place] [id number] PCP - General Internal Medicine 05/21/22 documented as of this encounter
[2024-07-30 11:45] LABS: Alanine Aminotransferase 41 U/L (0-31); Albumin Level 4.5 g/dL (3.5-5.0); Alkaline Phosphatase 87 U/L (39-117); Anion Gap 11 (12-20); Aspartate Amino Transferase 35 U/L (5-31); Bilirubin Total 0.5 mg/dL (0.0-1.0); Blood Urea Nitrogen 11 mg/dL (9-16); Calcium 9.6 mg/dL (8.4-10.2); Carbon Dioxide 28 mmol/L (22-29); Chloride 108 mmol/L (96-108); Cholesterol 227 mg/dL (<200); Estimated Glomerular Filt Rate > 60; Glucose Fasting 99 mg/dL (60-99); HDL Cholesterol 44 mg/dL (>40); LDL Cholesterol Calculated 134 mg/dL (<100); Potassium 3.8 mmol/L (3.3-5.1); Sodium 143 mmol/L (135-145); Total Protein 7.6 g/dL (6.5-8.0); Triglycerides 246 mg/dL (<150)
[2024-07-30 11:46] LABS: Thyroid Stimulating Hormone 0.26 uIU/mL (0.32-4.0); Vitamin D 25-OH Total 44.5 ng/mL (>30)
[2024-07-30 11:51] LABS: Folate 11.2 ng/mL (> or = 4.0); Vitamin B12 556 pg/mL (200-900)
== END 2024-07-30 09:06 | disposition home or self-care (01) ==
LOC: HO.LAB 09:05
PROVIDERS: PCP Internal Medicine; Visit Provider Internal Medicine
DX: E78.5 Hyperlipidemia, unspecified (principal); E03.9 Hypothyroidism, unspecified; E55.9 Vitamin D deficiency, unspecified; R73.02 Impaired glucose tolerance (oral); E53.8 Deficiency of other specified B group vitamins
CPT/HCPCS: 36415; 80053; 80061; 82306; 82607; 82746; 84443

== ENCOUNTER 2024-12-05 16:33 | Outpatient (AMB) | payer MEDICARE, SELFPAY ==
--- OUTSIDE RECORDS SUMMARY | 2024-11-28 06:40 | XMS_ITS ---
Author Organization [employer] [facility] Address [address] [place] [id number] Care Team Providers Care Wage And Salary Specialist Name Role Phone Shaheen Kirkland Primary Care Provider REASON FOR VISIT 4 week follow up per PCP // Emily confirmed 11/23/24 1:28pm Encounters Encounter Location Date Provider Diagnosis [address] [address] 11/28/2024 Shaheen Kirkland Plan Of Treatment Next Appt Details Provider Name:Shaheen Kirkland, 12/06/2024 10:20:00 AM, [address] [place] [address], [id number], Provider Name:Shaheen Kirkland, 01/07/2025 11:00:00 AM, [address] [place] [address], [id number], Progress Notes * Ximena CODYDOB:1965 (59 yo F)Acc No.[id number]:11/28/2024 Progress Notes Patient: Ximena HOBBS Provider: Alka Kirkland DO :1965 A ge:59 Y S ex:Female Date:11/28/2024 External Visit ID:[id number] Address:[address] [place] [address] , [place], [place] Subjective: * Chief Complaints: * 1 . 4 week follow up per PCP // Emily confirmed 11/23/24 1:28pm. * Medical History: Objective: * Vitals: * Physical Examination: Assessment: Plan: * Treatment: Care Plan: * Problems: * Billing Information: * Visit Code: * Procedure Codes: Care Plan Details* * Electronic signature of Sarah Kirkland DO on 12/05/2024 at 06:08 PM EDT Sign off status: Pending * Provider: Alka Kirkland DO Date: 11/28/2024 Generated for Aristeo kumari/Malcom/Mulugeta on: 12/05/2024 06:08 PM EDT
[2024-12-05 16:36] VITALS: BP 122/80; PULSE 85; O2SAT 97; BMI 33.8
--- NOTE | 2024-12-05 16:36 | A.OFFPC_ITS ---
Vital Signs 12/05/24 16:36 Height 5 ft Weight 173 lb 2 oz BMI 33.8 BP 122/80 Blood Pressure Location Lt brachial Position Sitting Pulse 85 Pulse Source Pulse Oximeter Pulse Oximetry (%) 97 Oxygen Delivery Method Room Air Intake Visit Reasons: bp Child Care Team Lead Required: No Accompanied by: Self / Same As Patient Allergies No Known Allergies (No Known Allergies*) Allergy (Verified 12/05/24 16:50) Medication List - Last Reconciled 12/05/24 by Demetrice Person MD acetaminophen ER (Pain Relief (acetaminophen)) 650 mg PO Q8H PRN 30 days albuterol sulfate 90 mcg/actuation inhalation atorvastatin 20 mg PO BEDTIME 90 days blood pressure monitor (Blood Pressure Kit) As directed calcium acetate 667 mg PO BID 90 days cetirizine 10 mg PO DAILY cholecalciferol (vitamin D3) 25 mcg PO DAILY 90 days diclofenac sodium 75 mg PO BID empagliflozin (Jardiance) 10 mg PO DAILY famotidine 20 mg PO BEDTIME fenofibrate 54 mg PO DAILY 90 days fluticasone propionate 50 mcg/actuation 1 spray intranasal BID 30 days lansoprazole 30 mg PO QAM levothyroxine 88 mcg PO DAILY 90 days mcfdlk-djqgqcqv-sdhdeda 36,000-114,000- 180,000 unit (Creon) 2 caps PO BID loratadine (Allergy Relief (loratadine)) 10 mg PO DAILY meloxicam 7.5 mg PO DAILY methocarbamol 750 mg PO Q8H 5 days nystatin 1 appl topical DAILY 30 days pregabalin 100 mg PO BID 30 days sennosides (senna) 17.2 mg (2 x 8.6 mg) PO DAILY simethicone 180 mg PO QID 30 days terbinafine HCl 250 mg PO DAILY 90 days topiramate 25 mg PO BID 90 days tretinoin 0.025% appl topical BEDTIME Tobacco use date assessed: 12/05/24 Dental Screening Dental Screen Date: 12/05/24 Did you have a dental visit in the last 12 months?: Yes Did you have a dental problem in the last 6 months where you did not have access to dental care?: No Was dental information given to patient?: Patient has dentist HPI HPI Comments History of Present Illness Details The patient is a 59-year-old female presenting with management of hyperlipidemia, hypothyroidism, and diabetes mellitus. The patient has a history of hyperlipidemia, for which she is currently taking atorvastatin 20 mg. Her cholesterol levels were previously noted to be elevated, prompting a re-evaluation during this visit. She also has hypothyroidism, managed with levothyroxine 88 mcg. The thyroid function was noted to be slightly abnormal, necessitating further monitoring. The patient has a diagnosis of diabetes mellitus, with a previous glucose reading of 125 mg/dL. She is currently on Jardiance 10 mg for glycemic control. Her last glucose level was within normal limits, but an A1c test is planned for today to assess long-term control. Her A1c is 5.8 % today and I will hold her Jardiance to see how it will be in the next OV. The patient is also managing obesity, which is a concern given the upcoming holiday season and potential for weight gain. Dietary modifications, including increased oatmeal consumption, have been suggested to aid in weight management and cholesterol reduction. [facility] Medical History (Updated 12/05/24 @ 20:36 by Demetrice Person MD) Breast pain Retraction of left nipple Breast pain, left Encounter for well woman exam with routine gynecological exam ASCUS with positive high risk HPV cervical Constipation Dyslipidemia Vaginitis Epigastric pain Somnolence, daytime Pelvic pain in female Right sided sciatica Skin lesion Family history of colonic polyps Encounter for gynecological examination URI (upper respiratory infection) Hyperglycemia Pre-op examination Discomfort of right ear Hypothyroid Bile salt-induced diarrhea Physical exam Hematuria Acute vaginitis Body aches Otitis media, left Abdominal bloating Generalized abdominal pain Skin lesions Tubular adenoma of colon Obesity (BMI 30-39.9) JERRY (obstructive sleep apnea) Encounter for vision screening Encounter for annual routine gynecological examination FH: ovarian cancer in first degree relative Thoracic back pain Genitofemoral neuralgia of right side Class 1 obesity with body mass index (BMI) of 34.0 to 34.9 in adult Moderate persistent asthma Migraines Hypothyroidism Fixation hardware in leg Bile salt-induced diarrhea Surgical History History of esophagogastroduodenoscopy (EGD) Hx of colonoscopy Eroded bladder suspension mesh History of section History of cholecystectomy History of local excision of skin lesion (~01/04/20) Family History Paternal Aunt History of breast cancer Mother Diabetes High cholesterol Mental health disorder Stomach cancer Uterine cancer, Onset Age: 82 Ovarian cancer Colon cancer Father No problems noted. 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 Current occupational exposures/hazards: No Cognitive needs: No Hearing needs: No Vision needs: Yes Female Reproductive History Menstrual Age of Menarche: 17 Questionnaire Thrive Questionnaire Date Thrive assessed: 07/24/24 I am a: Patient What is your living situation today?: I have a steady place to live Within the past 12 months, did the food you bought not last and you didn't have the money to get more?: Sometimes True Within the past 12 months, did you worry whether your food would run out before you got money to buy more?: Sometimes True Do you have trouble paying for medicines?: Yes Do you have trouble getting transportation to medical appointments?: No Do you have trouble paying your heating and electricity bill?: Yes Do you have trouble taking care of your child, family member or friend?: Yes Do you have trouble with day-to-day activities such as bathing, preparing meals, shopping, managing finances, etc.?: No Are you currently unemployed and looking for a job?: No Are you interested in more education?: No Currently or been in a relationship where the following occur: I choose not to answer THRIVE Score: 3 AUDIT C Alcohol Use Questionnaire (AUDIT-C) 1. How often do you have a drink containing alcohol?: Never 3. How often do you have six or more drinks on one occasion?: Never Total Score: 0 Score Reviewed/Action Taken: No ANA-7 AMB Questionnaire ANA-7 Date ANA - 7 assessed: 03/22/24 Source: Developed by Drs. Shun Au, Pat Garcia, Nando Pearson and colleagues, with an educational jake from [employer]. Review of Systems Const All systems reviewed & are unremarkable except as noted in HPI and below Card Denies chest pain at rest, Denies chest pain with activity, Denies edema, Denies irregular heart rhythm, Denies claudication, Denies dyspnea, Denies dyspnea on exertion, Denies orthopnea, Denies paroxysmal nocturnal dyspnea and Denies slow heart rate Resp Denies cough, Denies dyspnea and Denies dyspnea on exertion GI Denies abdominal pain, Denies change in bowel habits, Denies excessive flatus, Denies nausea and Denies vomiting Denies urinary incontinence, Denies urinary hesitancy and Denies urinary urgency Musc Denies abnormal gait, Denies atrophy, Denies deformity and Denies limited range of motion Skin/Breast Denies bleeding lesions, Denies changing lesions and Denies rash Neuro Denies abnormal gait and Denies lack of coordination Physical exam (Primary Care) Vital Signs: Last Vital Signs Pulse 85 12/05/24 16:36 BP 122/80 12/05/24 16:36 Pulse Ox 97 12/05/24 16:36 Oxygen Delivery Method Room Air 12/05/24 16:36 BMI result Body Mass Index 33.8 BMI Assessment/Plan discussion: High BMI High, discussed plan: lifestyle, weight reduction, dietary and physical activity Tobacco/Smoking Status: Tobacco use Status Tobacco use date assessed 12/05/24 12/05/24 16:37 Patient Tobacco Use Status Never used Tobacco 12/05/24 16:37 e-Cigarette/Vaping Use Never Used 12/05/24 16:37 Thrive Assessment: Date of Thrive Assessment Date Thrive assessed 07/24/24 12/05/24 16:37 Currently or been in a relationship where the following occur: I choose not to answer Resp Effort & Inspection: normal respiratory effort Auscultation: clear to auscultation bilaterally Cardio Jugular venous distension: no JVD Rate: regular rate Rhythm: regular rhythm Heart sounds: S1 normal heart sound present and S2 normal heart sound present Extrem General: Yes full ROM Results AMB Hemoglobin A1c AMB Hemoglobin A1c 5.8 % Last Edit by Nidia Galeana CMA on 12/05/24 17 :14 Results Reviewed Results Reviewed: Laboratory Last Values Hgb A1c (Clinic) 5.8 % (4.0-6.0) 12/05/24 17:13 Coding Level of Care Code Est Pt Level 4 (96233) Complex EM visit Add On G2211 Diagnoses Mild major depression, single episode F32.0 Mixed hyperlipidemia E78.2 Hypertension I10 Hypothyroidism E03.9 Diabetes mellitus E11.9 Time Spent (min) 23 Assessment & Plan Assessment & Plan (1) Mild major depression, single episode: Code(s): F32.0 - Major depressive disorder, single episode, mild Category: Medical (2) Mixed hyperlipidemia: Code(s): E78.2 - Mixed hyperlipidemia Category: Medical (3) Hypertension: Code(s): I10 - Essential (primary) hypertension Category: Medical (4) Hypothyroidism: Code(s): E03.9 - Hypothyroidism, unspecified Category: Medical (5) Diabetes mellitus: Code(s): E11.9 - Type 2 diabetes mellitus without complications Category: Medical Plan Plan 1. Hyperlipidemia The patient will continue atorvastatin 20 mg for hyperlipidemia management. Dietary modifications, including increased oatmeal intake, are recommended to aid in cholesterol reduction. 2. Hypothyroidism Levothyroxine 88 mcg will be continued for hypothyroidism management. Thyroid function tests will be monitored to ensure adequate control. 3. Diabetes Mellitus The patient will continue Jardiance 10 mg for diabetes management. An A1c test is planned to assess long-term glycemic control. 4. Obesity Weight management strategies, including dietary modifications, are emphasized to prevent further weight gain. Orders: Orders Lipid Panel Today E78.5 - Hyperlipidemia, unspecified Microalbumin, Random (w Creat) Today R80.9 - Proteinuria, unspecified Comprehensive [place]. Panel Fast Today E78.2 - Mixed hyperlipidemia AMB Hemoglobin A1c Today Z13.9 - Encounter for screening, unspecified Vitamin D 25-OH Total Today E55.9 - Vitamin D deficiency, unspecified Thyroid Stimulating Hormone Today E03.9 - Hypothyroidism, unspecified Medications: Discontinued fenofibrate Discontinued Reason: Patient Completed Course 54 mg PO DAILY 90 days 90 tabs 1RF E78.2 - Mixed hyperlipidemia
--- OUTSIDE RECORDS SUMMARY | 2024-12-05 18:08 | XMS_ITS | Encounter Summary ---
Author Organization [facility] Address [address] [place] [address] Care Team Providers Care Finance Administrator Name Role Phone Shaheen Kirkland Primary Care Provider [phone] Reason for Visit * Reason Onset Date Comments Referral 11/30/2024 Encounter Details Date Type Department Care Team (Late st Contact Info) Description 11/30/2024 Telephone [facility] Department of Physiatry [place] [address] [place] [address] Kaela Villa MD [address] [place] [address] Referral Social History Tobacco Use Types Packs/Day Years Used Date Smoking Tobacco: Never Smokeless Tobacco: Never Alcohol Use Standard Drinks/Week Comments Never 0 (1 standard drink = 0.6 oz pur e alcohol) PHQ-2 Answer Date Recorded PHQ-2 Total Score 4 06/26/2024 Comments No Sex and Gender Information Value Date Recorded Sex Assigned at Female 08/08/2024 1:40 PM EDT Legal Sex Female 12:09 PM EDT Gender Identity Female 08/08/2024 1:40 PM EDT Sexual Orientation Asexual 08/08/2024 1: 40 PM EDT documented as of this encounter Miscellaneous Notes * Telephone Encounter - Nidia Pierre - 11/30/2024 4:07 PM EDT . documented in this encounter Plan of Treatment Upcoming Encounters Date Type Department Care Team (Late st Contact Info) Description 02/13/2025 9:30 AM EST Consult [facility] Department of Endocrinology [place] [address] [facility] [address] [place] [address] Mary Worley MD [address] [place] [address] documented as of this encounter Visit Diagnoses Not on filedocumented in this encounter Care Teams Finance Administrator Relationship Specialty Start Date End Date Shaheen Kirkland DO [address] [place] [address] PCP - General Internal Medicine 06/27/24 documented as of this encounter
--- OUTSIDE RECORDS SUMMARY | 2024-12-05 18:08 | XMS_ITS | Clinical Summary ---
Author Organization [facility] Address [address] [place] [address] Care Team Providers Care Start Up Specialist Name Role Phone Ruthie Cedeño DMD Primary Care Provider [phone] Source Comments PLEASE NOTE, if this patient [...] 02/03/2012 Fecal DNA 02/03/2012 Flexible Sigmoidoscopy 02/03/2012 Imm-Pneumococcal 50+ (1 of 1 - PCV) 2017 Imm-Zoster, Recombinant (1 of 2) 2017 Imm-Hepatitis B (3 of 3 - 19 + 3-dose series) 09/13/2017 04/19/2017, 03/16/2017 Alcohol and Drug Screen 03/14/2024 Depression Annual Screen 03/14/2024 Hypertension Screening (#1) 09/28/2024 Dental BW 09/30/2024 09/29/2023 Dental Examination 09/30/2024 09/29/2023 [id number] ( season) 2024 021, 08/25/2020 Imm-Influenza (#1) 2024 04/01/2016, 1 , 01/15/2014, Additional history exists Dental FMX/Pano 09/30/2028 09/29/2023 Imm-DTaP/Tdap/Td (4 - Td or Tdap) 05/30/2031 05/29/2021, 02/20/2013, 01/28/2007 Cervical Ablation/Cold-Knife Conization Discontinued Cervical Cryotherapy Discontinued Colposcopy Discontinued Endometrial Biopsy Discontinued Excision/Leep Discontinued HPV Genotyping Discontinued Vaginal Pap Discontinued Vulvoscopy Discontinued Procedures Procedure Name Priority Date/Time Associated Diagnosis Comments INTRAORAL - COMP SERIES OF RADIOGRAPHIC IMAGES Routine 09/29/2023 4:00 PM EDT Defective dental muslim Encounter for dental examination COMP ORAL EVALUATION - NEW/ESTABLISHED PATIENT Routine 09/29/2023 4:00 PM EDT Defective dental muslim Encounter for dental examination from Last 3 Months or Most Recently Relevant to Health Maintenance Insurance [facility] Care Teams Start Up Specialist Relationship Specialty Start Date End Date Ruthie Cedeño DMD [address] [place] [address] PCP - General 11/23/18
--- OUTSIDE RECORDS SUMMARY | 2024-12-05 18:08 | XMS_ITS | Clinical Summary ---
Author Organization [facility] Address [address] [place] [address] Care Team Providers Care Rangeland Management Specialist Name Role Phone Shaheen Kirkland Primary Care Provider [phone] Allergies No known active allergies Medications acetaminophen (TYLENOL) 650 MG CR tablet Take 650 mg by mouth 3 times daily (every 8 hours) as needed. 03/11/20 24 Active albuterol (PROVENTIL HFA; VENTOLIN HFA) 108 (90 Base) MCG/ACT inhaler 03/01/20 24 Active atorvastatin (LIPITOR) 20 MG tablet Take 20 mg by mouth nightly. 07/25/19 25 Active famotidine (PEPCID) 20 MG tablet Take 20 mg by mouth nightly as needed. Active fenofibrate (LOFIBRA) 54 MG tablet Take 54 mg by mouth daily. 07/29/19 25 Active lansoprazole (PREVACID) 30 MG capsule Take 30 mg by mouth 2 (two) times a day before meals. 07/25/19 25 Active levothyroxine (SYNTHROID, LEVOTHROID) 100 MCG tablet Take 100 mcg by mouth daily on an empty stomach. Active methocarbamol (ROBAXIN) 750 MG tablet Take 750 mg by mouth. Active topiramate (TOPAMAX) 25 MG tablet Take 25 mg by mouth daily. 04/02/19 Active escitalopram (LEXAPRO) 10 MG tablet Take 10 mg by mouth daily. Active D-1000 Extra Strength 25 MCG (1000 UT) tablet Act yovani diclofenac enteric coated (VOLTAREN) 75 MG EC tablet Take 75 mg by mouth. Administer with food avoid GI upset. Active linaclotide (LINZESS) 145 MCG Cap capsuleIndicatio ns:Chronic constipation Take on an empty stomach at least 30 minutes prior to a meal at approximately the same time each day. 90 capsule 1 08/10/19 25 Active polyethylene glycol-electroly michel (NuLYTELY, TRILYTE) 420 g solutionIndicati ons:FH: colon cancer,Polyp of colon, unspecified part of colon, unspecified type Take as directed for Colonoscopy/GI Procedure. See administration instructions. 4000 mL 08/10/19 25 Active Jardiance 10 MG tablet Take 1 tablet by mouth every morning. 07/17/19 25 Active ibuprofen (MOTRIN) 200 MG tablet Take 200 mg by mouth 4 times daily (every 6 hours) as needed for mild pain. Active polyethylene glycol (miraLAx) 17 GM/SCOOP powderIndication s:FH: colon cancer,Chronic constipation Take 119 g by mouth daily. Take as directed 2 days before colonoscopy 119 g 08/11/19 25 Active bisacodyl (DULCOLAX) 5 MG EC tabletIndication s:FH: colon cancer,Chronic constipation Take 4 tablets (20 mg total) by mouth once. Take as directed 2 days before colonoscopy 4 tablet 08/11/19 25 Active Active Problems Problem Noted Date Diagnosed Date FH: colon cancer 08/09/2024 Polyp of colon 08/09/2024 Gastroesophageal reflux disease 08/09/2024 Nausea 08/09/2024 Esophageal dysmotility 01/02/2022 Overview (06/26/2024): Mild noted on manometry study - [facility] records JERRY on CPAP 02/11/2020 Calcific tendinitis of left shoulder 08/28/2019 Chronic heel pain, right 07/05/2017 Overview (06/26/2024): R foot Xray - calcaneal spurs. Podiatry referral Fatty liver 07/05/2017 Migraine 07/05/2017 Overview (06/26/2024): Saw Neurology. Prednisone & Elavil Type 2 diabetes mellitus with obesity 07/05/2017 Chronic constipation 06/04/2014 Tinea pedis 10/31/2013 Hypothyroid 02/20/2013 Hyperlipidemia 09/30/2009 IBS (irritable bowel syndrome) 06/19/2008 Overview (06/26/2024): Random colonic bx normal 2005. Family history of malignant neoplasm of gastrointestinal tract 01/21/2006 Overview (06/26/2024): Negative colonoscopy 02/22/2006, 06/02/2011, no colon cancer screening needed for 5 years. Depression with anxiety 12/08/2005 Heartburn 02/22/2005 Overview (06/26/2024): EGD normal 02.22.06. 48 hour ambulatory pH testing performed [facility] 05/04/2016 revealed normal amounts of acid exposure. Resolved Problems Problem Noted Date Diagnosed Date Resolved Date Vitamin D deficiency 10/14/2011 025 Encounters Date Type Department Care Team Description 12/04/2024 Telephone [facility] Department of Endocrinology [place] [address] [facility] [address] [place] [address] Kaylene Garay MD 11/30/2024 Orders Only [facility] Department of Physiatry [address] [address] Kaela Villa MD Osteopenia after menopause (Primary Dx); Postmenopausal 11/30/2024 Telephone [facility] Department of Physiatry [place] [address] [place] [address] Kaela Villa MD Referral 11/26/2024 3:45 PM EDT Office Visit [facility] Department of Physiatry [place] [address] [place] [address] Kaela Villa MD Kyphosis of thoracic region, unspecified kyphosis type (Primary Dx); Thoracic spondylosis; Lumbar spondylosis; Osteopenia after menopause 10/23/2024 2:30 PM EDT Office Visit [facility] Department Of Rig Supervisor [place] [address] [place] [address] Bakari [place] MD Well female exam with routine gynecological exam (Primary Dx); Routine cervical smear 10/16/2024 Orders Only [facility] Department of Physiatry [place] [address] [place] [address] ProviderBj MD 09/24/2024 3:45 PM EDT Office Visit [facility] of Physiatry [place] [address] [place] [address] Kaela Villa MD Deformity of thoracic vertebra (Primary Dx); Postmenopausal; Thoracic spondylosis; Kyphosis of thoracic region, unspecified kyphosis type; Myalgia from Last 3 Months Family History Medical History Relation Name Comments Cancer, other Brother Tanner colon Irritable bowel syndrome Brother Tanner colon Mental illness Brother Tanner colon Cancer, other Father Sharad colon He past away 1 990 Cancer, other Maternal Grandmother Talya poventud Cancer, other Mother Gisselle poventud She past aw ay 2022 Mental illness Mother Gisselle poventud Stomach cancer Mother Gisselle poventud Cancer, other Paternal Aunt Elsy Krishnan Cancer, other Sister 1 Doris colon Hypertension Sister 1 Doris colon Cancer, other Sister 2 Pat madsen Relation Name Status Comments Brother Tanner colon Alive Father Sharad colon Alive Maternal Grandmother Talya poventud Alive Mother Gisselle poventud Alive Paternal Aunt Elsy Krishnan Alive Sister 1 Doris colon Alive Sister 2 Pat madsen Alive Social History Tobacco Use Types Packs/Day Years [...] Orientation Asexual 08/08/2024 1: 40 PM EDT Last Filed Vital Signs Vital Sign Reading Time Taken Comments Blood Pressure 114/68 11/26/2024 3:38 PM EDT Pulse 79 11/26/2024 3:38 PM EDT Temperature 36.4 C (97.5 F) 08/17/2024 1:56 PM EDT Respiratory Rate 18 08/17/2024 2:39 PM EDT Oxygen Saturation 100% 09/24/2024 3:56 PM EDT Inhaled Oxygen Concentration - - Weight 76.2 kg (168 lb) 10/23/2024 2:26 PM EDT Height 154.9 cm (5' 1 ) 08/17/2024 12:39 PM EDT Body Mass Index 31.74 08/17/2024 12:39 PM EDT Plan of Treatment Upcoming Encounters Date Type Department Care Team (Late st Contact Info) Description 02/13/2025 9:30 AM EST Consult [facility] Department of Endocrinology [place] [address] [facility] [address] [place] [address] Mary Worley MD [address] [place] [address] Health Maintenance Due Date Last Done Comments Hepatitis C Virus Screening 1967 Creatinine with GFR 1977 Foot Exam 1977 Hemoglobin A1C 1977 Lipid Panel 1977 Ophthalmology Exam 1977 HIV Screening 02/03/1980 Microalbumin/Creatinine Rati o Urine 1985 DTaP/Tdap/Td Vaccines (1 - Tdap) 1986 Hepatitis B Vaccines (1 of 3 - 19+ 3-dose series) 1986 Pneumococcal Vaccines 50+ (1 of 2 - PCV) 1986 Mammogram 2007 Zoster (Shingles) Vaccine (1 of 2) 2017 Influenza Vaccine 10/12/2024 04/01/2016, , 01/08/2016, Additional history exists COVID-19 Vaccine (3 - 2024-2 6 season) 2024 10/08/2020, 08/25/2020 Pap Smear (Ages 21-65) 10/24/2027 10/23/2024 Colonoscopy 08/17/2034 08/17/2024 Procedures Procedure Name Priority Date/Time Associated Diagnosis Comments POCT URINE SHORT DRAW Routine 10/23/2024 2:29 PM EDT Well female exam with routine gynecological exam THINPREP PAP TEST (ENVIRONMENTAL ENGINEER SCIENTIST) Routine 10/23/2024 2:28 PM EDT Well female exam with routine gynecological exam Routine cervical smear DEXA BONE DENSITY AXIAL SKELETON, 1 OR MORE SITES Routine 10/16/2024 3:26 PM EDT Deformity of thoracic vertebra Postmenopausal XRAY EXTERNAL RESULT Routine 10/16/2024 1:43 PM EDT from Last 3 Months Results * POCT Urine Short Draw (10/23/2024 2:29 PM EDT) Glucose, UA Negative Negative Protein, UA Negative Negative Ketones, UA Negative Negative Urine Urine specimen / Unknown 10/23/2024 2:29 PM EDT Bakari [place] MD POINT OF CARE TEST ORDERABL ES Final Result * ThinPrep Pap Test (10/23/2024 2:28 PM EDT) 10/23/2024 2:28 PM EDT Narrative [facility] - 10/30/2024 3:35 PM EDT To view the final report click the scan hyperlink below. Bakari [place] MD LAB AMB PATH/CYTO ORDERABLE S Final Result Performing Organization Address City/State/[facility] Co de Phone Number [facility] [address] [place] [address], * DEXA Bone Density axial skeleton, 1 or more sites (10/16/2024 3:26 PM EDT) Anatomical Region Laterality Modality Digital Radiogra phy Kaela Villa MD IMG DXA ORDERABLES Final Re sult * X-Ray External Result (10/16/2024 1:43 PM EDT) Anatomical Region Laterality Modality Computed Radiogr aphy External Provider MD [facility] KEIRA CORTES Final Result from Last 3 Months Insurance [facility]ICARE [facility] MEDICARE [facility] MEDICARE [facility] MEDICARE Care Teams [place]angel[place] Management Specialist Relationship Specialty Start Date End Date Shaheen [place] DO [address] [place] [address] PCP - General Internal Medicine 06/27/24
--- OUTSIDE RECORDS SUMMARY | 2024-12-05 18:08 | XMS_ITS | Continuity of Care Document ---
Author Organization [facility] [address] [facility] [address] [place] [address] Phone [phone] Care Team Providers Care Insulation Nozzleman Name Role Phone Demetrice Meier MD Care Team Information Receiv er [phone] Problems Active Problems Provider Date Non-toxic multinodular goiter Jcarlos Colon M.D. Onset: 04/14/2023 Hypothyroidism Jcarlos Colon M.D. Onset: 0 04/14/2023 Social History Type Date Description Comments Sex Female Sex Unknown ETOH Use Never used alcohol Tobacco Use Start: Unknown Patient has never smoked Allergies and adverse reactions Description No Known Drug Allergies Medications Active Medications SIG Qnty Indications Order ing Provider Date Levothyroxine [id number] Tablets Take 1 Tablet By Mouth Daily And 2 Tabs On Tuesday 100tabs Jcarlos Colon M.D. 04/15/2023 Flovent [id number]/Act Aerosol [place] Chen MD Pantoprazole Gmidkx78sv Tablets DR Take 1 Tablet By Mouth Daily Dalila Bryan NP [id number] (1000 Ut) Capsules Unknown [id number] Tablets Take 1 Tablet By Mouth Twice A Day Unknown Rosuvastatin Wjdoqzc11xo Tablets Take 1 Tablet By Mouth Everyday AT Bedtime Unknown Bsvtxprhwg48an Tablets Take 1 Tablet By Mouth Everyday AT Bedtime Unknown Vital Signs Date Vital Result Comment 04/15/2023 3:35pm BP Systolic 120 mmHg BP Diastolic 80 mmHg Heart Rate 72 /min Height 61 inches 5'1 Weight 173.12 lb BMI (Body Mass Index) 32.7 kg/m2 Results Test Acquired Date Facility Test Result H/L Range N ote TSH 03/18/2023 [facility] TSH 2.38 uIU/mL (0.4-4.2) Anti Thyroid Peroxidase AB 03/03/2022 [facility] Anti Thyroid Peroxidase AB 259.5 IU/mL High (<5.6) 1 1 Antibody measurement represents one parameter in a multicriteria diagnostic process. Correlate results with clinical presentation. This test was performed on the [email or web address] immunoassay system. Medical Devices Description No Information [...]
--- OUTSIDE RECORDS SUMMARY | 2024-12-05 18:08 | XMS_ITS | Patient Health Record ---
Author Organization [facility] Address [address] [place] [address] Care Team Providers Care Transonic Engineer Name Role Phone Shaheen Kirkland Primary Care Provider [phone] AnnaleekaiserSindi braden Unavailable [phone] Allergies No Known Allergies Results Component Value Reference Range Notes Celiac Disease Comprehensive Panel [id number] Reviewed date:10/16/2024 02:34:52 PM Interpretation:Negative Performing Lab:NL1, , [address] [place], [address] Lexis Brito M.D. Notes/Report: Received Date: [id number] 0 FASTING:NO FASTING: NO INTERPRETATION See Note No serological evidence for celiac disease is present. tTg may normalize in individuals with celiac disease who maintain a gluten free diet. If high suspicion of celiac disease, consider HLA DQ2 and DQ8 testing to rule out celiac disease. TISSUE TRANSGLUTAMINASE AB, IGA <1.0 Value Interpretation ----- <15.0 Antibody not detected > or = 15.0 Antibody detected IMMUNOGLOBULIN A 181 47-310 mg/dL MRI: Cervical Spine, w/o Con trast Reviewed date:07/25/2024 11:29:43 AM Interpretation:Mild disc herniation Performing Lab: Notes/Report: Mild disc herniation MRI: Thoracic Spine, w/o Con trast Reviewed date:07/25/2024 11:28:52 AM Interpretation:Mild degenerative changes Performing Lab: Notes/Report: Mild degenerative changes X-ray: Lumbar Spine Reviewed date:06/18/2024 04:27:53 PM Interpretation:Normal Performing Lab: Notes/Report: Normal X-ray: Spines, Thoracic Spin e Reviewed date:06/18/2024 10:48:12 AM Interpretation:Degenerative spondylosis Performing Lab: Notes/Report: Degenerative spondylosis X-ray: Spines, Cervical Reviewed date:06/18/2024 10:49:19 AM Interpretation:Degenerative changes and spasm Performing Lab: Notes/Report: Degenerative changes and spasm Colonoscopy: Referral Reviewed date:09/04/2024 11:13:39 AM Interpretation:Normal Performing Lab: Notes/Report: Normal Lipid Panel w/refl LDL 19591 Reviewed date:05/30/2024 01:01:29 PM Interpretation:207 Performing Lab:NL1, , [address] [place], [address] Lexis Brito M.D. Notes/Report: Received Date: 0; [...] about testing for familial hypercholesterolemia, please call [facility] [employer] [facility] at [email or web address]. Donya T, et al. J National Lipid Association Recommendations for Patient-Centered Management of Dyslipidemia: Part 1 Journal of Clinical Lipidology 2015;9(2), 129-169. Gita Morrow et al. (2014). Homozygous familial hypercholesterolaemia: new insights and guidance for clinicians to improve detection and clinical management. Heart Journal, 35(32), 0850-6273. Reference range: <100 Desirable range <100 mg/dL for primary prevention; <70 mg/dL for patients with CHD or diabetic patients with > or = 2 CHD risk factors. LDL-C is now calculated using the Terrell-Madhu calculation, which is a validated novel method providing better accuracy than the Friedewald equation in the estimation of LDL-C. Terrell CONDE et al. DARYN. 2013;310(19): 6361-8968 (http://education.[employer].com/faq/XRG717) CHOL/HDLC RATIO 4.1 <5.0 (calc) NON HDL [...] <70 mg/dL) is considered a therapeutic option. Microalbumin,[facility] (w/crea t) 2817 Reviewed date:05/30/2024 01:01:29 PM Interpretation: Normal Performing Lab:NL1, , [address] [place], [address] Lexis Brito M.D. Notes/Report: Received Date: 0; [...] patient to be within a diagnostic category. Hemoglobin A1c 496 Reviewed date:05/30/2024 01:01:29 PM Interpretation:6.5 Performing Lab:NL1, , [address] [place], [address] Lexis Brito M.D. Notes/Report: Received Date: 0; [...] A1c for diagnosis of diabetes for children. TSH w/Free T4 rfx 48958 Reviewed date:05/30/2024 01:01:29 PM Interpretation: Normal Performing Lab:NL1, , [address] [place], [address] Lexis Brito M.D. Notes/Report: Received Date: 0; 0; 0; 0; 0; 0 FASTING:YES FASTING: YES TSH W/REFLEX TO FT4 1.13 0.40-4.50 mIU/L CBC (H/H,RBC,Indices,WBC,Plt ) 1758 Reviewed date:05/30/2024 01:01:29 PM Interpretation: Normal Performing Lab:NL1, , [address] [place], [address] Lexis Brito M.D. Notes/Report: Received Date: 0; 0; 0; 0; 0; 0 FASTING:YES FASTING: YES WHITE BLOOD CELL COUNT 6.6 3.8-10.8 Thousand/uL RED BLOOD CELL COUNT 4.61 3.80-5.10 Million/uL [...] 361 140-400 Thousand/uL MPV 9.0 7.5-12.5 fL Basic Metabolic Panel w/eGFR 48219 Reviewed date:05/30/2024 01:01:29 PM Interpretation: Normal Performing Lab:NL1, , [address] [place], [address] Lexis Brito M.D. Notes/Report: Received Date: 0; 0; 0; 0; 0; 0 FASTING:YES FASTING: YES GLUCOSE 86 65-99 mg/dL Fasting reference interval UREA NITROGEN (BUN) 13 7-25 mg/dL CREATININE 0.54 0.50-1.03 mg/dL EGFR 107 > OR = 60 mL/min/1.73m2 BUN/CREATININE RATIO SEE NOTE: 6- (calc) Not Reported: BUN and Creatinine are within reference range. SODIUM 140 135-146 mmol/L POTASSIUM 4.1 3.5-5.3 mmol/L CHLORIDE 101 98-110 mmol/L CARBON DIOXIDE 29 20-32 mmol/L CALCIUM 9.7 8.6-10.4 mg/dL Reason For Referral Reason 59 year old female w ith upper back pain secondary to posture. Diagnosis 1 Upper back pain (M54 .9) Referral Organization [facility] Referring Provider First Name Sindi Referring Provider Last Name Lila [facility] Referred Provider Specialty Physical The rapy General Notes Sindi Sharp 11:56:57 AM > Patient would like referral to go to PT at [facility] [address] [facility] [address], that is where she is currently for PT on her shoulder. Referral Priority Routine Reason Please evaluate and treat. 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) Referral Organization [facility] Referring Provider First Name Sindi Referring Provider Last Name Lila Referring Provider [facility] Referred Provider David Villatoro Referred Provider Specialty Spinal Surge ry General Notes Mary Tsang 07/05 12:16:42 PM >faxed referral with the last visti note med summary and maycolmgDr Irving cruz-Spinal Surgery, [facility], support 07/05/2024 13:56:03 PM>, [facility]: Patient Reviewed Link, kina, support 07/05/2024 13:56:04 PM>, [facility]: Referral Recommendations Sent to Patient , DAVID VILLATORO , [address] [place] [address], [address] , , , Nguyen REF, Desire 07/10/2024 01:55:22 PM >Refaxed at the patient 's request, kina, support 08/29/2024 11:01:59 AM>, [facility] Summary, [facility] 07/05/24 11:17 AM: Patient Sent Specialist Recommendation , DAVID VILLATORO , [address] [facility] [address], [facility], [address] , , , [facility] 07/05/24 12:37 PM: Patient Reviewed Link, [facility] 07/10/24 12:37 PM: Confirmation of Scheduled Appointment - 1st Request, [facility] 07/10/24 12:38 PM: Confirmation of Scheduled Appointment Response- NO , Request again in 48 Hours, [facility] 07/12/24 12:38 PM: Confirmation of Scheduled Appointment - 2nd Request, [facility] 07/12/24 01:39 PM: Confirmation of Scheduled Appointment Response- NO , Request again in 48 Hours, [facility] 07/16/24 08:07 AM: Confirmation of Scheduled Appointment - 2nd Request, [facility] 07/16/24 08:15 AM: Appointment Date 1st Request, [facility] 07/16/24 08:48 AM: Patient Confirmed Appt Scheduled, [facility] 07/18/24 08:10 AM: Appointment Date 2nd Request, [facility] 07/20/24 08:15 AM: Appointment Date 3rd Request, [facility] 07/20/24 11:50 AM: Patient Provided Appointment Date - 07/20/2024, kina, support 09/26/2024 03:06:07 AM>, [facility] 09/26/24 01:32 AM: Faxed Specialist for Consult Notes - Successful, kina, support 10/03/2024 18:06:00 PM>, [facility] 10/03/24 04:40 PM: Faxed Specialist for Consult Notes - Courtney, kina, support 10/10/2024 13:33:05 PM>, [facility] 10/10/24 11:44 AM: Fax Specialist for Consult Notes - Max Attempts Reached, Desire Robles 10/10/2024 04:50:16 PM >consult rec'd Referral Priority Routine Referral Appointment Date 07/20/2024 Reason pain Diagnosis 1 Neck pain (M54.2) Diagnosis 2 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) Diagnosis 3 Thoracic arthritis ( M46.84) Diagnosis 4 Thoracic abscess (J8 6.9) Diagnosis 5 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) Referral Organization [facility] Referring Provider First Name Shaheen Referring Provider Last Name Marita Referring Provider Speciality Internal M edicine Referred Provider Kaela Siddiqi Referred Provider Specialty Physiatry General Notes Mary Tsang 07/30 02:49:21 PM >faxed referral with the last vist note med summary and imaging, Dr Do, kina, support 07/31/2024 08:09:04 AM>, [facility] 07/30/24 04:38 PM: Patient Reviewed Link, kina, support 07/31/2024 08:09:04 AM>, [facility] 07/30/24 04:31 PM: Patient Sent Specialist Recommendation , KAELA SIDDIQI , [address] [facility], [address] , , , kina, support 08/07/2024 08:47:00 AM>, [facility] 08/06/24 08:09 AM: Confirmation of Scheduled Appointment - 1st Request, kina, support 08/07/2024 08:47:00 AM>, [facility] 08/06/24 02:00 PM: Confirmation of Scheduled Appointment - 2nd Request, kina, support 08/08/2024 15:33:00 PM>, [facility] 08/08/24 02:00 PM: Confirmation of Scheduled Appointment - 3rd Request, kina, support 08/23/2024 12:13:16 PM>, [facility] 08/23/24 08:27 AM: Referral Closed, kina, support 08/23/2024 12:13:17 PM>, [facility] 08/22/24 02:00 PM: No Response From Patient, kina, support 08/29/2024 15:43:54 PM>, [facility] Summary, [facility] 07/30/24 04:31 PM: Patient Sent Specialist Recommendation , KAELA SIDDIQI , [address] [facility], [address] , , , [facility] 07/30/24 04:38 PM: Patient Reviewed Link, [facility] 08/06/24 08:09 AM: Confirmation of Scheduled Appointment - 1st Request, [facility] 08/06/24 02:00 PM: Confirmation of Scheduled Appointment - 2nd Request, [facility] 08/08/24 02:00 PM: Confirmation of Scheduled Appointment - 3rd Request, [facility] 08/22/24 02:00 PM: No Response From Patient, [facility] 08/23/24 08:27 AM: Referral Closed Referral Priority Routine Reason toe pain Diagnosis 1 Toe pain (M79.676) Referral Organization [facility] Referring Provider First Name Shaheen Referring Provider Last Name Marita Referring Provider Speciality Internal M edicine Referred Provider Juanjose Kahn Referred Provider Specialty Podiatry - S urgical Chiropody General Notes Mary Tsang 07/30 02:28:23 PM >faxed referral with the last visit note med Dr alec stephen Podiatry, kina, support 07/31/2024 08:09:04 AM>, [facility] 07/30/24 04:19 PM: Patient Sent Specialist Recommendation , JUANJOSE KAHN , [address] [facility], [address] , , , kina, support 07/31/2024 08:09:04 AM>, [facility] 07/30/24 04:19 PM: Patient Reviewed Link, kina, support 08/07/2024 08:47:00 AM>, [facility] 08/06/24 08:09 AM: Confirmation of Scheduled Appointment - 1st Request, kina, support 08/07/2024 08:47:00 AM>, [facility] 08/06/24 01:29 PM: Confirmation of Scheduled Appointment - 2nd Request, kina, support 08/08/2024 15:33:00 PM>, [facility] 08/08/24 01:29 PM: Confirmation of Scheduled Appointment - 3rd Request, kina, support 08/08/2024 15:33:00 PM>, [facility] 08/08/24 01:30 PM: Appointment Date 1st Request, kina, support 08/10/2024 15:17:07 PM>, [facility] 08/10/24 01:30 PM: Appointment Date 2nd Request, kina, support 08/13/2024 11:28:31 AM>, [facility] 08/13/24 08:01 AM: Appointment Date 3rd Request, kina, support 08/14/2024 15:53:02 PM>, [facility] 08/14/24 01:40 PM: Appointment Date 4th Request, kina, support 08/15/2024 06:55:16 AM>, [facility] 08/14/24 03:24 PM: Patient Did Not Attend Appointment, kina, support 08/15/2024 06:55:17 AM>, [facility] 08/14/24 03:26 PM: Patient Provided Appointment Date - 08/14/2024, kina, support 08/15/2024 06:55:17 AM>, [facility] 08/14/24 03:24 PM: Patient Provided Appointment Date - 1965, [employer], support 08/15/2024 13:20:20 PM>, [facility] 08/15/24 10:53 AM: Patient Provided Appointment Date - 08/14/2024, kina, support 08/29/2024 15:43:54 PM>, [facility] Summary, [facility] 07/30/24 04:19 PM: Patient Sent Specialist Recommendation , JUANJOSE KAHN , [address] [place] [address], [address] , , , [facility] 07/30/24 04:19 PM: Patient Reviewed Link, [facility] 08/06/24 08:09 AM: Confirmation of Scheduled Appointment - 1st Request, [facility] 08/06/24 01:29 PM: Confirmation of Scheduled Appointment - 2nd Request, [facility] 08/08/24 01:29 PM: Confirmation of Scheduled Appointment - 3rd Request, [facility] 08/08/24 01:30 PM: Appointment Date 1st Request, [facility] 08/08/24 01:34 PM: Patient Confirmed Appt Scheduled, [facility] 08/10/24 01:30 PM: Appointment Date 2nd Request, [facility] 08/13/24 08:01 AM: Appointment Date 3rd Request, [facility] 08/14/24 01:40 PM: Appointment Date 4th Request, [facility] 08/14/24 03:24 PM: Patient Provided Appointment Date - 1965, [facility] 08/14/24 03:24 PM: Patient Did Not Attend Appointment, [facility] 08/14/24 03:26 PM: Patient Provided Appointment Date - 08/14/2024, [facility] 08/15/24 10:53 AM: Patient Provided Appointment Date - 08/14/2024 Referral Priority Routine Referral Appointment Date 08/14/2024 Reason needs help with adl Diagnosis 1 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) Diagnosis 2 Thoracic arthritis ( M46.84) Diagnosis 3 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) Referral Organization [facility] Referring Provider First Name Shaheen Referring Provider Last Name Marita Referring Provider Speciality Internal M edicine Referred Provider Specialty Visiting isabell tolentino General Notes Mica Michele RN 09/24/2024 04:11:41 PM > Faxed to Shanon Garza Referral Priority Routine Medications Medication SIG (Take, Route, Frequency, Duration) Notes Start Date End Date Status Acetaminophen ER 650 MG TAKE 1 TABLET BY MOUTH EVERY 8 HOURS NEEDED FOR PAIN FOR 30 DAYS Oral for 40 Days Active Accu-Chek Guide w/Device 1 subcutaneous once a day for 90 09/24/2024 Active Levothyroxine Sodium 100 MCG TAKE 1 TABLET BY MOUTH DAILY AND 2 TABS ON TUESDAY Oral for 90 Days Active Lansoprazole 30 MG Oral for 90 Days Active Xifaxan 550 MG 1 tablet Orally Twic e a day for 14 days Active Topiramate 25 MG TAKE 1 TABLET ORALLY 2 TIMES A DAY FOR 90 DAYS Oral for 90 Days Active Nystatin 396645 UNIT/GM 1 APPL TOPICALLY DAILY FOR 30 DAYS External for 30 Days Active Accu-Chek Guide Test - 1 In Vitro once a day for 90 days 09/24/2024 Active Clotrimazole 1 % 1 application Aviation Safety Equipment Technician ally Twice a day for 14 days Active Pregabalin 100 MG Oral for 30 Days Active Calcium Acetate (Phos Binder) 667 MG TAKE 1 TABLET BY MOUTH TWICE A DAY Oral for 90 Days Active Methocarbamol 750 MG TAKE 1 TABLET BY MO UTH EVERY DAY AT NIGHT for 30 Active [facility] D3 25 MCG (1000 UT) TAKE 1 CAPSULE B Y MOUTH EVERY DAY Oral for 90 Days Active Atorvastatin Calcium 80 MG 1 tablet Oral ly Once a day for 90 days Active Fenofibrate 54 MG Oral for 90 Days Active Jardiance 10 MG 1 tablet Orally Once a day for 90 days 06/06/2024 Active [facility] Gas Relief Ultra Strength 180 MG 180 MG ORALLY 4 TIMES A DAY FOR 30 DAYS AFTER MEALS Oral for 12 Days Active Famotidine 20 MG 20 MG ORALLY BEDTIME Oral for 90 Days Active Escitalopram Oxalate 10 MG 1 tablet Oral ly Once a day Active Albuterol Sulfate HFA 108 (90 Base) MCG/ACT TAKE 2 PUFFS (INHALATION) EVERY 6 HOURS (SHORTNESS OF BREATH OR WHEEZING) FOR 10 DAYS Inhalation for 20 Days Active Social History Tobacco Use: Social History Observation Description Date Details (start date - stop date) Never Smoker NA - NA Tobacco Control (Standard) Question Answer Notes Tobacco use: Nonsmoker Problems Problem Type SNOMED Code ICD Code Onset Dates Problem Status W/U Status Risk Notes Problem Body mass index 30.00 to 34.99 (692047489322768) Body mass index (BMI) 31.0-31.9, adult (Z68.31) 025 Active confirmed Problem Body mass index 30.00 to 34.99 (100855476786670) Body mass index (BMI) 32.0-32.9, adult (Z68.32) 025 Active confirmed Problem Irritable bowel syndrome with diarrhea (538175386) Irritable bowel syndrome with diarrhea (K58.0) Active confirmed Problem Abnormal findings on diagnostic imaging of breast (314816676) Other abnormal and inconclusive findings on diagnostic imaging of breast (R92.8) Active confirmed Problem Gastroesophageal reflux disease (015100221) GERD (gastroesophageal reflux disease) (K21.9) Active confirmed Problem Neck pain (06481478) Neck pain (M54.2) Active confirmed Problem Type II diabetes mellitus well controlled (233908566) Diabetes type 2, controlled (E11.9) Active confirmed Problem Hyperlipidaemia (05307134) Hyperlipidemia LDL goal <100 (E78.5) Active confirmed Problem Lumbago with sciatica (771889681) 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) Active confirmed Problem Thoracic arthritis (6581115) Thoracic arthritis (M46.84) Active confirmed Problem 14155664 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) Active confirmed Vital Signs Temperature 97.4 degrees Fahrenheit 10/15/2024 Respiratory Rate 16 /min 10/15/2024 Oximetry 98 % 10/15/2024 Blood pressure diastolic 84 mm Hg 10/15/2024 Height 61 in 10/15/2024 Blood pressure systolic 129 mm Hg 10/15/2024 Weight 170.2 lbs 10/15/2024 BMI 32.16 kg/m2 10/15/2024 Encounters Encounter Location Date Provider Diagnosis [address] [address] 05/30/2024 Shaheen Kirkland [address] [address] 05/31/2024 Shaheen Kirkland [address] [address] 06/18/2024 Shaheen Kirkland [address] [address] 07/10/2024 Shaheen Kirkland [address] [address] 07/11/2024 Shaheen Kirkland Degeneration of intervertebral disc of cervicothoracic region M50.33 [facility] of [address] [address] 07/25/2024 Shaheen Kirkland [address] [address] 07/30/2024 Shaheen Kirkland Upper back pain M54. 9 [facility] of [address] [address] 08/17/2024 Shaheen Kirkland Breast cancer screen ing Z12.31 [facility] of [address] [address] 09/19/2024 Shaheen Kirkland [address] [address] 09/19/2024 Shaheen Kirkland [address] [place] [address] 09/19/2024 Shaheen Kirkland Thoracic arthritis M46.84 ; Degeneration of intervertebral disc of cervicothoracic region M50.33 and Sciatica associated with disorder of lumbar spine M53.9 [facility] of [address] [place] [address] 09/19/2024 Shaheen Kirkland [address] [place] [address] 09/19/2024 Shaheen Kirkland [address] [place] [address] 09/20/2024 Shaheen Kirkland [address] [place] [address] 10/12/[address] [place] [address] 10/12/2024 Shaheen Kirkland [address] [address] 10/15/2024 Shaheen Kirkland [address] [place] [address] 10/16/2024 Shaheen Kirkland [address] [place] [address] 11/08/[address] [place] [address] 11/13/2024 Shaheen Kirkland Other abnormal and inconclusive findings on diagnostic imaging of breast R92.8 [facility] of [address] [address] 06/06/2024 Shaheen Kirkland Diabetes type 2, controlled E11.9 ; Hyperlipidemia LDL goal <100 E78.5 ; Lumbosacral pain M54.50 ; Mid back pain M54.9 ; Neck pain M54.2 and Body mass index (BMI) 32.0-32.9, adult Z68.32 [facility] of [address] [place] [address] 07/03/2024 Sindi Sharp Degeneration of intervertebral disc of cervicothoracic region M50.33 ; Encounter for behavioral health screening Z13.30 and Body mass index (BMI) 31.0-31.9, adult Z68.31 [facility] of [address] [place] [address] 07/27/2024 Shaheen Kirkland Neck pain M54.2 ; Sciatica associated with disorder of lumbar spine M53.9 ; Degeneration of intervertebral disc of cervicothoracic region M50.33 ; Thoracic abscess J86.9 ; Thoracic arthritis M46.84 ; Toe pain M79.676 and Body mass index (BMI) 32.0-32.9, adult Z68.32 [place] [address] 10/15/2024 Shaheen Kirkland Irritable bowel syndrome with diarrhea K58.0 ; Rash R21 and Body mass index (BMI) 32.0-32.9, adult Z68.32 [place] [address] 05/24/2024 Shaheen Kirkland Screening for malign ant neoplasm Z12.9 ; Hyperlipidemia LDL goal <100 E78.5 ; Breast cancer screening Z12.31 and Body mass index (BMI) 32.0-32.9, adult Z68.32 [place] [address] 07/16/2024 Shaheen Kirkland Acute sinusitis J01. 90 ; Diabetes type 2, controlled E11.9 and Body mass index (BMI) 31.0-31.9, adult Z68.31 [place] [address] 07/23/2024 Shaheen Kirkland Diabetes type 2, controlled E11.9 ; Sciatica associated with disorder of lumbar spine M53.9 and Body mass index (BMI) 32.0-32.9, adult Z68.32 [place] [address] 05/31/2024 Sindi Sharp Encounter for behavioral health screening Z13.30 and Upper back pain M54.9 [place] [address] 09/19/2024 Shaheen Kirkland Assessments Encounter Date Diagnosis (ICD Code) Assessment [...] disorder of lumbar spine (ICD-10 - M53.9) 09/19/2024 Thoracic arthritis (ICD-10 - M46.84) 09/19/2024 Degeneration of intervertebral disc of cervicothoracic region (ICD-10 - M50.33) 10/15/2024 Irritable bowel syndrome with diarrhea (ICD-10 - K58.0) 07/30/2024 Upper back pain (ICD-10 - M54.9) 08/17/2024 Breast cancer screening (ICD-10 - Z12.31) 10/15/2024 Rash (ICD-10 - R21) 11/13/2024 Other abnormal and inconclusive findings on diagnostic imaging of breast (ICD-10 - R92.8) 09/19/2024 Sciatica associated with disorder of lumbar spine (ICD-10 - M53.9) 10/15/2024 Body mass index (BMI) 32.0-32.9, adult (ICD-10 - Z68.32) 07/16/2024 Diabetes type 2, controlled (ICD-10 - E11.9) 07/23/2024 Sciatica associated with disorder of lumbar spine (ICD-10 - M53.9) 07/03/2024 Encounter for behavioral health screening (ICD-10 - Z13.30) 06/06/2024 Lumbosacral pain (ICD-10 - M54.50) 05/24/2024 Breast cancer screening (ICD-10 - Z12.31) 07/27/2024 Degeneration of intervertebral disc of cervicothoracic region (ICD-10 - M50.33) 07/03/2024 Body mass index (BMI) 31.0-31.9, adult [...] Treatment Pending Test Test Name Order Date Mammogram: Bilateral Screening 5 Next Appt Details Provider Name:Shaheen Kirkland, 12/06/2024 10:20:00 AM, [address] [place] [address], [id number], Provider Name:Shaheen Kirkland, 01/07/2025 11:00:00 AM, [address] [place] [address], [id number], Insurance Providers Payer Name Payer Address Payer Phone Subscriber Number Group Number Insured Name Patient Relationship to Insured Coverage Start Date Coverage End Date [employer] Medicare Emanuel Arellano MD [address] [place] [address] [id number] Colon, Ximena Self - patient is the insured [place] [address] [phone] [id number] Ximena Mendenhall Self - patient is the insured
--- OUTSIDE RECORDS SUMMARY | 2024-12-05 18:08 | XMS_ITS | Encounter Summary ---
Author Organization [facility] Address [address] [place] [address] Care Team Providers Care Packaging Tech Name Role Phone Shaheen Kirkland DO Primary Care Provider [phone] Reason for Referral * Consultation (Routine) - Authorized Specialty Diagnoses / Procedures Referred By Contac t Referred To Contact Endocrinology Diagnoses Osteopenia after menopause Postmenopausal Kaela Villa MD [address] [place] [address], [place] [address] Phone: tel: fax: [facility] Department of Endocrinology [address] [address] Phone: tel: fax: Referral ID Status Reason Start Date Expiration Date V isits Requested Visits Authorized [id number] Authorized Consult 11/30/2024 12/01/2025 1 1 Question Answer ? No Reason for consult: Osteoporosis/Osteopenia Acute spine or hip fracture within the last 3 months? No DEXA within the last 2 years? Completed Encounter Details Date Type Department Care Team (Late st Contact Info) Description 11/30/2024 Orders Only [facility] Department of Physiatry [address] [address] Kaela Villa MD [address] [place] [address] [place] [address] Osteopenia after menopause (Primary Dx); Postmenopausal Social History Tobacco Use Types Packs/Day Years [...] PM EDT documented as of this encounter Plan of Treatment Upcoming Encounters Date Type Department Care Team (Late st Contact Info) Description 02/13/2025 9:30 AM EST Consult [facility] Department of Endocrinology [place] [address] [facility] [address] [place] [address] Mary Worley MD [address] [place] [address] Scheduled Referrals Name Type Priority Associated Diagnoses Order Schedule Amb Referral to Endocrinology Outpatient Referral Routine Osteopenia after menopause Postmenopausal Ordered: 11/30/2024 documented as of this encounter Visit Diagnoses Diagnosis Osteopenia after menopause- Primary Postmenopausal Asymptomatic postmenopausal status (age-related) (natural) documented in this encounter Care Teams Packaging Tech Relationship Specialty Start Date End Date Shaheen Kirkland DO [address] [place] [address] PCP - General Internal Medicine 06/27/24 documented as of this encounter
--- OUTSIDE RECORDS SUMMARY | 2024-12-05 18:09 | XMS_ITS | Encounter Summary ---
Author Organization [facility] Address [address] [place] [address] Care Team Providers Care Dough Mixer Name Role Phone Shaheen Kirkland DO Primary Care Provider [phone] Encounter Details Date Type Department Care Team (Late Contact Info) Description 07/31/2024 Scanned Document [facility] Department of Physiatry [place] [address] [place] [phone] Kaela Villa MD [address] [address] [place] [address] Social History Tobacco Use Types Packs/Day Years [...] Info) Description 02/13/2025 9:30 AM EST Consult [facility] Department of Endocrinology [place] [address] [facility] [address] [place] [phone] Mary Worley MD [address] [place], [place] [phone] documented as of this encounter Visit Diagnoses Not on filedocumented in this encounter Care Teams Dough Mixer Relationship Specialty Start Date End Date Shaheen Kirkland DO [address] [place] [address] PCP - General Internal Medicine 06/27/24 documented as of this encounter
--- OUTSIDE RECORDS SUMMARY | 2024-12-05 18:09 | XMS_ITS | Encounter Summary ---
Author Organization [facility] Address [address] [place] [address] Care Team Providers Care Set O Type Operator Name Role Phone Shaheen Kirkland Primary Care Provider [phone] Encounter Details Date Type Department Care Team (Late st Contact Info) Description 08/17/[address] [facility] [address] [facility] [address] [place] [address] Jagjit Rosen MD [address] [place], [place] [phone] Social History Tobacco Use Types Packs/Day Years [...] EST Consult [facility] Department of Endocrinology [place] [address] [facility] [address] [place] [phone] Mary Worley MD [address] [place], [place] [phone] documented as of this encounter Procedures Procedure Name Priority Date/Time Associated Diagnosis Comments PATHOLOGY REPORT 08/17/2024 12:0 0 AM EDT documented in this encounter Results * Pathology (08/17/2024 12:00 AM EDT) Jagjit Rosen MD PATHOLOGY/CYTOLOGY ORDERABLES Fi nal Result documented in this encounter Visit Diagnoses Not on filedocumented in this encounter Care Teams Set O Type Operator Relationship Specialty Start Date End Date Shaheen Kirkland DO [address] [place] [address] PCP - General Internal Medicine 06/27/24 documented as of this encounter
--- OUTSIDE RECORDS SUMMARY | 2024-12-05 18:09 | XMS_ITS ---
Author Name [facility] Organization Unknown History of Medication Use Medication Directions Dispensed Refills Start Date End Date Stat us lidocaine (XYLOCAINE) 1 % injection 2 mL 09/24/2024 5 completed triamcinolone acetonide (KENALOG-40) 40 MG/ML injection 20 mg 09/24/2024 5 completed sodium chloride 0.9% (NS) infusion 75 mL/hr, Intravenous, Continuous, Starting on Tue08/17/24 at 1230, Pre-Procedure (GI) 08/17/2024 active bisacodyl (DULCOLAX) 5 MG EC tablet Take 4 tablets (20 mg total) by mouth once. Take as directed 2 days before colonoscopy 08/10/2024 active polyethylene glycol (miraLAx) 17 GM/SCOOP powder Take 119 g by mouth daily. Take as directed 2 days before colonoscopy 08/10/2024 active Sod Picosulfate-Mag Ox-Cit Acd (CLENPIQ) 10-3.5-12 MG-GM -GM/175ML Solution Take as directed 08/10/2024 active linaclotide (LINZESS) 145 MCG Cap capsule Take on an empty stomach at least 30 minutes prior to a meal at approximately the same time each day. 08/09/2024 active polyethylene glycol-electrolytes (NuLYTELY, TRILYTE) 420 g solution Take as directed for Colonoscopy/GI Procedure. See administration instructions. 08/09/2024 active fenofibrate (LOFIBRA) 54 MG tablet Take 54 mg by mouth daily. 07/28/2024 active atorvastatin (LIPITOR) 20 MG tablet Take 20 mg by mouth nightly. 07/24/2024 active lansoprazole (PREVACID) 30 MG capsule Take 30 mg by mouth 2 (two) times a day before meals. 07/24/2024 active Jardiance 10 MG tablet Take 1 tablet by mouth every morning. 07/16/2024 active atorvastatin (LIPITOR) 80 MG tablet Take 80 mg by mouth daily. 06/06/2024 active acetaminophen (TYLENOL) 650 MG CR tablet Take 650 mg by mouth 3 times daily (every 8 hours) as needed. 03/11/2024 active albuterol (PROVENTIL HFA; VENTOLIN HFA) 108 (90 Base) MCG/ACT inhaler 03/01/2024 active OMEprazole (PriLOSEC) 20 MG capsule Take by mouth every morning before breakfast. 04/02/2021 aborted Pancrelipase, Qnd-Cgxe-Lwse, (Creon) 5582-[address] Particles Take 36,000 Units by mouth 2 times a day. 04/02/2021 active topiramate (TOPAMAX) 25 MG tablet Take 25 mg by mouth daily. 04/02/2021 active D-1000 Extra Strength 25 MCG (1000 UT) tablet active diclofenac enteric coated (VOLTAREN) 75 MG EC tablet Take 75 mg by mouth. Administer with food avoid GI upset. active escitalopram (LEXAPRO) 10 MG tablet Take 10 mg by mouth daily. active famotidine (PEPCID) 20 MG tablet Take 20 mg by mouth nightly as needed. active ibuprofen (MOTRIN) 200 MG tablet Take 200 mg by mouth 4 times daily (every 6 hours) as needed for mild pain. active levothyroxine (SYNTHROID, LEVOTHROID) 100 MCG tablet Take 100 mcg by mouth daily on an empty stomach. active methocarbamol (ROBAXIN) 750 MG tablet Take 750 mg by mouth. active Problems Problem Status Onset Date Problem Type Date of Resolution Source Nausea active 2024-08-09 [facility] Chronic constipation active 2014-06-04 ProblemAct [facility] Polyp of colon active 2024-08-[address] FH: colon cancer active 2024-08-09 ProblemAct [facility] Type 2 diabetes mellitus with obesity active 2017-07-05 ProblemAct [facility] IBS (irritable bowel syndrome) active 2008-06-19 ProblemAct [facility] Fatty liver active 2017-07-05 ProblemAct [facility] JERRY on CPAP active 2020-02-11 ProblemAct [facility] Esophageal dysmotility active 2022-01-02 ProblemAct [facility] Migraine active 2017-07-05 ProblemAct [facility] Heartburn active 2005-02-22 ProblemAct [facility] Chronic heel pain, right active 2017-07-05 ProblemAct [facility] Depression with anxiety active 2005-12-08 ProblemAct [facility] Tinea pedis active 2013-10-31 ProblemAct [facility] Hyperlipidemia active 2009-09-[address] Calcific tendinitis of left shoulder active 2019-08-28 ProblemAct [facility] Hypothyroid active 2013-02-20 ProblemAct [facility] Gastroesophageal reflux disease active 2024-08-09 ProblemAct [facility] FH: colon cancer active 2024-08-09 ProblemAct [facility] Fatty liver active 2017-07-05 ProblemAct [facility] Depression with anxiety active 2005-12-08 ProblemAct [facility] Tinea pedis active 2013-10-31 ProblemAct [facility] Nausea active 2024-08-09 ProblemAct [facility] Type 2 diabetes mellitus with obesity active 2017-07-05 ProblemAct [facility] Chronic constipation active 2014-06-04 ProblemAct [facility] IBS (irritable bowel syndrome) active 2008-06-19 ProblemAct [facility] Calcific tendinitis of left shoulder active 2019-08-28 ProblemAct [facility] Chronic heel pain, right active 2017-07-05 ProblemAct [facility] Hypothyroid active 2013-02-20 ProblemAct [facility] Hyperlipidemia active 2009-09-[address] Constipation, unspecified constipation type active EncounterDiagnosisAct H [facility] JERRY on CPAP active 2020-02-11 ProblemAct [facility] Polyp of colon active 2024-08-[address] Esophageal dysmotility active 2022-01-02 ProblemAct [facility] Gastroesophageal reflux disease active 2024-08-09 ProblemAct [facility] Heartburn active 2005-02-22 ProblemAct [facility] Migraine active 2017-07-05 ProblemAct [facility] History of colon polyps active EncounterDiagnosisAct [facility] Encounters Encounter Type Encounter Reason Primary Diagnosis Location Date Ambulatory [place] 11/26/2024 Ambulatory Encounter for gynecological examination (general) (routine) without abnormal findings Encounter for gynecological examination (general) (routine) without abnormal findings [place] 10/23/2024 Ambulatory Deforming dorsopathy , unspecified Deforming dorsopathy, unspecified [place] 09/24/2024 Ambulatory [place] 08/21/2024 Ambulatory Constipation, unspecified Constipation, unspecified [place] 08/17/2024 Ambulatory Advice Only Advice Only [place] 08/09/2024 Ambulatory Dorsalgia, unspecified Dorsalgia, unspecified [place] 07/03/2024 Ambulatory new patient new patient [facility] 07/02/2024 Ambulatory Dorsalgia, unspecified Dorsalgia, unspecified [place] 06/27/2024 Ambulatory Encounter for screening for diabetes mellitus [place] 06/26/2024 Care Team Organization Name Specialty Phone Email Start Date End Da te [place] Shaheen Kirkland Primary Care 08/09/2024 [facility] VALERIY Primary Care 07/04/2024 [facility] LEIDY [facility] Primary Care 07/02/2024 [place] PCP [facility] 06/29/2024 [place] Shaheen Mathewwindsor Primary Care 06/27/2024 [place] BRIDGET NEGRETE Primary Care 06/26/2024 [place] NO PCP Primary Care 06/07/2024 [facility] 05/31/2024 [place] Lorena Ortiz Primary Care 05/02/2024 [facility] 04/15/2024 [facility] 03/24/2024
--- OUTSIDE RECORDS SUMMARY | 2024-12-05 18:09 | XMS_ITS | Clinical Summary ---
Author Organization [facility] [address] [facility] Address [address] [place] [address] Phone Care Team Providers Care Bakery Technician Name Role Phone Unavailable Primary Care Provider [...] (one) time each day. 2 Active pancrelipase, Ydg-Rscv-Imta, (Creon) 3,000-9,500- 15,000 unit capsule 0 Active [...] (03/01/2024): Mild noted on manometry study - [facility] records JERRY on CPAP 02/11/2020 Calcific [...] 12.12.06. 48 hour ambulatory pH testing performed [facility] 05/04/2016 revealed normal amounts of acid exposure. Immunizations Name Administration Dates Next Due Hepatitis B (Uzodwbs-I-Nzera , Recombivax HB-Adult) 19yo and older 04/19/2017,03/16/2017 [...] History Surgery Date Site/Laterality Comments SECTION PROCEDURE: [place] DELIVERY ONLY OTHER SURGICAL HISTORY PROCEDURE: [place] LIG/TRNSXJ FLP TUBE ABDL/VAG APPR UNI/BI COLONOSCOPY 02/22/2006 PROCEDURE: HISTORICAL COLONOSCOPY; COMMENT: WNL ESOPHAGOGASTRODUODENOSCOPY 02/22/2006 PROCEDURE: [place] ESOPHAGOGASTRODUODENOSCOPY TRANSORAL DIAGNOSTIC; COMMENT: WNL KNEE SURGERY 2004 PROCEDURE: HISTORICAL KNEE SURGERY; COMMENT: left, wes in lower leg COLONOSCOPY 06/02/2011 PROCEDURE: HISTORICAL COLONOSCOPY; COMMENT: normal COLONOSCOPY 10/24/14 PROCEDURE: HISTORICAL COLONOSCOPY; COMMENT: Normal colon, hyperplastic diminutive rectal polyps ESOPHAGOGASTRODUODENOSCOPY 10/24/14 PROCEDURE: NJ ESOPHAGOGASTRODUODENOSCOPY TRANSORAL DIAGNOSTIC; COMMENT: Hiatal hernia, otherwise normal OTHER SURGICAL HISTORY 04/21/2015 PROCEDURE: [place] LAPAROSCOPY SLING OPERATION STRESS INCONT BREAST BIOPSY 2011 Right PROCEDURE: BX BREAST; PERC NEEDLE CORE W/IMAG GUID; COMMENT: b9 BREAST BIOPSY 2014 Right PROCEDURE: NJ BX BREAST W/DEVICE 1ST LESION ULTRASOUND GUID [...] Hypothyroid 02/20/2013 DX:Hypothyroid Dermatophytosis of foot 10/31/2013 DX:[place] tophytosis of foot Renal calculi 07/05/2017 DX:Renal calculi ; COMMENT: Abd US 02/17/17 Fatty liver 07/05/2017 DX:Fatty liver Migraine 07/05/2017 DX:Migraine Pre-diabetes 07/05/2017 DX:Pre-diabetes; COMMENT: 12/06/1619RbwS8Z =6.1 Chronic heel pain, right 07/05/2017 DX:Manager Integrated fatou heel pain, right; COMMENT: R foot [...] 71 07/02/2024 1:05 PM EDT Temperature 36.8 C (98.2 F) 07/02/2024 1:05 PM EDT Respiratory Rate - - Oxygen Saturation 97% [...] Years (1 of 2 - PCV) 1986 Cervical [...] 04/03/2023 04/03/2021, 05/15 COVID-19 Vaccine ( season) 2024 10/08/2020, 08/25/2020 Influenza Vaccine (#1) 2024 8, 04/01/2016, 01/08/2016, Additional history exists Cholesterol Screening (Lipid Panel) 01/01/2027 01/01/2022 DTaP,Tdap,and Td Vaccines (6 - Td or Tdap) 05/30/2031 05/29/2021, 02/20/2013, 02/20/2013, Additional history exists HIV Screening Completed 01/18/2019 Hepatitis C Screening Completed 01/18/2019 Depression Screening Completed 07/02/2024 HIB Vaccines Aged Out No longer eligi [...] Ratio (01/01/2022) Urine Albumin Creatinine Ratio abstracted Historical Provider HEALTH MAINTENANCE Final Result * Annual BMP Blood Test (01/01/2022) Annual BMP Blood Test abstracted Historical Provider HEALTH MAINTENANCE Final Result * Hemoglobin A1c (01/01/2022) Hemoglobin A1C 6.5 <=6.5 % Blood Venous blood specimen / Unknown Historical Provider MD LAB BLOOD ORDERABLES [place] Result * (ABNORMAL) Lipid panel (01/01/2022) LDL/HDL Ratio 4 0 - 4 Triglycerides 193(A) 0 - 150 mg/dL Cholesterol 211(A) 0 - 200 mg/dL HDL 50 >=40 mg/dL LDL Cholesterol 123(A) 0 - 100 mg/dL Blood Venous blood specimen / Unknown Historical Provider LAB BLOOD ORDERABLES [place] Result [...] parenchyma is composed of scattered fibroglandular densities. No new suspicious mass, architectural distortion, or suspicious calcifications. Sonography performed in the area of right breast pain delineated by the patient at the 2-5 o'clock position. No solid or cystic lesion identified. Impression: No mammographic or sonographic correlate for right breast pain. Further management of symptoms should be clinically based. [...] in either breast. 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 IMG BI PROCEDURES Final Re sult * HIV Screening (01/18/2019) Pathologist [facility] HIV Screening abstracted Result [facility] Provider [place] HEALTH MAINTENANCE Final Result * Hepatitis C Screening (01/18/2019) Pathologist [facility] Hepatitis C Screening abstracted Result [facility] Provider [place] HEALTH MAINTENANCE Final Result * Colonoscopy (10/24/2014) Pathologist [facility] Colonoscopy normal, abstracted Anatomical Region Laterality Modality Other Result [facility] Provider HEALTH MAINTENANCE Final Result from Last 3 Months or Most Recently Relevant to Health Maintenance Insurance [place]ICAID - [place] [employer] MEDICARE
--- OUTSIDE RECORDS SUMMARY | 2024-12-05 18:09 | XMS_ITS | Encounter Summary ---
Author Organization [facility] Address [address] [place] [address] Care Team Providers Care Battalion Fire Chief Name Role Phone Shaheen Kirkland Primary Care Provider [phone] Encounter Details Date Type Department Care Team (Late st Contact Info) Description 12/04/2024 Telephone [facility] Department of Endocrinology [place] [address] [facility] [address] [place] [phone] Kaylene Garay MD [address] [place] [address] Social History Tobacco Use Types Packs/Day Years [...] encounter Miscellaneous Notes * Telephone Encounter - Joy Knight MA - 12/05/2024 3:11 PM EDT Scheduled. * Telephone Encounter - Joy Knight MA - 12/04/2024 1:47 PM EDT Referral osteo documented in this encounter Plan of Treatment Upcoming Encounters Date Type Department Care Team (Late st Contact Info) Description 02/13/2025 9:30 AM EST Consult [facility] Department of Endocrinology [place] [address] [facility] [address] [place] [address] Mary Worley MD [address] [place] [address] documented as of this encounter Visit Diagnoses Not on filedocumented in this encounter Care Teams Battalion Fire Chief Relationship Specialty Start Date End Date Shaheen Kirkland DO [address] [place] [address] PCP - General Internal Medicine 06/27/24 documented as of this encounter
== END 2024-12-05 17:20 | disposition home or self-care (01) ==
LOC: HO.HMCH 16:34
PROVIDERS: PCP Internal Medicine; Visit Provider Internal Medicine
DX: E11.69 Type 2 diabetes mellitus with other specified complication (principal); F32.0 Major depressive disorder, single episode, mild; E78.2 Mixed hyperlipidemia; I10 Essential (primary) hypertension; E03.9 Hypothyroidism, unspecified

== ENCOUNTER → 2024-12-05 16:33 | Outpatient (BNVA) | payer MEDICARE, SELFPAY | PROVIDERS: PCP Internal Medicine; Visit Provider Internal Medicine | DX: F32.0 Major depressive disorder, single episode, mild (principal); E78.2 Mixed hyperlipidemia; E03.9 Hypothyroidism, unspecified; I10 Essential (primary) hypertension; E11.9 Type 2 diabetes mellitus without complications | CPT/HCPCS: 83036; 99212 ==

== ENCOUNTER 2024-12-06 09:05 | Outpatient (REF) | payer MEDICARE, SELFPAY ==
--- OUTSIDE RECORDS SUMMARY | 2024-11-28 06:40 | XMS_ITS ---
Author Organization [facility] Address [address] [place] [phone] Care Team Providers Care General Maintenance Engineer Name Role Phone Shaheen Kirkland Primary Care Provider REASON FOR VISIT 4 week follow up per PCP // Emily confirmed 11/23/24 1:28pm Encounters Encounter Location Date Provider Diagnosis [address] [address] 11/28/2024 Shaheen Kirkland Plan Of Treatment Next Appt Details Provider Name:Shaheen Kirkland, 12/06/2024 10:20:00 AM, [address] [place] [address], [id number], Provider Name:Shaheen Kirkland, 01/07/2025 11:00:00 AM, [address] [place] [address], [id number], Progress Notes * Xiemna CODYDOB:1965 (59 yo F)Acc No.[id number]:11/28/2024 Progress Notes Patient: Ximena HOBBS Provider: Alka Kirkland DO :1965 A ge:59 Y S ex:Female Date:11/28/2024 External Visit ID:[id number] Address:[address] [place] [address] , [place], [place] Subjective: * Chief Complaints: * 1 . 4 week follow up per PCP // Emily confirmed 11/23/24 1:28pm. * Medical History: Objective: * Vitals: * Physical Examination: Assessment: Plan: * Treatment: Care Plan: * Problems: * Billing Information: * Visit Code: * Procedure Codes: Care Plan Details* * Electronic signature of Sarah Kirkland DO on 12/06/2024 at 09:58 AM EDT Sign off status: Pending * Provider: Alka Kirkland DO Date: 11/28/2024 Generated for Aristeo kumari/Malcom/Mulugeta on: 0 12/06/2024 09:58 AM EDT
--- OUTSIDE RECORDS SUMMARY | 2024-12-06 09:58 | XMS_ITS | Patient Health Record ---
Author Organization [employer] Address [address] [place] [address] Care Team Providers Care Loan Review Manager Name Role Phone Shaheen Kirkland Primary Care Provider Lila Sindi Unavailable [phone] Allergies No Known Allergies Results Component Value Reference Range Notes Basic Metabolic Panel w/eGFR 80531 Reviewed date:05/30/2024 01:01:29 PM Interpretation: Normal Performing Lab:NL1, , [address] [place], [address] Lexis Brito M.D. Notes/Report: Received Date: 0; [...] PM Interpretation: Normal Performing Lab:NL1, , [address] [place], [address] Lexis Brito M.D. Notes/Report: Received Date: 0; [...] 9.0 7.5-12.5 fL TSH w/Free T4 rfx 42555 Reviewed date:05/30/2024 01:01:29 PM Interpretation: Normal Performing Lab:NL1, , [address] [place], [address] Lexis Brito M.D. Notes/Report: Received Date: [id number] 0; 0; 0; 0; 0; 0 FASTING:YES FASTING: YES TSH W/REFLEX TO FT4 1.13 0.40-4.50 mIU/L Hemoglobin A1c 496 Reviewed date:05/30/2024 01:01:29 PM Interpretation:6.5 Performing Lab:NL1, , [address] [place], [address] Lexis Brito M.D. Notes/Report: Received Date: [id number] 0; 0; 0; 0; 0; 0 FASTING:YES [...] A1c for diagnosis of diabetes for children. Microalbumin,[facility] (w/crea t) 6517 Reviewed date:05/30/2024 01:01:29 PM Interpretation: Normal Performing Lab:NL1, , [address] [place], [address] Lexis Brito M.D. Notes/Report: Received Date: 0; [...] a diagnostic category. Lipid Panel w/refl LDL 83808 Reviewed date:05/30/2024 01:01:29 PM Interpretation:207 Performing Lab:NL1, , [address] [place], [address] Lexis Brito M.D. Notes/Report: Received Date: 0; [...] about testing for familial hypercholesterolemia, please call [employer] [facility] at [email or web address].GENE.INFO. Donya T, et al. J National Lipid Association Recommendations for Patient-Centered Management of Dyslipidemia: Part 1 Journal of Clinical Lipidology 2015;9(2), 129-169. Cuchel, M. et al. (2014). Homozygous familial hypercholesterolaemia: new insights and guidance for clinicians to improve detection and clinical management. Heart Journal, 35(32), 5501-1600. Reference range: <100 Desirable range <100 mg/dL for primary prevention; <70 mg/dL for patients with CHD or diabetic patients with > or = 2 CHD risk factors. LDL-C is now calculated using the Terrell-Leung calculation, which is a validated novel method providing better accuracy than the Friedewald equation in the estimation of LDL-C. Terrell SS et al. DARYN. 2013;310(19): 9193-7479 (http://education.Verivue.com/faq/KIR520) CHOL/HDLC RATIO 4.1 <5.0 (calc) NON HDL [...] <70 mg/dL) is considered a therapeutic option. Colonoscopy: Referral Reviewed date:09/04/2024 11:13:39 AM Interpretation:Normal Performing Lab: Notes/Report: Normal X-ray: Spines, Cervical Reviewed date:06/18/2024 10:49:19 AM Interpretation:Degenerative changes and spasm Performing Lab: Notes/Report: Degenerative changes and spasm X-ray: Spines, Thoracic Spin e Reviewed date:06/18/2024 10:48:12 AM Interpretation:Degenerative spondylosis Performing Lab: Notes/Report: Degenerative spondylosis X-ray: Lumbar Spine Reviewed date:06/18/2024 04:27:53 PM Interpretation:Normal Performing Lab: Notes/Report: Normal Celiac Disease Comprehensive Panel 09119 Reviewed date:10/16/2024 02:34:52 PM Interpretation:Negative Performing Lab:NL1, , [address] [place], [address] Lexis Brito M.D. Notes/Report: Received Date: [id number] 0 FASTING:NO FASTING: NO INTERPRETATION See Note [...] Upper back pain (M54 .9) Referral Organization [facility] Referring Provider First Name Sindi Referring Provider Last Name Lila Referring Provider [facility] Referred Provider Formerly [facility] Referred Provider Specialty Physical The rapy General Notes Sindi Sharp 11:56:57 AM > Patient would like referral to go to PT at [facility] [address] [facility] [address], that is where she is currently for PT on her shoulder. Referral Priority Routine Reason Please evaluate and treat. 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) Referral Organization [facility] Referring Provider First Name Sindi Referring Provider Last Name Lila Referring Provider [facility] renu Referred Provider David Villatoro Referred Provider Specialty Spinal Surge ry General Notes Mary Tsang 07/05 12:16:42 PM >faxed referral with the last visti note med summary and Dr Irving m[facility], support 07/05/2024 13:56:03 PM>, [facility]: Patient Reviewed Link, kina, support 07/05/2024 13:56:04 PM>, [facility]: Referral Recommendations Sent to Patient , DAVID VILLATORO , [address] [place] [address], [address] , , , Nguyen REF, Desire 07/10/2024 01:55:22 PM >Refaxed at the patient 's request, kina, support 08/29/2024 11:01:59 AM>, [facility] Summary, [facility] 07/05/24 11:17 AM: Patient Sent Specialist Recommendation , DAVID VILLATORO , [address] [facility] [address], [facility], [address] , , , [facility] 07/05/24 12:37 PM: [...] disc of cervicothoracic region (M50.33) Referral Organization [facility] ica Referring Provider First Name Shaheen Referring [...] SIDDIQI , [address] [facility], [address] , , , kina, support 08/07/2024 08:47:00 [...] SIDDIQI , [address] [facility], [address] , , , [facility] 07/30/24 04:38 PM: [...] Diagnosis 1 Toe pain (M79.676) Referral Organization [facility] Referring Provider First Name Shaheen Referring [...] Specialist Recommendation , JUANJOSE KAHN , [address] [facility], [address] , , , kina, support 07/31/2024 08:09:04 [...] Sent Specialist Recommendation , JUANJOSE KAHN , [address] [place] [address], [address] , , , [facility] 07/30/24 04:19 PM: [...] disc of cervicothoracic region (M50.33) Referral Organization [facility] Referring Provider First Name Shaheen [...] DAYS Oral for 90 Days Active Nystatin 115619 UNIT/GM 1 APPL TOPICALLY DAILY FOR 30 DAYS External for 30 Days Active Accu-Chek Guide Test - 1 In Vitro once a day for 90 days 09/24/2024 Active Clotrimazole 1 % 1 application Fluid Dynamicist ally Twice a day for 14 days [...] Problem Body mass index 30.00 to 34.99 (182598774861013) Body mass index (BMI) 31.0-31.9, adult (Z68.31) 025 Active confirmed Problem Body mass index 30.00 to 34.99 (055198427895268) Body mass index (BMI) 32.0-32.9, adult (Z68.32) 025 Active confirmed Problem Irritable bowel syndrome with diarrhea (917802656) Irritable bowel syndrome with diarrhea (K58.0) Active confirmed Problem Abnormal findings on diagnostic imaging of breast (874187669) Other abnormal and inconclusive findings on diagnostic imaging of breast (R92.8) Active confirmed Problem Gastroesophageal reflux disease (946675652) GERD (gastroesophageal reflux disease) (K21.9) Active confirmed Problem Neck pain (54960929) Neck pain (M54.2) Active confirmed Problem Type II diabetes mellitus well controlled (993260676) Diabetes type 2, controlled (E11.9) Active confirmed Problem Hyperlipidaemia (02943379) Hyperlipidemia LDL goal <100 (E78.5) Active confirmed Problem Lumbago with sciatica (094372120) 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) Active confirmed Problem Thoracic arthritis (4908937) Thoracic arthritis (M46.84) Active confirmed Problem 56188962 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) Active confirmed Vital Signs Temperature 97.4 degrees Fahrenheit 10/15/2024 Respiratory Rate 16 /min 10/15/2024 Oximetry 98 % 10/15/2024 Blood pressure diastolic 84 mm Hg 10/15/2024 Height 61 in 10/15/2024 Blood pressure systolic 129 mm Hg 10/15/2024 Weight 170.2 lbs 10/15/2024 BMI 32.16 kg/m2 10/15/2024 Encounters Encounter Location Date Provider Diagnosis [address] [address] 05/30/2024 Shaheen Kirkland [address] [address] 05/31/2024 Shaheen Kirkland [address] [address] 06/18/2024 Shaheen Kirkland [address] [address] 07/10/2024 Shaheen Kirkland [address] [address] 07/11/2024 Shaheen Kirkland Degeneration of intervertebral disc of cervicothoracic region M50.33 [facility] of [address] [address] 07/25/2024 Shaheen Kirkland [address] [address] 07/30/2024 Shaheen Kirkland Upper back pain M54. 9 [facility] of [address] [address] 08/17/2024 Shaheen Kirkland Breast cancer screen ing Z12.31 [facility] of [address] [address] 09/19/2024 Shaheen Kirkland [address] [address] 09/19/2024 Shaheen Kirkland [address] [place] [address] 09/19/2024 Shaheen Kirkland Thoracic arthritis M46.84 ; Degeneration of intervertebral disc of cervicothoracic region M50.33 and Sciatica associated with disorder of lumbar spine M53.9 [facility] of [address] [place] [address] 09/19/2024 Shaheen Kirkland [address] [place] [address] 09/19/2024 Shaheen Kirkland [address] [place] [address] 09/20/2024 Shaheen Kirkland [address] [place] [address] 10/12/[address] [place] [address] 10/12/2024 Shaheen Kirkland [address] [address] 10/15/2024 Shaheen Kirkland [address] [place] [address] 10/16/2024 Shaheen Kirkland [address] [place] [address] 11/08/[address] [place] [address] 11/13/2024 Shaheen Kirkland Other abnormal and inconclusive findings on diagnostic imaging of breast R92.8 [facility] of [address] [address] 06/06/2024 Shaheen Kirkland Diabetes type 2, controlled E11.9 ; Hyperlipidemia LDL goal <100 E78.5 ; Lumbosacral pain M54.50 ; Mid back pain M54.9 ; Neck pain M54.2 and Body mass index (BMI) 32.0-32.9, adult Z68.32 [facility] of [address] [place] [address] 07/03/2024 Sindi Sharp Degeneration of intervertebral disc of cervicothoracic region M50.33 ; Encounter for behavioral health screening Z13.30 and Body mass index (BMI) 31.0-31.9, adult Z68.31 [facility] of [address] [place] [address] 07/27/2024 Shaheen Kirkland Neck pain M54.2 ; Sciatica associated with disorder of lumbar spine M53.9 ; Degeneration of intervertebral disc of cervicothoracic region M50.33 ; Thoracic abscess J86.9 ; Thoracic arthritis M46.84 ; Toe pain M79.676 and Body mass index (BMI) 32.0-32.9, adult Z68.32 [place] [address] 10/15/2024 Shaheen Kirkland Irritable bowel syndrome with diarrhea K58.0 ; Rash R21 and Body mass index (BMI) 32.0-32.9, adult Z68.32 [place] [address] 05/24/2024 Shaheen Kirkland Screening for malign ant neoplasm Z12.9 ; Hyperlipidemia LDL goal <100 E78.5 ; Breast cancer screening Z12.31 and Body mass index (BMI) 32.0-32.9, adult Z68.32 [place] [address] 07/16/2024 Shaheen Kirkland Acute sinusitis J01. 90 ; Diabetes type 2, controlled E11.9 and Body mass index (BMI) 31.0-31.9, adult Z68.31 [place] [address] 07/23/2024 Shaheen Kirkland Diabetes type 2, controlled E11.9 ; Sciatica associated with disorder of lumbar spine M53.9 and Body mass index (BMI) 32.0-32.9, adult Z68.32 [place] [address] 05/31/2024 Sindi Sharp Encounter for behavioral health screening Z13.30 and Upper back pain M54.9 [place] [address] 09/19/2024 Shaheen Kirkland Assessments Encounter Date Diagnosis [...] Details Provider Name:Shaheen Kirkland, 12/06/2024 10:20:00 AM, [address] [place] [address], [address], Provider Name:Shaheen Kirkland, 01/07/2025 11:00:00 AM, [address] [place] [address], [address], Insurance Providers Payer Name Payer Address Payer Phone Subscriber Number Group Number Insured Name Patient Relationship to Insured Coverage Start Date Coverage End Date [employer] Medicare Emanuel Arellano MD [address] [place] [address] [id number] Colon, Ximena Self - patient is the insured [place] [address] [phone] [id number] Ximena Mendenhall Self - patient is the insured
--- OUTSIDE RECORDS SUMMARY | 2024-12-06 09:58 | XMS_ITS | Clinical Summary ---
Author Organization [facility] Address [address] [place] [address] Care Team Providers Care Parking Meter Mechanic Name Role Phone Ruthie Cedeño DMD Primary Care Provider [phone] Source Comments PLEASE NOTE, if this patient [...] BW 09/30/2024 09/29/2023 Dental Examination 09/30/2024 09/29/2023 [id number] ( season) 2024 021, 08/25/2020 Imm-Influenza (#1) [...] Routine 09/29/2023 4:00 PM EDT Defective dental tenriism Encounter for dental examination COMP ORAL EVALUATION - NEW/ESTABLISHED PATIENT Routine 09/29/2023 4:00 PM EDT Defective dental tenriism Encounter for dental examination from Last 3 Months or Most Recently Relevant to Health Maintenance Insurance [facility] Care Teams Parking Meter Mechanic Relationship Specialty Start Date End Date Ruthie Cedeño DMD [address] [place] [address] PCP - General 11/23/18
--- OUTSIDE RECORDS SUMMARY | 2024-12-06 09:59 | XMS_ITS | Encounter Summary ---
Author Organization [facility] Address [address] [place] [address] Care Team Providers Care Bobbin Dumper Name Role Phone Shaheen Kirkland DO Primary Care Provider [phone] Encounter Details Date Type Department Care Team (Late Contact Info) Description 07/31/2024 Scanned Document [facility] Department of Physiatry [place] [address] [place] [address] Kaela Villa MD [address] [place] [address] Social History Tobacco Use Types Packs/Day Years [...] Info) Description 02/13/2025 9:30 AM EST Consult [facility] Department of Endocrinology [place] [address] [facility] [address] [place] [address] Mary Worley MD [address] [place], [place] [phone] documented as of this encounter Visit Diagnoses Not on filedocumented in this encounter Care Teams Bobbin Dumper Relationship Specialty Start Date End Date Shaheen Kirkland DO [address] [place] [address] PCP - General Internal Medicine 06/27/24 documented as of this encounter
--- OUTSIDE RECORDS SUMMARY | 2024-12-06 09:59 | XMS_ITS | Clinical Summary ---
Author Organization [facility] [address] [facility] Address [address] [place] [address] Phone Care Team Providers Care Utility Technician Name Role Phone Unavailable Primary Care [...] (one) time each day. 2 Active pancrelipase, Ajs-Zzdg-Kwbm, (Creon) 3,000-9,500- 15,000 unit capsule 0 Active [...] (03/01/2024): Mild noted on manometry study - [facility] records JERRY on CPAP 02/11/2020 Calcific [...] 48 hour ambulatory pH testing performed [facility] 05/04/2016 revealed normal amounts of acid exposure. Immunizations Name Administration Dates Next Due Hepatitis B (Udtgohe-T-Dmnzx , Recombivax HB-Adult) 19yo and older 04/19/2017,03/16/2017 [...] History Surgery Date Site/Laterality Comments SECTION PROCEDURE: FL DELIVERY ONLY OTHER SURGICAL HISTORY PROCEDURE: FL LIG/TRNSXJ FLP TUBE ABDL/VAG APPR UNI/BI COLONOSCOPY 02/22/2006 PROCEDURE: HISTORICAL COLONOSCOPY; COMMENT: WNL ESOPHAGOGASTRODUODENOSCOPY 02/22/2006 PROCEDURE: FL ESOPHAGOGASTRODUODENOSCOPY TRANSORAL DIAGNOSTIC; COMMENT: WNL KNEE SURGERY 2004 PROCEDURE: HISTORICAL KNEE SURGERY; COMMENT: left, wes in lower leg COLONOSCOPY 06/02/2011 PROCEDURE: HISTORICAL COLONOSCOPY; COMMENT: normal COLONOSCOPY 10/24/14 PROCEDURE: HISTORICAL COLONOSCOPY; COMMENT: Normal colon, hyperplastic diminutive rectal polyps ESOPHAGOGASTRODUODENOSCOPY 10/24/14 PROCEDURE: FL ESOPHAGOGASTRODUODENOSCOPY TRANSORAL DIAGNOSTIC; COMMENT: Hiatal hernia, otherwise normal OTHER SURGICAL HISTORY 04/21/2015 PROCEDURE: FL LAPAROSCOPY SLING OPERATION STRESS INCONT BREAST BIOPSY 2011 Right PROCEDURE: BX BREAST; PERC NEEDLE CORE W/IMAG GUID; COMMENT: b9 BREAST BIOPSY 2014 Right PROCEDURE: FL BX BREAST W/DEVICE 1ST LESION ULTRASOUND GUID [...] Hypothyroid 02/20/2013 DX:Hypothyroid Dermatophytosis of foot 10/31/2013 DX:Kiana tophytosis of foot Renal calculi 07/05/2017 DX:Renal calculi ; COMMENT: Abd US 02/17/17 Fatty liver 07/05/2017 DX:Fatty liver Migraine 07/05/2017 DX:Migraine Pre-diabetes 07/05/2017 DX:Pre-diabetes; COMMENT: 12/06/1614QayH2Q =6.1 Chronic heel pain, right 07/05/2017 DX:[employer] fatou heel pain, right; COMMENT: R foot [...] 05/30/2031 05/29/2021, 02/20/2013, 02/20/2013, Additional history exists RSV Immunization Adult Patients (1 - 1-dose 75+ series) 2042 HIV Screening Completed 01/18/2019 Hepatitis C Screening [...] Test (01/01/2022) Annual BMP Blood Test abstracted [facility] Provider HEALTH MAINTENANCE Final Result * Hemoglobin A1c (01/01/2022) [facility] Hemoglobin A1C 6.5 <=6.5 % Blood Venous blood specimen / Unknown [facility] Provider LAB BLOOD ORDERABLES [place] Result * (ABNORMAL) Lipid panel (01/01/2022) [facility] LDL/HDL Ratio 4 0 - 4 Triglycerides 193(A) 0 - 150 mg/dL Cholesterol 211(A) 0 - 200 mg/dL HDL 50 >=40 mg/dL LDL Cholesterol 123(A) 0 - 100 mg/dL Blood Venous blood specimen / Unknown [facility] Provider LAB BLOOD ORDERABLES [place] Result [...] in either breast. BI-RADS 1-negative Chelly Badillo OVEN STRIPPER IMG BI PROCEDURES Final Re sult * HIV Screening (01/18/2019) Pathologist [facility] HIV Screening abstracted [facility] Provider HEALTH MAINTENANCE Final Result * Hepatitis C Screening (01/18/2019) Pathologist [facility] Hepatitis C Screening abstracted [facility] Provider HEALTH MAINTENANCE Final Result * Colonoscopy (10/24/2014) [facility] Colonoscopy normal, abstracted Anatomical Region Laterality Modality Other [facility] Provider HEALTH MAINTENANCE Final Result from Last 3 Months or Most Recently Relevant to Health Maintenance Insurance [place]ICAID [place] [employer] MEDICARE
--- OUTSIDE RECORDS SUMMARY | 2024-12-06 09:59 | XMS_ITS | Encounter Summary ---
Author Organization [facility] Address [address] [place] [address] Care Team Providers Care Animal Breeder Name Role Phone Shaheen Kirkland Primary Care Provider [phone] Encounter Details Date Type Department Care Team (Late st Contact Info) Description 08/17/[address] [facility] [address] [facility] [address] [place] [address] Jagjit Rosen MD [address] [place], [place] [id number] Social History Tobacco Use Types Packs/Day Years [...] EST Consult [facility] Department of Endocrinology [place] [address] [facility] [address] [place] [phone] Mary Worley MD [address] [place], [place] [phone] documented as of this encounter Procedures Procedure Name Priority Date/Time Associated Diagnosis Comments PATHOLOGY REPORT 08/17/2024 12:0 0 AM EDT documented in this encounter Results * Pathology (08/17/2024 12:00 AM EDT) Jagjit Rosen MD PATHOLOGY/CYTOLOGY ORDERABLES Fi nal Result documented in this encounter Visit Diagnoses Not on filedocumented in this encounter Care Teams Animal Breeder Relationship Specialty Start Date End Date Shaheen Kirkland DO [address] [place] [address] PCP - General Internal Medicine 06/27/24 documented as of this encounter
--- OUTSIDE RECORDS SUMMARY | 2024-12-06 09:59 | XMS_ITS | Encounter Summary ---
Author Organization [facility] Address [address] [place] [address] Care Team Providers Care Manager Document Name Role Phone Shaheen Kirkland Primary Care Provider [phone] Encounter Details Date Type Department Care Team (Late st Contact Info) Description 12/04/2024 Telephone [facility] Department of Endocrinology [place] [address] [facility] [address] [place] [phone] Kaylene Garay MD [address] [place] [address] Social History Tobacco Use Types Packs/Day Years [...] Info) Description 02/13/2025 9:30 AM EST [facility] Department of Endocrinology [place] [address] [facility] [address] [place] [address] Mary Worley MD [address] [place] [address] documented as of this encounter Visit Diagnoses Not on filedocumented in this encounter Care Teams Manager Document Relationship Specialty Start Date End Date Shaheen Kirkland DO [address] [place] [address] PCP - General Internal Medicine 06/27/24 documented as of this encounter
--- OUTSIDE RECORDS SUMMARY | 2024-12-06 09:59 | XMS_ITS | Clinical Summary ---
Author Organization [facility] Address [address] [place] [address] Care Team Providers Care [employer] Chemistry Teacher Name Role Phone Shaheen Kirkland Primary Care Provider [phone] Allergies No known active allergies Medications acetaminophen [...] (06/26/2024): Mild noted on manometry study - [facility] records JERRY on CPAP 02/11/2020 Calcific [...] 02.22.06. 48 hour ambulatory pH testing performed [facility] 05/04/2016 revealed normal amounts of acid exposure. Resolved Problems Problem Noted Date Diagnosed Date Resolved Date Vitamin D deficiency 10/14/2011 025 Encounters Date Type Department Care Team Description 12/04/2024 Telephone [facility] Department of Endocrinology [place] [address] [facility] [address] [place] [address] Kaylene Garay MD 11/30/2024 Orders Only [facility] Department of Physiatry [address] [address] Kaela Villa MD Osteopenia after menopause (Primary Dx); Postmenopausal 11/30/2024 Telephone [facility] Department of Physiatry [place] [address] [place] [address] Kaela Villa MD Referral 11/26/2024 3:45 PM EDT Office Visit [facility] Department of Physiatry [place] [address] [place] [address] Kaela Villa MD Kyphosis of thoracic region, unspecified kyphosis type (Primary Dx); Thoracic spondylosis; Lumbar spondylosis; Osteopenia after menopause 10/23/2024 2:30 PM EDT Office Visit [facility] Department Of Community Living Instructor [place] [address] [place] [address] Bakari Markham MD Well female exam with routine gynecological exam (Primary Dx); Routine cervical smear 10/16/2024 Orders Only [facility] Department of Physiatry [place] [address] [place] [address] ProviderBj MD 09/24/2024 3:45 PM EDT Office Visit [facility] of Physiatry [place] [address] [place] [address] Kaela Villa MD Deformity of thoracic vertebra (Primary Dx); Postmenopausal; Thoracic spondylosis; Kyphosis of thoracic region, unspecified kyphosis type; Myalgia from Last 3 Months Family History Medical History Relation Name Comments Cancer, other Brother Tanenr colon Irritable bowel syndrome Brother Tanner colon [...] EST Consult [facility] Department of Endocrinology [place] [address] [place] [address] Mary Worley MD [address] [place] [address] Health Maintenance Due Date Last [...] with routine gynecological exam THINPREP PAP TEST ([employer]INC[employer]AL) Routine 10/23/2024 2:28 PM EDT Well female [...] PM EDT) 10/23/2024 2:28 PM EDT Narrative [facility] - 10/30/2024 3:35 PM EDT To view the final report click the scan hyperlink below. Bakari Markham MD LAB AMB PATH/CYTO ORDERABLE S Final Result Performing Organization Address City/State/[facility] Co de Phone Number [facility] [address] [place] [address], * DEXA Bone Density axial skeleton, 1 or more sites (10/16/2024 3:26 PM EDT) Anatomical Region Laterality Modality Digital Radiogra phy Kaela Villa MD IMG DXA ORDERABLES Final Re sult * X-Ray External Result (10/16/2024 1:43 PM EDT) Anatomical Region Laterality Modality Computed Radiogr aphy External Provider MD [facility] KEIRA CORTES Final Result from Last 3 Months Insurance [facility]IC[facility] MEDICARE [facility] MEDICARE Care Teams High School Chemistry Teacher Relationship Specialty Start Date End Date Shaheen Kirkland DO [address] [place] [address] PCP - General Internal Medicine 06/27/24
--- OUTSIDE RECORDS SUMMARY | 2024-12-06 09:59 | XMS_ITS | Continuity of Care Document ---
Author Organization [facility] [address] [place] [address] Phone [phone] Care Team Providers Care Feed Weigher Name Role Phone Demetrice Meier MD Care Team Information Receiv er [phone] Problems Active Problems Provider Date Non-toxic multinodular goiter Jcarlos Colon M.D. Onset: 04/14/2023 Hypothyroidism Jcarlos Colon M.D. Onset: 0 04/14/2023 Social History Type Date Description Comments Sex Female Sex Unknown ETOH Use Never used alcohol Tobacco Use Start: Unknown Patient has never smoked Allergies and adverse reactions Description No Known Drug Allergies Medications Active Medications SIG Qnty Indications Order ing Provider Date Levothyroxine [id number] Tablets Take 1 Tablet By Mouth Daily And 2 Tabs On Tuesday 100tabs Jcarlos Colon M.D. 04/15/2023 Flovent [id number]/Act Aerosol [place] Chen MD Pantoprazole Ibvvwe34wk Tablets DR Take 1 Tablet By Mouth Daily Dalila Bryan NP [id number] (1000 Ut) Capsules Unknown [id number] Tablets Take 1 Tablet By Mouth Twice A Day Unknown Rosuvastatin Bwhqdha78vi Tablets Take 1 Tablet By Mouth Everyday AT Bedtime Unknown Wbkzptlmka12cf Tablets Take 1 Tablet By Mouth Everyday AT Bedtime Unknown Vital Signs Date Vital Result Comment 04/15/2023 3:35pm BP Systolic 120 mmHg BP Diastolic 80 mmHg Heart Rate 72 /min Height 61 inches 5'1 Weight 173.12 lb BMI (Body Mass Index) 32.7 kg/m2 Results Test Acquired Date Facility Test Result H/L Range N ote TSH 03/18/2023 [facility] TSH 2.38 uIU/mL (0.4-4.2) Anti Thyroid Peroxidase AB 03/03/2022 [facility] Anti Thyroid Peroxidase AB 259.5 IU/mL High (<5.6) 1 1 Antibody measurement represents one parameter in a multicriteria diagnostic process. Correlate results with clinical presentation. This test was performed on the [employer] immunoassay system. Medical Devices Description No Information [...]
[2024-12-06 10:37] LABS: Alanine Aminotransferase 40 U/L (0-31); Albumin Level 4.7 g/dL (3.5-5.0); Alkaline Phosphatase 98 U/L (39-117); Anion Gap 12 (12-20); Aspartate Amino Transferase 32 U/L (5-31); Blood Urea Nitrogen 11 mg/dL (9-16); Calcium 9.8 mg/dL (8.4-10.2); Carbon Dioxide 30 mmol/L (22-29); Chloride 107 mmol/L (96-108); Cholesterol 282 mg/dL (<200); Estimated Glomerular Filt Rate > 60; HDL Cholesterol 45 mg/dL (>40); Potassium 4.0 mmol/L (3.3-5.1); Sodium 145 mmol/L (135-145); Total Protein 7.6 g/dL (6.5-8.0); Triglycerides 292 mg/dL (<150)
[2024-12-06 10:54] LABS: Thyroid Stimulating Hormone 0.59 uIU/mL (0.32-4.0)
[2024-12-06 11:06] LABS: Microalbum/Creatinine Ratio Ur 12.5 ug/mg cr (<30)
== END 2024-12-06 09:06 | disposition home or self-care (01) ==
LOC: HO.LAB 09:05
PROVIDERS: PCP Internal Medicine; Visit Provider Internal Medicine
DX: E04.1 Nontoxic single thyroid nodule (principal); E78.2 Mixed hyperlipidemia; E78.5 Hyperlipidemia, unspecified; E55.9 Vitamin D deficiency, unspecified; R80.9 Proteinuria, unspecified
CPT/HCPCS: 36415; 80053; 80061; 82043; 82306; 82570; 84443

== ENCOUNTER 2025-02-27 09:48 | Outpatient (REF) | payer OTHER, SELFPAY | END 2025-02-27 09:49 | disposition home or self-care (01) | LOC: HO.LNP 09:48 | PROVIDERS: PCP Internal Medicine; Visit Provider Obstetrics & Gynecology | DX: Z01.419 Encounter for gynecological examination (general) (routine) without abnormal findings (principal) | CPT/HCPCS: 87626; 88175 ==

== ENCOUNTER 2025-02-27 09:48 | Outpatient (AMB) | payer OTHER, SELFPAY ==
--- NOTE | 2025-02-27 10:11 | MHC.OFFVIS ---
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 No complaints. Last Pap/HPV was ascus/HPV positive in 02/05, colpo biopsy ECC was negative Last Mammogram was BI-RADS 1 in 03/06, the patient is schedule for another screening mammogram soon Last Colonoscopy was in 01/03, the patient is in the process of schedule her next screening colonoscopy [facility] Medical History Breast pain Retraction of left nipple Breast pain, left Encounter for well woman exam with routine gynecological exam ASCUS with positive high risk HPV cervical Constipation Dyslipidemia Vaginitis Epigastric pain Somnolence, daytime Pelvic pain in female Right sided sciatica Skin lesion Family history of colonic polyps Encounter for gynecological examination URI (upper respiratory infection) Hyperglycemia Pre-op examination Discomfort of right ear Hypothyroid Bile salt-induced diarrhea Physical exam Hematuria Acute vaginitis Body aches Otitis media, left Abdominal bloating Generalized abdominal pain Skin lesions Tubular adenoma of colon Obesity (BMI 30-39.9) JERRY (obstructive sleep apnea) Encounter for vision screening Encounter for annual routine gynecological examination FH: ovarian cancer in first degree relative Thoracic back pain Genitofemoral neuralgia of right side Class 1 obesity with body mass index (BMI) of 34.0 to 34.9 in adult Moderate persistent asthma Migraines Hypothyroidism Fixation hardware in leg Bile salt-induced diarrhea Surgical History History of esophagogastroduodenoscopy (EGD) Hx of colonoscopy Eroded bladder suspension mesh History of section History of cholecystectomy History of local excision of skin lesion (~01/04/20) Family History Paternal Aunt History of breast cancer Mother Diabetes High cholesterol Mental health disorder Stomach cancer Uterine cancer, Onset Age: 82 Ovarian cancer Colon cancer Father No problems noted. 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 Current occupational exposures/hazards: No Sexually active: No Sexual orientation: Straight/Heterosexual Gender identity: Female Cognitive needs: No Hearing needs: No Vision needs: Yes Female Reproductive History Menstrual Age of Menarche: 17 Menopause type: natural Total pregnancies: 5 Full term: 4 Number of Living Children: 4 Ab spontaneous: 1 Date of last pap smear: 01/31/24 Date of Mammogram: 03/05/24 Review of Systems Const All systems reviewed & are unremarkable except as noted in HPI and below Card Reports as per HPI Resp Reports as per HPI GI Reports as per HPI and Reports no additional complaints Reports as per HPI Physical Exam Vital Signs: Last Vital Signs BP 124/76 02/27/25 10:14 BMI result Body Mass Index 31.7 Const General: cooperative, healthy appearing and comfortable Chest Chest palpation & inspection: normal inspection of the chest and normal palpation of entire chest wall Breast/axilla inspection: normal inspection of the breasts and normal inspection of the axillae Breast/axilla palpation: normal palpation of the breasts, normal palpation of the axillae and no axillary lymphadenopathy Resp Effort & Inspection: normal respiratory effort Auscultation: clear to auscultation bilaterally Percussion: percussion normal Cardio Palpation: normal PMI Rate: regular rate Rhythm: regular rhythm Heart sounds: no murmurs and no rubs Peripheral pulses: Peripheral pulses 2+ throughout GI Inspection: Yes normal to inspection Palpation (GI): Soft to palpation, nontender, no guarding, not rigid and No hepatosplenomegaly present Percussion: Yes normal to percussion Auscultation: normal bowel sounds Rectal Exam - Female: deferred General: Yes bladder normal to palpation External Female Exam: No lesion Speculum Exam - Vagina: normal appearance of the vagina, normal palpation, normal vaginal discharge and not erythematous Speculum Exam - Cervix: normal appearance of the cervix and normal palpation Bimanual exam- vagina & uterus: normal bimanual exam, normal palpation, uterine size normal, bladder normal to palpation, consistency normal and normal palpation Bimanual Exam- Adnexa, other: normal adnexae, no masses and no tenderness Assessment & Plan Assessment & Plan (1) Well woman exam: Code(s): Z01.419 - Encounter for gynecological examination (general) (routine) without abnormal findings Category: Medical Plan: Co testing done. Counseled the patient about the recommended dietary allowance of 1200 mg of Calcium & 600 IU of vitamin D. Mammogram scheduled The patient is in the process of scheduling her next appointment with GI for screening colonoscopy . The patient was instructed to perform monthly self-breast exams and schedule annual exam in a year. All questions answered and the patient verbalized understanding. Coding Level of Care Code Est Pt Prev Care 40-64y(91003) Diagnoses Well woman exam Z01.419
[2025-02-27 10:14] VITALS: BP 124/76; BMI 31.7
--- OUTSIDE RECORDS SUMMARY | 2025-02-27 11:37 | XMS_ITS | Encounter Summary ---
Author Organization [facility] Address [address] [place] [address] Care Team Providers Care Front Office Medical Assistant Name Role Phone Shaheen Kirkland Primary Care Provider [phone] Encounter Details Date Type Department Care Team (Late st Contact Info) Description 08/17/[address] [facility] [address] [facility] [address] [place] [address] Jagjit Rosen MD [address] [place] [address] Social History Tobacco Use Types Packs/Day Years [...] on file documented as of this encounter Procedures Procedure Name Priority Date/Time Associated Diagnosis Comments PATHOLOGY REPORT 08/17/2024 12:0 0 AM EDT documented in this encounter Results * Pathology (08/17/2024 12:00 AM EDT) Jagjit Rosen MD PATHOLOGY/CYTOLOGY ORDERABLES Fi nal Result documented in this encounter Visit Diagnoses Not on filedocumented in this encounter Care Teams Front Office Medical Assistant Relationship Specialty Start Date End Date Shaheen Kirkland DO [address] [place] [address] PCP - General Internal Medicine 06/27/24 documented as of this encounter
--- OUTSIDE RECORDS SUMMARY | 2025-02-27 11:37 | XMS_ITS | Patient Health Record ---
Author Organization [employer] Address [address] [place] [address] Care Team Providers Care Grinding Room Inspector Name Role Phone Shaheen Kirkland Primary Care Provider [phone] Elpidioboogie Sindi Unavailable [phone] Allergies No Known Allergies Results Component Value Reference Range Flag Notes Basic Metabolic Panel w/eGFR [id number] Reviewed date:05/30/2024 01:01:29 PM Interpretation: Normal Performing Lab:NL1, , [address] [place], [address] Lexis Brito M.D. Notes/Report: Received Date: 0; 0; 0; 0; 0; 0 FASTING:YES FASTING: YES GLUCOSE 86 65-99 mg/dL N Fasting reference interval UREA NITROGEN (BUN) 13 7-25 mg/dL N CREATININE 0.54 0.50-1.03 mg/dL N EGFR 107 > OR = 60 mL/min/1.73m2 N BUN/CREATININE RATIO SEE NOTE: 6-22 (calc) Not Reported: BUN and Creatinine are within reference range. SODIUM 140 135-146 mmol/L N POTASSIUM 4.1 3.5-5.3 mmol/L N CHLORIDE 101 98-110 mmol/L N CARBON DIOXIDE 29 20-32 mmol/L N CALCIUM 9.7 8.6-10.4 mg/dL N CBC (H/H,RBC,Indices,WBC,Plt ) 1759 Reviewed date:05/30/2024 01:01:29 PM Interpretation: Normal Performing Lab:NL1, , [address] [place], [address] Lexis Brito M.D. Notes/Report: Received Date: 0; 0; 0; 0; 0; 0 FASTING:YES FASTING: YES WHITE BLOOD CELL COUNT 6.6 3.8-10.8 Thousand/uL N RED BLOOD CELL COUNT 4.61 3.80-5.10 Million/uL N HEMOGLOBIN 12.9 11.7-15.5 g/dL N HEMATOCRIT 39.5 35.0-45.0 % N MCV 85.7 80.0-100.0 fL N MCH 28.0 27.0-33.0 pg N MCHC 32.7 32.0-36.0 g/dL N For adults, a slight decrease in the calculated MCHC value (in the range of 30 to 32 g/dL) is most likely not clinically significant; however, it should be interpreted with caution in correlation with other red cell parameters and the patient's clinical condition. RDW 13.5 11.0-15.0 % N PLATELET COUNT 361 140-400 Thousand/uL N MPV 9.0 7.5-12.5 fL N TSH w/Free T4 rfx [id number] Reviewed date:05/30/2024 01:01:29 PM Interpretation: Normal Performing Lab:NL1, , [address] [place], [address] Lexis Brito M.D. Notes/Report: Received Date: [id number] 0; 0; 0; 0; 0; 0 FASTING:YES FASTING: YES TSH W/REFLEX TO FT4 1.13 0.40-4.50 mIU/L N Hemoglobin A1c 496 Reviewed date:05/30/2024 01:01:29 PM Interpretation:6.5 Performing Lab:NL1, , [address] [place], [address] Lexis Brito M.D. Notes/Report: Received Date: [id number] 0; 0; 0; 0; 0; 0 FASTING:YES FASTING: YES HEMOGLOBIN A1c 6.5 <5.7 % of total Hgb H For someone without known diabetes, a hemoglobin [...] A1c for diagnosis of diabetes for children. Microalbumin,[facility] (w/crea t) 6517 Reviewed date:05/30/2024 01:01:29 PM Interpretation: Normal Performing Lab:NL1, , [address] [place], [address] Lexis Brito M.D. Notes/Report: Received Date: 0; 0; 0; 0; 0; 0 FASTING:YES FASTING: YES CREATININE, RANDOM URINE 159 20-275 mg/dL N ALBUMIN, URINE 1.4 See Note: mg/dL N Reference Range: Reference Range Not established ALBUMIN/CREATININE RATIO, RANDOM URINE 9 <30 mg/g creat N The ADA defines abnormalities in albumin excretion as follows: Albuminuria Category Result (mg/g creatinine) Normal to Mildly increased <30 Moderately increased 30-299 Severely increased > OR = 300 The ADA recommends that at least two of three specimens collected within a 3-6 month period be abnormal before considering a patient to be within a diagnostic category. Lipid Panel w/refl LDL [id number] Reviewed date:05/30/2024 01:01:29 PM Interpretation:207 Performing Lab:NL1, , [address] [place], [address] Lexis Brito M.D. Notes/Report: Received Date: 0; 0; 0; 0; 0; 0 FASTING:YES FASTING: YES CHOLESTEROL, TOTAL 309 <200 mg/dL H HDL CHOLESTEROL 75 > OR = 50 mg/dL N TRIGLYCERIDES 127 <150 mg/dL N LDL-CHOLESTEROL 207 H LDL-C levels > or = 190 mg/dL [...] about testing for familial hypercholesterolemia, please call [facility] at [phone]. Donya Rg, et al. J National Lipid Association Recommendations for Patient-Centered Management of Dyslipidemia: Part 1 Journal of Clinical Lipidology 2015;9(2), 129-169. Gita Morrow et al. (2014). Homozygous familial hypercholesterolaemia: new insights and guidance for clinicians to improve detection and clinical management. Heart Journal, 35(32), 5418-7305. Reference range: <100 Desirable range <100 mg/dL for primary prevention; <70 mg/dL for patients with CHD or diabetic patients with > or = 2 CHD risk factors. LDL-C is now calculated using the Terrell-Leung calculation, which is a validated novel method providing better accuracy than the Friedewald equation in the estimation of LDL-C. Terrell SS et al. DARYN. 2013;310(19): 4069-4459 (http://education.Intronis.Moobia/faq/JWK785) CHOL/HDLC RATIO 4.1 <5.0 (calc) N NON HDL CHOLESTEROL 234 <130 mg/dL (calc) H Non-HDL level > or = 220 is [...] Lab: Notes/Report: Normal Celiac Disease Comprehensive Panel [id number] Reviewed date:10/16/2024 02:34:52 PM Interpretation:Negative Performing Lab:NL1, , [address] [place], [address] Lexis Brito M.D. Notes/Report: Received Date: [id number] 0 FASTING:NO FASTING: NO INTERPRETATION See Note No serological evidence for celiac disease is present. tTg may normalize in individuals with celiac disease who maintain a gluten free diet. If high suspicion of celiac disease, consider HLA DQ2 and DQ8 testing to rule out celiac disease. TISSUE TRANSGLUTAMINASE AB, IGA <1.0 N Value Interpretation ----- <15.0 Antibody not detected > or = 15.0 Antibody detected IMMUNOGLOBULIN A 181 47-310 mg/dL N Hemoglobin A1c IH Reviewed date:01/07/2025 11:08:01 AM Interpretation:6.4 Performing Lab: Notes/Report: 6.4 Lot No. [id number] Expiration 01/2027 Hemoglobin A1C IH 6.4 Reference Range 4.3 - 7 4.3-7.0 MRI: Cervical Spine, w/o Con trast Reviewed date:07/25/2024 11:29:43 AM Interpretation:Mild disc herniation Performing Lab: Notes/Report: Mild disc herniation MRI: Thoracic Spine, w/o Con trast Reviewed date:07/25/2024 11:28:52 AM Interpretation:Mild degenerative changes Performing Lab: Notes/Report: Mild degenerative changes Reason For Referral Reason 59 year old female w ith upper back pain secondary to posture. Diagnosis 1 Upper back pain (M54 .9) Referral Organization [facility] Referring Provider First Name Sindi Referring Provider Last Name Lila Referring Provider Speciality [facility] renu Referred Provider [facility], [facility] Referred Provider Specialty Physical The rapy General Notes Sindi Sharp 11:56:57 AM > Patient would like referral to go to PT at [place] [address] [facility] Floor 5, that is where she is currently for PT on her shoulder. Referral Priority Routine Reason Please evaluate and treat. 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) Referral Organization [facility] Referring Provider First Name Sindi Referring Provider Last Name Lila Referring Provider Speciality [facility] ctice Referred Provider David Villatoro Referred Provider Specialty Spinal Surge ry General Notes Mary Tsang 07/05 12:16:42 PM >faxed referral with the last visti note med summary and iamging, Dr Villatoro-Spinal Surgery, iraidagiuseppeleeannAcal [employer]мар[employer], support 07/05/2024 13:56:03 PM>, ReferralPoint: Patient Reviewed Link, kotaaideeмария, support 07/05/2024 13:56:04 PM>, ReferralPoint: Referral Recommendations Sent to Patient , DAVID VILLATORO , [address], [facility], [address] , , , Nguyen JOEL Desire 07/10/2024 01:55:22 PM >Refaxed at the patient 's request, [employer], support 08/29/2024 11:01:59 AM>, ReferralPoint Summary, ReferralPoint 07/05/24 11:17 AM: Patient Sent Specialist Recommendation , DAVID VILLATORO , [address], [facility], [address] , , , ReferralPoint 07/05/24 12:37 PM: [...] AM: Patient Provided Appointment Date - 07/20/2024, [employer] [employer], support 09/26/2024 03:06:07 AM>, ReferralPoint 09/26/24 01:32 AM: Faxed Specialist for Consult Notes - Successful, kina, support 10/03/2024 18:06:00 PM>, [facility] 10/03/24 04:40 PM: Faxed Specialist for Consult Notes - Successfulkina, support 10/10/2024 13:33:05 PM>, [facility] 10/10/24 11:44 AM: Fax Specialist for Consult Notes - Max Attempts ReachedNguyen Teresa 10/10/2024 04:50:16 PM >consult rec'd Referral Priority Routine Referral Appointment Date 07/20/2024 Reason pain Diagnosis 1 Neck pain (M54.2) Diagnosis 2 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) Diagnosis 3 Thoracic arthritis ( M46.84) Diagnosis 4 Thoracic abscess (J8 6.9) Diagnosis 5 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) Referral Organization [facility] Referring Provider First Name Shaheen Referring Provider Last Name Marita Referring Provider Speciality Internal M edicine Referred Provider Kaela Siddiqi Referred Provider Specialty Physiatry General Notes Mary Tsang 07/30 02:49:21 PM >faxed referral with the last vist note med summary and imaging, Dr Do, kina, support 07/31/2024 08:09:04 AM>, ReferralPoint 07/30/24 04:38 PM: Patient Reviewed Linkkina, support 07/31/2024 08:09:04 AM>, [facility] 07/30/24 04:31 PM: Patient Sent Specialist Recommendation , KAELA SIDDIQI , Ashlyn ALONZO , [facility], [address] , , , kina, support 08/07/2024 08:47:00 AM>, [facility] 08/06/24 08:09 AM: Confirmation of Scheduled Appointment - 1st Request, kina, support 08/07/2024 08:47:00 AM>, [facility] 08/06/24 02:00 PM: Confirmation of Scheduled Appointment - 2nd Request, kina, support 08/08/2024 15:33:00 PM>, [facility] 08/08/24 02:00 PM: Confirmation of Scheduled Appointment - 3rd Request, croettaмария, support 08/23/2024 12:13:16 PM>, [facility] 08/23/24 08:27 AM: Referral Closed, kina, support 08/23/2024 12:13:17 PM>, [facility] 08/22/24 02:00 PM: No Response From Patient, kina, support 08/29/2024 15:43:54 PM>, ReferralPoint Summary, [facility] 07/30/24 04:31 PM: Patient Sent Specialist Recommendation , KAELA SIDDIQI , [address] [facility], [address] , , , ReferralPoint 07/30/24 04:38 PM: [...] Diagnosis 1 Toe pain (M79.676) Referral Organization [facility] Referring Provider First Name Shaheen Referring Provider Last Name Priyankachristina Referring Provider Speciality Internal M edicine Referred Provider Juanjose Kahn Referred Provider Specialty Podiatry - S urgical Chiropody General Notes Mary Tsang 07/30 02:28:23 PM >faxed referral with the last visit note med Dr alec stephen Podiatry, jeremiah, support 07/31/2024 08:09:04 AM>, [facility] 07/30/24 04:19 PM: Patient Sent Specialist Recommendation , JUANJOSE KAHN , [address] [facility], [address] , , , kina, support 07/31/2024 08:09:04 [...] AM: Patient Provided Appointment Date - 08/14/2024, [employer], support 08/29/2024 15:43:54 PM>, ReferralPoint Summary, [facility] 07/30/24 04:19 PM: Patient Sent Specialist Recommendation , JUANJOSE KAHN , [address] [facility], [address] , , , ReferralPoint 07/30/24 04:19 PM: [...] disc of cervicothoracic region (M50.33) Referral Organization [facility] Referring Provider First Name Shaheen Referring Provider Last Name Marita Referring Provider Speciality Internal M edicine Referred Provider Specialty Visiting isabell tolentino General Notes Mica Michele RN 09/24/2024 04:11:41 PM > Faxed to Shanon Garza Referral Priority Routine Reason sleep apnea Diagnosis 1 Sleep apnea in adult (G47.33) Referral Organization [facility] Referring Provider First Name Shaheen Referring Provider Last Name Marita Referring Provider Speciality Internal M edicine Referred Provider [facility], Sleep Specialist Referred Provider Specialty Sleep Specia list F2F General Notes Mary Tsang 01/09 05:02:28 PM > faxed referral with the visit note med summary, [facility], [employer]мария, support 01/09/2025 17:31:12 PM>, [facility] 01/09/25 04:10 PM: Patient Sent Specialist Recommendation, janenetamicaмария, support 01/09/2025 17:31:12 PM>, ReferralPoint 01/09/25 04:02 PM: , [facility] , Specialty:Sleep Specialist , [address] [place] [address], [address], , , kotaaideeмария, support 01/17/2025 12:21:04 PM>, [facility] 01/14/25 04:10 PM: Patient Sent Recommendations - 2nd Attempt, [facility] 01/16/25 04:10 PM: Patient Sent Recommendations - 3rd Attempt, kotaaideeмария, support 01/30/2025 19:47:05 PM>, [facility] 01/30/25 04:10 PM: No Response From Patient Referral Priority Routine Medications Medication SIG (Take, Route, Frequency, Duration) Notes Start Date End Date Status Calcium Acetate (Phos Binder) 667 MG Tablet TAKE 1 TABLET BY MOUTH TWICE A DAY Oral; Duration: 90 Days Active Albuterol Sulfate HFA 108 (90 Base) MCG/ACT Aerosol Solution TAKE 2 PUFFS (INHALATION) EVERY 6 HOURS (SHORTNESS OF BREATH OR WHEEZING) FOR 10 DAYS Inhalation; Duration: 20 Days Active Atorvastatin Calcium 80 MG Tablet 1 tablet Orally Once a day; Duration: 90 days Active CVS Gas Relief Ultra Strength 180 MG Capsule 180 MG ORALLY 4 TIMES A DAY FOR 30 DAYS AFTER MEALS Oral; Duration: 12 Days Active Mounjaro 2.5 MG/0.5ML Solution Auto-injector 2.5 mg Subcutaneous once a weeks; Duration: 28 days 01/07/2025 Active Famotidine 20 MG Tablet 20 MG ORALLY BED TIME Oral; Duration: 90 Days Active Accu-Chek Softclix Lancets - Miscellaneous Once a day; Duration: 90 days 12/06/2024 Active Escitalopram Oxalate 10 MG Tablet 1 tablet Orally Once a day Active Fenofibrate 54 MG Tablet Oral; Duration: 90 Days Active Accu-Chek Guide w/Device Kit 1 subcutaneous once a day; Duration: 90 09/24/2024 Active Pregabalin 100 MG Capsule Oral; Duration: 30 Days Active Lansoprazole 30 MG Capsule Delayed Release Oral; Duration: 90 Days A ctive Jardiance 10 MG Tablet 1 tablet Orally O nce a day; Duration: 90 days 06/06/2024 Active Topiramate 25 MG Tablet TAKE 1 TABLET OR ALLY 2 TIMES A DAY FOR 90 DAYS Oral; Duration: 90 Days Active Accu-Chek Guide Test - Strip 1 In Vitro once a day; Duration: 90 days 12/06/2024 Active Acetaminophen ER 650 MG Tablet Extended Release TAKE 1 TABLET BY MOUTH EVERY 8 HOURS NEEDED FOR PAIN FOR 30 DAYS Oral; Duration: 40 Days Active Accu-Chek Guide w/Device Kit 1 subcutaneous once a day; Duration: 90 12/06/2024 Active Levothyroxine Sodium 100 MCG Tablet TAKE 1 TABLET BY MOUTH DAILY AND 2 TABS ON TUESDAY Oral; Duration: 90 Days Active Methocarbamol 750 MG Tablet TAKE 1 TABLE T BY MOUTH EVERY DAY AT NIGHT; Duration: 30 Active CVS D3 25 MCG (1000 UT) Capsule TAKE 1 CAPSULE BY MOUTH EVERY DAY Oral; Duration: 90 Days Active Accu-Chek Guide Test - Strip 1 In Vitro once a day; Duration: 90 days 09/24/2024 Active Immunizations Vaccine Route Administration Date Status Comme nts Influenza Tri Flulaval (CHC 6mo+ preservative free)- IM Intramuscular 01/07/2025 Administered Social History Tobacco Use: Social History Observation Description Date Details (start date - stop date) Never Smoker NA - NA Social History Social History Social Info Question Answer Notes Patient's perception of literacy I read well in: Andorran 05/31/2024 ES also in [place] ir[place] Tobacco Control (Standard) Tobacco use: Nonsmoker Health Literacy How confident are yo u filling out medical forms by yourself? 1 Extremely 05/31/2024 ES How do you like To Learn : Verbal 05/13 ES Language Spoken Language Spoken Andorran 05/31/2024 ES northern irish as well Problems Problem Type SNOMED Code ICD Code Onset Dates Problem Status W/U Status Risk Notes Problem Abnormal blood pressure (31010492) Encounter for examination of blood pressure with abnormal findings (Z01.31) 025 Active confirmed Problem Body mass index 30.00 to 34.99 (177255932119076) Body mass index (BMI) 31.0-31.9, adult (Z68.31) 025 Active confirmed Problem Body mass index 30.00 to 34.99 (305240155673227) Body mass index (BMI) 32.0-32.9, adult (Z68.32) 025 Active confirmed Problem Body mass index 30.00 to 34.99 (449929567709186) Body mass index (BMI) 33.0-33.9, adult (Z68.33) 025 Active confirmed Problem Irritable bowel syndrome with diarrhea (014497829) Irritable bowel syndrome with diarrhea (K58.0) Active confirmed Problem Abnormal findings on diagnostic imaging of breast (035557782) Other abnormal and inconclusive findings on diagnostic imaging of breast (R92.8) Active confirmed Problem Gastroesophageal reflux disease (660208385) GERD (gastroesophageal reflux disease) (K21.9) Active confirmed Problem Hypertension (67211148) Hypertension (I10) Active confirmed Problem Neck pain (75259166) Neck pain (M54.2) Active confirmed Problem Type II diabetes mellitus well controlled (302362473) Diabetes type 2, controlled (E11.9) Active confirmed Problem Obstructive sleep apnea syndrome (71728158) Sleep apnea in adult (G47.33) Active confirmed Problem Hyperlipidaemia (27723846) Hyperlipidemia LDL goal <100 (E78.5) Active confirmed Problem Lumbago with sciatica (803668651) 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) Active confirmed Problem Thoracic arthritis (4336231) Thoracic arthritis (M46.84) Active confirmed Problem Degeneration of cervical intervertebral disc (21088265) 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) Active confirmed Vital Signs Temperature 97.4 degrees Fahrenheit 01/21/2025 Respiratory Rate 16 /min 01/21/2025 Oximetry 97 % 01/21/2025 Blood pressure diastolic 84 mm Hg 01/21/2025 Height 61 in 01/21/2025 Blood pressure systolic 127 mm Hg 01/21/2025 Weight 175.2 lbs 01/21/2025 BMI 33.1 kg/m2 01/21/2025 Encounters Encounter Location Date Provider Diagnosis [facility] [place] [address] [place] [address] 05/30/2024 Shaheen Marita [facility] [place] [address] [place] [address] 05/31/2024 Shaheen Gitchristina [facility] [place] [address] [place] [address] 06/18/2024 Shaheen Gitchristina [facility] [place] [address] [place] [address] 07/10/2024 Shaheen Gitchristina [facility] [place] [address] [place] [address] 07/11/2024 Shaheen Marita Degeneration of intervertebral disc of cervicothoracic region M50.33 [facility] [place] [address] [place] [address] 07/25/2024 Shaheen Marita [facility] [place] [address] [place] [address] 07/30/2024 Shaheensimin Kirkland Upper back pain M54. 9 [facility] [place] [address] [place] [address] 08/17/2024 Shaheensimin Kirkland Breast cancer screen ing Z12.31 [facility] [place] [address] [place] [address] 09/19/2024 Shaheen Marita [facility] [place] [address] [place] [address] 09/19/2024 Shaheen Marita [facility] [place] [address] [place] [address] 09/19/2024 Shaheensimin Kirkland Thoracic arthritis M46.84 ; Degeneration of intervertebral disc of cervicothoracic region M50.33 and Sciatica associated with disorder of lumbar spine M53.9 [facility] [place] [address] [place] [address] 09/19/2024 Shaheen Marita [facility] [place] [address] [place] [address] 09/19/2024 Shaheen Gitchristina [facility] [place] [address] [place] [address] 09/20/2024 Shaheen Marita [facility] [place] [address] [place] [address] 10/12/2024 Shaheen Marita [facility] [place] [address] [place] [address] 10/12/2024 Shaheen Marita [address] [address] 10/15/2024 Shaheen Kirkland [address] [address] 10/16/2024 Shaheen Kirkland [address] [address] 11/08/2024 Shaheen Kirkland [address] [address] 11/13/2024 Shaheen Kirkland Other abnormal and inconclusive findings on diagnostic imaging of breast R92.[address] [address] 12/06/2024 Shaheen Kirkland Diabetes type 2, controlled E11.[address] [address] 12/12/2024 Shaheen Kirkland [address] [address] 12/12/2024 Shaheen Kirkland Diabetes type 2, controlled E11.[address] [address] 12/12/2024 Shaheen Kirkland [address] [address] 02/12/2025 Shaheen Kirkland Breast cancer screen ing Z12.[address] [address] 12/06/2024 Shaheen Kirkland Diabetic retinopathy screening Z13.5 and Body mass index (BMI) 32.0-32.9, adult Z68.[address] [address] 01/07/2025 Shaheen Kirkland Counseling and coordination of care Z71.89 ; Hyperlipidemia LDL goal <100 E78.5 ; Encounter for immunizations Z23 ; Diabetes type 2, controlled E11.9 ; Encounter for examination of blood pressure with abnormal findings Z01.31 and Sleep apnea in adult G47.[address] [address] 01/21/2025 Shaheen Kirkland Hypertension I10 and Body mass index (BMI) 33.0-33.9, adult Z68.[address] [address] 07/27/2024 Shaheen Kirkland Neck pain M54.2 ; Sciatica associated with disorder of lumbar spine M53.9 ; Degeneration of intervertebral disc of cervicothoracic region M50.33 ; Thoracic abscess J86.9 ; Thoracic arthritis M46.84 ; Toe pain M79.676 and Body mass index (BMI) 32.0-32.9, adult Z68.[address] [address] 10/15/2024 Shaheen Kirkland Irritable bowel syndrome with diarrhea K58.0 ; Rash R21 and Body mass index (BMI) 32.0-32.9, adult Z68.32 [place] [address] 06/06/2024 Shaheen Kirkland Diabetes type 2, controlled E11.9 ; Hyperlipidemia LDL goal <100 E78.5 ; Lumbosacral pain M54.50 ; Mid back pain M54.9 ; Neck pain M54.2 and Body mass index (BMI) 32.0-32.9, adult Z68.32 [place] [address] 07/03/2024 Sindi Sharp Degeneration of intervertebral disc of cervicothoracic region M50.33 ; Encounter for behavioral health screening Z13.30 and Body mass index (BMI) 31.0-31.9, adult Z68.[address] [address] 05/24/2024 Shaheen Kirkland Screening for malign ant neoplasm Z12.9 ; Hyperlipidemia LDL goal <100 E78.5 ; Breast cancer screening Z12.31 and Body mass index (BMI) 32.0-32.9, adult Z68.[address] [address] 07/16/2024 hSaheen Kirkland Acute sinusitis J01. 90 ; Diabetes type 2, controlled E11.9 and Body mass index (BMI) 31.0-31.9, adult Z68.[address] [address] 05/31/2024 Sindi Sharp Encounter for behavioral health screening Z13.30 and Upper back pain M54.[address] [address] 07/23/2024 Shaheen Kirkland Diabetes type 2, controlled E11.9 ; Sciatica associated with disorder of lumbar spine M53.9 and Body mass index (BMI) 32.0-32.9, adult Z68.[address] [address] 09/19/2024 Shaheen Kirkland Assessments Encounter Date Diagnosis [...] diagnostic imaging of breast (ICD-10 - R92.8) 12/06/2024 Diabetic retinopathy screening (ICD-10 - Z13.5) Retinopathy pictures were completed and sent to [facility]. Discussed the importance of diet and exercise, avoiding refined carbs and sugars, checking blood glucose as directed and keep a log, inspect feet daily. encouraged not to skip meals. Advised pt to check foot regularly. Wear comfortable, fitting shoes. Make sure feet is completely dry after showering. Apply moisturizer as needed for dry skin. See podiatry if needed. Any foot sx's contact PCP or farm products shipper. 12/06/2024 Diabetes type 2, controlled (ICD-10 - E11.9) 12/12/2024 Diabetes type 2, controlled (ICD-10 - E11.9) 01/07/2025 Counseling and coordination of care (ICD-10 - Z71.89) CDC recommends a 3-step approach to fighting the flu: 1. Get vaccinated with the influenza vaccine - everyone aged 6 months and older should get the flu vaccine 2. Take flu anti-viral drugs (i.e. tamiflu) if your doctor prescribes them. Flu anti-viral drugs work best when taken within 2 days of getting sick, and can make illness milder and shorten the time that you are sick. 3. Flu viruses are spead through droplets made when people infected with the flu virus cough, sneeze, or talk. These droplets can then land in the mouths or noses of people who are nearby. You can also get the flu by touching something that has flu virus on it and touching your own mouth, eyes, nose. Take everyday preventative actions to stop the spread of the flu virus: a. Cover your nose and mouth with a tissue when you cough or sneeze. Throw the tissue in the trash after you use it. If you do not have a tissue, cough or sneeze into your upper sleeve or elbow, not your hands. Wash your hands after you cough or sneeze. b. Stay away from people who are sick. c. Avoid touching your eyes, nose, and mouth. d. Wash your hands often with soap and water for 20 seconds (as long as it takes to sing happy birthday). If soap and water are not available, use an alcohol-based scrub. e. If you or your child get sick with the flu, CDC recommends that you stay home for at least 24 hours after the fever is gone. The ever should be gone without the use of fever-reducing medicine. f. Clean and disinfect surfaces and objects that may be contaminated with germs like the flu. 01/07/2025 Hyperlipidemia LDL goal <100 (ICD-10 - E78.5) 01/21/2025 Hypertension (ICD-10 - I10) 02/12/2025 Breast cancer screening (ICD-10 - Z12.31) 07/27/2024 Degeneration of intervertebral disc of cervicothoracic region (ICD-10 - M50.33) 01/21/2025 Body mass index (BMI) 33.0-33.9, adult (ICD-10 - Z68.33) 01/07/2025 Encounter for immunizations (ICD-10 - Z23) 12/06/2024 Body mass index (BMI) 32.0-32.9, adult (ICD-10 - Z68.32) 09/19/2024 Sciatica associated with disorder of lumbar [...] Z68.31) 07/27/2024 Thoracic abscess (ICD-10 - J86.9) 01/07/2025 Diabetes type 2, controlled (ICD-10 - E11.9) 01/07/2025 Encounter for examination of blood pressure with abnormal findings (ICD-10 - Z01.31) 07/27/2024 Thoracic arthritis (ICD-10 - M46.84) 06/06/2024 Neck pain (ICD-10 - M54.2) 06/06/2024 Body mass index (BMI) 32.0-32.9, adult (ICD-10 - Z68.32) 07/27/2024 Toe pain (ICD-10 - M79.676) 01/07/2025 Sleep apnea in adult (ICD-10 - G47.33) 07/27/2024 Body mass index (BMI) 32.0-32.9, adult (ICD-10 - Z68.32) 01/07/2025 Other Patient instruc eliane to wait 15 minutes in the waiting room following med/vaccine administration and to inform staff immediately if they experience any adverse effects. Pt/family counseled on all immunizations administered, Patient denies egg allergy, denies guillian barre syndrome. Importance of compliance with my recommendations and concequences of non-compliance discussed with patient. Patient understood and agreed. Plan Of Treatment Pending Test Test Name Order Date Retinal Screening IH 12/06/2024 Future Test Test Name Order Date Mammogram: Bilateral Screening 5 Insurance Providers Payer Name Payer Address Payer Phone Subscriber Number Group Number Insured Name Patient Relationship to Insured Coverage Start Date Coverage End Date [employer] Medicare Adv LUKE Arellano MD [address] [place] [address] [id number] Ximena Mendenhall Self - patient is the insured Medicaid [place] [address] [phone] [id number] Colon, Ximena Self - patient is the insured
--- OUTSIDE RECORDS SUMMARY | 2025-02-27 11:39 | XMS_ITS | Continuity of Care Document ---
Author Organization [facility] [address] [place] [address] Phone [phone] Care Team Providers Care Compliance Tester Name Role Phone Demetrice Meier MD Care Team Information Receiv er [phone] Problems Active Problems Provider Date Non-toxic multinodular goiter Jcarlos Colon M.D. Onset: 04/14/2023 Hypothyroidism Jcarlos Colon M.D. Onset: 0 04/14/2023 Social History Type Date Description Comments Sex Female Sex Unknown ETOH Use Never used alcohol Tobacco Use Start: Unknown Patient has never smoked Allergies and adverse reactions Description No Known Drug Allergies Medications Active Medications SIG Qnty Indications Order ing Provider Date Levothyroxine [id number] Tablets Take 1 Tablet By Mouth Daily And 2 Tabs On Tuesday 100tabs Jcarlos Colon M.D. 04/15/2023 Flovent [id number]/Act Aerosol [place] Chen MD Pantoprazole Oialxb15uk Tablets DR Take 1 Tablet By Mouth Daily Dalila Bryan NP [id number] (1000 Ut) Capsules Unknown Epiongnynl54zi Tablets Take 1 Tablet By Mouth Twice A Day Unknown Rosuvastatin Herufud95gh Tablets Take 1 Tablet By Mouth Everyday AT Bedtime Unknown Jtvucjdism42xj Tablets Take 1 Tablet By Mouth Everyday AT Bedtime Unknown Vital Signs Date Vital Result Comment 04/15/2023 3:35pm BP Systolic 120 mmHg BP Diastolic 80 mmHg Heart Rate 72 /min Height 61 inches 5'1 Weight 173.12 lb BMI (Body Mass Index) 32.7 kg/m2 Results Test Acquired Date Facility Test Result H/L Range N ote TSH 03/18/2023 [facility] TSH 2.38 uIU/mL (0.4-4.2) Anti Thyroid Peroxidase AB 03/03/2022 [facility] Anti Thyroid Peroxidase AB 259.5 IU/mL High (<5.6) 1 1 Antibody measurement represents one parameter in a multicriteria diagnostic process. Correlate results with clinical presentation. This test was performed on the [employer] immunoassay system. Medical Devices Description No [...]
--- OUTSIDE RECORDS SUMMARY | 2025-02-27 11:40 | XMS_ITS | Clinical Summary ---
Author Organization [facility] Address [address] [place] [address] Care Team Providers Care Tie Inspector Name Role Phone Shaheen Kirkland Primary Care Provider [phone] Allergies No known active allergies Medications acetaminophen [...] Take 25 mg by mouth daily. 04/02/19 22 Active escitalopram (LEXAPRO) 10 MG tablet Take [...] (06/26/2024): Mild noted on manometry study - [facility] records JERRY on CPAP 02/11/2020 Calcific [...] 02.22.06. 48 hour ambulatory pH testing performed [facility] 05/04/2016 revealed normal amounts of acid exposure. Resolved Problems Problem Noted Date Diagnosed Date Resolved Date Vitamin D deficiency 10/14/2011 025 Family History Medical History Relation Name Comments [...] 08/17/2024 12:39 PM EDT Plan of Treatment Health Maintenance [...] of 2 - PCV) 1986 Mammogram 2007 RSV Vaccine 50 years and old er and Patients (1 - Risk 50-74 years 1-dose series) 2017 Zoster (Shingles) Vaccine (1 of 2) 2017 Influenza Vaccine 10/12/2024 04/01/2016, , 01/08/2016, Additional history exists COVID-19 Vaccine (3 - 2024-2 6 season) 2024 10/08/2020, 08/25/2020 Pap Smear (Ages 21-65) 10/24/2027 10/23/2024 Colonoscopy 08/17/2034 08/17/2024, 10/12, 06/02/2011 Procedures Procedure Name Priority Date/Time Associated Diagnosis Comments THINPREP PAP TEST (PROCESS IMPROVEMENT CONSULTANT) Routine 10/23/2024 2:28 PM EDT Well female exam with routine gynecological exam Routine cervical smear from Last 3 Months or Most Recently Relevant to Health Maintenance Results * ThinPrep Pap Test (10/23/2024 2:28 PM EDT) 10/23/2024 2:28 PM EDT Narrative [facility] - 10/30/2024 3:35 PM EDT To view the final report click the scan hyperlink below. us Bakari Markham MD LAB AMB PATH/CYTO ORDERABLE S Final Result Performing Organization Address City/State/RUST Co de Phone Number [facility] [address] [place] [address], from Last 3 Months or Most Recently Relevant to Health Maintenance Insurance [facility] MEDICARE [facility] MEDICARE [facility] MEDICARE [facility] Care Teams Tie Inspector Relationship Specialty Start Date End Date Shaheen Kirkland DO [address] [place] [phone] PCP - General Internal Medicine 06/27/24
--- OUTSIDE RECORDS SUMMARY | 2025-02-27 11:40 | XMS_ITS | Encounter Summary ---
Author Organization [facility] Address [address] [place] [address] Care Team Providers Care Instrumentation Designer Name Role Phone Shaheen Kirkland DO Primary Care Provider [phone] Encounter Details Date Type Department Care Team (Late st Contact Info) Description 07/31/2024 Scanned Document [facility] Department of Physiatry [place] [address] [place] [id number] Kaela Villa MD [address] [place] [address] Social History Tobacco Use Types Packs/Day Years [...] on filedocumented in this encounter Care Teams Instrumentation Designer Relationship Specialty Start Date End Date Shaheen Kirkland DO [address] [place] [address] PCP - General Internal Medicine 06/27/24 documented as of this encounter
--- OUTSIDE RECORDS SUMMARY | 2025-02-27 11:40 | XMS_ITS | Clinical Summary ---
Author Organization [facility] [address] [facility] Address [address] [place] [address] Phone Care Team Providers Care Visual Design Lead Name Role Phone Unavailable Primary Care Provider [...] (one) time each day. 2 Active pancrelipase, Xxu-Zzil-Shlr, (Creon) 3,000-9,500- 15,000 unit capsule 0 Active [...] (03/01/2024): Mild noted on manometry study - [facility] records JERRY on CPAP 02/11/2020 Calcific tendinitis of left shoulder 08/28/2019 Chronic heel pain, right 07/05/2017 Overview (03/01/2024): R foot Xray - calcaneal spurs. Podiatry referral Fatty liver 07/05/2017 Migraine 07/05/2017 Overview (03/01/2024): Saw Neurology. Prednisone & Elavil Renal calculi 07/05/2017 Overview (03/01/2024): Abd US 02/17/17 Type 2 diabetes mellitus with obesity 07/05/2017 Overview (12/12/2024): 12/12/24 Regulatory IMO Update Constipation 06/04/2014 Thyroid nodule 02/22/2014 Overview (03/01/2024): FNA 03/28 Benign Dermatophytosis of foot 10/31/2013 Hypothyroid 02/20/2013 Vitamin D deficiency 10/14/2011 Obesity (BMI 30.0-34.9) 08/26/2010 Hyperlipidemia 09/30/2009 IBS (irritable bowel syndrome) 06/19/2008 Overview (03/01/2024): Random colonic bx normal 2005. Depression with anxiety 12/08/2005 Heartburn 02/22/2005 Overview (03/01/2024): EGD normal 12.12.06. 48 hour ambulatory pH testing performed [facility] 05/04/2016 revealed normal amounts of acid exposure. Immunizations Immunization Administration Dates Next Due Hepatitis B (Cjbiaxe-S-Nxhqt , Recombivax HB-Adult) 19yo and older 04/19/2017,03/16/2017 [...] History Surgery Date Site/Laterality Comments SECTION PROCEDURE: [place] DELIVERY ONLY OTHER SURGICAL HISTORY PROCEDURE: [place] LIG/TRNSXJ FLP TUBE ABDL/VAG APPR UNI/BI COLONOSCOPY 02/22/2006 PROCEDURE: HISTORICAL COLONOSCOPY; COMMENT: WNL ESOPHAGOGASTRODUODENOSCOPY 02/22/2006 PROCEDURE: AK ESOPHAGOGASTRODUODENOSCOPY TRANSORAL DIAGNOSTIC; COMMENT: WNL KNEE SURGERY 2004 PROCEDURE: HISTORICAL KNEE SURGERY; COMMENT: left, wes in lower leg COLONOSCOPY 06/02/2011 PROCEDURE: HISTORICAL COLONOSCOPY; COMMENT: normal COLONOSCOPY 10/24/14 PROCEDURE: HISTORICAL COLONOSCOPY; COMMENT: Normal colon, hyperplastic diminutive rectal polyps ESOPHAGOGASTRODUODENOSCOPY 10/24/14 PROCEDURE: AK ESOPHAGOGASTRODUODENOSCOPY TRANSORAL DIAGNOSTIC; COMMENT: Hiatal hernia, otherwise normal OTHER SURGICAL HISTORY 04/21/2015 PROCEDURE: AK LAPAROSCOPY SLING OPERATION STRESS INCONT BREAST BIOPSY 2011 Right PROCEDURE: BX BREAST; PERC NEEDLE CORE W/IMAG GUID; COMMENT: b9 BREAST BIOPSY 2014 Right PROCEDURE: AK BX BREAST W/DEVICE 1ST LESION ULTRASOUND GUID [...] Hypothyroid 02/20/2013 DX:Hypothyroid Dermatophytosis of foot 10/31/2013 DX:[place] tophytosis of foot Renal calculi 07/05/2017 DX:Renal calculi ; COMMENT: Abd US 02/17/17 Fatty liver 07/05/2017 DX:Fatty liver Migraine 07/05/2017 DX:Migraine Pre-diabetes 07/05/2017 DX:Pre-diabetes; COMMENT: 12/06/1698FmbP1K =6.1 Chronic heel pain, right 07/05/2017 DX:Conservation Science Teacher fatou heel pain, right; COMMENT: R foot [...] - 19+ 3-dose series) 09/13/2017 04/19/2017, 03/16/2017 Colorectal Cancer Screening: Colonoscopy 10/25/2019 10/24/2014 Zoster Vaccines (2 of 2) 07/24/2021 05/29/2021 Medicare Annual Wellness Visit 02/20/2022 Social Influencers [...] Albumin Creatinine Ratio abstracted us Historical Provider HEALTH MAINTENANCE Final Result * Annual BMP Blood Test (01/01/2022) Annual BMP Blood Test abstracted Result [facility] Provider HEALTH MAINTENANCE Final Result * Hemoglobin A1c (01/01/2022) Hemoglobin A1C 6.5 <=6.5 % Blood Venous blood specimen / Unknown Result [facility] Provider LAB BLOOD ORDERABLES [place] Result * (ABNORMAL) Lipid panel (01/01/2022) LDL/HDL Ratio 4 0 - 4 Triglycerides 193(A) 0 - 150 mg/dL Cholesterol 211(A) 0 - 200 mg/dL HDL 50 >=40 mg/dL LDL Cholesterol 123(A) 0 - 100 mg/dL Blood Venous blood specimen / Unknown Result [facility] Provider LAB BLOOD ORDERABLES [place] [...] in either breast. BI-RADS 1-negative Procedure Note Iraj, [place], MD - 03/02/2022 This is a summary [...] in either breast. BI-RADS 1-negative Chelly Badillo ASSEMBLY WORKER IMG BI PROCEDURES Final Re sult * HIV Screening (01/18/2019) Pathologist [facility] HIV Screening abstracted Result [facility] Provider HEALTH MAINTENANCE Final Result * Hepatitis C Screening (01/18/2019) Pathologist [facility] Hepatitis C Screening abstracted Result [facility] Provider HEALTH MAINTENANCE Final Result * Colonoscopy (10/24/2014) [facility] Colonoscopy normal, abstracted Anatomical Region Laterality Modality Other [facility] Provider HEALTH MAINTENANCE Final Result from Last 3 Months or Most Recently Relevant to Health Maintenance Insurance [place]ICAID - [place] [employer] MEDICARE
== END 2025-02-27 10:58 | disposition home or self-care (01) ==
LOC: HO.HWS 09:48
PROVIDERS: PCP Internal Medicine; Visit Provider Obstetrics & Gynecology
DX: Z01.419 Encounter for gynecological examination (general) (routine) without abnormal findings (principal)
CPT/HCPCS: 99396; 99459